=== PATIENT | male | born 1960 | race Caucasian/White ===

== ENCOUNTER → 2021-11-28 10:33 | Outpatient (BNVA) | payer OTHER, SELFPAY | PROVIDERS: PCP Nurse Practitioner Family; Visit Provider Nurse Practitioner Family | DX: E11.9 Type 2 diabetes mellitus without complications (principal) | CPT/HCPCS: 83036 ==

== ENCOUNTER 2023-05-29 14:46 | Emergency (ER) | payer OTHER, SELFPAY ==
[2023-05-29 15:23] VITALS: BP 143/61; PULSE 74; RESP 18; O2SAT 98
--- NOTE | 2023-05-29 15:38 | W.ED.WEAKNES ---
HPI - Weakness General: Chief complaint: Weakness Stated complaint: weakness Time Seen by Provider: 05/29/23 14:51 Source: patient Mode of arrival: EMS History of Present Illness: 62-year-old male presents to the emergency room complaining of chronic weakness lower extremity edema and dizziness. He was recently hospitalized twice in [place] for the same he states they did a monitor on him he had 60 seconds of some kind of issue but he cannot tell me exactly what was he thinks it was his heart had stopped he just found this out today he states. He seen his primary care doctor today they had referred him to get plain film x-rays of his right foot because of discomfort you have been having for some time while he was in route to get his x-rays he stopped tell where got very lightheaded and dizzy felt like he could not stand up and called the ambulance. No chest pain. Swelling in his legs is at baseline chronically has not prickly gotten worse recently. MD Complaint: generalized weakness Onset (ago): week(s) Duration: intermittent Location: generalized Severity: mild Relieving factors: none Exacerbating factors: none Associated symptoms: Denies chest pain, chills, confusion, melena, decreased appetite, diaphoresis, dysuria, easy bruising, fever(s), headache(s), myalgias, nausea, rash, short of breath, syncope, vomiting or other Review of Systems Const: Denies: fever(s), chills or diaphoresis Card: Denies: chest pain or syncope Resp: Denies: dyspnea GI: Denies: abdominal pain, nausea, vomiting or melena : Denies: dysuria, urinary frequency or urinary urgency Musc: Denies: neck pain or back pain Skin/Breast: Denies: rash Neuro: Denies: headache(s) or confusion Terrance/Lymph: Denies: easy bruising PFSH ED PFSH: Medical History Type 2 diabetes mellitus without complication Social History Smoking and tobacco/nicotine status: never used tobacco/nicotine Physical Exam Const: COMMON NORMALS: no acute distress GENERAL APPEARANCE: cooperative and comfortable ORIENTATION/CONSCIOUSNESS: Yes awake, Yes oriented to person, Yes oriented to place and Yes oriented to time HENMT: COMMON NORMALS: normocephalic, atraumatic and hearing grossly normal bilaterally HEAD & SCALP: normocephalic and atraumatic Resp: COMMON NORMALS: normal respiratory effort, No retractions, No use of accessory muscles and clear to auscultation bilaterally AUSCULTATION: clear to auscultation bilaterally Cardio: COMMON NORMALS: regular rate, regular rhythm and No murmurs present (Cardio) RATE: regular rate RHYTHM: regular rhythm GI: COMMON NORMALS: Soft to palpation and No hepatosplenomegaly present AUSCULTATION: Yes normoactive bowel sounds PALPATION: Yes Soft to palpation, No Tenderness to palpation present (GI), No Guarding due to palpation present (GI) and Yes No hepatosplenomegaly present Extremity: COMMON NORMALS: normal to inspection, capillary refill normal, no clubbing, cyanosis or edema, no calf tenderness and no pedal edema Neuro: SENSORIUM/ORIENTATION: Yes oriented to person, Yes oriented to place and Yes oriented to time Skin: COMMON NORMALS: no rashes or lesions noted GENERAL SKIN EXAM: no rashes or lesions noted Course Vital Signs: Vital signs: Vital Signs Pulse Rate 71 05/29/23 17:18 Respiratory Rate 18 05/29/23 17:18 Blood Pressure 120/64 05/29/23 17:18 Pulse Oximetry 97 05/29/23 17:18 Oxygen Delivery Me thod Room Air 05/29/23 17:18 MDM - Weakness Medical Decision Making Labs and imaging reviewed. No acute fractures in the foot. We tried to get copies of records to see what had been done in [place] or unable to get in because at the time of day. Patient mention they told him there was something on his monitoring he did not have any arrhythmias while he was here. We will discharge him home have him follow-up with his primary care doctor for results of the monitoring. Return if he has further problems. Medical Records I reviewed the patient's medical records. Lab Data I reviewed the patient's lab results. 05/29/23 15:36 05/29/23 15:36 Radiology Impressions Foot X-Ray 05/29/23 16:07 IMPRESSION: Nonacute findings. Chest X-Ray 05/29/23 16:08 IMPRESSION: No acute findings. Laboratory Results WBC 3.22 10^3/uL (3.29-11.43) L 05/29/23 15:36 RBC 4.15 10^6/uL (3.85-5.65) 05/29/23 15:36 Hgb 11.90 g/dL (11.27-16.99) 05/29/23 15:36 Hct 36.7 % (37-53) L 05/29/23 15:36 MCV 88.4 fl (82-101) 05/29/23 15:36 MCH 28.7 pg (27-33) 05/29/23 15:36 MCHC 32.4 g/dL (30-55) 05/29/23 15:36 RDW 14.5 % (12.1-15.1) 05/29/23 15:36 Plt Count 50 10^3/cmm (157-399) L 05/29/23 15:36 MPV 12.5 fL (7.4-10.4) H 05/29/23 15:36 Neut % (Auto) 69.9 % 05/29/23 15:36 Lymph % (Auto) 18.6 % 05/29/23 15:36 [place] % (Auto) 9.0 % 05/29/23 15:36 Eos % (Auto) 1.6 % 05/29/23 15:36 Baso % (Auto) 0.6 % 05/29/23 15:36 Neut # (Auto) 2.25 10^3/uL (1.8-7.7) 05/29/23 15:36 Lymph # (Auto) 0.6 10^3/uL (0.8-4.8) L 05/29/23 15:36 [place] # (Auto) 0.3 10^3/uL (0.2-0.9) 05/29/23 15:36 Eos # (Auto) 0.1 10^3/uL (0.0-0.8) 05/29/23 15:36 Baso # (Auto) 0.0 10^3/uL (0.0-0.1) 05/29/23 15:36 Nucleated RBC % (auto) 0 % 05/29/23 15:36 Nucleated RBCs # 0.0 /100WBC 05/29/23 15:36 Sodium 138 mmol/L (136-145) 05/29/23 15:36 Potassium 4.3 mmol/L (3.5-5.1) 05/29/23 15:36 Chloride 103 mmol/L (98-107) 05/29/23 15:36 Carbon Dioxide 23 mmol/L (22-29) 05/29/23 15:36 Anion Gap 16.3 (5-19) 05/29/23 15:36 BUN 18 mg/dL (8-23) 05/29/23 15:36 Creatinine 0.9 mg/dL (0.7-1.2) 05/29/23 15:36 GFR Calculation 85.0 mL/min (90-130) L 05/29/23 15:36 Glucose 262 mg/dL (65-115) H 05/29/23 15:36 Calculated Osmolality 297 mOsm/kg (285-295) H 05/29/23 15:36 Calcium 9.2 mg/dL (8.5-10.5) 05/29/23 15:36 Total Bilirubin 0.7 mg/dL (0.15-1.2) 05/29/23 15:36 AST 28 U/L (0-40) 05/29/23 15:36 ALT 27 U/L (0-41) 05/29/23 15:36 Alkaline Phosphatase 66 U/L (40-130) 05/29/23 15:36 Total Protein 6.6 g/dL (6.6-8.7) 05/29/23 15:36 Albumin 3.6 g/dL (3.5-5.2) 05/29/23 15:36 Globulin 3.0 g/dL (1.3-4.6) 05/29/23 15:36 Urine Color Yellow (Yellow) 05/29/23 17:28 Urine Appearance Clear (CLEAR) 05/29/23 17:28 Urine pH 5 (5-7) 05/29/23 17:28 Ur Specific [place] 1.020 (1.005-1.030) 05/29/23 17:28 Urine Protein Neg (Negative) 05/29/23 17:28 Urine Glucose (UA) 4+ (Normal) H 05/29/23 17:28 Urine Ketones Negative (Negative) 05/29/23 17:28 Urine Blood Neg (Negative) 05/29/23 17:28 Urine Nitrate Negative (Negative) 05/29/23 17:28 Urine Bilirubin Neg (Negative) 05/29/23 17:28 Urine Urobilinogen Norm mg/dL (Negative) 05/29/23 17:28 Ur Leukocyte Esterase Negative (Negative) 05/29/23 17:28 All radiology interpretation(s) finalized by discharge Discharge Plan Discharge Patient Disposition: Home Clinical Impression: Acute pain of left foot Condition: Stable Prescriptions: No Action (DME) Blood Glucose Test Strip See Rx Instructions .Route Qty: 50 2RF Rx Instructions: As directed potassium chloride 10 mEq tablet extended release 10 meq PO QAM furosemide 20 mg tablet 20 mg PO QAM glipizide 5 mg tablet 5 mg PO BID ropinirole 4 mg tablet 4 mg PO TID metformin 1,000 mg tablet 1,000 mg PO BID Discharge Orders: Discharge ED (Routine); Ordered 05/29/23 Ordered By: Trip Abrams Referrals: Dolores Fabian FNP [Primary Care Provider] - Discharge Diet: Usual diet Discharge Activity: Increase activity as tolerated Patient Instructions: Opioid Safety, Pain Management Activity Restrictions/Additional Instructions: Follow-up with your doctor regarding the testing previously done in [place]. No significant abnormalities or acute findings were noted today in the emergency room. Coding Level of Care Code ED [employer] Maintenance Manager for Maureen Epstein
[2023-05-29 15:50] LABS: Basophils % 0.6 %; Eosinophils # 0.1 10^3/uL (0.0-0.8); Eosinophils % 1.6 %; Hematocrit 36.7 % (37-53); Lymphocytes # 0.6 10^3/uL (0.8-4.8); Lymphocytes % 18.6 %; Mean Corpuscular HGB Conc 32.4 g/dL (30-55); Mean Corpuscular Hemoglobin 28.7 pg (27-33); Mean Corpuscular Volume 88.4 fl (82-101); Mean Platelet Volume 12.5 fL (7.4-10.4); Monocytes # 0.3 10^3/uL (0.2-0.9); Neutrophils # 2.25 10^3/uL (1.8-7.7); Neutrophils % 69.9 %; Nucleated Red Blood Cells % 0 %; Platelet Count 50 10^3/cmm (157-399); Red Blood Count 4.15 10^6/uL (3.85-5.65); Red Cell Distribution Width 14.5 % (12.1-15.1); White Blood Count 3.22 10^3/uL (3.29-11.43)
[2023-05-29 16:01] LABS: Alanine Aminotransferase 27 U/L (0-41); Albumin Level 3.6 g/dL (3.5-5.2); Alkaline Phosphatase 66 U/L (40-130); Anion Gap 16.3 (5-19); Aspartate Amino Transferase 28 U/L (0-40); Blood Urea Nitrogen 18 mg/dL (8-23); Calcium 9.2 mg/dL (8.5-10.5); Carbon Dioxide 23 mmol/L (22-29); Chloride 103 mmol/L (98-107); Glucose 262 mg/dL (65-115); Osmolality Calculated 297 mOsm/kg (285-295); Potassium 4.3 mmol/L (3.5-5.1); Sodium 138 mmol/L (136-145); Total Bilirubin 0.7 mg/dL (0.15-1.2); Total Protein 6.6 g/dL (6.6-8.7)
--- NOTE | 2023-05-29 16:07 | XRR_ITS ---
PROCEDURE INFORMATION: Exam: XR Left Foot Exam date and time: 05/29/2023 4:18 PM Age: 62 years old Clinical indication: Pain; Foot; Left; Additional info: Trauma TECHNIQUE: Imaging protocol: Radiologic exam of the left foot. Views: 3 or more views. COMPARISON: No relevant prior studies available. FINDINGS: Bones/joints: No fracture or other acute abnormality. No significant arthritic findings. There are calcaneal enthesophytes. Soft tissues: There is probable nondescript soft tissue swelling. XR/XR foot LT min 3V* [id number] IMPRESSION: Nonacute findings.
--- NOTE | 2023-05-29 16:08 | XRR_ITS ---
PROCEDURE INFORMATION: Exam: XR Chest Exam date and time: 05/29/2023 4:16 PM Age: 62 years old Clinical indication: Cough; Additional info: Dyspnea/cough TECHNIQUE: Imaging protocol: Radiologic exam of the chest. Views: 1 view. COMPARISON: No relevant prior studies available. FINDINGS: Lungs: Unremarkable. No consolidation. Pleural spaces: Unremarkable. No pleural effusion. No pneumothorax. Heart/Mediastinum: Unremarkable. No cardiomegaly. Bones/joints: Unremarkable. XR/XR chest 1V portable [id number] IMPRESSION: No acute findings.
--- NOTE | 2023-05-29 16:25 | ECG_ITS ---
[facility] Test Date: 2023-05-29 Pat Name: Iván Barreto Department: Room: Gender: Male Assorter Laundry: : 1960 Requested By: Trip Chou Order Number: [id number] Karen MD: Nidia Love M.D. Measurements Intervals [place] Rate: 71 P: 41 AK: 213 QRS: -40 QRSD: 82 T: 14 QT: 390 QTc: 426 Interpretive Statements SINUS RHYTHM WITH FIRST DEGREE AV BLOCK LEFT AXIS DEVIATION [QRS AXIS < -30] LOW QRS VOLTAGE IN PRECORDIAL LEADS [QRS DEFLECTION < 1.0 mV IN CHEST LEADS] ANTEROSEPTAL MYOCARDIAL INFARCTION , PROBABLY OLD [40+ ms Q WAVE IN V1-V4] No previous ECG available for comparison Electronically Signed On 05-29-2023 20:27:43 CDT by Nidia Love M.D. [email or web address]
[2023-05-29 17:18] VITALS: BP 120/64; BP 124/63; BP 138/69; BP 147/77; PULSE 69; PULSE 71; PULSE 76; PULSE 80; RESP 18; O2SAT 97
[2023-05-29] MEDS: FUROsemide 10 mg/mL SDV 10mL 60 MG IVP (17:25)
[2023-05-29 17:36] LABS: Add Urine Microscopic? NO; Charge for UA Resulting for Rev
[2023-05-29 17:44] LABS: Bilirubin Urine Neg (Negative); Blood Urine Neg (Negative); Glucose Urine UA 4+ (Normal); Ketones Urine Negative (Negative); Leukocyte Esterase Urine Negative (Negative); Nitrate Urine Negative (Negative); Protein Urine Neg (Negative); Urine Appearance Clear (CLEAR); Urine Color Yellow (Yellow); Urobilinogen Urine Norm (Negative); pH Urine 5 (5-7)
== END 2023-05-29 18:20 | disposition home or self-care (01) ==
PROVIDERS: Emergency Provider Family Medicine; PCP Nurse Practitioner Family
DX: M79.672 Pain in left foot (principal); Z79.84 Long term (current) use of oral hypoglycemic drugs; E11.9 Type 2 diabetes mellitus without complications
CPT/HCPCS: 36415; 71045; 73630; 80053; 81003; 85025; 93005; 96374; 99285; J1940

== ENCOUNTER → 2024-03-18 09:06 | Day surgery (SDC) | payer MEDICARE, MEDICAID, SELFPAY ==
--- OUTSIDE RECORDS SUMMARY | 2024-03-11 06:10 | XMS_ITS | Continuity of Care Document ---
Author Name Unknown Organization [facility] Address [address] [place] [address]- Encounter [employer] Number [id number] Date(s): 09/19/23 - 09/20/23 [facility] [address] [place] [address]- [phone] Encounter Diagnosis Other diseases of stomach and duodenum(Discharge Diagnosis) - 09/19/23 Pancytopenia(Discharge Diagnosis) - 09/19/23 Esophageal varices(Discharge Diagnosis) - 09/19/23 Portal hypertensive gastropathy(Discharge Diagnosis) - 09/19/23 Upper GI bleed(Discharge Diagnosis) - 09/19/23 Bilateral lower extremity edema(Discharge Diagnosis) - 09/19/23 NPH (normal pressure hydrocephalus)(Discharge Diagnosis) - 09/19/23 Parkinson disease(Discharge Diagnosis) - 09/19/23 Diabetes mellitus, type 2(Discharge Diagnosis) - 09/19/23 COPD mixed type(Discharge Diagnosis) - 09/19/23 Allergy to alpha-gal(Discharge Diagnosis) - 09/19/23 Esophageal varices(Discharge Diagnosis) - 09/19/23 Portal hypertensive gastropathy(Discharge Diagnosis) - 09/19/23 Discharge Disposition: .Discharge to Home (Routine) Attending Physician: Miguelito Álvarez MD Admitting Physician: Brain Malcolm MD Allergies, Adverse Reactions, Alerts Substance Reaction Severity Status Bee Sting Hives Severe Active Alpha-Gal hives Severe Active Assessment and Plan Extracted from: Title:Discharge Note Author:Miguelito Álvarez MD Date: Discharge 09/20/23 12:50:00 [employer], Home/Self Care Discharge Follow Up 09/20/23 12:50:00 [employer], Provider/Time: PCP in 5-7 days; f/u with GI as instructed. Discharge Diet 09/20/23 12:50:00 [employer], Discharge Diet: Regular Discharge Activity 09/20/23 12:50:00 [employer], As tolerated ? Extracted from: Title:Instructions to Patients Author:Destiney Simmons RN Date:09/20/23 [facility] Gastrointestinal Bleeding Gastrointestinal (GI) bleeding is bleeding anywhere along the digestive tract. The digestive tract carries food from your mouth until it leaves your body as waste, or poop. You may have blood in your poop or have black poop. If you vomit, there may be blood in it too. This condition can be mild, serious, or even life-threatening. If you have a lot of bleeding, you may need to stay in the hospital. What are the causes? This condition may be caused by: ? ? Irritation and swelling of the esophagus (esophagitis). The esophagus is part of the body that moves food from your mouth to your stomach. ? ? Swollen veins in the butt (hemorrhoids). ? ? Tears in the opening of the butt. These are often caused by passing hard poop. ? ? Pouches that form on the colon (diverticulosis). ? ? Irritation and swelling of pouches that have formed in your colon (diverticulitis). ? ? Growths (polyps) or cancer. ? ? Irritation of the stomach lining (gastritis). ? ? Sores (ulcers) in the stomach. What increases the risk? You are more likely to develop this condition if: ? ? You have a certain type of infection in your stomach called Helicobacter pylori infection. ? ? You take certain medicines. ? ? You smoke. ? ? You drink alcohol. What are the signs or symptoms? Common symptoms of this condition include: ? ? Vomiting material that has bright red blood in it. It may look like coffee grounds. ? ? Changes in your poop. The poop: ? ? May have red blood in it. ? ? May be black, look like tar, and smell stronger than normal. ? ? May be red. ? ? Pain or cramping in the belly (abdomen). How is this treated? Treatment for this condition depends on the cause of the bleeding. For example: ? ? Your doctor may treat the bleeding during diagnosis. Common ways of diagnosing this condition is endoscopy or colonoscopy. ? ? Medicines can be used to: ? ? Help control irritation, swelling, or infection. ? ? Reduce acid in your stomach. ? ? Certain problems can be treated with: ? ? Creams. ? ? Medicines that are put in the butt (suppositories). ? ? Warm baths. ? ? Surgery is sometimes needed. ? ? If you lose a lot of blood, you may need a blood transfusion. If there is a lot of bleeding, you will need to stay in the hospital. If bleeding is mild, you may be allowed to go home. Follow these instructions at home: ? ? Take siut-tel-pwancfy and prescription medicines only as told by your doctor. ? ? Eat foods that have a lot of fiber in them. These foods include beans, whole grains, and fresh fruits and vegetables. You can also try eating 1? 3 prunes each day. ? ? Drink enough fluid to keep your pee (urine) pale yellow. ? ? Keep all follow-up visits. Contact a doctor if: ? ? Your symptoms do not get better with treatment. Get help right away if: ? ? Your bleeding does not stop. ? ? You feel dizzy or you pass out (faint). ? ? You feel weak. ? ? You have very bad cramps in your back or belly. ? ? You pass large clumps of blood (clots) in your poop. ? ? Your symptoms are getting worse. ? ? You have chest pain or fast heartbeats. These symptoms may be an emergency. Get help right away. Call 911. ? ? Do not wait to see if the symptoms will go away. ? ? Do not drive yourself to the hospital. Summary ? ? Gastrointestinal (GI) bleeding is bleeding anywhere along the digestive tract. The digestive tract carries food from your mouth until it leaves your body as waste, or poop. ? ? This bleeding can be caused by many things. Treatment depends on the cause of the bleeding. ? ? Take medicines only as told by your doctor. ? ? Keep all follow-up visits. This information is not intended to replace advice given to you by your health care provider. Make sure you discuss any questions you have with your health care provider. Document Revised: 03/07/2022 Document Reviewed: 03/07/2022 [employer] Patient Education ?? 2021 [employer] Medication Leaflets: propranolol (pro PRAN oh lol) Hemangeol, Inderal LA, Inderal XL, InnoPran XL What is the most important information I should know about propranolol? Use only as directed. Tell your doctor if you use other medicines or have other medical conditions or allergies. What is propranolol? Propranolol is a beta-yocasta that is used to treat angina (chest pain), hypertension (high blood pressure), heart rhythm disorders, and other heart or circulatory conditions. It is also used to reduce the risk of after a heart attack. Propranolol is also used to treat tremors of certain causes, and to prevent migraine headaches. Hemangeol is used to treat a genetic condition called infantile hemangiomas in infants 5 weeks to 1 year old. Propranolol may also be used for purposes not listed in this medication guide. What should I discuss with my healthcare provider before taking propranolol? You should not use propranolol if you are allergic to it, or if you have: ? asthma; ? ? history of slow heart beats that have caused you to faint; ? ? severe heart failure (that required you to be in the hospital); or ? ? a serious heart condition such as 'sick sinus syndrome' or heart block (2nd or 3rd degree, unless you have a pacemaker). You should not use Hemangeol if you have pheochromocytoma (tumor of the adrenal gland). This medicine also should not be used in babies who weigh less than 4.4 pounds. Tell your doctor if you have ever had: ? slow heartbeats, congestive heart failure; ? ? bronchitis, emphysema, or other breathing disorders; ? ? diabetes (propranolol can make it harder for you to tell when you have low blood sugar); ? ? liver or kidney disease; ? ? a thyroid disorder; ? ? pheochromocytoma (tumor of the adrenal gland); ? ? problems with circulation (such as Raynaud's syndrome); or ? ? if you smoke. Tell your doctor if you are or . How should I take propranolol? Follow all directions on your prescription label and read all medication guides or instruction sheets. Your doctor may occasionally change your dose. Use the medicine exactly as directed. Adults may take propranolol with or without food, but take it the same way each time. Hemangeol must be given to an infant during or just after a feeding. Doses should be spaced at least 9 hours apart. Measure Hemangeol with the supplied measuring device (not a kitchen spoon). Do not shake. Hemangeol can cause low blood sugar (hypoglycemia), especially during times of stress, illness, infections, or skipped meals. Make sure your child eats regularly while taking this medicine. Call your doctor if a child taking Hemangeol is sick with vomiting, has missed a meal, or has signs of hypoglycemia such as severe weakness or seizure. Doses are based on weight in children. Your child's dose may change if the child gains or loses weight. Your heart function and blood pressure will need to be checked often. Tell your doctor if you have a planned surgery. Your condition may get worse if you stop using propranolol suddenly. Ask your doctor before stopping the medicine. This medicine can affect the results of certain medical tests. Tell any doctor who treats you that you are using propranolol. If you have high blood pressure, keep using this medicine even if you feel well. High blood pressure often has no symptoms. Store at room temperature away from moisture and heat. Do not freeze Hemangeol. Throw away any unused Hemangeol 2 months after you first opened the bottle. What happens if I miss a dose? Take the medicine as soon as you can, but skip the missed dose if it is almost time for your next dose. Do not take two doses at one time. What happens if I overdose? Seek emergency medical attention or call the Poison Help line at . Overdose symptoms may include feeling light-headed or restless, tremors, fast or slow heartbeats, and trouble breathing. What should I avoid while taking propranolol? Avoid drinking alcohol. It may increase your blood levels of propranolol. What are the possible side effects of propranolol? Get emergency medical help if you have signs of an allergic reaction (hives, difficult breathing, swelling in your face or throat) or a severe skin reaction (fever, sore throat, burning eyes, skin pain, red or purple skin rash with blistering and peeling). Call your doctor at once if you have: ? slow or uneven heartbeats; ? ? a light-headed feeling, like you might pass out; ? ? wheezing or trouble breathing; ? ? sudden weakness, vision problems, or loss of coordination (especially in a child with hemangioma that affects the face or head); ? ? cold feeling in your hands and feet; ? ? depression, confusion, hallucinations; ? ? heart problems--swelling, rapid weight gain, feeling short of breath; ? ? low blood sugar--headache, hunger, sweating, irritability, dizziness, fast heart rate, and feeling anxious or shaky; or ? ? low blood sugar in a baby--pale skin, blue or purple skin, sweating, fussiness, crying, not wanting to eat, feeling cold, drowsiness, weak or shallow breathing (breathing may stop for short periods), seizure (convulsions), or loss of consciousness. Common side effects may include: ? dizziness, tiredness; ? ? nausea, vomiting, diarrhea, constipation, stomach cramps; ? ? sleep problems (insomnia); or ? ? runny or stuffy nose, cough, sore throat, hoarse voice. This is not a complete list of side effects and others may occur. Call your doctor for medical advice about side effects. You may report side effects to FDA at 4-991-KTK-4687. What other drugs will affect propranolol? Sometimes it is not safe to use certain medicines at the same time. Some drugs can affect your blood levels of other drugs you use, which may increase side effects or make the medicines less effective. Tell your doctor about all your current medicines. Many drugs can affect propranolol, especially: ? cholestyramine or colestipol; ? ? warfarin (Coumadin, Jantoven); ? ? an antidepressant; ? ? heart or blood pressure medicine; ? ? medicine to treat an infection; ? ? medicine to treat a prostate disorder; ? ? steroid medicine; or ? ? NSAIDs (nonsteroidal anti-inflammatory drugs)--aspirin, ibuprofen (Advil, Motrin), naproxen (Aleve), celecoxib, diclofenac, indomethacin, meloxicam, and others. This list is not complete and many other drugs may affect propranolol. This includes prescription and irth-ziu-tbkmgrj medicines, vitamins, and herbal products. Not all possible drug interactions are listed here. Where can I get more information? Your pharmacist can provide more information about propranolol. Remember, keep this and all other medicines out of the reach of children, never share your medicines with others, and use this medication only for the indication prescribed. Every effort has been made to ensure that the information provided by [employer] is accurate, up-to-date, and complete, but no guarantee is made to that effect. Drug information contained herein may be time sensitive. [employer] information has been compiled for use by healthcare practitioners and consumers in the [place] and therefore [employer] does not warrant that uses outside of the [place] are appropriate, unless specifically indicated otherwise. [employer] drug information does not endorse drugs, diagnose patients or recommend therapy. [employer] drug information is an informational resource designed to assist licensed healthcare practitioners in caring for their patients and/or to serve consumers viewing this service as a supplement to, and not a substitute for, the expertise, skill, knowledge and judgment of healthcare practitioners. The absence of a warning for a given drug or drug combination in no way should be construed to indicate that the drug or drug combination is safe, effective or appropriate for any given patient. [employer] does not assume any responsibility for any aspect of healthcare administered with the aid of information [employer] provides. The information contained herein is not intended to cover all possible uses, directions, precautions, warnings, drug interactions, allergic reactions, or adverse effects. If you have questions about the drugs you are taking, check with your doctor, nurse or pharmacist. Copyright 3457-0120 [facility] [employer]. Version: 13.. Revision Date: 04/26/2021. pantoprazole (oral/injection) (fitzpatrick TOE pra zole) First-Pantoprazole, Protonix, Protonix IV What is the most important information I should know about pantoprazole? Pantoprazole can cause kidney problems or new or worsening symptoms of lupus. Tell your doctor if you have: pain in your side or lower back, painful urination, blood or pus in your urine, joint pain or a skin rash on your cheeks or arms that worsens in sunlight. This medicines can cause diarrhea. Tell your doctor if you have diarrhea that is watery or bloody. You may be more likely to have a broken bone while using pantoprazole. Talk with your doctor about ways to keep your bones healthy. What is pantoprazole? Pantoprazole is used to promote healing of erosive esophagitis (damage to your esophagus caused by stomach acid) in adults and children who are at least 5 years old. Pantoprazole is also used in adults to treat the symptoms of gastroesophageal reflux disease (GERD) and other conditions involving excessive stomach acid such as Ramón-Christensen syndrome. Pantoprazole may also be used for purposes not listed in this medication guide. What should I discuss with my healthcare provider before using pantoprazole? You should not use pantoprazole if you are allergic to it, or if you have: ? breathing problems; or ? ? you are allergic to any other stomach acid medicine such as lansoprazole, rabeprazole, esomeprazole, omeprazole, and others. Some drugs should not be used with pantoprazole. Your treatment plan may change if you also use any medication that contains rilpivirine. Tell your doctor if you have or have ever had: ? a zinc deficiency; ? ? an electrolyte imbalance (such as low blood levels of potassium, calcium or magnesium); ? ? lupus; or ? ? liver or kidney disease. You may be more likely to have a broken bone while using pantoprazole. Talk with your doctor about ways to keep your bones healthy. Pantoprazole may harm an unborn baby. Tell your doctor if you are or plan to become . Ask a doctor if it is safe to breastfeed while using this medicine. How should I use pantoprazole? Follow all directions on your prescription label and read all medication guides or instruction sheets. Never use pantoprazole in larger amounts, or for longer than prescribed. Do not change your dose or stop using this medication without your doctor's advice. Avoid medication errors by using exactly as directed on the label, or as prescribed by your doctor. Pantoprazole is taken by mouth or given as an infusion into a vein. Pantoprazole tablets are taken by mouth, with or without food. Pantoprazole oral granules should be taken 30 minutes before a meal. Swallow the tablet whole and do not crush, chew, or break it. Read and carefully follow instructions for mixing and taking the oral granules. The oral granules can also be given through a nasogastric tube. Ask your doctor or pharmacist if you do not understand these instructions. Shake the oral suspension (liquid). Measure a dose with the supplied measuring device (not a kitchen spoon). Use this medicine for the full prescribed length of time, even if your symptoms quickly improve. You may use antacids if needed while you are taking pantoprazole tablets. Call your doctor if your symptoms do not improve, or if they get worse after using the medicine for the number of days prescribed. You may need medical tests. This medicine can affect the results of certain medical tests. Tell any doctor or laboratory staff that you are using pantoprazole. This medicine can cause diarrhea. Tell your doctor if you have diarrhea that is watery or bloody. Store pantoprazole tablet and oral granules at room temperature away from moisture and heat. Store the oral suspension tightly closed in a refrigerator. Do not freeze and protect from light. Throw the medicine away after 30 days, even if there is still medicine left inside. What happens if I miss a dose? Use the medicine as soon as you can, but skip the missed dose if it is almost time for your next dose. Do not use two doses at one time. What happens if I overdose? Seek emergency medical attention or call the Poison Help line at . What should I avoid while using pantoprazole? Follow your doctor's instructions about any restrictions on food, beverages, or activity. Avoid getting pantoprazole oral suspension in your eyes. If contact does occur, rinse with water. What are the possible side effects of pantoprazole? Get emergency medical help if you have signs of an allergic reaction (hives, difficult breathing, swelling in your face or throat) or a severe skin reaction (fever, sore throat, burning eyes, skin pain, red or purple skin rash with blistering and peeling). Seek medical treatment if you have a serious drug reaction that can affect many parts of your body. Symptoms may include skin rash, fever, swollen glands, muscle aches, severe weakness, unusual bruising, or yellowing of your skin or eyes. Call your doctor at once if you have: ? severe stomach pain, diarrhea that is watery or bloody; ? ? nausea, vomiting, weight loss; ? ? sudden pain or trouble moving your hip, wrist, or back; ? ? pain, swelling, burning, or irritation around the IV needle; ? ? pain in your side or lower back, painful urination, blood or pus in your urine; ? ? signs of an electrolyte imbalance--increased thirst or urination, constipation, muscle weakness, leg cramps, numbness or tingling, feeling jittery, fluttering in your chest; ? ? new or worsening symptoms of lupus--joint pain, and a skin rash on your cheeks or arms that worsens in sunlight; or ? ? vitamin B12 deficiency--shortness of breath, feeling lightheaded, irregular heartbeats, muscle weakness, pale skin, tiredness, mood changes, numbness or tingling in your legs or arms. Long-term use of pantoprazole may increase your risk of serious side effects including stomach polyps. Talk with your doctor about these risks. Common side effects may include: ? headache, dizziness; ? ? stomach pain, gas, nausea, vomiting, diarrhea; ? ? joint pain; or ? ? fever, rash, or cold symptoms such as stuffy nose, sneezing, sore throat. This is not a complete list of side effects and others may occur. Call your doctor for medical advice about side effects. You may report side effects to FDA at 7-145-VFW-6231. What other drugs will affect pantoprazole? Tell your doctor about all your other medicines, especially: ? digoxin; ? ? methotrexate; or ? ? a diuretic or 'water pill'. This list is not complete. Other drugs may affect pantoprazole, including prescription and luro-qsq-yvskgyb medicines, vitamins, and herbal products. Not all possible drug interactions are listed here. Where can I get more information? Your doctor or pharmacist can provide more information about pantoprazole. Remember, keep this and all other medicines out of the reach of children, never share your medicines with others, and use this medication only for the indication prescribed. Every effort has been made to ensure that the information provided by [employer] is accurate, up-to-date, and complete, but no guarantee is made to that effect. Drug information contained herein may be time sensitive. [employer] information has been compiled for use by healthcare practitioners and consumers in the [place] and therefore [employer] does not warrant that uses outside of the [place] are appropriate, unless specifically indicated otherwise. [employer] drug information does not endorse drugs, diagnose patients or recommend therapy. [employer] drug information is an informational resource designed to assist licensed healthcare practitioners in caring for their patients and/or to serve consumers viewing this service as a supplement to, and not a substitute for, the expertise, skill, knowledge and judgment of healthcare practitioners. The absence of a warning for a given drug or drug combination in no way should be construed to indicate that the drug or drug combination is safe, effective or appropriate for any given patient. [employer] does not assume any responsibility for any aspect of healthcare administered with the aid of information [employer] provides. The information contained herein is not intended to cover all possible uses, directions, precautions, warnings, drug interactions, allergic reactions, or adverse effects. If you have questions about the drugs you are taking, check with your doctor, nurse or pharmacist. Copyright 2217-6164 [employer]. Version: 22.. Revision Date: 07/29/2023. spironolactone (spir ON oh LAK tone) Aldactone, CaroSpir What is the most important information I should know about spironolactone? You should not use spironolactone if you Ripley's disease, high levels of potassium in your blood, if you are unable to urinate, or if you are also taking eplerenone. What is spironolactone? Spironolactone is a potassium-sparing diuretic (water pill) that prevents your body from absorbing too much salt and keeps your potassium levels from getting too low. Spironolactone is used to treat heart failure, high blood pressure (hypertension), or hypokalemia (low potassium levels in the blood). Spironolactone also treats fluid retention (edema) in people with congestive heart failure, cirrhosis of the liver, or a kidney disorder called nephrotic syndrome. Spironolactone is also used to diagnose or treat a condition in which you have too much aldosterone in your body. Aldosterone is a hormone produced by your adrenal glands to help regulate the salt and water balance in your body. Spironolactone may also be used for purposes not listed in this medication guide. What should I discuss with my healthcare provider before taking spironolactone? You should not use spironolactone if you are allergic to it, or if you have: ? Ripley's disease (an adrenal gland disorder); ? ? high levels of potassium in your blood (hyperkalemia); ? ? if you are unable to urinate; or ? ? if you are also taking eplerenone. Tell your doctor if you have ever had: ? an electrolyte imbalance (such as low levels of calcium, magnesium, or sodium in your blood); ? ? kidney disease; ? ? liver disease; or ? ? heart disease. Tell your doctor if you are or plan to become . Having congestive heart failure, cirrhosis, or uncontrolled high blood pressure during may lead to medical problems in the mother or the baby. Your doctor should decide whether you take spironolactone if you are . It may not be safe to breastfeed while using this medicine. Ask your doctor about any risk. How should I take spironolactone? Follow all directions on your prescription label and read all medication guides or instruction sheets. Your doctor may occasionally change your dose. Use the medicine exactly as directed. Do not share this medicine with another person, even if they have the same symptoms you have. You may take spironolactone with or without food, but take it the same way each time. You will need frequent medical tests. This medicine can affect the results of certain medical tests. Tell any doctor who treats you that you are using spironolactone. If you need surgery, tell your surgeon you currently use this medicine. You may need to stop for a short time. If you are being treated for high blood pressure, keep using this medication even if you feel well. High blood pressure often has no symptoms. You may need to use blood pressure medication for the rest of your life. Store at room temperature away from heat, light, and moisture. What happens if I miss a dose? Take the medicine as soon as you can, but skip the missed dose if it is almost time for your next dose. Do not take two doses at one time. What happens if I overdose? Seek emergency medical attention or call the Poison Help line at . What should I avoid while taking spironolactone? Drinking alcohol can increase certain side effects. Do not use potassium supplements or salt substitutes, unless your doctor has told you to. Avoid a diet high in salt. Too much salt will cause your body to retain water and can make this medication less effective. Avoid driving or hazardous activity until you know how this medicine will affect you. Your reactions could be impaired. Avoid getting up too fast from a sitting or lying position, or you may feel dizzy. What are the possible side effects of spironolactone? Get emergency medical help if you have signs of an allergic reaction: hives; difficulty breathing; swelling of your face, lips, tongue, or throat. Call your doctor at once if you have: ? a light-headed feeling, like you might pass out; ? ? little or no urination; ? ? high potassium level--nausea, weakness, tingly feeling, chest pain, irregular heartbeats, loss of movement; o ? ? signs of other electrolyte imbalances--increased thirst or urination, confusion, vomiting, muscle pain, slurred speech, severe weakness, numbness, loss of coordination, feeling unsteady. Common side effects may include: ? breast swelling or tenderness. This is not a complete list of side effects and others may occur. Call your doctor for medical advice about side effects. You may report side effects to FDA at 4-643-NBS-4358. What other drugs will affect spironolactone? Using spironolactone with other drugs that make you dizzy can worsen this effect. Ask your doctor before using opioid medication, a sleeping pill, a muscle relaxer, or medicine for anxiety, depression, or seizures. Tell your doctor about all your other medicines, especially: ? colchicine; ? ? digoxin; ? ? lithium; ? ? loperamide; ? ? trimethoprim; ? ? heart or blood pressure medicine (especially another diuretic); ? ? medicine to prevent a blood clot; or ? ? NSAIDs (nonsteroidal anti-inflammatory drugs)--aspirin, ibuprofen (Advil, Motrin), naproxen (Aleve), celecoxib, diclofenac, indomethacin, meloxicam, and others. This list is not complete. Other drugs may affect spironolactone, including prescription and hytl-kvx-jdggwzm medicines, vitamins, and herbal products. Not all possible drug interactions are listed here. Where can I get more information? Your pharmacist can provide more information about spironolactone. Remember, keep this and all other medicines out of the reach of children, never share your medicines with others, and use this medication only for the indication prescribed. Every effort has been made to ensure that the information provided by [employer]. ('[employer]') is accurate, up-to-date, and complete, but no guarantee is made to that effect. Drug information contained herein may be time sensitive. [employer] information has been compiled for use by healthcare practitioners and consumers in the [place] and therefore [employer] does not warrant that uses outside of the [place] are appropriate, unless specifically indicated otherwise. [employer]s drug information does not endorse drugs, diagnose patients or recommend therapy. [employer] drug information is an informational resource designed to assist licensed healthcare practitioners in caring for their patients and/or to serve consumers viewing this service as a supplement to, and not a substitute for, the expertise, skill, knowledge and judgment of healthcare practitioners. The absence of a warning for a given drug or drug combination in no way should be construed to indicate that the drug or drug combination is safe, effective or appropriate for any given patient. [facility] does not assume any responsibility for any aspect of healthcare administered with the aid of information [facility] provides. The information contained herein is not intended to cover all possible uses, directions, precautions, warnings, drug interactions, allergic reactions, or adverse effects. If you have questions about the drugs you are taking, check with your doctor, nurse or pharmacist. Copyright 4703-6341 [facility] Version: .. Revision Date: 10/29/2019. Accessing??[employer]?Express??Patient??Portal Access medications, test results, radiology reports, and more through [employer] secure patient portal. Please be patient if waiting on lab results, as these can take several days to process. [place] online at??[email or web address]??Use your community medical record number (CMRN) located below to verify your identity on the Self-Enrollment form.We also offer the ability for you to securely connect other health management apps to your health record. See the [facility] Connection link on the website above for more details. Watch [employer] Patient Education Videos and Access Resources anytime online! Visit [email or web address]. Extracted from: Title:Instructions to Patients Author:Destiney Simmons RN Date:09/20/23 [employer]) Gastrointestinal Bleeding Gastrointestinal (GI) bleeding is bleeding anywhere along the digestive tract. The digestive tract carries food from your mouth until it leaves your body as waste, or poop. You may have blood in your poop or have black poop. If you vomit, there may be blood in it too. This condition can be mild, serious, or even life-threatening. If you have a lot of bleeding, you may need to stay in the hospital. What are the causes? This condition may be caused by: ? ? Irritation and swelling of the esophagus (esophagitis). The esophagus is part of the body that moves food from your mouth to your stomach. ? ? Swollen veins in the butt (hemorrhoids). ? ? Tears in the opening of the butt. These are often caused by passing hard poop. ? ? Pouches that form on the colon (diverticulosis). ? ? Irritation and swelling of pouches that have formed in your colon (diverticulitis). ? ? Growths (polyps) or cancer. ? ? Irritation of the stomach lining (gastritis). ? ? Sores (ulcers) in the stomach. What increases the risk? You are more likely to develop this condition if: ? ? You have a certain type of infection in your stomach called Helicobacter pylori infection. ? ? You take certain medicines. ? ? You smoke. ? ? You drink alcohol. What are the signs or symptoms? Common symptoms of this condition include: ? ? Vomiting material that has bright red blood in it. It may look like coffee grounds. ? ? Changes in your poop. The poop: ? ? May have red blood in it. ? ? May be black, look like tar, and smell stronger than normal. ? ? May be red. ? ? Pain or cramping in the belly (abdomen). How is this treated? Treatment for this condition depends on the cause of the bleeding. For example: ? ? Your doctor may treat the bleeding during diagnosis. Common ways of diagnosing this condition is endoscopy or colonoscopy. ? ? Medicines can be used to: ? ? Help control irritation, swelling, or infection. ? ? Reduce acid in your stomach. ? ? Certain problems can be treated with: ? ? Creams. ? ? Medicines that are put in the butt (suppositories). ? ? Warm baths. ? ? Surgery is sometimes needed. ? ? If you lose a lot of blood, you may need a blood transfusion. If there is a lot of bleeding, you will need to stay in the hospital. If bleeding is mild, you may be allowed to go home. Follow these instructions at home: ? ? Take ywkk-wbg-mmhiosh and prescription medicines only as told by your doctor. ? ? Eat foods that have a lot of fiber in them. These foods include beans, whole grains, and fresh fruits and vegetables. You can also try eating 1? 3 prunes each day. ? ? Drink enough fluid to keep your pee (urine) pale yellow. ? ? Keep all follow-up visits. Contact a doctor if: ? ? Your symptoms do not get better with treatment. Get help right away if: ? ? Your bleeding does not stop. ? ? You feel dizzy or you pass out (faint). ? ? You feel weak. ? ? You have very bad cramps in your back or belly. ? ? You pass large clumps of blood (clots) in your poop. ? ? Your symptoms are getting worse. ? ? You have chest pain or fast heartbeats. These symptoms may be an emergency. Get help right away. Call 911. ? ? Do not wait to see if the symptoms will go away. ? ? Do not drive yourself to the hospital. Summary ? ? Gastrointestinal (GI) bleeding is bleeding anywhere along the digestive tract. The digestive tract carries food from your mouth until it leaves your body as waste, or poop. ? ? This bleeding can be caused by many things. Treatment depends on the cause of the bleeding. ? ? Take medicines only as told by your doctor. ? ? Keep all follow-up visits. This information is not intended to replace advice given to you by your health care provider. Make sure you discuss any questions you have with your health care provider. Document Revised: 03/07/2022 Document Reviewed: 03/07/2022 [employer] Patient Education ?? 2021 [employer]. Medication Leaflets: propranolol (pro PRAN oh lol) Hemangeol, Inderal LA, Inderal XL, InnoPran XL What is the most important information I should know about propranolol? Use only as directed. Tell your doctor if you use other medicines or have other medical conditions or allergies. What is propranolol? Propranolol is a beta-yocasta that is used to treat angina (chest pain), hypertension (high blood pressure), heart rhythm disorders, and other heart or circulatory conditions. It is also used to reduce the risk of after a heart attack. Propranolol is also used to treat tremors of certain causes, and to prevent migraine headaches. Hemangeol is used to treat a genetic condition called infantile hemangiomas in infants 5 weeks to 1 year old. Propranolol may also be used for purposes not listed in this medication guide. What should I discuss with my healthcare provider before taking propranolol? You should not use propranolol if you are allergic to it, or if you have: ? asthma; ? ? history of slow heart beats that have caused you to faint; ? ? severe heart failure (that required you to be in the hospital); or ? ? a serious heart condition such as 'sick sinus syndrome' or heart block (2nd or 3rd degree, unless you have a pacemaker). You should not use Hemangeol if you have pheochromocytoma (tumor of the adrenal gland). This medicine also should not be used in babies who weigh less than 4.4 pounds. Tell your doctor if you have ever had: ? slow heartbeats, congestive heart failure; ? ? bronchitis, emphysema, or other breathing disorders; ? ? diabetes (propranolol can make it harder for you to tell when you have low blood sugar); ? ? liver or kidney disease; ? ? a thyroid disorder; ? ? pheochromocytoma (tumor of the adrenal gland); ? ? problems with circulation (such as Raynaud's syndrome); or ? ? if you smoke. Tell your doctor if you are or . How should I take propranolol? Follow all directions on your prescription label and read all medication guides or instruction sheets. Your doctor may occasionally change your dose. Use the medicine exactly as directed. Adults may take propranolol with or without food, but take it the same way each time. Hemangeol must be given to an infant during or just after a feeding. Doses should be spaced at least 9 hours apart. Measure Hemangeol with the supplied measuring device (not a kitchen spoon). Do not shake. Hemangeol can cause low blood sugar (hypoglycemia), especially during times of stress, illness, infections, or skipped meals. Make sure your child eats regularly while taking this medicine. Call your doctor if a child taking Hemangeol is sick with vomiting, has missed a meal, or has signs of hypoglycemia such as severe weakness or seizure. Doses are based on weight in children. Your child's dose may change if the child gains or loses weight. Your heart function and blood pressure will need to be checked often. Tell your doctor if you have a planned surgery. Your condition may get worse if you stop using propranolol suddenly. Ask your doctor before stopping the medicine. This medicine can affect the results of certain medical tests. Tell any doctor who treats you that you are using propranolol. If you have high blood pressure, keep using this medicine even if you feel well. High blood pressure often has no symptoms. Store at room temperature away from moisture and heat. Do not freeze Hemangeol. Throw away any unused Hemangeol 2 months after you first opened the bottle. What happens if I miss a dose? Take the medicine as soon as you can, but skip the missed dose if it is almost time for your next dose. Do not take two doses at one time. What happens if I overdose? Seek emergency medical attention or call the Poison Help line at . Overdose symptoms may include feeling light-headed or restless, tremors, fast or slow heartbeats, and trouble breathing. What should I avoid while taking propranolol? Avoid drinking alcohol. It may increase your blood levels of propranolol. What are the possible side effects of propranolol? Get emergency medical help if you have signs of an allergic reaction (hives, difficult breathing, swelling in your face or throat) or a severe skin reaction (fever, sore throat, burning eyes, skin pain, red or purple skin rash with blistering and peeling). Call your doctor at once if you have: ? slow or uneven heartbeats; ? ? a light-headed feeling, like you might pass out; ? ? wheezing or trouble breathing; ? ? sudden weakness, vision problems, or loss of coordination (especially in a child with hemangioma that affects the face or head); ? ? cold feeling in your hands and feet; ? ? depression, confusion, hallucinations; ? ? heart problems--swelling, rapid weight gain, feeling short of breath; ? ? low blood sugar--headache, hunger, sweating, irritability, dizziness, fast heart rate, and feeling anxious or shaky; or ? ? low blood sugar in a baby--pale skin, blue or purple skin, sweating, fussiness, crying, not wanting to eat, feeling cold, drowsiness, weak or shallow breathing (breathing may stop for short periods), seizure (convulsions), or loss of consciousness. Common side effects may include: ? dizziness, tiredness; ? ? nausea, vomiting, diarrhea, constipation, stomach cramps; ? ? sleep problems (insomnia); or ? ? runny or stuffy nose, cough, sore throat, hoarse voice. This is not a complete list of side effects and others may occur. Call your doctor for medical advice about side effects. You may report side effects to FDA at 4-637-QRL-1088. What other drugs will affect propranolol? Sometimes it is not safe to use certain medicines at the same time. Some drugs can affect your blood levels of other drugs you use, which may increase side effects or make the medicines less effective. Tell your doctor about all your current medicines. Many drugs can affect propranolol, especially: ? cholestyramine or colestipol; ? ? warfarin (Coumadin, Jantoven); ? ? an antidepressant; ? ? heart or blood pressure medicine; ? ? medicine to treat an infection; ? ? medicine to treat a prostate disorder; ? ? steroid medicine; or ? ? NSAIDs (nonsteroidal anti-inflammatory drugs)--aspirin, ibuprofen (Advil, Motrin), naproxen (Aleve), celecoxib, diclofenac, indomethacin, meloxicam, and others. This list is not complete and many other drugs may affect propranolol. This includes prescription and vvbn-rxw-heqoady medicines, vitamins, and herbal products. Not all possible drug interactions are listed here. Where can I get more information? Your pharmacist can provide more information about propranolol. Remember, keep this and all other medicines out of the reach of children, never share your medicines with others, and use this medication only for the indication prescribed. Every effort has been made to ensure that the information provided by [employer]. ('[employer]') is accurate, up-to-date, and complete, but no guarantee is made to that effect. Drug information contained herein may be time sensitive. [employer] information has been compiled for use by healthcare practitioners and consumers in the [place] and therefore [employer] does not warrant that uses outside of the [place] are appropriate, unless specifically indicated otherwise. [employer] drug information does not endorse drugs, diagnose patients or recommend therapy. [employer] drug information is an informational resource designed to assist licensed healthcare practitioners in caring for their patients and/or to serve consumers viewing this service as a supplement to, and not a substitute for, the expertise, skill, knowledge and judgment of healthcare practitioners. The absence of a warning for a given drug or drug combination in no way should be construed to indicate that the drug or drug combination is safe, effective or appropriate for any given patient. [employer] does not assume any responsibility for any aspect of healthcare administered with the aid of information [employer] provides. The information contained herein is not intended to cover all possible uses, directions, precautions, warnings, drug interactions, allergic reactions, or adverse effects. If you have questions about the drugs you are taking, check with your doctor, nurse or pharmacist. Copyright 2138-7878 [employer]. Version: 13.. Revision Date: 04/26/2021. pantoprazole (oral/injection) (fitzpatrick TOE pra zole) First-Pantoprazole, Protonix, Protonix IV What is the most important information I should know about pantoprazole? Pantoprazole can cause kidney problems or new or worsening symptoms of lupus. Tell your doctor if you have: pain in your side or lower back, painful urination, blood or pus in your urine, joint pain or a skin rash on your cheeks or arms that worsens in sunlight. This medicines can cause diarrhea. Tell your doctor if you have diarrhea that is watery or bloody. You may be more likely to have a broken bone while using pantoprazole. Talk with your doctor about ways to keep your bones healthy. What is pantoprazole? Pantoprazole is used to promote healing of erosive esophagitis (damage to your esophagus caused by stomach acid) in adults and children who are at least 5 years old. Pantoprazole is also used in adults to treat the symptoms of gastroesophageal reflux disease (GERD) and other conditions involving excessive stomach acid such as Ramón-Christensen syndrome. Pantoprazole may also be used for purposes not listed in this medication guide. What should I discuss with my healthcare provider before using pantoprazole? You should not use pantoprazole if you are allergic to it, or if you have: ? breathing problems; or ? ? you are allergic to any other stomach acid medicine such as lansoprazole, rabeprazole, esomeprazole, omeprazole, and others. Some drugs should not be used with pantoprazole. Your treatment plan may change if you also use any medication that contains rilpivirine. Tell your doctor if you have or have ever had: ? a zinc deficiency; ? ? an electrolyte imbalance (such as low blood levels of potassium, calcium or magnesium); ? ? lupus; or ? ? liver or kidney disease. You may be more likely to have a broken bone while using pantoprazole. Talk with your doctor about ways to keep your bones healthy. Pantoprazole may harm an unborn baby. Tell your doctor if you are or plan to become . Ask a doctor if it is safe to breastfeed while using this medicine. How should I use pantoprazole? Follow all directions on your prescription label and read all medication guides or instruction sheets. Never use pantoprazole in larger amounts, or for longer than prescribed. Do not change your dose or stop using this medication without your doctor's advice. Avoid medication errors by using exactly as directed on the label, or as prescribed by your doctor. Pantoprazole is taken by mouth or given as an infusion into a vein. Pantoprazole tablets are taken by mouth, with or without food. Pantoprazole oral granules should be taken 30 minutes before a meal. Swallow the tablet whole and do not crush, chew, or break it. Read and carefully follow instructions for mixing and taking the oral granules. The oral granules can also be given through a nasogastric tube. Ask your doctor or pharmacist if you do not understand these instructions. Shake the oral suspension (liquid). Measure a dose with the supplied measuring device (not a kitchen spoon). Use this medicine for the full prescribed length of time, even if your symptoms quickly improve. You may use antacids if needed while you are taking pantoprazole tablets. Call your doctor if your symptoms do not improve, or if they get worse after using the medicine for the number of days prescribed. You may need medical tests. This medicine can affect the results of certain medical tests. Tell any doctor or laboratory staff that you are using pantoprazole. This medicine can cause diarrhea. Tell your doctor if you have diarrhea that is watery or bloody. Store pantoprazole tablet and oral granules at room temperature away from moisture and heat. Store the oral suspension tightly closed in a refrigerator. Do not freeze and protect from light. Throw the medicine away after 30 days, even if there is still medicine left inside. What happens if I miss a dose? Use the medicine as soon as you can, but skip the missed dose if it is almost time for your next dose. Do not use two doses at one time. What happens if I overdose? Seek emergency medical attention or call the Poison Help line at . What should I avoid while using pantoprazole? Follow your doctor's instructions about any restrictions on food, beverages, or activity. Avoid getting pantoprazole oral suspension in your eyes. If contact does occur, rinse with water. What are the possible side effects of pantoprazole? Get emergency medical help if you have signs of an allergic reaction (hives, difficult breathing, swelling in your face or throat) or a severe skin reaction (fever, sore throat, burning eyes, skin pain, red or purple skin rash with blistering and peeling). Seek medical treatment if you have a serious drug reaction that can affect many parts of your body. Symptoms may include skin rash, fever, swollen glands, muscle aches, severe weakness, unusual bruising, or yellowing of your skin or eyes. Call your doctor at once if you have: ? severe stomach pain, diarrhea that is watery or bloody; ? ? nausea, vomiting, weight loss; ? ? sudden pain or trouble moving your hip, wrist, or back; ? ? pain, swelling, burning, or irritation around the IV needle; ? ? pain in your side or lower back, painful urination, blood or pus in your urine; ? ? signs of an electrolyte imbalance--increased thirst or urination, constipation, muscle weakness, leg cramps, numbness or tingling, feeling jittery, fluttering in your chest; ? ? new or worsening symptoms of lupus--joint pain, and a skin rash on your cheeks or arms that worsens in sunlight; or ? ? vitamin B12 deficiency--shortness of breath, feeling lightheaded, irregular heartbeats, muscle weakness, pale skin, tiredness, mood changes, numbness or tingling in your legs or arms. Long-term use of pantoprazole may increase your risk of serious side effects including stomach polyps. Talk with your doctor about these risks. Common side effects may include: ? headache, dizziness; ? ? stomach pain, gas, nausea, vomiting, diarrhea; ? ? joint pain; or ? ? fever, rash, or cold symptoms such as stuffy nose, sneezing, sore throat. This is not a complete list of side effects and others may occur. Call your doctor for medical advice about side effects. You may report side effects to FDA at 5-960-VUP-8941. What other drugs will affect pantoprazole? Tell your doctor about all your other medicines, especially: ? digoxin; ? ? methotrexate; or ? ? a diuretic or 'water pill'. This list is not complete. Other drugs may affect pantoprazole, including prescription and dhzp-gqt-[id number] medicines, vitamins, and herbal products. Not all possible drug interactions are listed here. Where can I get more information? Your doctor or pharmacist can provide more information about pantoprazole. Remember, keep this and all other medicines out of the reach of children, never share your medicines with others, and use this medication only for the indication prescribed. Every effort has been made to ensure that the information provided by [employer]. ('[employer]') is accurate, up-to-date, and complete, but no guarantee is made to that effect. Drug information contained herein may be time sensitive. [employer] information has been compiled for use by healthcare practitioners and consumers in the [place] and therefore [employer] does not warrant that uses outside of the [place] are appropriate, unless specifically indicated otherwise. [employer] drug information does not endorse drugs, diagnose patients or recommend therapy. [employer] drug information is an informational resource designed to assist licensed healthcare practitioners in caring for their patients and/or to serve consumers viewing this service as a supplement to, and not a substitute for, the expertise, skill, knowledge and judgment of healthcare practitioners. The absence of a warning for a given drug or drug combination in no way should be construed to indicate that the drug or drug combination is safe, effective or appropriate for any given patient. [employer] does not assume any responsibility for any aspect of healthcare administered with the aid of information [employer] provides. The information contained herein is not intended to cover all possible uses, directions, precautions, warnings, drug interactions, allergic reactions, or adverse effects. If you have questions about the drugs you are taking, check with your doctor, nurse or pharmacist. Copyright 4500-6180 [employer]. Version: 22.. Revision Date: 07/29/2023. spironolactone (spir ON oh LAK tone) Aldactone, CaroSpir What is the most important information I should know about spironolactone? You should not use spironolactone if you Ripley's disease, high levels of potassium in your blood, if you are unable to urinate, or if you are also taking eplerenone. What is spironolactone? Spironolactone is a potassium-sparing diuretic (water pill) that prevents your body from absorbing too much salt and keeps your potassium levels from getting too low. Spironolactone is used to treat heart failure, high blood pressure (hypertension), or hypokalemia (low potassium levels in the blood). Spironolactone also treats fluid retention (edema) in people with congestive heart failure, cirrhosis of the liver, or a kidney disorder called nephrotic syndrome. Spironolactone is also used to diagnose or treat a condition in which you have too much aldosterone in your body. Aldosterone is a hormone produced by your adrenal glands to help regulate the salt and water balance in your body. Spironolactone may also be used for purposes not listed in this medication guide. What should I discuss with my healthcare provider before taking spironolactone? You should not use spironolactone if you are allergic to it, or if you have: ? Ripley's disease (an adrenal gland disorder); ? ? high levels of potassium in your blood (hyperkalemia); ? ? if you are unable to urinate; or ? ? if you are also taking eplerenone. Tell your doctor if you have ever had: ? an electrolyte imbalance (such as low levels of calcium, magnesium, or sodium in your blood); ? ? kidney disease; ? ? liver disease; or ? ? heart disease. Tell your doctor if you are or plan to become . Having congestive heart failure, cirrhosis, or uncontrolled high blood pressure during may lead to medical problems in the mother or the baby. Your doctor should decide whether you take spironolactone if you are . It may not be safe to breastfeed while using this medicine. Ask your doctor about any risk. How should I take spironolactone? Follow all directions on your prescription label and read all medication guides or instruction sheets. Your doctor may occasionally change your dose. Use the medicine exactly as directed. Do not share this medicine with another person, even if they have the same symptoms you have. You may take spironolactone with or without food, but take it the same way each time. You will need frequent medical tests. This medicine can affect the results of certain medical tests. Tell any doctor who treats you that you are using spironolactone. If you need surgery, tell your surgeon you currently use this medicine. You may need to stop for a short time. If you are being treated for high blood pressure, keep using this medication even if you feel well. High blood pressure often has no symptoms. You may need to use blood pressure medication for the rest of your life. Store at room temperature away from heat, light, and moisture. What happens if I miss a dose? Take the medicine as soon as you can, but skip the missed dose if it is almost time for your next dose. Do not take two doses at one time. What happens if I overdose? Seek emergency medical attention or call the Poison Help line at . What should I avoid while taking spironolactone? Drinking alcohol can increase certain side effects. Do not use potassium supplements or salt substitutes, unless your doctor has told you to. Avoid a diet high in salt. Too much salt will cause your body to retain water and can make this medication less effective. Avoid driving or hazardous activity until you know how this medicine will affect you. Your reactions could be impaired. Avoid getting up too fast from a sitting or lying position, or you may feel dizzy. What are the possible side effects of spironolactone? Get emergency medical help if you have signs of an allergic reaction: hives; difficulty breathing; swelling of your face, lips, tongue, or throat. Call your doctor at once if you have: ? a light-headed feeling, like you might pass out; ? ? little or no urination; ? ? high potassium level--nausea, weakness, tingly feeling, chest pain, irregular heartbeats, loss of movement; o ? ? signs of other electrolyte imbalances--increased thirst or urination, confusion, vomiting, muscle pain, slurred speech, severe weakness, numbness, loss of coordination, feeling unsteady. Common side effects may include: ? breast swelling or tenderness. This is not a complete list of side effects and others may occur. Call your doctor for medical advice about side effects. You may report side effects to FDA at 9-060-WZK-0979. What other drugs will affect spironolactone? Using spironolactone with other drugs that make you dizzy can worsen this effect. Ask your doctor before using opioid medication, a sleeping pill, a muscle relaxer, or medicine for anxiety, depression, or seizures. Tell your doctor about all your other medicines, especially: ? colchicine; ? ? digoxin; ? ? lithium; ? ? loperamide; ? ? trimethoprim; ? ? heart or blood pressure medicine (especially another diuretic); ? ? medicine to prevent a blood clot; or ? ? NSAIDs (nonsteroidal anti-inflammatory drugs)--aspirin, ibuprofen (Advil, Motrin), naproxen (Aleve), celecoxib, diclofenac, indomethacin, meloxicam, and others. This list is not complete. Other drugs may affect spironolactone, including prescription and cxnp-syd-evozfdb medicines, vitamins, and herbal products. Not all possible drug interactions are listed here. Where can I get more information? Your pharmacist can provide more information about spironolactone. Remember, keep this and all other medicines out of the reach of children, never share your medicines with others, and use this medication only for the indication prescribed. Every effort has been made to ensure that the information provided by [employer]') is accurate, up-to-date, and complete, but no guarantee is made to that effect. Drug information contained herein may be time sensitive. [employer] information has been compiled for use by healthcare practitioners and consumers in the [place] and therefore [employer] does not warrant that uses outside of the [place] are appropriate, unless specifically indicated otherwise. [employer] drug information does not endorse drugs, diagnose patients or recommend therapy. [employer] drug information is an informational resource designed to assist licensed healthcare practitioners in caring for their patients and/or to serve consumers viewing this service as a supplement to, and not a substitute for, the expertise, skill, knowledge and judgment of healthcare practitioners. The absence of a warning for a given drug or drug combination in no way should be construed to indicate that the drug or drug combination is safe, effective or appropriate for any given patient. [employer] does not assume any responsibility for any aspect of healthcare administered with the aid of information [employer] provides. The information contained herein is not intended to cover all possible uses, directions, precautions, warnings, drug interactions, allergic reactions, or adverse effects. If you have questions about the drugs you are taking, check with your doctor, nurse or pharmacist. Copyright 6935-9359 [employer]. Version: 11.. Revision Date: 10/29/2019. Accessing??[employer])??Express??Patient??Portal Access medications, test results, radiology reports, and more through [employer] secure patient portal. Please be patient if waiting on lab results, as these can take several days to process. [place] online at??[email or web address]??Use your community medical record number (CMRN) located below to verify your identity on the Self-Enrollment form.We also offer the ability for you to securely connect other health management apps to your health record. See the [facility] Connection link on the website above for more details. Watch [employer] Patient Education Videos and Access Resources anytime online! Visit [email or web address]. Extracted from: Title:Progress SOAP Note Author:Mikal HERNANDEZ, Sara Hanks Date:09/20/23 1.??Upper GI bleed(Gastroint estinal hemorrhage, unspecified: K92.2) 2.??Esophageal varices(Esophageal varices without bleeding: I85.00) 3.??Portal hypertensive gastropathy(Portal hypertension: K76.6) 4.??Pancytopenia(Other pancytopenia: D61.818) 5.??Bilateral lower extremity edema(Localized edema: R60.0) 6.??Diabetes mellitus, type 2(Type 2 diabetes mellitus without complications: E11.9) 7.??Parkinson disease(Parkinson's disease without dyskinesia, without mention of fluctuations: G20.A1) 8.??NPH (normal pressure hydrocephalus)((Idiopathic) normal pressure hydrocephalus: G91.2) 9.??COPD mixed type(Chronic obstructive pulmonary disease, unspecified: J44.9) 10.??Allergy to alpha-gal(Allergy to other foods: Z91.018) Esophageal varices(Esophageal varices without bleeding: I85.00) Other diseases of stomach and duodenum(Other diseases of stomach and duodenum: K31.89) Portal hypertensive gastropathy(Portal hypertension: K76.6) Orders: Soft diet Impression ?? 62-year-old??male??with previous history??of bleeding esophageal??varices with banding??he presents??to the hospital??with anemia??and lower??GI bleed.?? On upper endoscopy found to have??multiple columns??of??grade 3 esophageal??varices that??were banded??a total of 6 bands??were deployed successfully.?? Otherwise portal hypertensive gastropathy??mucosal??changes were seen without any evidence??of gastric??varices.?? His etiology??of??liver disease/cirrhosis??is unknown.?? I suspect??there??is a large component??of nonalcoholic??fatty??liver disease??with a background ETOH use ?? Recommendations ?? 1. Follow??back up with GI??in clinic in??2-3 weeks' time??for monitoring??of cirrhosis and further management??of esophageal??varices 2. Start nadolol/propranolol??prophylaxis 3.??If diet as tolerated he can be discharged home today? Extracted from: Title:Progress SOAP Note Author:Preeti HERNANDEZ, Miguelito Wagner te:09/19/23 1.??Upper GI bleed(Gastroint estinal hemorrhage, unspecified: K92.2) 2.??Esophageal varices(Esophageal varices without bleeding: I85.00) 3.??Portal hypertensive gastropathy(Portal hypertension: K76.6) 4.??Pancytopenia(Other pancytopenia: D61.818) 5.??Bilateral lower extremity edema(Localized edema: R60.0) 6.??Diabetes mellitus, type 2(Type 2 diabetes mellitus without complications: E11.9) 7.??Parkinson disease(Parkinson's disease without dyskinesia, without mention of fluctuations: G20.A1) 8.??NPH (normal pressure hydrocephalus)((Idiopathic) normal pressure hydrocephalus: G91.2) 9.??COPD mixed type(Chronic obstructive pulmonary disease, unspecified: J44.9) 10.??Allergy to alpha-gal(Allergy to other foods: Z91.018) Esophageal varices(Esophageal varices without bleeding: I85.00) Other diseases of stomach and duodenum(Other diseases of stomach and duodenum: K31.89) Portal hypertensive gastropathy(Portal hypertension: K76.6) Orders: carbidopa-levodopa, 1 tab, TAB, Route: By mouth, TID, Start Date: 09/19/23 14:00:00 [employer], Duration: 90 Days, Stop date: 12/18/23 9:00:00 CDT, Routine, Disp Location: [facility] gabapentin, 100 mg = 1 cap, CAP, By mouth, TID, Start Date: 09/19/23 14:00:00 [employer], Duration: 90 Days, Stop date 12/18/23 9:00:00 CDT, Routine, Disp Location: [facility] - 1400, GEN DISP magnesium oxide, 200 mg = 0.5 tab, TAB, By mouth, BID, Start Date: 09/19/23 11:10:00 [employer]OR, Duration: 90 Days, Stop date 12/17/23 21:00:00 CDT, Routine, Disp Location: [facility] - 1400, GEN DISP ?? Plan: Reviewed??EGD procedure note. ?? Advancing to full liquid diet. ?? Continue octreotide drip??and IV ppi.?? Serial??hemoglobin and transfuse to keep??it above??7. ?? Reconciled home meds. ? Extracted from: Title:Inpatient Consult Note Author:Mikal HERNANDEZ, Am ir R Date:09/19/23 1.??Upper GI bleed(Gastroint estinal hemorrhage, unspecified: K92.2) 2.??Esophageal varices(Esophageal varices without bleeding: I85.00) 3.??Portal hypertensive gastropathy(Portal hypertension: K76.6) 4.??Pancytopenia(Other pancytopenia: D61.818) 5.??Bilateral lower extremity edema(Localized edema: R60.0) 6.??Diabetes mellitus, type 2(Type 2 diabetes mellitus without complications: E11.9) 7.??Parkinson disease(Parkinson's disease without dyskinesia, without mention of fluctuations: G20.A1) 8.??NPH (normal pressure hydrocephalus)((Idiopathic) normal pressure hydrocephalus: G91.2) 9.??COPD mixed type(Chronic obstructive pulmonary disease, unspecified: J44.9) 10.??Allergy to alpha-gal(Allergy to other foods: Z91.018) Other diseases of stomach and duodenum(Other diseases of stomach and duodenum: K31.89) Orders: octreotide 500 mcg [25 mcg/hr] + Dextrose 5% in Water 107 mL, Route: IV, Routine, Start Date: 09/19/23 9:02:00 [employer]PECTOR, 90 Days, Stop date 12/18/23 9:01:00 CDT, Rate= 5.45 ml/hr, hr, Total Vol ml = 108, Disp Location: [facility] IV, Populate Charting Weight From Order, GEN DISP, 2.17, m2 propranolol, 10 mg = 1 tab, TAB, By mouth, BID, Start Date: 09/19/23 9:03:00 [employer]OR, Duration: 90 Days, Stop date 12/17/23 21:00:00 CDT, Routine, Disp Location: [facility], GEN DISP sodium chloride flush, 5 mL, INJ, Route: IVP, Q10Min, PRN, See Comment Note, Start Date: 09/19/23 7:24:00 [employer]OR, Duration: 90 Days, Stop date: 12/18/23 8:23:00 CDT, Routine, Disp Location: [facility] - 1400, GEN DISP sodium chloride flush, 5 mL, INJ, Route: IVP, Q12H, Start Date: 09/19/23 9:00:00 [employer]PECTOR, Duration: 90 Days, Stop date: 12/17/23 21:00:00 CDT, Routine, Disp Location: [facility] - 1400, GEN DISP Consent, esophagogastroduogenoscopy Gastroscopy Initiate Plan, IV Device Maintenance Protocol Adult Initiate Plan, GI EGD (esophagogastroduogenoscopy) Inpatient Liquid Full Notify Provider, Notify physician if has been on Plavix, Effient or Pradaxa in past __???___ days Nursing Communication Order, Hold SQ heparin or Lovenox until after procedure. Nursing Communication Order, Please have patient remove all body piercings, jewelry and dentures and leave them in the room Nursing Communication Order, Schedule procedure with GI lab Nursing Communication Order, If on Coumadin (Warfarin) in last 5 days and has not had a PT done in the last 24 hours, obtain Protime. If of childbearing age and any possibility of , please obtain urine test. Nursing Communication Order, If has pacemaker, ensure that has had pacemaker check within last 6 weeks; if not, complete the [employer] management orders and device information sheet Nursing Communication Order, Check with primary physician about insulin or oral diabetes medications. Impression? This is a??62-year-old??male who presents??to an??outside??facility with??melena with the acute??GI??blood loss and anemia??with a prior history??of esophageal??varices requiring??banding several years ago.?? His past??medical history is positive for??type 2 diabetes, Parkinson's,??normal pressure hydrocephalus, COPD, pancytopenia as a result??of probable??cirrhosis.?? An upper endoscopy carried out??at the outside facility??revealed esophageal??varices??and therefore he was transferred here??for higher level??of care and further management??of his esophageal??varices ?? Plan ?? 1. Continue??with octreotide??drip 2. Proceed to upper endoscopy??with banding ?? Thank??you??for this consult??further recommendations??to follow upper endoscopy ? Extracted from: Title:Admission H&P Note Author:Zulma Teran Date:09/19/23 1.??Upper GI bleed(Gastroint estinal hemorrhage, unspecified: K92.2) 2.??Esophageal varices(Esophageal varices without bleeding: I85.00) 3.??Portal hypertensive gastropathy(Portal hypertension: K76.6) 4.??Pancytopenia(Other pancytopenia: D61.818) 5.??Bilateral lower extremity edema(Localized edema: R60.0) 6.??Diabetes mellitus, type 2(Type 2 diabetes mellitus without complications: E11.9) 7.??Parkinson disease(Parkinson's disease without dyskinesia, without mention of fluctuations: G20.A1) 8.??NPH (normal pressure hydrocephalus)((Idiopathic) normal pressure hydrocephalus: G91.2) 9.??COPD mixed type(Chronic obstructive pulmonary disease, unspecified: J44.9) 10.??Allergy to alpha-gal(Allergy to other foods: Z91.018) Other diseases of stomach and duodenum(Other diseases of stomach and duodenum: K31.89) ? PLAN: Mr Seymour has been transferred to??this facility??for further evaluation??and management??of??upper GI bleed with esophageal??varices??noted??on EGD??today at outside facility.?? Per??record view,??it seems??patient's admission hemoglobin??at??that facility??was somewhere??around??8.?? As of??this morning he was??up to 10.?? He has received??2 units??of packed red cells??facility best I??can tell.?? Platelets have been??ranging??in the 50-60 range.?? White blood cell count is??around??3.?? Repeat??CBC is pending stat.?? Will also obtain??CMP and PT INR. Transfuse??additionally to keep??hemoglobin above??7.0. GI is aware??of patient transfer??and??is to consult later this morning??for further recommendations regarding esophageal varices. Will continue??IV PPI b.i.d. for now. Patient was treated with??octreotide at outside facility.?? Bleeding is apparently??controlled with no active??bleeding??noted??on endoscopy.?? Will defer further??treatment for now. Portal??hypertensive??gastropathy is noted on EGD??report.?? Will start nadolol. He does have evidence??of bilateral??lower??extremity??edema and so will give spironolactone.?? Abdomen??exam is without significant??ascites.?? Patient denies increase??in abdominal??girth. Patient is unsure if??he has ever??had formal??diagnosis??of??liver disease.?? Based on??laboratory studies??and??endoscopic findings, suspect??he has underlying??liver cirrhosis.?? Will obtain??liver ultrasound.?? Cirrhosis panel will be ordered including hepatitis screening. CMP is pending to check??liver function studies and renal function studies as ??above. Patient denies current or??past??alcohol??abuse??or dependency. Once routine medications??are verified,??will continue??appropriate medications??for maintenance??of chronic??conditions including??Parkinson's??disease, diabetes and COPD.?? Will start glycemic management??protocol??with sliding??scale??insulin if needed. Will keep??patient NPO pending??GI??eval and??liver ultrasound. Patient may be??up as tolerated. SCDs for DVT??prophylaxis??given GI bleed and pancytopenia. Full code. ?? Patient was seen face to face, and examined in detail at the time of admission. ??The available labs, vitals, diagnostics, and documentation in the EHR ??were personally reviewed, Patient History & Physical reviewed and confirmed. ??Agree with documented and edited information. ??The plan of care was discussed with the patient. ? FRJ ? Diagnostic Tests Pending * CHELITA Screen 09/19/23 * Smooth Muscle Total Autoabs 09/19/23 * Mitochondrial Antibodies (M2), Serum 09/19/23 * [id number], Serum 09/19/23 * Ceruloplasmin, Serum 09/19/23 * Transferrin, Serum 09/19/23 * Alpha-Fetoprotein (AFP) Tumor Marker, Serum 09/19/23 Medications carbidopa-levodopa 25 mg-100 mg oral tablet 1 tab, By mouth, TID, # 90 tab, Refill(s) 0 Start Date: 09/19/23 Status: Ordered Farxiga 10 mg oral tablet 10 mg = 1 tab, By mouth, Daily, Refill(s) 0 Start Date: 09/19/23 Status: Ordered furosemide 20 mg oral tablet 20 mg = 1 tab, By mouth, Daily, Refill(s) 0 Start Date: 09/19/23 Status: Ordered gabapentin 100 mg oral capsule 100 mg = 1 cap, By mouth, TID, Refill(s) 0 Start Date: 09/19/23 Status: Ordered magnesium oxide 200 mg, By mouth, BID, Refill(s) 0 Start Date: 09/19/23 Status: Ordered metFORMIN 1000 mg oral tablet 1,000 mg = 1 tab, By mouth, BID, Refill(s) 0 Start Date: 09/19/23 Status: Ordered potassium chloride 10 mEq oral capsule, extended release 10 mEq = 1 cap, By mouth, Daily, Refill(s) 0 Start Date: 09/19/23 Status: Ordered propranolol 10 mg oral tablet 10 mg = 1 tab, By mouth, BID, # 60 tab, Refill(s) 0, Pharmacy: [facility] MERRY BaxterPDP_ID-[id number], TAB, 1 tab By mouth BID, 92.8, 09/20/23 4:56:00 [employer] INSPECTOR, kg, Weight (kg) (Clinical) Start Date: 09/20/23 Status: Ordered Protonix 40 mg oral delayed release tablet 40 mg = 1 tab, By mouth, Daily, # 30 tab, Refill(s) 0, Pharmacy: [facility] MERRY BaxterPDP_ID-[id number], 1 tab By mouth Daily, 92.8, 09/20/23 4:56:00 CASINO GAMING INSPECTOR, kg, Weight (kg) (Clinical) Start Date: 09/20/23 Status: Ordered spironolactone 25 mg oral tablet 25 mg = 1 tab, By mouth, Daily, # 30 tab, Refill(s) 0, Pharmacy: [facility] MERRY BaxterPDP_ID-[id number], TAB, 1 tab By mouth Daily, 92.8, 09/20/23 4:56:00 CASINO GAMING INSPECTOR, kg, Weight (kg) (Clinical) Start Date: 09/20/23 Status: Ordered Problem List Condition Confirmation Course Effective Dates Status Health St atus Informant Allergy to alpha-gal Confirmed Active Bilateral lower extremity edema Confirmed Active COPD mixed type Confirmed Active Esophageal varices Confirmed Active Ex-smoker Confirmed Active patient NPH (normal pressure hydrocephalus) Confirmed Active Pancytopenia Confirmed Active Parkinson disease Confirmed Active Portal hypertensive gastropathy Confirmed Active Diabetes mellitus, type 2 Confirmed Active Upper GI bleed Confirmed Active Procedures Procedure Date Related Diagnosis Body Site Status EGD BAND LIGATION ESOPHGEAL/ GASTRIC VARICES 09/19/23 Completed Gastroscopy - Endo 1 09/19/23 Comp leted 1auto-populated from documented surgical case Results Laboratory List Name Date Hemoglobin 09/20/23 CBC-d 09/20/23 CMP 09/20/23 Magnesium Serum (Mg Serum) 09/20/23 zCBC Automated Diff 09/20/23 Hemoglobin 09/19/23 Ferritin 09/19/23 Hepatitis A Total Ab, S 09/19/23 Hepatitis Bc Ab IgM (HBcore IgM) 09/19/23 Hepatitis Bs Antigen (HBsAg) 09/19/23 Hepatitis C Antibody (HCV Ab) 09/19/23 Iron and TIBC (Iron&TIBC) 09/19/23 CBC-d 09/19/23 CMP 09/19/23 Hgb A1C (Glyc Hgb) 09/19/23 PT/INR 09/19/23 PTT 09/19/23 zCBC Automated Diff 09/19/23 Most recent to oldest [Reference Range]: 1 2 3 Bedside Glucose 284 mg/dL 1 (09/20/23 12:13 PM) 213 mg/dL 2 (09/20/23 7:35 AM) 188 mg/dL 3 (09/19/23 12:17 PM) [address] Glucose 200 mg/dL *NA* (09/19/23 1:51 AM) Anion Gap [2-15 mEq/L] 5 mEq/L (09/20/23 12:16 AM) 6 mEq/L (09/19/23 1:51 AM) Hepatitis B Core IgM Ab [Nonreactive] Nonreactive (09/19/23 3:20 AM) Hepatitis A Total IgG/IgM Ab [Nonreactive] Reactive *ABN* (09/19/23 3:20 AM) Hepatitis B Surface Ag by EI A [Nonreactive] Nonreactive (09/19/23 3:20 AM) Hepatitis C Ab [Nonreactive] Nonreactive (09/19/23 3:20 AM) eGFR CKD-EPI [>=61 mL/min/1.73 m2] 109 mL/min/1.73 m2 (09/20/23 12:16 AM) 108 mL/min/1.73 m2 (09/19/23 1:51 AM) Glucose, Serum/Plasma [70-10 0 mg/dL] 243 mg/dL *HI* (09/20/23 12:16 AM) 272 mg/dL *HI* (09/19/23 1:51 AM) WBC [4.8-10.8 Thous/mm3] 3.2 Thous/mm3 *LOW* (09/20/23 12:16 AM) 2.8 Thous/mm3 *LOW* (09/19/23 1:51 AM) Hct [42.0-52.0 %] 32.2 % *LOW* (09/20/23 12:16 AM) 28.5 % *LOW* (09/19/23 1:51 AM) Hgb [14.0-18.0 g/dL] 9.7 g/dL *LOW* (09/20/23 8:57 AM) 10.0 g/dL *LOW* (09/20/23 12:16 AM) 10.2 g/dL *LOW* (09/19/23 6:33 PM) RBC [4.60-6.20 Million/mm3] 3.62 Million /mm3 *LOW* (09/20/23 12:16 AM) 3.31 Million/mm3 *LOW* (09/19/23 1:51 AM) MCV [80.0-100.0 fl] 89.0 fl (09/20/23 12:16 AM) 86.1 fl (09/19/23 1:51 AM) MCH [26.0-34.0 pg] 27.6 pg (09/20/23 12:16 AM) 27.8 pg (09/19/23 1:51 AM) MCHC [31.0-36.5 g/dL] 31.1 g/dL (09/20/23 12:16 AM) 32.3 g/dL (09/19/23 1:51 AM) RDW [10.4-14.4 %] 16.3 % *HI* (09/20/23 12:16 AM) 17.1 % *HI* (09/19/23 1:51 AM) Platelets [130-440 Thous/mm3] 46 Thous/m m3 *LOW* (09/20/23 12:16 AM) 54 Thous/mm3 *LOW* (09/19/23 1:51 AM) MPV [9.4-12.4 fl] 11.6 fl (09/20/23 12:16 AM) 12.9 fl *HI* (09/19/23 1:51 AM) AutoNeutrophil [43.0-78.0 %] 65.1 % (09/20/23 12:16 AM) 64.1 % (09/19/23 1:51 AM) AutoLymphs [20.0-40.0 %] 20.1 % (09/20/23 12:16 AM) 21.8 % (09/19/23 1:51 AM) AutoMono [2.0-10.0 %] 9.9 % (09/20/23 12:16 AM) 9.5 % (09/19/23 1:51 AM) AutoEo [0.0-7.0 %] 4.3 % (09/20/23 12:16 AM) 4.2 % (09/19/23 1:51 AM) Sodium [136-145 mEq/L] 137 mEq/L (09/20/23 12:16 AM) 137 mEq/L (09/19/23 1:51 AM) Potassium [3.5-5.1 mEq/L] 4.0 mEq/L (09/20/23:16 AM) 3.7 mEq/L (09/19/23 1:51 AM) Chloride [98-107 mEq/L] 108 mEq/L *HI* (09/20/23:16 AM) 106 mEq/L (09/19/23 1:51 AM) AbsNeut [2.0-8.0 Thous/mm3] 2.1 Thous/mm 3 (09/20/23 12:16 AM) 1.8 Thous/mm3 *LOW* (09/19/23 1:51 AM) CO2 [21-32 mEq/L] 24 mEq/L (09/20/23:16 AM) 25 mEq/L (09/19/23 1:51 AM) BUN [7-18 mg/dL] <5 mg/dL *LOW* (09/20/23 12:16 AM) 7 mg/dL (09/19/23 1:51 AM) Creatinine [0.73-1.18 mg/dL] 0.57 mg/dL *LOW* (09/20/23 12:16 AM) 0.59 mg/dL *LOW* (09/19/23 1:51 AM) AbsLymph [1.0-4.0 Thous/mm3] 0.6 Thous/m m3 *LOW* (09/20/23 12:16 AM) 0.6 Thous/mm3 *LOW* (09/19/23 1:51 AM) AbsMono [0.1-1.0 Thous/mm3] 0.3 Thous/mm 3 (09/20/23 12:16 AM) 0.3 Thous/mm3 (09/19/23 1:51 AM) Bilirubin, Total [0.2-1.0 mg/dL] 1.1 mg/dL *HI* (09/20/23 12:16 AM) 0.7 mg/dL (09/19/23 1:51 AM) AbsEo [0.0-0.5 Thous/mm3] 0.1 Thous/mm3 (09/20/23 12:16 AM) 0.1 Thous/mm3 (09/19/23 1:51 AM) AbsBaso [0.0-0.2 Thous/mm3] 0.0 Thous/mm 3 (09/20/23 12:16 AM) 0.0 Thous/mm3 (09/19/23 1:51 AM) AutoBaso [0.0-2.5 %] 0.3 % (09/20/23 12:16 AM) 0.0 % (09/19/23 1:51 AM) Calcium [8.3-10.6 mg/dL] 8.6 mg/dL (09/20/23 12:16 AM) 8.4 mg/dL (09/19/23 1:51 AM) Protein Total [6.4-8.5 g/dL] 6.1 g/dL *LOW* (09/20/23 12:16 AM) 5.8 g/dL *LOW* (09/19/23 1:51 AM) Albumin [3.4-5.0 g/dL] 2.6 g/dL *LOW* (09/20/23 12:16 AM) 2.5 g/dL *LOW* (09/19/23 1:51 AM) AST [15-37 U/L] 50 U/L *HI* (09/20/23 12:16 AM) 57 U/L *HI* (09/19/23 1:51 AM) Alk Phos [45-117 U/L] 76 U/L (09/20/23 12:16 AM) 75 U/L (09/19/23 1:51 AM) Magnesium [1.8-2.4 mg/dL] 1.7 mg/dL *LOW* (09/20/23 12:16 AM) PTT [22-33 sec] 25 sec (09/19/23 1:51 AM) ALT [10-49 U/L] 8 U/L *LOW* (09/20/23 12:16 AM) 11 U/L (09/19/23 1:51 AM) PT [9.0-13.5 sec] 11.9 sec (09/19/23 1:51 AM) Ferritin [26.0-388.0 ng/mL] 41.8 ng/mL (09/19/23 3:20 AM) HgbA1c [4.2-6.4 %] 8.6 % *HI* (09/19/23 1:51 AM) Iron, Serum [65-175 mcg/dL] 22 mcg/dL *LOW* (09/19/23 3:20 AM) TIBC [250-450 ug/dL] 286 ug/dL (09/19/23 3:20 AM) Percent Saturation Transferrin [20-55 %] 8 % *LOW* (09/19/23 3:20 AM) INR [0.80-1.30] 1.12 (09/19/23 1:51 AM) Imm. Grans % [0-5 %] <5 % (09/20/23 12:16 AM) <5 % (09/19/23 1:51 AM) Imm. Grans # [0.0-0.5 Thous/mm3] <0.5 Thous/mm3 (09/20/23 12:16 AM) <0.5 Thous/mm3 (09/19/23 1:51 AM) ANC-AbsNeutCount 2.1 Thous/mm3 *NA* (09/20/23 12:16 AM) 1.8 Thous/mm3 *NA* (09/19/23 1:51 AM) 1Result Comment: Notify RN/ Performed at:[facility], [address] [place] [address], [address] Reference Ranges: Age 0 - 24 hours: 45 - 115 mg/dL Age 24 hours - 30 days: 55 - 115 mg/dL Age > 30 days: 70 - 100 mg/dL Critical Results Requiring Immediate Notification: Age <72 Hours: <40 or >350 mg/dL Age >72 Hours: <50 or >400 mg/dL 2Result Comment: Notify RN/DR Performed at:[facility], [facility] [place], [address] Reference Ranges: Age 0 - 24 hours: 45 - 115 mg/dL Age 24 hours - 30 days: 55 - 115 mg/dL Age > 30 days: 70 - 100 mg/dL Critical Results Requiring Immediate Notification: Age <72 Hours: <40 or >350 mg/dL Age >72 Hours: <50 or >400 mg/dL 3Result Comment: Notify RN/DR Performed at:[facility], [address] [place], [address] Reference Ranges: Age 0 - 24 hours: 45 - 115 mg/dL Age 24 hours - 30 days: 55 - 115 mg/dL Age > 30 days: 70 - 100 mg/dL Critical Results Requiring Immediate Notification: Age <72 Hours: <40 or >350 mg/dL Age >72 Hours: <50 or >400 mg/dL Radiology Reports * Exam Date Time Procedure Performing Provider Status 09/19/23 8:10 AM US GB Bile Ducts Araseli Varghese (Verified) Notes: (US GB Bile Ducts) Reason For Exam: liver exam for cirrhosis; pancytopenia, UGIB with portal hypertension and esoph varicies REPORT US GB Bile Ducts Reading location: [facility]. US GB Bile Ducts History: liver exam for cirrhosis; pancytopenia, UGIB with portal hyperte. Diagnosis Codes: K31.89 Other diseases of stomach and duodenum K92.2 Gastrointestinal hemorrhage, unspecified Comparison: There are no prior exams available for comparison. Findings: The pancreas was not well visualized due to overlying bowel gas. Liver measures approximately 15 cm in cephalocaudal dimensions. Heterogeneous coarsened increased echotexture throughout the liver. No intrahepatic biliary dilatation. The margins of the liver are lobulated consistent with cirrhosis. There is perihepatic fluid. Visualized portions of the right kidney demonstrate no hydronephrosis. The gallbladder is mildly distended. No stones, sludge, or wall thickening. The common bile duct measures 6.1 millimeters. IMPRESSION: 1. Heterogeneous coarsened increased echotexture involving the liver parenchyma. Lobulated margins of the liver. Findings are consistent with cirrhosis. 2. Perihepatic ascites is identified. 3. No evidence of cholelithiasis or biliary dilatation. 4. Poor visualization of the pancreas due to overlying bowel gas. Electronically signed by: Dr Trish Erickson MD 09/19/2023 8:34 AM Trish Erickson MD Signed 09/19/23 08:34:28 (Electronic Signature) Title Closer CW Technologist MERISSA Vital Signs Most recent to oldest [Reference Range]: 1 2 3 Blood Pressure 116/67mmHg (09/20/23 11:15 AM) 143/79mmHg (09/20/23 7:36 AM) 112/66mmHg (09/20/23 3:09 AM) Height (inches) (Clinical) 70 in (09/20/23 2:00 PM) 70 in (09/20/23 2:00 AM) 70 in (09/19/23 2:00 PM) Weight (kg) (Clinical) 92.8 kg (09/20/23 1:00 AM) 93 kg (09/19/23 1:30 AM) 93 kg (09/19/23 1:00 AM) BMI (Clinical) 29.4 kg/m2 (09/19/23 1:30 AM) 29.4 kg/m2 (09/19/23 1:00 AM) Scale Type Bed (09/20/23 1:00 AM) Standing (09/19/23 1:00 AM) Social History Social History Type Response Smoking Status Former smoker; Smoke less tobacco use: Never; Has the patient smoked in the last 365 days, even once? No entered on: 09/19/23 Sex Male Hospital Discharge Instructions Patient Education 09/20/2023 13:23:33 Gastrointestinal Bleeding, Exum-lu-Sgss Gastrointestinal Bleeding Gastrointestinal (GI) bleeding is bleeding anywhere along the digestive tract. The digestive tract carries food from your mouth until it leaves your body as waste, or poop. You may have blood in yourpoop or have black poop. If you vomit, there may be blood in it too. This condition can be mild, serious, or even life-threatening. If you have a lot of bleeding, you may need to stay in the hospital. What are the causes? This condition may be caused by: ??? Irritation and swelling of the esophagus (esophagitis). The esophagus is part of the body that moves food from your mouth to your stomach. ??? Swollen veins in the butt (hemorrhoids). ??? Tears in the opening of the butt. These are often caused by passing hard poop. ??? Pouches that form on the colon (diverticulosis). ??? Irritation and swelling of pouches that have formed in your colon (diverticulitis). ??? Growths (polyps) or cancer. ??? Irritation of the stomach lining (gastritis). ??? Sores (ulcers) in the stomach. What increases the risk? You are more likely to develop this condition if: ??? You have a certain type of infection in your stomach called Helicobacter pylori infection. ??? You take certain medicines. ??? You smoke. ??? You drink alcohol. What are the signs or symptoms? Common symptoms of this condition include: ??? Vomiting material that has bright red blood in it. It may look like coffee grounds. ??? Changes in your poop. The poop: ??? May have red blood in it. ??? May be black, look like tar, and smell stronger than normal. ??? May be red. ??? Pain or cramping in the belly (abdomen). How is this treated? Treatment for this condition depends on the cause of the bleeding. For example: ??? Your doctor may treat the bleeding during diagnosis. Common ways of diagnosing this condition is endoscopy or colonoscopy. ??? Medicines can be used to: ??? Help control irritation, swelling, or infection. ??? Reduce acid in your stomach. ??? Certain problems can be treated with: ??? Creams. ??? Medicines that are put in the butt (suppositories). ??? Warm baths. ??? Surgery is sometimes needed. ??? If you lose a lot of blood, you may need a blood transfusion. If there is a lot of bleeding, you will need to stay in the hospital. If bleeding is mild, you may be allowed to go home. Follow these instructions at home: ??? Take rcez-quh-pkmwlav and prescription medicines only as told by your doctor. ??? Eat foods that have a lot of fiber in them. These foods include beans, whole grains, and fresh fruits and vegetables. You can also try eating 1???3 prunes each day. ??? Drink enough fluid to keep your pee (urine) pale yellow. ??? Keep all follow-up visits. Contact a doctor if: ??? Your symptoms do not get better with treatment. Get help right away if: ??? Your bleeding does not stop. ??? You feel dizzy or you pass out (faint). ??? You feel weak. ??? You have very bad cramps in your back or belly. ??? You pass large clumps of blood (clots) in your poop. ??? Your symptoms are getting worse. ??? You have chest pain or fast heartbeats. These symptoms may be an emergency. Get help right away. Call 911. ??? Do not wait to see if the symptoms will go away. ??? Do not drive yourself to the hospital. Summary ??? Gastrointestinal (GI) bleeding is bleeding anywhere along the digestive tract. The digestive tract carries food from your mouth until it leaves your body as waste, or poop. ??? This bleeding can be caused by many things. Treatment depends on the cause of the bleeding. ??? Take medicines only as told by your doctor. ??? Keep all follow-up visits. This information is not intended to replace advice given to you by your health care provider. Make sure you discuss any questions you have with your health care provider. Document Revised: 03/07/2022 Document Reviewed: 03/07/2022 [employer] Patient Education ?? 2021 [employer]. Follow Up Care 09/18/2023 18:35:36 With:Follow up - Primary Care Provider Address:Unknown When:5 to 7 days Comments:Follow up with PCP in 5-7 daysFollow up with GI as instructed Progress note * Mikal HERNANDEZ, Sara Hanks: PERFORM Event Display: Progress Notes Authored Date: [id number] Subjective Status post??upper endoscopy post endoscopy??day 1.?? Had some??expected retrosternal chest??discomfort??yesterday this morning feels overall better.?? No further evidence??of recurrent bleeding.?? Remains on octreotide??drip.?? Yesterday a total of??6 bands??were deployed??across??grade 3 esophageal varices.?? No active bleeding??was seen??at the??time of endoscopy.?? No evidence of any??gastric??varices were seen.?? 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 He does not give??any history??of heavy??EtOH use in the past.?? He has not??seen Gastroenterology? ?with several years now.?? His??last upper endoscopy with??EV banding was several years ago. Review of Systems As??per??HPI otherwise unremarkable?? Objective Vitals & Measurements ??Vital Signs (last 24 hrs)?Last Charted?Minimum?Maximum?Temp?97.7 (FEB 04 07:36)?97.5 (FEB 03 11:01)?98.2 (FEB 03 15:23)?Heart Rate?70 (FEB 04 08:12)?57 (FEB 03 23:07)?85 (FEB 03 20:06)?Resp Rate?18 (FEB 04 07:36)?14 (FEB 03 10:32)?18 (FEB 03 15:23)?SBP?143 (FEB 04 07:36)?112 (FEB 04 03:09)?148 (FEB 03 19:31)?DBP?79 (FEB 04 07:36)?61 (FEB 03 12:15)?83 (FEB 03 19:31)?SpO2?93 (FEB 04 07:36)?93 (FEB 04 03:09)?98 (FEB 03 19:31)?O2?Room a (FEB 04 08:13)?Room a (FEB 03 10:11)?Room a (FEB 03 10:11)?Weight?92.8 (SEP 20 01:00)?92.8 (SEP 20 01:00)?92.8 (SEP 20 01:00)?? Physical Exam Patient is alert oriented??x3 does not appear??to be in any acute??distress No retrosternal??chest discomfort??on palpation no chest wall??crepitus Abdomen??is nondistended soft nontender Assessment/Plan 1.??Upper GI bleed(Gastrointestinal hemorrhage, unspecified: K92.2) 2.??Esophageal varices(Esophageal varices without bleeding: I85.00) 3.??Portal hypertensive gastropathy(Portal hypertension: K76.6) 4.??Pancytopenia(Other pancytopenia: D61.818) 5.??Bilateral lower extremity edema(Localized edema: R60.0) 6.??Diabetes mellitus, type 2(Type 2 diabetes mellitus without complications: E11.9) 7.??Parkinson disease(Parkinson's disease without dyskinesia, without mention of fluctuations: G20.A1) 8.??NPH (normal pressure hydrocephalus)((Idiopathic) normal pressure hydrocephalus: G91.2) 9.??COPD mixed type(Chronic obstructive pulmonary disease, unspecified: J44.9) 10.??Allergy to alpha-gal(Allergy to other foods: Z91.018) Esophageal varices(Esophageal varices without bleeding: I85.00) Other diseases of stomach and duodenum(Other diseases of stomach and duodenum: K31.89) Portal hypertensive gastropathy(Portal hypertension: K76.6) Orders: Soft diet Impression ?? 62-year-old??male??with previous history??of bleeding esophageal??varices with banding??he presents??to the hospital??with anemia??and lower??GI bleed.?? On upper endoscopy found to have??multiple columns??of??grade 3 esophageal??varices that??were banded??a total of 6 bands??were deployed successfully.?? Otherwise portal hypertensive gastropathy??mucosal??changes were seen without any evidence??of gastric??varices.?? His etiology??of??liver disease/cirrhosis??is unknown.?? I suspect??there??jl large component??of nonalcoholic??fatty??liver disease??with a background ETOH use ?? Recommendations ?? 1. Follow??back up with GI??in clinic in??2-3 weeks' time??for monitoring??of cirrhosis and further management??of esophageal??varices 2. Start nadolol/propranolol??prophylaxis 3.??If diet as tolerated he can be discharged home today? Other Medications Medications (10) Active Scheduled: (9) aaMAR Note ??DC if...., UNSPECIFIED-See comments, Unscheduled carbidopa-levodopa IR *TCM* 25 mg-100 mg TAB ??1 tab, By mouth, TIDWM (three times a day with meals) gabapentin 100 mg CAP ??100 mg 1 cap, By mouth, TID insulin lispro (HumaLOG) 100 units/mL 3 mL PEN ??Medium dose scale, SUBQ, With Meals & Bedtime magnesium oxide 400 mg TAB ??200 mg 0.5 tab, By mouth, BID Pantoprazole Sod. 40mg Vial ??40 mg 1 vial, IVP, BID propranolol 10 mg IR TAB ??10 mg 1 tab, By mouth, BID sodium chloride 0.9% INJ SYR 5 mL ??5 mL, IVP, Q12H spironolactone *HAZ* 25 mg TAB ??25 mg 1 tab, By mouth, Daily Continuous: (1) octreotide 500 mcg/1 mL AMP 500 mcg [25 mcg/hr] + Dextrose 5% in water 100ml diluent 107 mL ??107 mL, IV, 5.4 ml/hr Lab Results Labs??(Last two charted values on this encounter) WBC 3.2 ??(SEP 20) 2.8 ??(SEP 19) Hgb 10.0 ??(SEP 20) 10.2 ??(SEP 19) Hct 32.2 ??(SEP 20) 28.5 ??(SEP 19) Platelets 46 ??(SEP 20) 54 ??(SEP 19) Na 137 ??(SEP 20) 137 ??(SEP 19) K 4.0 ??(SEP 20) 3.7 ??(SEP 19) Cl 108 ??(SEP 20) 106 ??(SEP 19) CO2 24 ??(SEP 20) 25 ??(SEP 19) BUN <5 ??(SEP 20) 7 ??(SEP 19) Cr 0.57 ??(SEP 20) 0.59 ??(SEP 19) ProteinT ?6.1 ??(SEP 20) ?5.8 ??(SEP 19) Albumin ?2.6 ??(SEP 20) ?2.5 ??(SEP 19) Bilirubin ,Total ?1.1 ??(SEP 20) ??0.7 ??(SEP 19) Alk Phos ?76 ??(SEP 20) ?75 ??(SEP 19) ALT ?8 ??(SEP 20) ?11 ??(SEP 19) AST ?50 ??(SEP 20) ?57 ??(SEP 19) Mag ?1.7 ??(SEP 20) ?? PT ?11.9 ??(SEP 19) ?? INR ?1.12 ??(SEP 19) ?? PTT 25 ??(SEP 19) ?? Bedside Glucose 213 ??(SEP 20) 188 ??(SEP 19) Glucose,Plasma 243 ??(SEP 20) 272 ??(SEP 19) Electronically signed by:Sara Ren MD 09/20/23 10:11 * Miguelito Álvarez MD: PERFORM, MODIFY Event Display: Progress Notes Authored Date: [id number] Subjective Patient underwent??EGD??and esophageal banding??this morning. Objective Vitals & Measurements ??Vital Signs (last 24 hrs)?Last Charted?Minimum?Maximum?Temp?97.5 (SEP 19 11:01)?97.5 (SEP 19 11:01)?98.2 (FEB 03 01:30)?Heart Rate?67 (FEB 03 11:01)?66 (FEB 03 09:58)?95 (FEB 03 03:50)?Resp Rate?14 (FEB 03 11:01)?12 (FEB 03 03:50)?18 (FEB 03 07:35)?SBP?134 (FEB 03 11:01)?107 (FEB 03 09:58)?170 (FEB 03 08:40)?DBP?78 (FEB 03 11:01)?56 (FEB 03 08:35)?81 (FEB 03 08:40)?SpO2?97 (FEB 03 11:01)?94 (FEB 03 08:35)?99 (FEB 03 08:25)?O2?Room a (FEB 03 11:01)?Room a (FEB 03 01:00)?Room a (FEB 03 01:00)?O2 Flow?2 (FEB 03 08:25)?2 (FEB 03 08:25)?2 (FEB 03 08:25)?Weight?93 (FEB 03 01:30)?93 (FEB 03 01:00)?93 (FEB 03 01:00)?? Physical Exam ?General: In NAD ?HEENT: NCAT, neck supple ?Lungs: Clear to auscultation bilaterally ?Cardiovascular: Regular rhythm and rate ?Abdomen: Soft, nontender, nondistended, audible bowel tone ?Genitourinary: No CVAT ?Extremities: No cyanosis or clubbing ?Integument: No petechiae or purpura?Neuro: No focal lateralizing neuro deficits ?Psych: Normal affect Assessment/Plan 1.??Upper GI bleed(Gastrointestinal hemorrhage, unspecified: K92.2) 2.??Esophageal varices(Esophageal varices without bleeding: I85.00) 3.??Portal hypertensive gastropathy(Portal hypertension: K76.6) 4.??Pancytopenia(Other pancytopenia: D61.818) 5.??Bilateral lower extremity edema(Localized edema: R60.0) 6.??Diabetes mellitus, type 2(Type 2 diabetes mellitus without complications: E11.9) 7.??Parkinson disease(Parkinson's disease without dyskinesia, without mention of fluctuations: G20.A1) 8.??NPH (normal pressure hydrocephalus)((Idiopathic) normal pressure hydrocephalus: G91.2) 9.??COPD mixed type(Chronic obstructive pulmonary disease, unspecified: J44.9) 10.??Allergy to alpha-gal(Allergy to other foods: Z91.018) Esophageal varices(Esophageal varices without bleeding: I85.00) Other diseases of stomach and duodenum(Other diseases of stomach and duodenum: K31.89) Portal hypertensive gastropathy(Portal hypertension: K76.6) Orders: carbidopa-levodopa, 1 tab, TAB, Route: By mouth, TID, Start Date: 09/19/23 14:00:00 [employer]INO GAMING INSPECTOR, Duration: 90 Days, Stop date: 12/18/23 9:00:00 CDT, Routine, Disp Location: [facility], [facility]P gabapentin, 100 mg = 1 cap, CAP, By mouth, TID, Start Date: 09/19/23 14:00:00 [employer] GAMING INSPECTOR, Duration: 90 Days, Stop date 12/18/23 9:00:00 CDT, Routine, Disp Location: [facility] - [facility], GEN DISP magnesium oxide, 200 mg = 0.5 tab, TAB, By mouth, BID, Start Date: 09/19/23 11:10:00 CASINO GAMING INSPECTOR, Duration:90 Days, Stop date 12/17/23 21:00:00 CDT, Routine, Disp Location: [place] [id number], GEN DISP ?? Plan: Reviewed??EGD procedure note. ?? Advancing to full liquid diet. ?? Continue octreotide drip??and IV ppi.?? Serial??hemoglobin and transfuse to keep??it above??7. ?? Reconciled home meds. Other Medications Medications (11) Active Scheduled: (10) aaMAR Note ??DC if...., UNSPECIFIED-See comments, Unscheduled carbidopa-levodopa IR *TCM* 25 mg-100 mg TAB ??1 tab, By mouth, TIDWM (three times a day with meals) gabapentin 100 mg CAP ??100 mg 1 cap, By mouth, TID insulin lispro (HumaLOG) 100 units/mL 3 mL PEN ??Medium dose scale, SUBQ, With Meals & Bedtime magnesium oxide 400 mg TAB ??200 mg 0.5 tab, By mouth, BID nadolol 40 mg TAB* ??40 mg 1 tab, By mouth, Daily Pantoprazole Sod. 40mg Vial ??40 mg 1 vial, IVP, BID propranolol 10 mg IR TAB ??10 mg 1 tab, By mouth, BID sodium chloride 0.9% INJ SYR 5 mL ??5 mL, IVP, Q12H spironolactone *HAZ* 25 mg TAB ??25 mg 1 tab, By mouth, Daily Continuous: (1) octreotide 500 mcg/1 mL AMP 500 mcg [25 mcg/hr] + Dextrose 5% in water 100ml diluent 107 mL ??107 mL, IV, 5.4 ml/hr Lab Results Labs??(Last two charted values on this encounter) WBC 2.8 ??(SEP 19) ?? Hgb 9.2 ??(SEP 19) ?? Hct 28.5 ??(SEP 19) ?? Platelets 54 ??(SEP 19) ?? Na 137 ??(SEP 19) ?? K 3.7 ??(SEP 19) ?? Cl 106 ??(SEP 19) ?? CO2 25 ??(SEP 19) ?? BUN 7 ??(SEP 19) ?? Cr 0.59 ??(SEP 19) ?? ProteinT ?5.8 ??(SEP 19) ?? Albumin ?2.5 ??(SEP 19) ?? Bilirubin ,Total ??0.7 ??(SEP 19) ?? Alk Phos ?75 ??(SEP 19) ?? ALT ?11 ??(SEP 19) ?? AST ?57 ??(SEP 19) ?? PT ?11.9 ??(SEP 19) ?? INR ?1.12 ??(SEP 19) ?? PTT 25 ??(SEP 19) ?? Bedside Glucose 237 ??(SEP 19) ?? Glucose,Plasma 272 ??(SEP 19) ?? Electronically signed by:Miguelito Álvarez MD 09/19/23 11:17 Electronically cosigned by: Miguelito Álvarez MD 09/19/23 11:18 Consult note * Sara Ren MD: PERFORM Event Display: Consultation Report Authored Date: [id number] Malcolm Reason for Consultation Esophageal??varices, portal??hypertension, cirrhosis, thrombocytopenia with coagulopathy? History of Present Illness This is a??wonderful 62-year-old??male??with??a prior??diagnosis??of portal??hypertension with??esophageal??varices status??post??banding several years??ago who presents to an outside??facility with a??melena??with increasing fatigue lethargy.?? Hemoglobin??dropped down??to 8.4 at outside facility.?? He had??a colonoscopy which was??positive??for??2 polyps that were successfully??removed 1 in thehepatic??flexure 1 in the transverse colon.?? Otherwise there was no evidence??of any??colitis??seen or any??mass lesions.?? The terminal ileum was also??intubated and the scope??was advanced??several??cm proximal into??the small bowel.?? An??upper endoscopy was also carried??out which revealed??with large??esophageal varices??that??were nonbleeding.?? Portal hypertensive gastropathy??mucosal changes??were seen??in the stomach without any oozing.?? Otherwise??examined portion of the??upper GI tract was unremarkable.?? Patient was then transferred??to our??facility??for further??management??of esophageal??varices.?? Patient denies any hematemesis.?? He was not aware??that??he carried a diagnosis??of cirrhosis even??though he has a history??of esophageal??varices requiring banding.?? His other past??medical history??is positive for??type 2 diabetes, ex-smoker,??normal pressure??hydrocephalus,??Parkinson's disease, pancytopenia as??a result??of probable cirrhosis, previous history of??upper GI bleed.?? Patient is currently not on any??blood thinners. Review of Systems As per??HPI otherwise unremarkable?? Physical Exam Vitals & Measurements T:??97.9?F?? TMIN:??97.9?F?? TMAX:??98.2?F?? HR:??86?? RR:??15?? BP:??170/81?? SpO2:??96%?? WT:??93??kg?? Patient is alert oriented??x3 does not appear to??to be any acute distress Abdomen??is nondistended??soft nontender Clear lungs??to auscultation??bilaterally Regular??rate rhythm heart sounds??1 and 2 Neurologically??nonfocal. Assessment/Plan 1.??Upper GI bleed(Gastrointestinal hemorrhage, unspecified: K92.2) 2.??Esophageal varices(Esophageal varices without bleeding: I85.00) 3.??Portal hypertensive gastropathy(Portal hypertension: K76.6) 4.??Pancytopenia(Other pancytopenia: D61.818) 5.??Bilateral lower extremity edema(Localized edema: R60.0) 6.??Diabetes mellitus, type 2(Type 2 diabetes mellitus without complications: E11.9) 7.??Parkinson disease(Parkinson's disease without dyskinesia, without mention of fluctuations: G20.A1) 8.??NPH (normal pressure hydrocephalus)((Idiopathic) normal pressure hydrocephalus: G91.2) 9.??COPD mixed type(Chronic obstructive pulmonary disease, unspecified: J44.9) 10.??Allergy to alpha-gal(Allergy to other foods: Z91.018) Other diseases of stomach and duodenum(Other diseases of stomach and duodenum: K31.89) Orders: octreotide 500 mcg [25 mcg/hr] + Dextrose 5% in Water 107 mL, Route: IV, Routine, Start Date: 09/19/23 9:02:00 [employer], 90 Days, Stop date 12/18/23 9:01:00 CDT, Rate= 5.45 ml/hr, hr, Total Vol ml = 108, Disp Location: [facility] IV, Populate Charting Weight From Order, DISP, 2.17, m2 propranolol, 10 mg = 1 tab, TAB, By mouth, BID, Start Date: 09/19/23 9:03:00 [employer], Duration: 90 Days, Stop date 12/17/23 21:00:00 CDT, Routine, Disp Location: [facility], GEN DISP sodium chloride flush, 5 mL, INJ, Route: IVP, Q10Min, PRN, See Comment Note, Start Date: 09/19/23 7:24:00 [employer], Duration: 90 Days, Stop date: 12/18/23 8:23:00 CDT, Routine, Disp Location: [facility] - 1400, GEN DISP sodium chloride flush, 5 mL, INJ, Route: IVP, Q12H, Start Date: 09/19/23 9:00:00 [employer], Duration: 90 Days, Stop date: 12/17/23 21:00:00 CDT, Routine, Disp Location: [facility] - 1400, GEN DISP Consent, esophagogastroduogenoscopy Gastroscopy Initiate Plan, IV Device Maintenance Protocol Adult Initiate Plan, GI EGD (esophagogastroduogenoscopy) Inpatient Liquid Full Notify Provider, Notify physician if has been on Plavix, Effient or Pradaxa in past __???___ days Nursing Communication Order, Hold SQ heparin or Lovenox until after procedure. Nursing Communication Order, Please have patient remove all body piercings, jewelry and dentures and leave them in the room Nursing Communication Order, Schedule procedure with GI lab Nursing Communication Order, If on Coumadin (Warfarin) in last 5 days and has not had a PT done in the last 24 hours, obtain Protime. If of childbearing age and any possibility of , please obtain urine test. Nursing Communication Order, If has pacemaker, ensure that has had pacemaker check within last 6 weeks; if not, complete the Pacemeker management orders and device information sheet Nursing Communication Order, Check with primary physician about insulin or oral diabetes medications. Impression? This is a??62-year-old??male who presents??to an??outside??facility with??melena with the acute??GI??blood loss and anemia??with a prior history??of esophageal??varices requiring??banding several years ago.?? His past??medical history is positive for??type 2 diabetes, Parkinson's,??normal pressure h ydrocephalus, COPD, pancytopenia as a result??of probable??cirrhosis.?? An upper endoscopy carried out??at the outside facility??revealed esophageal??varices??and therefore he was transferred here??for higher level??of care and further management??of his esophageal??varices ?? Plan ?? 1. Continue??with octreotide??drip 2. Proceed to upper endoscopy??with banding ?? Thank??you??for this consult??further recommendations??to follow upper endoscopy Problem List/Past Medical History Ongoing Allergy to alpha-gal Bilateral lower extremity edema COPD mixed type Diabetes mellitus, type 2 Esophageal varices Ex-smoker NPH (normal pressure hydrocephalus) Pancytopenia Parkinson disease Portal hypertensive gastropathy Upper GI bleed Historical No qualifying data Medications Medication List ? Active Medications ?Ordered ? aaMAR: DC if...., UNSPECIFIED-See comments, Unscheduled. ? acetaminophen: 650 mg, 2 tab, PO/per tube, Q6H, PRN: Temp, Mild Pain, ? Headache. ? Al hydroxide/Mg hydroxide/simethicone: 15 mL, By mouth, QID, PRN: ? Heartburn or Indigestion. ? benzocaine-menthol topical: 1 lozenge, By mouth, as needed, PRN: Sore ? Throat. ? bisacodyl: 10 mg, 1 supp, Rectally, Daily, PRN: Constipation. ? citric acid-potassium bicarbonate: 25 mEq, 1 tab, PO/per tube, as ? directed, PRN: See Comment Note. ? citric acid-potassium bicarbonate: 50 mEq, 2 tab, PO/per tube, as ? directed, PRN: See Comment Note. ? cloNIDine: 0.1 mg, 1 tab, By mouth, Q4H, PRN: See Comment Note. ? Dextrose 10% in Water: per scale or Glucommander, IVP, as directed, ? PRN: Hypoglycemia Severe. ? docusate: 100 mg, 1 cap, By mouth, BID, PRN: Constipation. ? emollients, topical: 1 application, Topical, as needed, PRN: Skin ? Protection. ? emollients, topical: 1 application, Topical, as needed, PRN: See ? Comment Note. ? glucagon: 1 mg, 1 mL, IM, as directed, PRN: Hypoglycemia Severe. ? glucose: 16 g, 4 tab, By mouth, as directed, PRN: See Comment Note. ? glucose: 15 g, 1 tube, By mouth, as directed, PRN: See Comment Note. ? hydrALAZINE: 25 mg, 1 tab, By mouth, Q8H, PRN: See Comment Note. ? hydroxypropyl methylcellulose ophthalmic: 1 Drops, Both Eyes, as ? needed, PRN: Dry Eyes. ? insulin lispro (Humalog): Medium dose scale, SUBQ, With Meals & ? Bedtime. ? Juice (orange/apple): 15 g, 118 mL, By mouth, as directed, PRN: See ? Comment Note. ? LORazepam: 2 mg, 1 mL, IVP, ONCE, PRN: Seizures. ? magnesium sulfate: 2 g, 50 mL, 25 ml/hr, IVPB, as needed, PRN: See ? Comment Note. ? magnesium sulfate: 4 g, 100 mL, 25 ml/hr, IVPB, as needed, PRN: ? Magnesium < 1.8. ? Melatonin: 3 mg, 1 tab, By mouth, at bedtime, PRN: Sleep. ? miconazole topical: 1 application, Topical, BID, PRN: Skin Protection. ? miconazole topical: 1 application, Topical, Q8H, PRN: Skin Protection. ? nadolol: 40 mg, 1 tab, By mouth, Daily. ? nitroglycerin: 0.4 mg, 1 tab, SL, Q5Min, PRN: Pain Chest. ? nystatin topical: 1 application, Topical, BID, PRN: Skin Protection. ? octreotide 500 mcg [25 mcg/hr] + Dextrose 5% in Water 107 mL: 5.45 ? ml/hr, IV, Stop: 12/18/23 9:01:00 CDT. ? ondansetron: 4 mg, 2 mL, IVP, Q8H, PRN: Nausea and Vomiting. ? oxyCODONE: 5 mg, 1 tab, By mouth, Q4H, PRN: Pain Moderate (4-6). ? pantoprazole: 40 mg, 1 vial, IVP, BID. ? polyethylene glycol 3350 (Miralax): 17 g, 1 pkt, By mouth, Daily, ? PRN: Constipation. ? propranolol: 10 mg, 1 tab, By mouth, BID. ? senna: 17.2 mg, 2 tab, By mouth, at bedtime, PRN: Constipation. ? sodium chloride: 1 spray, Both Nostrils, as needed, PRN: Dry ? Nose/Congestion. ? sodium chloride flush: 5 mL, IVP, Q12H. ? sodium chloride flush: 5 mL, IVP, Q10Min, PRN: See Comment Note. ? spironolactone: 25 mg, 1 tab, By mouth, Daily. ?Documented ? aspirin: 81 mg, 1 tab, By mouth, Daily, 30 tab, 0 Refill(s). ? carbidopa-levodopa: 1 tab, By mouth, TID, 90 tab, 0 Refill(s). ? cholecalciferol: 1,250 mcg, 1 cap, By mouth, QSun, 0 Refill(s). ? dapagliflozin: 10 mg, 1 tab, By mouth, Daily, 0 Refill(s). ? furosemide: 20 mg, 1 tab, By mouth, Daily, 0 Refill(s). ? gabapentin: 100 mg, 1 cap, By mouth, TID, 0 Refill(s). ? magnesium oxide: 200 mg, By mouth, BID, 0 Refill(s). ? metFORMIN: 1,000 mg, 1 tab, By mouth, BID, 0 Refill(s). ? potassium chloride: 10 mEq, 1 cap, By mouth, Daily, 0 Refill(s). ? Medications Inactivated in the Last 72 Hours ? cefTRIAXone: 1,000 mg, 214 ml/hr, IV, Daily. ? fentaNYL: 100 mcg, 2 mL, OMNI, STAT. ? midazolam: 10 mg, 10 mL, OMNI, STAT. ? octreotide 500 mcg [25 mcg/hr] + Dextrose 5% in Water 107 mL: 5.4 ? ml/hr, IV, Stop: 12/18/23 1:11:00 CDT. ? ondansetron: 4 mg, IV, Q6H, PRN: Nausea, 16 mL, 0 Refill(s). ? sodium chloride flush: 5 mL, IVP, Q12H. ? sodium chloride flush: 5 mL, IVP, Q10Min, PRN: See Comment Note. ? sodium chloride flush: 5 mL, IVP, Q12H. ? sodium chloride flush: 5 mL, IVP, Q10Min, PRN: See Comment Note. Allergies Alpha-Gal??(hives) Bee Sting??(Hives) Social History Social History Tobacco ??Smoking Status: Former smoker. ??Smokeless tobacco use: Never. Lab Results Labs??(Last two charted values on this encounter) WBC 2.8 ??(SEP 19) ?? Hgb 9.2 ??(SEP 19) ?? Hct 28.5 ??(SEP 19) ?? Platelets 54 ??(SEP 19) ?? Na 137 ??(SEP 19) ?? K 3.7 ??(SEP 19) ?? Cl 106 ??(SEP 19) ?? CO2 25 ??(SEP 19) ?? BUN 7 ??(SEP 19) ?? Cr 0.59 ??(SEP 19) ?? ProteinT ?5.8 ??(SEP 19) ?? Albumin ?2.5 ??(SEP 19) ?? Bilirubin ,Total ??0.7 ??(SEP 19) ?? Alk Phos ?75 ??(SEP 19) ?? ALT ?11 ??(SEP 19) ?? AST ?57 ??(SEP 19) ?? PT ?11.9 ??(SEP 19) ?? INR ?1.12 ??(SEP 19) ?? PTT 25 ??(SEP 19) ?? Bedside Glucose 237 ??(SEP 19) ?? Glucose,Plasma 272 ??(SEP 19) ?? Electronically signed by:Sara Ren MD 09/19/23 08:52 Surgical operation note * Sara Ren MD: PERFORM Event Display: Operative Report Authored Date: [id number] Preoperative Diagnosis This is a??62-year-old??male who comes??in with a history??of??esophageal??varices several years ago.?? However when asked about??his??diagnosis of cirrhosis patient reports??that??he has never been t old??of having??cirrhosis in the past.?? He??does have a longstanding history??of??type 2 diabetes raising the suspicion??of NAFLD??related cirrhosis.?He presented??to an??outside??facility with afew??days of melena??with increasing??tiredness??and lethargy but no hematemesis. ?? A colonoscopy??was carried??out which was positive??for 2 polyps??in the right??colon that were successfully??removed otherwise examination was unremarkable.?? On??upper endoscopy he was found to??have esophageal??varices otherwise examination was unremarkable.?? He was transferred to our facility??for further??management??of his??esophageal??varices.? Postoperative Diagnosis 1. Multiple columns??of??grade 3 esophageal??varices??spanning the distal 3rd??of the esophagus??with multiple red Chavo??signs. ?? No active bleeding??was seen??at the time of??upper endoscopy.?? A total??of 6 bands??were deployed.?? The varices??were found??to be friable??on suctioning.?? 2. Mild to moderate??portal??hypertensive??gastropathy??mucosal changes??seen in the proximal half??of the stomach 3. No evidence??of any gastric??varices 4. Normal examination of the duodenum? Operation EGD with the banding Surgeon(s) Dr Ruiz??Ahlucio Anesthesia Moderate??sedation,??4 mg??of Versed, fentanyl??100 mcg IV.?? Total??sedation??time was 10 minutes? Estimated Blood Loss None Urine Output None Findings The risks??benefits and alternatives explained??to the patient including??infection bleeding perforation complications??of anesthesia possible??surgery possible incompletion??of endoscopy.?? After inf ormed??consent??was obtained??from the patient the standard upper endoscope??was introduced??into??the mouth and advanced??down into??the esophagus??where large??grade 3 esophageal varices??were seenwith multiple red??Chavo signs with??multiple columns.?? No active??bleeding??was seen at the??time of??upper endoscopy.?? The varices??were spanning??the entire??1/3 of the distal??esophagus.?? Upperand middle esophagus??was otherwise??unremarkable.?? Examination of the stomach??revealed a [id number] portal hypertensive??gastropathy??mucosal??changes without any oozing. ?? This was most pronounced??in the proximal??body and fundus??of the stomach.?? No evidence??of any??gastric??varices??were seen on retroflexion.?? The rest??of the stomach including the distal??body??antrum and pylorus??was unremarkable.?? Examination of the 1st 2nd and 3rd portion??of the duodenal??was also??unremarkable.?? The scope??was then??withdrawn.?? The band??ligated??was attached to the tip??of the standard??upper endoscope and the scope??was then??reintroduced at a total of??6 bands??were successfully??deployed.?? On suctioning the varices were found to be slightly??friable.?? However hemostasis??was achieved at the end??of the??procedure.?? Patient tolerated??the procedure well.? Recommendation ?? 1. Full liquid diet??today advance to GI soft??diet??tomorrow if no further??bleeding 2. Start octreotide??drip for??the next??48 hours 3. Recommend propranolol/Inderal??on discharge 4. Follow-up??with the GI??in clinic for further??management??of cirrhosis??and band ablation ligation therapy. ? Electronically signed by:Sara Ren MD 09/19/23 08:46 History and physical note * Mike Velasco MD: MODIFY Val Teran: PERFORM Event Display: History and Physicals Authored Date: [id number] Chief Complaint GI BLEED, CIRRHOSIS Care Team Primary Care Physician??- Admitting Physician - Yun HERNANDEZ, Brain Attending Physician - Mike Velasco MD Arrival Date/Time??- 09/19/2023 00:46:00 History of Present Illness Mr. Seymour is a??62-year-old??gentleman with history of??alpha gal, COPD, diabetes,??Parkinson's,NPH,??bilateral lower extremity venous??stasis??who presented [facility] [place]a few days??prior after experiencing??presyncope while sitting??at a restaurant having lunch.?? The p atient recalls??having??associated diaphoresis.?? He admits??that in the few days leading??up to that event, he had had??multiple??dark,??black appearing hard stools.?He was brought??to the emergency??department there and found??to??have pancytopenia.?? He??was??admitted??for concern??for GI blee ding.?? He??was transfused packed red cells, given??IV fluids,??IV PPI and??ultimately underwent?endoscopic evaluation today.?? EGD showed??evidence of esophageal??varices??without evidence??of stricture.?? Stomach had evidence??of portal??hypertensive??gastropathy with??no peptic??ulceration, ma ss, polyp or other pathology.?? There??was no??blood??in the stomach or signs??of active??bleeding.?? Colonoscopy revealed??normal terminal??ileum.?? There??were 4 small??colon??polyps.?? No evidence??of colitis, diverticulosis, colon??mass or other pathology.?? Ultimately, the decision??was??made t o??transfer the patient to [facility]??for further??gastrointestinal??consultation and considerationof esophageal??varices banding. ?? The patient reports??that approximately 7 or??8 years ago when??living in [place], he did??havean??acute??episode??of??upper GI bleeding with??mike hematemesis.?? He reports??he??was hospitalized at??that time and had an??EGD then which??showed??1 bleeding esophageal??varices.?? He reports??this??lesion was banded.?? He denies ever??having repeat or??follow-up EGD??since that??time.?? He had??never??had colonoscopy until today.?? The patient says??that he does follow??with medical providers??routinely.?? He was told during??his??hospitalization at the outside??facility??that records??indicate he has??had chronic??pancytopenia, however the patient says that??he was unaware??of this.?? He recalls??that when??he??was hospitalized??in [place] with??upper GI bleeding??they had mentionedconcern for underlying??liver disease, but denies ever having significant??liver workup.?? He??doesnot believe??he has ever??had imaging of his??liver performed??or??other laboratory studies to??investigate??etiology??of??liver disease.?? The patient does admit to??some recreational drug??use??in the 1980s when he was younger.?? He denies ever??using??IV drugs.?? He does??admit to??sexual??promiscuity at that same??time frame.?? He has??never been tested??for hepatitis.?? The patient adamantlydenies alcoholism.?? He does??admit to family history??of??liver disease??and reports his??father?from??[place]??of liver disease including??GI bleeding. The patient denies any further??melena??since admission outside??bloody.?? Denies??hematochezia.?? Denies??nausea??vomiting, abdominal??pain.?? Has??no further??lightheadedness or??dizziness or presyncope.?? Denies chest??pain, shortness for breath.?? Does??have bilateral lower??extremity??edema??which he reports has been worsening over??the past??few??weeks.?? Denies??increase??in abdominal girth. Review of Systems General:??Denies fevers, chills, night sweats, unexplained weight loss HEENT: Denies sinus pressure or pain, nasal congestion, rhinorrhea, sore throat Respiratory: Denies cough, sputum production, wheezing, hemoptysis Cardiovascular: see above Gastrointestinal: see above Genitourinary: Denies dysuria, hematuria, urinary urgency, frequency Hematologic/lymphatics: Denies lymphadenopathy, easy bleeding or bruising Endocrine: Denies heat or cold intolerance, polydipsia, polyphagia Musculoskeletal: Denies joint pain, muscle pain, swelling, redness, bruising Neurologic: Denies headache, focal weakness, numbness, paresthesias, confusion Integumentary: Denies rashes, skin lesions, wounds Psychiatric: Denies anxiety, depression, insomnia Physical Exam Vitals & Measurements T:??98.2?F?? HR:??70?? RR:??17?? BP:??146/67?? SpO2:??97%?? WT:??93??kg?? Gen.:??Well-nourished, overall well-appearing white male whom appears younger than his stated age resting comfortably in his bed.?? He is awake, alert and pleasant and interactive.?? He is in no acute distress Eye: Conjunctiva pink, sclera white without icterus. HENT: Head normocephalic, atraumatic.?? Mucous membranes moist Neck:?? Supple, trachea midline.? No JVD Respiratory: Nonlabored respirations with symmetrical expansion.?? Lungs clear to auscultation throughout without wheezing, rales or rhonchi.?? Room air. Confirmed.?? frj Cardiovascular: Regular rate and rhythm without murmur, rub, click, or??gallop.?? Confirmed.?? frj Extremities:?? Distal extremities warm and apparently perfused.??Chronic stasis changes noted with??bronzing of the shins bilaterally.?3+ pitting edema of pretibial regions noted.?? Confirmed.?? frj Gastrointestinal: Abdomen soft, nondistended, and nontender.?? No significant ascites.?? Normoactive bowel sounds throughout.?? Musculoskeletal: Freely moves all 4 extremities.?? No obvious swelling or deformity. Neurologic:?? No appreciable acute focal deficits. Integumentary: Winder, warm, and dry.?? Psychiatric: Calm, cooperative.?? Appropriate mood and affect. Assessment/Plan 1.??Upper GI bleed(Gastrointestinal hemorrhage, unspecified: K92.2) 2.??Esophageal varices(Esophageal varices without bleeding: I85.00) 3.??Portal hypertensive gastropathy(Portal hypertension: K76.6) 4.??Pancytopenia(Other pancytopenia: D61.818) 5.??Bilateral lower extremity edema(Localized edema: R60.0) 6.??Diabetes mellitus, type 2(Type 2 diabetes mellitus without complications: E11.9) 7.??Parkinson disease(Parkinson's disease without dyskinesia, without mention of fluctuations: G20.A1) 8.??NPH (normal pressure hydrocephalus)((Idiopathic) normal pressure hydrocephalus: G91.2) 9.??COPD mixed type(Chronic obstructive pulmonary disease, unspecified: J44.9) 10.??Allergy to alpha-gal(Allergy to other foods: Z91.018) Other diseases of stomach and duodenum(Other diseases of stomach and duodenum: K31.89) ? PLAN: Mr Seymour has been transferred to??this facility??for further evaluation??and management??of??upper GI bleed with esophageal??varices??noted??on EGD??today at outside facility.?? Per??record view,??it seems??patient's admission hemoglobin??at??that facility??was somewhere??around??8.?? As of??this morning he was??up to 10.?? He has received??2 units??of packed red cells??facility best I??can tell.?? Platelets have been??ranging??in the 50-60 range.?? White blood cell count is??around??3.?? Repeat??CBC is pending stat.?? Will also obtain??CMP and PT INR. Transfuse??additionally to keep??hemoglobin above??7.0. GI is aware??of patient transfer??and??is to consult later this morning??for further recommendations regarding esophageal varices. Will continue??IV PPI b.i.d. for now. Patient was treated with??octreotide at outside facility.?? Bleeding is apparently??controlled withno active??bleeding??noted??on endoscopy.?? Will defer further??treatment for now. Portal??hypertensive??gastropathy is noted on EGD??report.?? Will start nadolol. He does have evidence??of bilateral??lower??extremity??edema and so will give spironolactone.?? Abdomen??exam is without significant??ascites.?? Patient denies increase??in abdominal??girth. Patient is unsure if??he has ever??had formal??diagnosis??of??liver disease.?? Based on??laboratorystudies??and??endoscopic findings, suspect??he has underlying??liver cirrhosis.?? Will obtain??liver ultrasound.?? Cirrhosis panel will be ordered including hepatitis screening. CMP is pending to check??liver function studies and renal function studies as ??above. Patient denies current or??past??alcohol??abuse??or dependency. Once routine medications??are verified,??will continue??appropriate medications??for maintenance??of chronic??conditions including??Parkinson's??disease, diabetes and COPD.?? Will start glycemic manag ement??protocol??with sliding??scale??insulin if needed. Will keep??patient NPO pending??GI??eval and??liver ultrasound. Patient may be??up as tolerated. SCDs for DVT??prophylaxis??given GI bleed and pancytopenia. Full code. ?? Patient was seen face to face, and examined in detail at the time of admission. ??The available labs, vitals, diagnostics, and documentation in the EHR ??were personally reviewed, Patient History & Physical reviewed and confirmed. ??Agree with documented and edited information. ??The plan ofcare was discussed with the patient. ? [facility] Problem List/Past Medical History Ongoing Allergy to alpha-gal Bilateral lower extremity edema COPD mixed type Diabetes mellitus, type 2 Esophageal varices Ex-smoker NPH (normal pressure hydrocephalus) Pancytopenia Parkinson disease Portal hypertensive gastropathy Upper GI bleed Historical No qualifying data Medications No qualifying data available Allergies Alpha-Gal??(hives) Bee Sting??(Hives) Social History Social History Tobacco ??Smoking Status: Former smoker. ??Smokeless tobacco use: Never. Lab Results No qualifying data available Diagnostic Results No clinical data available for specified time frame. Electronically signed by:Val Teran 09/19/23 01:56 Electronically cosigned by: Mike Velasco MD 09/19/23 02:15 Discharge summary * Miguelito Álvarez MD: PERFORM Event Display: Discharge Summary Authored Date: [id number] Discharge Information Admit date:09/19/2023 Discharge date:09/20/2023 Attending Physician:Miguelito Álvarez MD Consulting Physician:;Sara Ren MD Admitting Physician:Brain Malcolm MD Discharge Diagnosis Upper GI bleed Esophageal varices Portal hypertensive gastropathy Pancytopenia Bilateral lower extremity edema Diabetes mellitus, type 2 Parkinson disease NPH (normal pressure hydrocephalus) COPD mixed type Allergy to alpha-gal Esophageal varices Other diseases of stomach and duodenum Portal hypertensive gastropathy Procedures During Visit Procedures: 09-19-23 08:31??Gastroscopy - Endo?? Sara Ren MD Surgeon - Primary?? Admission History Mr. Seymour is a??62-year-old??gentleman with history of??alpha gal, COPD, diabetes,??Parkinson's,NPH,??bilateral lower extremity venous??stasis??who presented [place]a few days??prior after experiencing??presyncope while sitting??at a restaurant having lunch.?? The p atient recalls??having??associated diaphoresis.?? He admits??that in the few days leading??up to that event, he had had??multiple??dark,??black appearing hard stools.?He was brought??to the emergency??department there and found??to??have pancytopenia.?? He??was??admitted??for concern??for GI blee carmen.?? He??was transfused packed red cells, given??IV fluids,??IV PPI and??ultimately underwent?endoscopic evaluation today.?? EGD showed??evidence of esophageal??varices??without evidence??of stricture.?? Stomach had evidence??of portal??hypertensive??gastropathy with??no peptic??ulceration, ma ss, polyp or other pathology.?? There??was no??blood??in the stomach or signs??of active??bleeding.?? Colonoscopy revealed??normal terminal??ileum.?? There??were 4 small??colon??polyps.?? No evidence??of colitis, diverticulosis, colon??mass or other pathology.?? Ultimately, the decision??was??made t o??transfer the patient to [facility]??for further??gastrointestinal??consultation and considerationof esophageal??varices banding.?? The patient reports??that approximately 7 or??8 years ago when??[place] in [place], he did??have an??acute??episode??of??upper GI bleeding with??mike hematemesis.??He reports??he??was hospitalized at??that time and had an??EGD then which??showed??1 bleeding esophageal??varices.?? He reports??this??lesion was banded.?? He denies ever??having repeat or??follow-up EGD??since that??time.?? He had??never??had colonoscopy until today.?? The patient says??that he does follow??with medical providers??routinely.?? He was told during??his??hospitalization at the outside??facility??that records??indicate he has??had chronic??pancytopenia, however the patient says that??he was unaware??of this.?? He recalls??that when??he??was hospitalized??in [place] with??upper GI bleeding??they had mentioned concern for underlying??liver disease, but denies ever having significant??liver workup.?? He??does not believe??he has ever??had imaging of his??liver performed??or??ot her laboratory studies to??investigate??etiology??of??liver disease.?? The patient does admit to??some recreational drug??use??in the 1980s when he was younger.?? He denies ever??using??IV drugs.?? He does??admit to??sexual??promiscuity at that same??time frame.?? He has??never been tested??for hepatitis.?? The patient adamantly denies alcoholism.?? He does??admit to family history??of??liver disease??and reports his??father?from??[place]??of liver disease including??GI bleeding. The patient denies any further??melena??since admission outside??bloody.?? Denies??hematochezia.?? Denies??nausea??vomiting, abdominal??pain.?? Has??no further??lightheadedness or??dizziness or presyncope.?? Denies chest??pain, shortness for breath.?? Does??have bilateral lower??extremity??edema??which he reports has been worsening over??the past??few??weeks.?? Denies??increase??in abdominal girth. Hospital Course ?? Patient??was??admitted to medical allison??with??the following??initial??assessment and plan: 1.??Upper GI bleed(Gastrointestinal hemorrhage, unspecified: K92.2) 2.??Esophageal varices(Esophageal varices without bleeding: I85.00) 3.??Portal hypertensive gastropathy(Portal hypertension: K76.6) 4.??Pancytopenia(Other pancytopenia: D61.818) 7.??Parkinson disease(Parkinson's disease without dyskinesia, without mention of fluctuations: G20.A1) ?? Patient was??admitted to??medical allison.?? Hemoglobin stayed??above??9.2, not??requiring??blood transfusion.?? Patient was kept??NPO??until??evaluation??by GI. Underwent EGD,??showing multiple columns??of??grade 3 esophageal??varices??without active??bleeding.?? Total??of 6 bands??were deployed.?? Diet was gradually??advanced after the??procedure.?? On the day of??discharge,??patient??was able??to tolerate??soft??diet, without??significant??GI symptoms.??Hemoglobin??was??9.7??up from 9.2??at admission without??the need??for??blood transfusion.?? Was able to ambulate??and perform??ADLs??independently prior to discharge. Vitals & Measurements ??Vital Signs (last 24 hrs)?Last Charted?Minimum?Maximum?Temp?98 (SEP 20 11:15)?97.7 (SEP 20 07:36)?98.2 (SEP 19 19:31)?Heart Rate?64 (SEP 20 11:15)?57 (SEP 19 23:07)?85 (SEP 19 20:06)?Resp Rate?18 (SEP 20 11:15)?16 (SEP 19 19:31)?18 (SEP 20 07:36)?SBP?116 (SEP 20 11:15)?112 (SEP 20 03:09)?148 (SEP 19:31)?DBP?67 (SEP 20 11:15)?66 (SEP 20 03:09)?83 (SEP 19:31)?SpO2?93 (SEP 20 11:15)?93 (SEP 20 03:09)?98 (SEP 19:31)?O2?Room a (SEP 20:15)?Room a (SEP 19:05)?Room a (SEP 19:05)?Weight?92.8 (SEP 20 01:00)?92.8 (SEP 20:00)?92.8 (SEP 20 01:00)?? Physical Exam Improved overall Patient Discharge Condition Stable for??discharge??home?? Discharge Orders Discharge 09/20/23 12:50:00 [employer] GAMING INSPECTOR, Home/Self Care Discharge Follow Up 09/20/23 12:50:00 CASINO GAMING INSPECTOR, Provider/Time: PCP in 5-7 days; f/u with GI as instructed. Discharge Diet 09/20/23 12:50:00 CASINO GAMING INSPECTOR, Discharge Diet: Regular Discharge Activity 09/20/23 12:50:00 CASINO GAMING INSPECTOR, As tolerated Medications Home Medications (10) Active carbidopa-levodopa 25 mg-100 mg oral tablet??1 tab, By mouth, TID Farxiga 10 mg oral tablet??10 mg = 1 tab, By mouth, Daily furosemide 20 mg oral tablet??20 mg = 1 tab, By mouth, Daily gabapentin 100 mg oral capsule??100 mg = 1 cap, By mouth, TID magnesium oxide??200 mg, By mouth, BID metFORMIN 1000 mg oral tablet??1,000 mg = 1 tab, By mouth, BID potassium chloride 10 mEq oral capsule, extended release??10 mEq = 1 cap, By mouth, Daily propranolol 10 mg oral tablet??10 mg = 1 tab, By mouth, BID Protonix 40 mg oral delayed release tablet??40 mg = 1 tab, By mouth, Daily spironolactone 25 mg oral tablet??25 mg = 1 tab, By mouth, Daily Medication reconciliation completed on this patient today Pending Labs PENDING LABS A1A QN SE Blood, Routine, 09/19/23 2:02:00 CASINO GAMING INSPECTOR, GERARDO, 09/19/23 4:15:00 CASINO GAMING INSPECTOR, [id number], pp_rslts_call_set_order_encntr AFP Tumor Ser Blood, Routine, 09/19/23 2:02:00 CASINO GAMING INSPECTOR, GERARDO, 09/19/23 4:15:00 CASINO GAMING INSPECTOR, [id number], pp_rslts_call_set_order_encntr CHELITA Screen Blood, Routine, 09/19/23 2:02:00 CASINO GAMING INSPECTOR, GERARDO, 09/19/23 4:15:00 CASINO GAMING INSPECTOR, [id number], pp_rslts_call_set_order_encntr Ceruloplasmin Qst Blood, Routine, 09/19/23 2:02:00 CASINO GAMING INSPECTOR, GERARDO, 09/19/23 4:15:00 CASINO GAMING INSPECTOR, [id number], pp_rslts_call_set_order_encntr Hemoglobin Blood, STAT, 09/21/23 0:57:00 CASINO GAMING INSPECTOR, Stat, 09/21/23 0:57:00 CASINO GAMING INSPECTOR, [id number], pp_rslts_call_set_order_encntr Hemoglobin Blood, STAT, 09/20/23 16:57:00 CASINO GAMING INSPECTOR, Stat, 09/20/23 16:57:00 CASINO GAMING INSPECTOR, [id number], pp_rslts_call_set_order_encntr Hemoglobin Blood, STAT, 09/19/23 0:57:00 CASINO GAMING INSPECTOR, Stat, HeiF1Dq, 3, Days, 09/21/23 16:57:00 CASINO GAMING INSPECTOR, [id number], pp_rslts_call_set_order_encntr Mitochon Ab M2 Blood, Routine, 09/19/23 2:02:00 CASINO GAMING INSPECTOR, GERARDO, 09/19/23 4:15:00 CASINO GAMING INSPECTOR, [id number], pp_rslts_call_set_order_encntr SM Tot Ab w/rflx titier Blood, Routine, 09/19/23 2:02:00 CASINO GAMING INSPECTOR, GERARDO, 09/19/23 4:15:00 CASINO GAMING INSPECTOR, [id number], pp_rslts_call_set_order_encntr Transferrin Blood, Routine, 09/19/23 2:02:00 CASINO GAMING INSPECTOR, GERARDO, 09/19/23 4:15:00 CASINO GAMING INSPECTOR, [id number], pp_rslts_call_set_order_encntr Lab Results Labs??(Last two charted values on this encounter) WBC 3.2 ??(SEP 20) 2.8 ??(SEP 19) Hgb 9.7 ??(SEP 20) 10.0 ??(SEP 20) Hct 32.2 ??(SEP 20) 28.5 ??(SEP 19) Platelets 46 ??(SEP 20) 54 ??(SEP 19) Na 137 ??(SEP 20) 137 ??(SEP 19) K 4.0 ??(SEP 20) 3.7 ??(SEP 19) Cl 108 ??(SEP 20) 106 ??(SEP 19) CO2 24 ??(SEP 20) 25 ??(SEP 19) BUN <5 ??(SEP 20) 7 ??(SEP 19) Cr 0.57 ??(SEP 20) 0.59 ??(SEP 19) ProteinT ?6.1 ??(SEP 20) ?5.8 ??(SEP 19) Albumin ?2.6 ??(SEP 20) ?2.5 ??(SEP 19) Bilirubin ,Total ?1.1 ??(SEP 20) ??0.7 ??(SEP 19) Alk Phos ?76 ??(SEP 20) ?75 ??(SEP 19) ALT ?8 ??(SEP 20) ?11 ??(SEP 19) AST ?50 ??(SEP 20) ?57 ??(SEP 19) Mag ?1.7 ??(SEP 20) ?? PT ?11.9 ??(SEP 19) ?? INR ?1.12 ??(SEP 19) ?? PTT 25 ??(SEP 19) ?? Bedside Glucose 284 ??(SEP 20) 213 ??(SEP 20) Glucose,Plasma 243 ??(SEP 20) 272 ??(SEP 19) Diagnostic Results Radiology Results:?? US GB Bile Ducts - 09/19/23 08:34 ( Trish Erickson MD )?? IMPRESSION:1. ?? Heterogeneous coarsened increased echotexture involving the liver parenchyma. ??Lobulated margins of the liver. ??Findings are consistent with cirrhosis. 2. ?? Perihepatic ascites isidentified. 3. ?? No evidence of cholelithiasis or biliary dilatation. 4. ?? Poor visualization of the pancreas due to overlying bowel gas. Electronically signed by: Dr Trish Erickson MD ??48:34 AM Other No qualifying data available. Airway Management No Data Available Electronically signed by:Miguelito Álvarez MD 09/20/23 16:18 US Biliary ducts and Gallbladder * Trish Erickson MD: PERFORM, TRANSCRIBE, VERIFY, VERIFY Event Display: Report Authored Date: Note * Trish Erickson MD: PERFORM, TRANSCRIBE, VERIFY, VERIFY Event Display: Powerscribe Read Authored Date: Reading location: [facility], [facility]. US GB Bile Ducts History: liver exam for cirrhosis; pancytopenia, UGIB with portal hyperte. Diagnosis Codes: K31.89 Other diseases of stomach and duodenum K92.2 Gastrointestinal hemorrhage, unspecified Comparison: There are no prior exams available for comparison. Findings: The pancreas was not well visualized due to overlying bowel gas. Liver measures approximately 15 cm in cephalocaudal dimensions. Heterogeneous coarsened increased echotexture throughout the liver. No intrahepatic biliary dilatation. The margins of the liver are lobulated consistent with cirrhosis. There is perihepatic fluid. Visualized portions of the right kidney demonstrate no hydronephrosis. The gallbladder is mildly distended. No stones, sludge, or wall thickening. The common bile duct measures 6.1 millimeters. IMPRESSION: 1. Heterogeneous coarsened increased echotexture involving the liver parenchyma. Lobulated margins of the liver. Findings are consistent with cirrhosis. 2. Perihepatic ascites is identified. 3. No evidence of cholelithiasis or biliary dilatation. 4. Poor visualization of the pancreas due to overlying bowel gas. Electronically signed by: Dr Trish Erickson MD 09/19/2023 8:34 AM Trish Erickson MD Signed 09/19/23 08:34:28 (Electronic Signature) Title Closer CW Technologist [facility] * Lucas Chavez MD R: SIGN, VERIFY Event Display: EKG 12-Lead Authored Date: Patient Care team information Care Team Personnel Name: Gustavo Singh Position: Nurse (MAR) Member Role: Nurse Name: Destiney Simmons RN Position: Nurse (MAR) Member Role: Nurse Name: Brain Malcolm MD Position: Physician-Hospitalist Med Service: Hospitalist Member Role: Admitting Physician Address: Address: [facility] [place], [place] [id number] [place] [address] Name: Florian Roper RN Position: Nurse (MAR) Member Role: Nurse Name: Ester Malik Position: Nurse (MAR) Member Role: Nurse Name: Petros Mcdonald Position: Patient Development Spec (E) Member Role: Nurse Electrical Design Technician Name: Rosa Stone Position: Patient Development Spec (E) Member Role: Nurse Electrical Design Technician
--- OUTSIDE RECORDS SUMMARY | 2024-03-11 06:11 | XMS_ITS ---
Author Name Unknown Organization [facility] ALLERGIES AND ADVERSE REACTIONS No information ASSESSMENT No information CHIEF COMPLAINT No information Medications Date Medication Dosage Startdate Active Dispense Refills Ndccode Dr malone Pharmacyid Isprescription Srcstatus 2023 12:00 :00 AM vitamin d2 1,250 mcg (50,000 unit) capsule 4.63979 0 08/11/2023 12:00:00 AM 1 4.703170 98 [id number] [facility] 2023 12:00 :00 AM furosemide 40 mg tablet 60.0000 00 11/03/2023 12:00:00 AM 1 60.949119 98 [id number] [facility] 2023 12:00 :00 AM metformin 1,000 mg tablet 180.000 000 09/18/2023 12:00:00 AM 1 180.76130 0 0 [id number] [facility] 2023 12:00 :00 AM ropinirole 4 mg tablet 27.0000 00 01/22/2024 12:00:00 AM 1 27.726958 [id number] [facility] 2023 12:00 :00 AM propranolol 10 mg tablet 60.0000 00 09/20/2023 12:00:00 AM 1 60.104118 0 [id number] [facility] 2023 12:00 :00 AM famotidine 20 mg tablet 9.63937 0 01/22/2024 12:00:00 AM 1 9.735335 [id number] [facility] 2023 12:00 :00 AM glipizide 5 mg tablet 180.000 000 06/25/2023 12:00:00 AM 1 180.33633 0 0 [id number] 001 [id number] [facility] 2023 12:00 :00 AM nadolol 20 mg tablet 14.0000 00 11/26/2023 12:00:00 AM 1 14.120260 96 [id number] [facility] 2023 12:00 :00 AM humalog u-100 insulin 100 unit/ml subcutaneou s solution 10.10/15/2023 12:00:00 AM 1 10.500171 98 [id number] 001 [id number] [facility] 2023 12:00 :00 AM cephalexin 500 mg capsule 21.07/15/2023 12:00:00 AM 1 21.556357 0 [id number] [facility] 2023 12:00 :00 AM januvia 100 mg tablet 14.11/24/2023 12:00:00 AM 1 14.552642 96 [id number] [id number] [facility] 2023 12:00 :00 AM ropinirole 2 mg tablet 90.0000 00 02/23/2023 12:00:00 AM 1 90.728355 5 [id number] [facility] 2023 12:00 :00 AM farxiga 5 mg tablet 30.0000 00 10/04/2023 12:00:00 AM 1 30.348660 0 [id number] [facility] 2023 12:00 :00 AM pantoprazol e 40 mg tablet,sammie yed release 28.0000 00 10/21/2023 12:00:00 AM 1 28.991990 [id number] [id number] [facility] 2023 12:00 :00 AM sulfamethox azole 800 mg-trimetho prim 160 mg tablet 14.0000 00 03/16/2023 12:00:00 AM 1 14.599842 0 [id number] [facility] 2023 12:00 :00 AM hydroxyzine pamoate 25 mg capsule 90.0000 00 08/11/2023 12:00:00 AM 1 90.976607 98 [id number] [facility] 2023 12:00 :00 AM cholecalcif claribel (vitamin d3) 1,250 mcg (50,000 unit) capsule 12.0000 00 07/13/2023 12:00:00 AM 1 12.160170 3 [id number] 336 [id number] [facility] 871 [facility] 2023 12:00 :00 AM lactulose 10 gram/15 ml oral solution 946.000 000 01/22/2024 12:00:00 AM 1 946.72917 0 [id number] [facility] 2023 12:00 :00 AM tamsulosin 0.4 mg capsule 4.99206 0 01/22/2024 12:00:00 AM 1 4.165955 [id number] 601 [id number] [facility] 2023 12:00 :00 AM spironolact one 25 mg tablet 14.0000 00 11/24/2023 12:00:00 AM 1 14.737686 96 [id number] [facility] 2023 12:00 :00 AM insulin glargine-yf gn (u-100) 100 unit/ml (3 ml) subcutaneou s pen 3.66190 0 10/09/2023 12:00:00 AM 1 3.839626 99 [id number] [facility] 2023 12:00 :00 AM dapaglifloz in propanediol 5 mg tablet 14.0000 00 11/24/2023 12:00:00 AM 1 14.653439 96 [id number] [facility] 2023 12:00 :00 AM carbidopa 25 mg-levodopa 100 mg tablet 4.10958 0 01/22/2024 12:00:00 AM 1 4.963573 [id number] [facility] 2023 12:00 :00 AM xifaxan 550 mg tablet 60.0000 00 01/26/2024 12:00:00 AM 1 60.007976 [id number] [facility] 2023 12:00 :00 AM doxycycline hyclate 100 mg tablet 14.0000 00 07/15/2023 12:00:00 AM 1 14.842449 0 [id number] [facility] 2023 12:00 :00 AM spironolact one 50 mg tablet 4.19779 0 01/22/2024 12:00:00 AM 1 4.148817 [id number] [facility] 2023 12:00 :00 AM magnesium oxide 400 mg (241.3 mg magnesium) tablet 30.08/11/2023 12:00:00 AM 1 30.445919 98 [id number] [facility] 2023 12:00 :00 AM ropinirole 3 mg tablet 90.03/02/2023 12:00:00 AM 1 90.304280 2 [id number] [facility] 2023 12:00 :00 AM sucralfate 1 gram tablet 28. 00 10/21/2023 12:00:00 AM 1 28.544068 [id number] 001 [id number] [facility] 2023 12:00 :00 AM potassium chloride er 10 meq tablet,exte nded release 30.08/11/2023 12:00:00 AM 1 30.943503 98 [id number] [facility] 2023 12:00 :00 AM gabapentin 100 mg capsule 90.0000 00 09/25/2023 12:00:00 AM 1 90.780824 2 [id number] [facility] 2023 12:00 :00 AM furosemide 20 mg tablet 4.51303 0 01/22/2024 12:00:00 AM 1 4.871793 [id number] [facility] 2023 12:00 :00 AM gabapentin 250 mg/5 ml oral solution 90.10/20/2023 12:00:00 AM 1 90.591443 [id number] [facility] 2023 12:00 :00 AM baclofen 10 mg tablet 30.10/26/2023 12:00:00 AM 1 30.011359 [id number] [facility] 2023 12:00 :00 AM aspirin 81 mg tablet,sammie yed release 90. 00 07/13/2023 12:00:00 AM 1 90.120812 3 [id number] [facility]00 871 P ACTIVE OBJECTIVE DATA No information PHYSICAL EXAMINATION No information TREATMENT PLAN No information PROBLEMS No information RESULTS No information REVIEW OF SYSTEMS No information SUBJECTIVE DATA No information VITAL SIGNS No information
--- OUTSIDE RECORDS SUMMARY | 2024-03-11 06:11 | XMS_ITS | Continuity of Care Document ---
Author Name Unknown Organization [facility] Address [address] [place] [address]- Care Team Providers Care Director Of Business Applications Name Role Phone PCP, NONE Primary Care Physician Unavailab le Encounter [employer] Number [id number] Date(s): 09/27/23 - 10/09/23 [facility] [address] [place] [address] [phone] Encounter Diagnosis GI bleed(Discharge Diagnosis) - 09/27/23 Esophageal varices(Discharge Diagnosis) - 09/27/23 Personal history of colonic polyps(Discharge Diagnosis) - 09/27/23 Other diseases of stomach and duodenum(Discharge Diagnosis) - 09/27/23 Stress hyperglycemia(Discharge Diagnosis) - 09/28/23 Type 2 diabetes with complication(Discharge Diagnosis) - 09/28/23 Nausea & vomiting(Discharge Diagnosis) - 09/27/23 Parkinson disease(Discharge Diagnosis) - 09/27/23 NPH (normal pressure hydrocephalus)(Discharge Diagnosis) - 09/27/23 Hematemesis with nausea(Discharge Diagnosis) - 09/27/23 Ascites(Discharge Diagnosis) - 10/06/23 Peripheral edema(Discharge Diagnosis) - 10/06/23 Cirrhosis of liver(Discharge Diagnosis) - 10/06/23 ACP (advance care planning)(Discharge Diagnosis) - 10/08/23 Hepatic encephalopathy(Discharge Diagnosis) - 09/30/23 Esophageal varices with bleeding(Discharge Diagnosis) - 10/05/23 Pruritus of skin(Discharge Diagnosis) - 10/03/23 Portal hypertensive gastropathy(Discharge Diagnosis) - 09/27/23 Hypomagnesemia(Discharge Diagnosis) - 09/27/23 Pancytopenia(Discharge Diagnosis) - 09/27/23 History of colonoscopy with polypectomy(Discharge Diagnosis) - 09/27/23 Diabetes mellitus, type 2(Discharge Diagnosis) - 09/27/23 COPD mixed type(Discharge Diagnosis) - 09/27/23 Hyperkalemia(Discharge Diagnosis) - 09/27/23 Discharge Disposition: .Discharge to Home (Routine) Attending Physician: Maureen HERNANDEZ, Bre Isidro Admitting Physician: Deandra Zavala MD Allergies, Adverse Reactions, Alerts Substance Reaction Severity Status Bee Sting Hives Severe Active Alpha-Gal hives Severe Active Assessment and Plan Extracted from: Title:Discharge Note Author:Maureen HERNANDEZ, Bre Isidro Date:10/09/23 Discharge 10/04/23 8:14:00 BED BUG EXTERMINATOR, [facility] Facility ? Discharge Work/School/Daycare Restrictions 10/04/23 8:14:00 BED BUG EXTERMINATOR, Return to work in: No Restrictions ? Discharge Follow Up 10/04/23 8:14:00 BED BUG EXTERMINATOR, Provider/Time: PCP in week time following discharge ? Contact Physician After Discharge 10/04/23 8:14:00 BED BUG EXTERMINATOR, Contact Physician for: Being very tired or weak ? Discharge Diet 10/04/23 8:14:00 BED BUG EXTERMINATOR, Discharge Diet: Regular ? Discharge Activity 10/04/23 8:14:00 BED BUG EXTERMINATOR, As tolerated ? Facility Discharge Plan as needed, 10/04/23 8:14:00 BED BUG EXTERMINATOR ? Facility Discharge Occupational Therapy Eval and Treat 10/04/23 8:14:00 BED BUG EXTERMINATOR ? Facility Discharge Physical Therapy Eval and Treat 10/04/23 8:14:00 BED BUG EXTERMINATOR ? Facility Discharge Code Status 10/04/23 8:14:00 BED BUG EXTERMINATOR, DNR ? Endoscopy Tech 10/06/23 12:36:00 BED BUG EXTERMINATOR, SNF Evaluation, Physician Order ? Discharge 10/09/23 9:59:00 BED BUG EXTERMINATOR, [facility] Facility ? Discharge Work/School/Daycare Restrictions 10/09/23 9:59:00 BED BUG EXTERMINATOR, Return to work in: No Restrictions ? Discharge Lab/Diagnostic Tests 10/09/23 9:59:00 BED BUG EXTERMINATOR, CBC and CMP in 1 week ? Discharge Follow Up 10/09/23 9:59:00 BED BUG EXTERMINATOR, Provider/Time: 1. PCP Dr. Hunter in [place], [place] - see after discharge. While in facility see PCP for facility2. Establish with [facility] gastroenterology3. Needs follow up EGD in 3-4 weeks ? Contact Physician After Discharge 10/09/23 9:59:00 BED BUG EXTERMINATOR, Contact Physician for: Fever greater than 101 Being very tired or weak Increasing shortness of breath, worsening swelling, pain, confusionblack or red stools, black or red vomiting ? Discharge Diet 10/09/23 9:59:00 BED BUG EXTERMINATOR, Discharge Diet: Low Salt ? Discharge Activity 10/09/23 9:59:00 BED BUG EXTERMINATOR, As tolerated ? Facility Discharge Plan 4 weeks, Eval of SNF / Partial Improvement, 10/09/23 9:59:00 BED BUG EXTERMINATOR ? Facility Discharge Occupational Therapy Eval and Treat 10/09/23 9:59:00 BED BUG EXTERMINATOR ? Facility Discharge Physical Therapy Eval and Treat 10/09/23 9:59:00 BED BUG EXTERMINATOR ? Facility Discharge Code Status 10/09/23 9:59:00 BED BUG EXTERMINATOR, DNR ? Extracted from: Title:Progress SOAP Note Author:Danuta Reddy MD Date:10/08/23 1.??Hepatic encephalopathy(H epatic encephalopathy: K76.82) 4.??Hematemesis with nausea(Hematemesis: K92.0) 5.??Nausea & vomiting(Nausea with vomiting, unspecified: R11.2) 6.??Hyperkalemia(Hyperkalemia: E87.5) 7.??History of colonoscopy with polypectomy(Other specified postprocedural states: Z98.890) 8.??History of esophageal varices(Personal history of other diseases of the digestive system: Z87.19) 9.??COPD mixed type(Chronic obstructive pulmonary disease, unspecified: J44.9) 10.??Diabetes mellitus, type 2(Type 2 diabetes mellitus without complications: E11.9) 11.??NPH (normal pressure hydrocephalus)((Idiopathic) normal pressure hydrocephalus: G91.2) 12.??Parkinson disease(Parkinson's disease without dyskinesia, without mention of fluctuations: G20.A1) 13.??Pancytopenia(Other pancytopenia: D61.818) 14.??Portal hypertensive gastropathy(Portal hypertension: K76.6) 15.??Hypomagnesemia(Hypomagnesemia: E83.42) 16.??Pruritus of skin(Pruritus, unspecified: L29.9) ACP (advance care planning)(Other specified counseling: Z71.89) Ascites(Other ascites: R18.8) Cirrhosis of liver(Unspecified cirrhosis of liver: K74.60) Esophageal varices(Esophageal varices without bleeding: I85.00) Esophageal varices with bleeding(Esophageal varices with bleeding: I85.01) GI bleed(Gastrointestinal hemorrhage, unspecified: K92.2) Other diseases of stomach and duodenum(Other diseases of stomach and duodenum: K31.89) Peripheral edema(Edema, unspecified: R60.9) Personal history of colonic polyps(Personal history of colonic polyps: Z86.010) Stress hyperglycemia(Hyperglycemia, unspecified: R73.9) Type 2 diabetes with complication(Type 2 diabetes mellitus with unspecified complications: E11.8) ?? Plan: Acute GI bleed secondary to esophageal varices banding ulcers in mid to distal esophagus. patient also with portal gastropathy and small varices in distal esophagus - carafate 1 g qid - ppi 40 bid - completed octreotide x 72 hrs - continue nadolol 20 daily - bp is tolerating - d/w patient that he needs egd in 3-4 weeks. - need to establish with GI - he doesn't know etiology of cirrhosis - sent new cirrhosis work up on 10/05 - hepatitis panel negative, mitochondrial Ab negative, low ferritin. other labs pending. - has completed empiric rocephin - needs to avoid nsaids. - diet as tolerated (has h/o alpha gal but says that it comes/goes and he can eat some??mammalian products) ?? acute encephalopathy - resolved, continue with lactulose. -??LFTs improved ?? ascites, peripheral edema ? - lasix and spironolactone started on 10/06 - continue and monitor response. - repeat lab in AM ?? hepatitis A ruled out with negative IgM Ab. he is Hep A immune ?? parkinsons, nph - continue sinemet ?? debility - continue with PT, OT, anticipate d/c to facility once arrangements are made. He is agreeable. ? dm2 - insulin as ordered. appreciate endo assistance ?? vte proph: scd code: dnr ? SNF planned tomorrow ? Extracted from: Title:Progress SOAP Note Author:Danuta Reddy MD Date:10/07/23 1.??Hepatic encephalopathy(H epatic encephalopathy: K76.82) 4.??Hematemesis with nausea(Hematemesis: K92.0) 5.??Nausea & vomiting(Nausea with vomiting, unspecified: R11.2) 6.??Hyperkalemia(Hyperkalemia: E87.5) 7.??History of colonoscopy with polypectomy(Other specified postprocedural states: Z98.890) 8.??History of esophageal varices(Personal history of other diseases of the digestive system: Z87.19) 9.??COPD mixed type(Chronic obstructive pulmonary disease, unspecified: J44.9) 10.??Diabetes mellitus, type 2(Type 2 diabetes mellitus without complications: E11.9) 11.??NPH (normal pressure hydrocephalus)((Idiopathic) normal pressure hydrocephalus: G91.2) 12.??Parkinson disease(Parkinson's disease without dyskinesia, without mention of fluctuations: G20.A1) 13.??Pancytopenia(Other pancytopenia: D61.818) 14.??Portal hypertensive gastropathy(Portal hypertension: K76.6) 15.??Hypomagnesemia(Hypomagnesemia: E83.42) 16.??Pruritus of skin(Pruritus, unspecified: L29.9) Ascites(Other ascites: R18.8) Cirrhosis of liver(Unspecified cirrhosis of liver: K74.60) Esophageal varices(Esophageal varices without bleeding: I85.00) Esophageal varices with bleeding(Esophageal varices with bleeding: I85.01) GI bleed(Gastrointestinal hemorrhage, unspecified: K92.2) Other diseases of stomach and duodenum(Other diseases of stomach and duodenum: K31.89) Peripheral edema(Edema, unspecified: R60.9) Personal history of colonic polyps(Personal history of colonic polyps: Z86.010) Stress hyperglycemia(Hyperglycemia, unspecified: R73.9) Type 2 diabetes with complication(Type 2 diabetes mellitus with unspecified complications: E11.8) Orders: Advance Care Planning Consult CMP ?? Plan: Acute GI bleed secondary to esophageal varices banding ulcers in mid to distal esophagus. patient also with portal gastropathy and small varices in distal esophagus - carafate 1 g qid - ppi 40 bid - completed octreotide x 72 hrs - continue nadolol 20 daily - bp is tolerating - d/w patient that he needs egd in 3-4 weeks. - need to establish with GI - he doesn't know etiology of cirrhosis - sent new cirrhosis work up on 10/05 - hepatitis panel negative, mitochondrial Ab negative, low ferritin. other labs pending. - has completed empiric rocephin - needs to avoid nsaids. - diet as tolerated (has h/o alpha gal but says that it comes/goes and he can eat some??mammalian products) ?? acute encephalopathy - resolved, continue with lactulose. -??LFTs improved ?? ascites, peripheral edema ? - lasix and spironolactone started on 10/06 - continue and monitor response. ?? hepatitis A ruled out with negative IgM Ab. he is Hep A immune ?? parkinsons, nph - continue sinemet ?? debility - continue with PT, OT, anticipate d/c to facility once arrangements are made. He is agreeable. ? dm2 - insulin as ordered. appreciate endo assistance ?? vte proph: scd code: dnr ? [facility] continues to send referrals ? Extracted from: Title:Progress SOAP Note Author:Danuta Reddy MD Date:10/06/23 1.??Hepatic encephalopathy(H epatic encephalopathy: K76.82) 3.??Dark stools(Other fecal abnormalities: R19.5) 4.??Hematemesis with nausea(Hematemesis: K92.0) 5.??Nausea & vomiting(Nausea with vomiting, unspecified: R11.2) 6.??Hyperkalemia(Hyperkalemia: E87.5) 7.??History of colonoscopy with polypectomy(Other specified postprocedural states: Z98.890) 8.??History of esophageal varices(Personal history of other diseases of the digestive system: Z87.19) 9.??COPD mixed type(Chronic obstructive pulmonary disease, unspecified: J44.9) 10.??Diabetes mellitus, type 2(Type 2 diabetes mellitus without complications: E11.9) 11.??NPH (normal pressure hydrocephalus)((Idiopathic) normal pressure hydrocephalus: G91.2) 12.??Parkinson disease(Parkinson's disease without dyskinesia, without mention of fluctuations: G20.A1) 13.??Pancytopenia(Other pancytopenia: D61.818) 14.??Portal hypertensive gastropathy(Portal hypertension: K76.6) 15.??Hypomagnesemia(Hypomagnesemia: E83.42) 16.??Pruritus of skin(Pruritus, unspecified: L29.9) Esophageal varices(Esophageal varices without bleeding: I85.00) Esophageal varices with bleeding(Esophageal varices with bleeding: I85.01) GI bleed(Gastrointestinal hemorrhage, unspecified: K92.2) Other diseases of stomach and duodenum(Other diseases of stomach and duodenum: K31.89) Personal history of colonic polyps(Personal history of colonic polyps: Z86.010) Stress hyperglycemia(Hyperglycemia, unspecified: R73.9) Type 2 diabetes with complication(Type 2 diabetes mellitus with unspecified complications: E11.8) Orders: codeine-guaifenesin, 10 mL, LIQ, By mouth, Q4H, PRN, Cough, Start Date: 10/06/23 12:51:00 BED BUG EXTERMINATOR, Duration: 14 Days, Stop date: 10/20/23 12:50:00 BED BUG EXTERMINATOR, Routine, Disp Location: [facility], [facility] spironolactone, 25 mg = 1 tab, TAB, By mouth, Daily, Start Date: 10/06/23 14:00:00 BED BUG EXTERMINATOR, Duration: 90 Days, Stop date 01/04/24 8:59:00 CDT, Routine, Disp Location: [facility], [facility] DISP CMP LTC Facility Discharge CV-19 Screening Endoscopy Tech ? Plan: Acute GI bleed secondary to esophageal varices banding ulcers in mid to distal esophagus. patient also with portal gastropathy and small varices in distal esophagus - carafate 1 g qid - ppi 40 bid - has completed octreotide x 72 hrs - continue nadolol 20 daily - bp is tolerating - d/w patient that he needs egd in 3-4 weeks. he states he is unwilling ot come to hospital for this and I advised this be outpatient. - he is currently unestablished with GI. Discussed need to establish with GI and have close follow up with egd and further cirrhosis management - he doesn't know etiology of cirrhosis - sent new cirrhosis work up on 10/05 9pending) - has completed empiric rocephin - needs to avoid nsaids. - diet as tolerated (has h/o alpha gal but says that it comes/goes and he can eat some??mammalian products) ?? acute encephalopathy - resolved, continue with lactulose. - worsening LFTs improved ?? ascites, peripheral edema ? - will d/c the discharge orders as he appears volume overloaded and worsening ascites - will start lasix and spironolactone - check lab in AM ?? hepatitis A ruled out with negative IgM Ab. he is Hep A immune ?? parkinsons, nph - continue sinemet ?? debility - continue with PT, Ot, anticipate d/c to facility once arrangements are made. He is agreeable. ? dm2 - insulin as ordered. appreciate endo assistance ?? vte proph: scd code: dnr ? SNF eval, d/w social work today ? Extracted from: Title:Progress SOAP Note Author:Danuta Reddy MD Date:10/05/23 1.??Hepatic encephalopathy(H epatic encephalopathy: K76.82) 2.??Acute hepatitis A(Hepatitis A without hepatic coma: B15.9) 4.??Dark stools(Other fecal abnormalities: R19.5) 5.??Hematemesis with nausea(Hematemesis: K92.0) 6.??Nausea & vomiting(Nausea with vomiting, unspecified: R11.2) 7.??Hyperkalemia(Hyperkalemia: E87.5) 8.??History of colonoscopy with polypectomy(Other specified postprocedural states: Z98.890) 9.??History of esophageal varices(Personal history of other diseases of the digestive system: Z87.19) 10.??COPD mixed type(Chronic obstructive pulmonary disease, unspecified: J44.9) 11.??Diabetes mellitus, type 2(Type 2 diabetes mellitus without complications: E11.9) 12.??NPH (normal pressure hydrocephalus)((Idiopathic) normal pressure hydrocephalus: G91.2) 13.??Parkinson disease(Parkinson's disease without dyskinesia, without mention of fluctuations: G20.A1) 14.??Pancytopenia(Other pancytopenia: D61.818) 15.??Portal hypertensive gastropathy(Portal hypertension: K76.6) 16.??Hypomagnesemia(Hypomagnesemia: E83.42) 17.??Pruritus of skin(Pruritus, unspecified: L29.9) Esophageal varices(Esophageal varices without bleeding: I85.00) GI bleed(Gastrointestinal hemorrhage, unspecified: K92.2) Other diseases of stomach and duodenum(Other diseases of stomach and duodenum: K31.89) Personal history of colonic polyps(Personal history of colonic polyps: Z86.010) Stress hyperglycemia(Hyperglycemia, unspecified: R73.9) Type 2 diabetes with complication(Type 2 diabetes mellitus with unspecified complications: E11.8) Orders: [id number], Serum Alpha-Fetoprotein (AFP) Tumor Marker, Serum CHELITA Screen Ceruloplasmin, Serum Discharge Hepatitis A Ab IgM Hepatitis Bc Ab IgM Hepatitis Bs Antigen Iron and TIBC Mitochondrial Antibodies (M2), Serum Smooth Muscle Total Autoabs Transferrin, Serum ? Plan: Acute GI bleed secondary to eesophageal varices bvanding ulcers in mid to distal esophagus. patient also with portal gastropathy and small varices in distal esophagus - carafate 1 g qid - ppi 40 bid - has completed octreotide x 72 hrs - continue nadolol 20 daily - bp is tolerating - d/w patient that he needs egd in 3-4 weeks. he states he is unwilling ot come to hospital for this and I advised this be outpatient. - he is currently unestablished with GI. Discussed need to establish with GI and have close follow up with egd and further cirrhosis management - he doesn't know etiology of cirrhosis - will send new cirrhosis work up - has completed empiric rocephin - needs to avoid nsaids. - diet as tolerated (has h/o alpha gal but says that it comes/goes and he can eat some??mammalian products) ?? acute encephalopathy - resolved, continue with lactulose. - worsening LFTs improved ?? Question of acute Hep A. The positive test was IgG and IgM, will isolate IgM in test today. I d/w infection prevention. ?? parkinsons, nph - continue sinemet ?? debility - continue with PT, Ot, anticipate d/c to facility once arrangements are made. He is agreeable. ? dm2 - insulin as ordered. appreciate endo assistance ? vte proph: scd ? Extracted from: Title:Progress SOAP Note Author:Shiloh HERNANDEZ, A [facility] Date:10/04/23 1.??Hepatic encephalopathy(H epatic encephalopathy: K76.82) 2.??Acute hepatitis A(Hepatitis A without hepatic coma: B15.9) 4.??Dark stools(Other fecal abnormalities: R19.5) 5.??Hematemesis with nausea(Hematemesis: K92.0) 6.??Nausea & vomiting(Nausea with vomiting, unspecified: R11.2) 7.??Hyperkalemia(Hyperkalemia: E87.5) 8.??History of colonoscopy with polypectomy(Other specified postprocedural states: Z98.890) 9.??History of esophageal varices(Personal history of other diseases of the digestive system: Z87.19) 10.??COPD mixed type(Chronic obstructive pulmonary disease, unspecified: J44.9) 11.??Diabetes mellitus, type 2(Type 2 diabetes mellitus without complications: E11.9) 12.??NPH (normal pressure hydrocephalus)((Idiopathic) normal pressure hydrocephalus: G91.2) 13.??Parkinson disease(Parkinson's disease without dyskinesia, without mention of fluctuations: G20.A1) 14.??Pancytopenia(Other pancytopenia: D61.818) 15.??Portal hypertensive gastropathy(Portal hypertension: K76.6) 16.??Hypomagnesemia(Hypomagnesemia: E83.42) 17.??Pruritus of skin(Pruritus, unspecified: L29.9) Esophageal varices(Esophageal varices without bleeding: I85.00) GI bleed(Gastrointestinal hemorrhage, unspecified: K92.2) Other diseases of stomach and duodenum(Other diseases of stomach and duodenum: K31.89) Personal history of colonic polyps(Personal history of colonic polyps: Z86.010) Stress hyperglycemia(Hyperglycemia, unspecified: R73.9) Type 2 diabetes with complication(Type 2 diabetes mellitus with unspecified complications: E11.8) Orders: carbidopa-levodopa, 1 tab, By mouth, TIDWM (three times a day with meals), Refill(s) 0, TAB gabapentin, 100 mg = 2 mL, By mouth, TID, Refill(s) 0, LIQ lactulose, 10 g = 15 mL, PO/per tube, BID, Refill(s) 0, SYRUP nadolol, 20 mg = 0.5 tab, TAB, By mouth, Daily, Start Date: 10/04/23 9:00:00 BED BUG EXTERMINATOR, Duration: 90 Days, Stop date 01/01/24 9:00:00 CDT, Routine, Disp Location: [facility], [facility] nadolol, 20 mg = 0.5 tab, By mouth, Daily, Refill(s) 0, TAB pantoprazole, 40 mg = 1 tab, By mouth, BID, Refill(s) 0, TAB sucralfate, 1 g = 1 tab, By mouth, BIDAC (twice daily before meals), Refill(s) 0, TAB Bed/Mattress Request CBC-d CMP Contact Physician After Discharge Discharge Discharge Activity Discharge Diet Discharge Follow Up, PCP in week time following discharge Discharge Work/School/Daycare Restrictions Facility Discharge Code Status Facility Discharge Occupational Therapy Eval and Treat Facility Discharge Physical Therapy Eval and Treat Facility Discharge Plan Initiate Plan, Discharge Inpatient/OBS zCBC Automated Diff Hepatic encephalopathy grade III-resolved; GI bleeding-subsided; S/P EGD- Portal hypertensive gastropathy: BB added at low dose given soft BP. PO PPI. carafet. continue lactulose. started ceftriaxone to mitigate risk of SBP in context of GI bleed with chronic liver disease, aiming for 5 days total. Will monitor kidney function??and CBC, will transfuse PRBC as needed to maintain Hb<7.?? developed skin pruritus, likely 2/2 cholestatic disease, managed with second generation antihistamines. Staff discussed reconciling gabapentin, will avoid??it for now??given his severe encephalopathy and revisit down the course. ?? Red tag evaluation, can not distinguish free pretechnetate or GI bleeding, however recent EGD and uptrending Hb argues against the latter. GI indicated no need for another EGD discussed with Jan. ? Lab work reviewed, noted to have high alpha-fetoprotein, AST/ALT ratio and positive for hepatitis A IgM. Enteric isolation. Improving liver profile slowly. Calculated MELD Na score correlates with estimated 6% mortality risk within 90 days. symptomatic management. ?? GMS consulted for DM management. ?? Carbidopa-levodopa reconciled for Parkinson disease. ?? DNR. SCD for DVT PPx.?? Disposition: post acute rehab ? High complexity, multidisciplinary, with high risk of further M&M. Extracted from: Title:Progress SOAP Note Author:Shiloh HERNANDEZ, A [facility] Date:10/03/23 1.??Hepatic encephalopathy(H epatic encephalopathy: K76.82) 2.??Acute hepatitis A(Hepatitis A without hepatic coma: B15.9) 4.??Dark stools(Other fecal abnormalities: R19.5) 5.??Hematemesis with nausea(Hematemesis: K92.0) 6.??Nausea & vomiting(Nausea with vomiting, unspecified: R11.2) 7.??Hyperkalemia(Hyperkalemia: E87.5) 8.??History of colonoscopy with polypectomy(Other specified postprocedural states: Z98.890) 9.??History of esophageal varices(Personal history of other diseases of the digestive system: Z87.19) 10.??COPD mixed type(Chronic obstructive pulmonary disease, unspecified: J44.9) 11.??Diabetes mellitus, type 2(Type 2 diabetes mellitus without complications: E11.9) 12.??NPH (normal pressure hydrocephalus)((Idiopathic) normal pressure hydrocephalus: G91.2) 13.??Parkinson disease(Parkinson's disease without dyskinesia, without mention of fluctuations: G20.A1) 14.??Pancytopenia(Other pancytopenia: D61.818) 15.??Portal hypertensive gastropathy(Portal hypertension: K76.6) 16.??Hypomagnesemia(Hypomagnesemia: E83.42) 17.??Pruritus of skin(Pruritus, unspecified: L29.9) Esophageal varices(Esophageal varices without bleeding: I85.00) GI bleed(Gastrointestinal hemorrhage, unspecified: K92.2) Other diseases of stomach and duodenum(Other diseases of stomach and duodenum: K31.89) Personal history of colonic polyps(Personal history of colonic polyps: Z86.010) Stress hyperglycemia(Hyperglycemia, unspecified: R73.9) Type 2 diabetes with complication(Type 2 diabetes mellitus with unspecified complications: E11.8) Orders: pantoprazole, 40 mg = 1 tab, TAB, By mouth, BID, GI Bleed- Upper- Active or Presumed, Routine, Start Date: 10/03/23 14:32:00 BED BUG EXTERMINATOR, Duration: 90 Days, Stop date 12/31/23 21:00:00 CDT, Disp Location: [place] [id number], GEN DISP CBC-d CMP Occupational Therapy Evaluation and Treatment, evaluation and disposition planning. Physical Therapy Additional Treatment Physical Therapy Evaluation and Treatment, evaluation and disposition planning. Physical Therapy Evaluation and Treatment, to determine dc plans zCBC Automated Diff Hepatic encephalopathy grade III : GI bleeding-Active: IV fluid??resuscitation as needed. Discussed with GI,??, to discontinue Octreotide. switching to PO PPI. carafet. S/P EGD- Portal hypertensive gastropathy. continue lactulose. started ceftriaxone to mitigate risk of SBP in context of GI bleed with chronic liver disease, aiming for 5 days total. Will monitor kidney function??and CBC, will transfuse PRBC as needed to maintain Hb<7.?? developed skin pruritus, likely 2/2 cholestatic disease, managing with second generation antihistamines. Staff discussed reconciling gabapentin, will avoid that given his severe encephalopathy and revisit down the course. ?? Red tag evaluation, can not distinguish free pretechnetate or GI bleeding, however recent EGD and uptrending Hb argues against the latter. GI indicated no need for another EGD discussed with Jan. ? Lab work reviewed, noted to have high alpha-fetoprotein, AST/ALT ratio and positive for hepatitis A IgM. Enteric isolation. Improving liver profile slowly. Calculated MELD Na score correlates with estimated 6% mortality risk within 90 days. Will continue with supportive care with IV fluids, pain control as needed and encouragement of early oral intake as appropriate. ? GMS consulted for DM management. ?? Carbidopa-levodopa reconciled for Parkinson disease. ?? DNR. SCD for DVT PPx.? High complexity, multidisciplinary, with high risk of further M&M. Extracted from: Title:Progress SOAP Note Author:Shiloh HERNANDEZ, A hmed Date:10/02/23 1.??Hepatic encephalopathy(H epatic encephalopathy: K76.82) 2.??Acute hepatitis A(Hepatitis A without hepatic coma: B15.9) 4.??Dark stools(Other fecal abnormalities: R19.5) 5.??Hematemesis with nausea(Hematemesis: K92.0) 6.??Nausea & vomiting(Nausea with vomiting, unspecified: R11.2) 7.??Hyperkalemia(Hyperkalemia: E87.5) 8.??History of colonoscopy with polypectomy(Other specified postprocedural states: Z98.890) 9.??History of esophageal varices(Personal history of other diseases of the digestive system: Z87.19) 10.??COPD mixed type(Chronic obstructive pulmonary disease, unspecified: J44.9) 11.??Diabetes mellitus, type 2(Type 2 diabetes mellitus without complications: E11.9) 12.??NPH (normal pressure hydrocephalus)((Idiopathic) normal pressure hydrocephalus: G91.2) 13.??Parkinson disease(Parkinson's disease without dyskinesia, without mention of fluctuations: G20.A1) 14.??Pancytopenia(Other pancytopenia: D61.818) 15.??Portal hypertensive gastropathy(Portal hypertension: K76.6) 16.??Hypomagnesemia(Hypomagnesemia: E83.42) Esophageal varices(Esophageal varices without bleeding: I85.00) GI bleed(Gastrointestinal hemorrhage, unspecified: K92.2) Other diseases of stomach and duodenum(Other diseases of stomach and duodenum: K31.89) Personal history of colonic polyps(Personal history of colonic polyps: Z86.010) Stress hyperglycemia(Hyperglycemia, unspecified: R73.9) Type 2 diabetes with complication(Type 2 diabetes mellitus with unspecified complications: E11.8) Orders: CBC-d CBC-d CBC-d CMP CMP Transfer Bed Request zCBC Automated Diff Hepatic encephalopathy grade III : GI bleeding-Active: IV fluid??resuscitation as needed. ??octreotide and PPI per GI. carafet. S/P EGD- Portal hypertensive gastropathy. Started lactulose amid hepatic encephalopathy, if oral route is not feasible, then rectal administration. started ceftriaxone to mitigate risk of SBP in context of GI bleed with chronic liver disease, aiming for 5 days total. Will monitor kidney function??and CBC, will transfuse PRBC as needed to maintain Hb<7.?? keep him at stepdown. Red tag evaluation, can not distinguish free pretechnetate or GI bleeding, however recent EGD and uptrending Hb argues against the latter. Appreciate further GI input/follow up. De-escalate care to medical floor. ? Lab work reviewed, noted to have high alpha-fetoprotein, AST/ALT ratio and positive for hepatitis A IgM. Enteric isolation. Improving liver profile slowly. Calculated MELD Na score correlates with estimated 6% mortality risk within 90 days. Will continue with supportive care with IV fluids, pain control as needed and encouragement of early oral intake as appropriate. ? GMS consulted for DM management. ?? Carbidopa-levodopa reconciled for Parkinson disease. ?? DNR. SCD for DVT PPx.? Family: I tried to call next of Kin, patient's brother per chart but no # to reach. High complexity, multidisciplinary, with high risk of further M&M. ?? Extracted from: Title:Progress SOAP Note Author:Shiloh HERNANDEZ, A ed Date:10/01/23 1.??Hepatic encephalopathy(H epatic encephalopathy: K76.82) 2.??Acute hepatitis A(Hepatitis A without hepatic coma: B15.9) 4.??Dark stools(Other fecal abnormalities: R19.5) 5.??Hematemesis with nausea(Hematemesis: K92.0) 6.??Nausea & vomiting(Nausea with vomiting, unspecified: R11.2) 7.??Hyperkalemia(Hyperkalemia: E87.5) 8.??History of colonoscopy with polypectomy(Other specified postprocedural states: Z98.890) 9.??History of esophageal varices(Personal history of other diseases of the digestive system: Z87.19) 10.??COPD mixed type(Chronic obstructive pulmonary disease, unspecified: J44.9) 11.??Diabetes mellitus, type 2(Type 2 diabetes mellitus without complications: E11.9) 12.??NPH (normal pressure hydrocephalus)((Idiopathic) normal pressure hydrocephalus: G91.2) 13.??Parkinson disease(Parkinson's disease without dyskinesia, without mention of fluctuations: G20.A1) 14.??Pancytopenia(Other pancytopenia: D61.818) 15.??Portal hypertensive gastropathy(Portal hypertension: K76.6) 16.??Hypomagnesemia(Hypomagnesemia: E83.42) Esophageal varices(Esophageal varices without bleeding: I85.00) GI bleed(Gastrointestinal hemorrhage, unspecified: K92.2) Other diseases of stomach and duodenum(Other diseases of stomach and duodenum: K31.89) Personal history of colonic polyps(Personal history of colonic polyps: Z86.010) Stress hyperglycemia(Hyperglycemia, unspecified: R73.9) Type 2 diabetes with complication(Type 2 diabetes mellitus with unspecified complications: E11.8) Orders: CBC-d CBC-d CBC-d CMP CMP Magnesium Serum Transfer Bed Request zCBC Automated Diff Hepatic encephalopathy grade III : GI bleeding-Active: IV fluid??resuscitation as needed. ??octreotide and PPI per GI. carafet. S/P EGD- Portal hypertensive gastropathy. Started lactulose amid hepatic encephalopathy, if oral route is not feasible, then rectal administration. started ceftriaxone to mitigate risk of SBP in context of GI bleed with chronic liver disease, aimring for 5 days total. Will monitor kidney function??and CBC, will transfuse PRBC as needed to maintain Hb<7.?? keep him at stepdown. Red tag evaluation, as ongoing GI bleeding is likely precipitant of encephalopathy, still pending. ? Lab work reviewed, noted to have high alpha-fetoprotein, AST/ALT ratio and positive for hepatitis A IgM. Enteric isolation. Improving liver profile. Will continue with supportive care with IV fluids, pain control as needed and encouragement of early oral intake as appropriate. ? GMS consulted for DM management. ?? Carbidopa-levodopa reconciled for Parkinson disease. ?? DNR. SCD for DVT PPx.? Family: I tried to call next of Kin, patient's brother per chart but no # to reach. High complexity, multidisciplinary, with high risk of further M&M. ? Extracted from: Title:Critical Care Consult Note Author:Rita Blancas DO Date:09/30/23 1.??Hepatic encephalopathy(H epatic encephalopathy: K76.82) 2.??Acute hepatitis A(Hepatitis A without hepatic coma: B15.9) 4.??Dark stools(Other fecal abnormalities: R19.5) 5.??Hematemesis with nausea(Hematemesis: K92.0) 6.??Nausea & vomiting(Nausea with vomiting, unspecified: R11.2) 7.??Hyperkalemia(Hyperkalemia: E87.5) 8.??History of colonoscopy with polypectomy(Other specified postprocedural states: Z98.890) 9.??History of esophageal varices(Personal history of other diseases of the digestive system: Z87.19) 10.??COPD mixed type(Chronic obstructive pulmonary disease, unspecified: J44.9) 11.??Diabetes mellitus, type 2(Type 2 diabetes mellitus without complications: E11.9) 12.??NPH (normal pressure hydrocephalus)((Idiopathic) normal pressure hydrocephalus: G91.2) 13.??Parkinson disease(Parkinson's disease without dyskinesia, without mention of fluctuations: G20.A1) 14.??Pancytopenia(Other pancytopenia: D61.818) 15.??Portal hypertensive gastropathy(Portal hypertension: K76.6) 16.??Hypomagnesemia(Hypomagnesemia: E83.42) Esophageal varices(Esophageal varices without bleeding: I85.00) GI bleed(Gastrointestinal hemorrhage, unspecified: K92.2) Other diseases of stomach and duodenum(Other diseases of stomach and duodenum: K31.89) Personal history of colonic polyps(Personal history of colonic polyps: Z86.010) Stress hyperglycemia(Hyperglycemia, unspecified: R73.9) Type 2 diabetes with complication(Type 2 diabetes mellitus with unspecified complications: E11.8) Orders: CBC-d CCP Do Not Intubate zCBC Automated Diff ?? 1. Acute encephalopathy- improved, etiology unclear, ?hepatic encephalopathy vs acute liver failure vs alternative etiology 2. Acute Hepatitis A infection w/ worsening transaminitis 3. GI bleed likely 2/2 varices vs alternative etiology, has a h/o banding 09/19/23 4. h/o NPH 5. h/o Parkinson's disease 6. Portal hypertensive gastropathy 7. h/o colonic polyps 8 Type II DM ?? Plan: - Patient appears to have findings of hepatic encephalopathy with active GI Bleeding. He has a h/o variceal bleeding. c/w octreotide and protonix iv bid. - c/w lactulose and consider adding rifaximin. He is protecting his airway well at this time, and seems to be more awake, alert and appears to follow questions/commands. He is irritated however. - Supportive tx for hep A?? infection. Recommend maintenance ivf for adequate perfusion. Can consider NAC protocol given liver failure, but unsure if indicated in hep A infection. Defer to primary team. - Trend H&H closely. If further signs of active GI Bleed, may consider CTA to evaluate for IR guided embolization. fu GI recs. - c/w rocephin for ppx. - Monitor mental status closely. - Overall poor prognosis. ?? Rest of care per primary and GI team. ?? I had a goals of care conversation with patient. He had previously indicated on admission to admitting physician of being DNR/DNI. I first assessed patient's capacity and since patient appeared to have capacity to make medical decisions, we spoke about his overall prognosis and goals of care. Patient was reluctant to discuss too much, since he does not want to talk to anyone , but clearly indicated that he wants to be DNR/DNI. DEREK Melgar present at bedside. Discussed with pmd Dr. Matamoros as well. Appropriate code status changes made to chart. ?? At this time, patient is protecting his airway well. Per patient's wishes, we will make him DNI. Will recommend to continue supportive tx per primary team and GI. Critical care will sign off. Please call for any questions or concerns. ?? The patient has a high probability of sudden, clinically significant deterioration, which requires the highest level of physician preparedness to intervene urgently. I managed/supervised life or organ supporting interventions that required frequent physician assessment. I devoted my full attention in the ICU to the direct care of this patient for the time period indicated. Time I spent with the family or surrogate(s) is included only if the patient was incapable of providing the necessary information or participating in medical decision making. Time devoted to teaching and to any procedures I billed separately is not included. ??I spent the substantive/majority??amount??of time??caring for??this patient,??Minutes of critical care time spent by myself/ the physician??excluding any overlap: 45 minutes. ? Thank you for allowing me to participate in the care of this patient. Please feel free to contact me for any questions or concerns. ?? Sincerely, Rita Blancas, DO Pulmonary, Critical Care and Sleep Medicine ? Extracted from: Title:Critical Care Progress Note Author:Moy miller MD, [facility] Date:09/30/23 1.??Hepatic encephalopathy(H epatic encephalopathy: K76.82) 2.??Acute hepatitis A(Hepatitis A without hepatic coma: B15.9) 4.??Dark stools(Other fecal abnormalities: R19.5) 5.??Hematemesis with nausea(Hematemesis: K92.0) 6.??Nausea & vomiting(Nausea with vomiting, unspecified: R11.2) 7.??Hyperkalemia(Hyperkalemia: E87.5) 8.??History of colonoscopy with polypectomy(Other specified postprocedural states: Z98.890) 9.??History of esophageal varices(Personal history of other diseases of the digestive system: Z87.19) 10.??COPD mixed type(Chronic obstructive pulmonary disease, unspecified: J44.9) 11.??Diabetes mellitus, type 2(Type 2 diabetes mellitus without complications: E11.9) 12.??NPH (normal pressure hydrocephalus)((Idiopathic) normal pressure hydrocephalus: G91.2) 13.??Parkinson disease(Parkinson's disease without dyskinesia, without mention of fluctuations: G20.A1) 14.??Pancytopenia(Other pancytopenia: D61.818) 15.??Portal hypertensive gastropathy(Portal hypertension: K76.6) 16.??Hypomagnesemia(Hypomagnesemia: E83.42) Esophageal varices(Esophageal varices without bleeding: I85.00) GI bleed(Gastrointestinal hemorrhage, unspecified: K92.2) Other diseases of stomach and duodenum(Other diseases of stomach and duodenum: K31.89) Personal history of colonic polyps(Personal history of colonic polyps: Z86.010) Stress hyperglycemia(Hyperglycemia, unspecified: R73.9) Type 2 diabetes with complication(Type 2 diabetes mellitus with unspecified complications: E11.8) Orders: cefTRIAXone, 1,000 mg, INJ, IV, Daily, Start Date: 09/30/23 12:08:00 BED BUG EXTERMINATOR, Duration: 5 Days, Stop date 10/05/23 8:59:00 BED BUG EXTERMINATOR, Routine, Infuse over: 30 min, Disp Location: [address], GEN DISP lactulose, 10 g = 15 mL, DARVIN, Rectally, BID, Start Date: 09/30/23 12:38:00 BED BUG EXTERMINATOR, Duration: 90 Days, Stop date 12/29/23 8:59:00 CDT, Routine, Disp Location: [address], GEN DISP CBC-d CMP Magnesium Serum NM Gastrointestinal Bleed Acute Patient Cares (Critical Cares) Transfer Bed Request Transfer Bed Request Weight VS reviewed. ?? Hepatic encephalopathy grade III : GI bleeding-Active: IV fluid??resuscitation as needed. Continue??octreotide and PPI. carafet. S/P EGD- Portal hypertensive gastropathy. Started lactulose amid hepatic encephalopathy. started ceftriaxone to mitigate risk of SBP in context of GI bleed with chronic liver disease. Will monitor kidney function??and CBC, will transfuse PRBC as needed to maintain Hb<7.?? Transfer to high dependency unit. Discussed with Dr.Patel COSTA, no follow up needed as patient is DNR. Will keep him for close nurse monitoring. Red tag evaluation, as ongoing GI bleeding is likely precipitant of encephalopathy. ? Lab work reviewed, noted to have high alpha-fetoprotein, AST/ALT ratio and positive for hepatitis A IgM. Enteric isolation. Will continue with supportive care with IV fluids, pain control as needed and encouragement of early oral intake as appropriate. ? GMS consult for DM management. ?? Carbidopa-levodopa reconciled for Parkinson disease. ?? DNR. SCD for DVT PPx.? High complexity, multidisciplinary, with high risk of further M&M. ?? This is high complex case, with high probability of further morbidity and mortality.?? Plan has been discussed and reviewed entirely with RN, questions were answered.?? I personally managed,?? and coordinated plan of care, vital organ functions and their trajectory/trend.?? This encounter was dedicated for ICU level care??to the patient as the time below reflected, excluding time period engaging with family or surrogate/s which would be considered when the patient is incapable of providing history/progress, in which case the time spent counseling discussing with family, surrogate/s would be mentioned separately. ? Extracted from: Title:GI progress note Author:Tyler Montoya MD Date:09/29/23 1.??Acute hepatitis A(Hepati tis A without hepatic coma: B15.9) 3.??Dark stools(Other fecal abnormalities: R19.5) 4.??Hematemesis with nausea(Hematemesis: K92.0) 5.??Nausea & vomiting(Nausea with vomiting, unspecified: R11.2) 6.??Hyperkalemia(Hyperkalemia: E87.5) 7.??History of colonoscopy with polypectomy(Other specified postprocedural states: Z98.890) 8.??History of esophageal varices(Personal history of other diseases of the digestive system: Z87.19) 9.??COPD mixed type(Chronic obstructive pulmonary disease, unspecified: J44.9) 10.??Diabetes mellitus, type 2(Type 2 diabetes mellitus without complications: E11.9) 11.??NPH (normal pressure hydrocephalus)((Idiopathic) normal pressure hydrocephalus: G91.2) 12.??Parkinson disease(Parkinson's disease without dyskinesia, without mention of fluctuations: G20.A1) 13.??Pancytopenia(Other pancytopenia: D61.818) 14.??Portal hypertensive gastropathy(Portal hypertension: K76.6) 15.??Hypomagnesemia(Hypomagnesemia: E83.42) Esophageal varices(Esophageal varices without bleeding: I85.00) GI bleed(Gastrointestinal hemorrhage, unspecified: K92.2) Other diseases of stomach and duodenum(Other diseases of stomach and duodenum: K31.89) Personal history of colonic polyps(Personal history of colonic polyps: Z86.010) Stress hyperglycemia(Hyperglycemia, unspecified: R73.9) Type 2 diabetes with complication(Type 2 diabetes mellitus with unspecified complications: E11.8) 62-year-old male??with a medical history of??decompensated cirrhosis with??esophageal??varices??s/p recent??banding (09/19/2023)??who presented??to the ER??as a??transfer??from OSH for further evaluation??of hematemesis and melena??x1 day. He had an EGD done here (09/19) for evaluation of anemia which showed??large esophageal varices s/p placement of 6 bands.?He repeat EGD??09/28 showed several banding ulcers,??small varices without??bleeding, moderate to severe portal hypertensive gastropathy.? #??cirrhosis #??melena # encephalopathy? Recommendations: -continue to monitor hemoglobin, transfuse for goal greater than 7, avoid over transfusion in the setting of underlying portal hypertension -continue IV octreotide and IV pantoprazole 40 mg twice daily -IV Rocephin 1 g Q 24 hours for infectious prophylaxis -given ongoing??melena??with no active??bleeding??seen on EGD??yesterday, recommend??IR??consultation for further evaluation.?? May benefit??from tagged??RBC study or CT??angiography??to localize??bleeding??site.? -??monitor mental status??closely.?start p.o lactulose ? Extracted from: Title:Progress SOAP Note Author:Shiloh HERNANDEZ, A ed Date:09/29/23 1.??Acute hepatitis A(Hepati tis A without hepatic coma: B15.9) 3.??Dark stools(Other fecal abnormalities: R19.5) 4.??Hematemesis with nausea(Hematemesis: K92.0) 5.??Nausea & vomiting(Nausea with vomiting, unspecified: R11.2) 6.??Hyperkalemia(Hyperkalemia: E87.5) 7.??History of colonoscopy with polypectomy(Other specified postprocedural states: Z98.890) 8.??History of esophageal varices(Personal history of other diseases of the digestive system: Z87.19) 9.??COPD mixed type(Chronic obstructive pulmonary disease, unspecified: J44.9) 10.??Diabetes mellitus, type 2(Type 2 diabetes mellitus without complications: E11.9) 11.??NPH (normal pressure hydrocephalus)((Idiopathic) normal pressure hydrocephalus: G91.2) 12.??Parkinson disease(Parkinson's disease without dyskinesia, without mention of fluctuations: G20.A1) 13.??Pancytopenia(Other pancytopenia: D61.818) 14.??Portal hypertensive gastropathy(Portal hypertension: K76.6) 15.??Hypomagnesemia(Hypomagnesemia: E83.42) Esophageal varices(Esophageal varices without bleeding: I85.00) GI bleed(Gastrointestinal hemorrhage, unspecified: K92.2) Other diseases of stomach and duodenum(Other diseases of stomach and duodenum: K31.89) Personal history of colonic polyps(Personal history of colonic polyps: Z86.010) Stress hyperglycemia(Hyperglycemia, unspecified: R73.9) Type 2 diabetes with complication(Type 2 diabetes mellitus with unspecified complications: E11.8) Orders: CBC-d CBC-d CMP Vascular Access Assess and Treat zCBC Automated Diff GI bleeding-Active: IV fluid??resuscitation as needed. Continue??octreotide and PPI. carafet. Will monitor kidney function??and CBC, will transfuse PRBC as needed to maintain Hb<7.? Lab work reviewed, noted to have high alpha-fetoprotein, AST/ALT ratio and positive for hepatitis A IgM. Enteric isolation. Will continue with supportive care with IV fluids, pain control as needed and encouragement of early oral intake as appropriate. Will repeat Liver profile tomorrow. ?? GMS consult for DM management. ?? Carbidopa-levodopa reconciled for Parkinson disease. ?? DNR. SCD for DVT PPx.? High complexity, multidisciplinary, with high risk of further M&M. ? Extracted from: Title:Progress SOAP Note Author:Shiloh HERNANDEZ, A ed Date:09/28/23 1.??Acute hepatitis A(Hepati tis A without hepatic coma: B15.9) 3.??Dark stools(Other fecal abnormalities: R19.5) 4.??Hematemesis with nausea(Hematemesis: K92.0) 5.??Nausea & vomiting(Nausea with vomiting, unspecified: R11.2) 6.??Hyperkalemia(Hyperkalemia: E87.5) 7.??History of colonoscopy with polypectomy(Other specified postprocedural states: Z98.890) 8.??History of esophageal varices(Personal history of other diseases of the digestive system: Z87.19) 9.??COPD mixed type(Chronic obstructive pulmonary disease, unspecified: J44.9) 10.??Diabetes mellitus, type 2(Type 2 diabetes mellitus without complications: E11.9) 11.??NPH (normal pressure hydrocephalus)((Idiopathic) normal pressure hydrocephalus: G91.2) 12.??Parkinson disease(Parkinson's disease without dyskinesia, without mention of fluctuations: G20.A1) 13.??Pancytopenia(Other pancytopenia: D61.818) 14.??Portal hypertensive gastropathy(Portal hypertension: K76.6) 15.??Hypomagnesemia(Hypomagnesemia: E83.42) Esophageal varices(Esophageal varices without bleeding: I85.00) GI bleed(Gastrointestinal hemorrhage, unspecified: K92.2) Other diseases of stomach and duodenum(Other diseases of stomach and duodenum: K31.89) Personal history of colonic polyps(Personal history of colonic polyps: Z86.010) Stress hyperglycemia(Hyperglycemia, unspecified: R73.9) Orders: carbidopa-levodopa, 1 tab, TAB, Route: By mouth, TIDWM (three times a day with meals), Start Date: 09/28/23 14:00:00 BED BUG EXTERMINATOR, Duration: 90 Days, Stop date: 12/27/23 11:29:00 CDT, Routine, [facility] [employer] [facility] sucralfate, 1 g = 1 tab, TAB, By mouth, BID, Start Date: 09/28/23 21:00:00 BED BUG EXTERMINATOR, Routine, Disp Location: [facility] [employer] [facility] CBC-d CMP Crossmatch Endocrine / Diabetes / GMS Consult Initiate Plan, Blood Bank Orderables Magnesium Serum Nursing Communication Order, Order repeat Hgb to be done 2 hr post transfusion. Packed Red Cells. Vascular Access Assess and Treat GI bleeding: IV fluid??resuscitation as needed. Continue??octreotide and PPI. carafet added. EGD report reviewed. Will monitor kidney function??and CBC, will transfuse PRBC as needed to maintain Hb<7.?? Gastroenterology??service on consult, anticipated for EGD. ? Lab work reviewed, noted to have high alpha-fetoprotein, AST/ALT ratio and positive for hepatitis A IgM. Enteric isolation. Will continue with supportive care with IV fluids, pain control as needed and encouragement of early oral intake as appropriate. ?? GMS consult for DM management. ?? Carbidopa-levodopa reconciled for Parkinson disease. ?? DNR. SCD for DVT PPx.? High complexity, multidisciplinary, with high risk of further M&M. ?? Extracted from: Title:Inpatient Consult Note Author:Shahla Zavala Date:09/28/23 1.??Acute hepatitis A(Hepati tis A without hepatic coma: B15.9) 3.??Dark stools(Other fecal abnormalities: R19.5) 4.??Hematemesis with nausea(Hematemesis: K92.0) 5.??Nausea & vomiting(Nausea with vomiting, unspecified: R11.2) 6.??Hyperkalemia(Hyperkalemia: E87.5) 7.??History of colonoscopy with polypectomy(Other specified postprocedural states: Z98.890) 8.??History of esophageal varices(Personal history of other diseases of the digestive system: Z87.19) 9.??COPD mixed type(Chronic obstructive pulmonary disease, unspecified: J44.9) 10.??Diabetes mellitus, type 2(Type 2 diabetes mellitus without complications: E11.9) 11.??NPH (normal pressure hydrocephalus)((Idiopathic) normal pressure hydrocephalus: G91.2) 12.??Parkinson disease(Parkinson's disease without dyskinesia, without mention of fluctuations: G20.A1) 13.??Pancytopenia(Other pancytopenia: D61.818) 14.??Portal hypertensive gastropathy(Portal hypertension: K76.6) 15.??Hypomagnesemia(Hypomagnesemia: E83.42) Esophageal varices(Esophageal varices without bleeding: I85.00) GI bleed(Gastrointestinal hemorrhage, unspecified: K92.2) Other diseases of stomach and duodenum(Other diseases of stomach and duodenum: K31.89) Personal history of colonic polyps(Personal history of colonic polyps: Z86.010) Stress hyperglycemia(Hyperglycemia, unspecified: R73.9) HgbA1c:??8.6 %??High (09/19/23) Reviewed MAR and insulin administration Reviewed blood glucose ?? Reviewed chart, including??labs, MAR, progress notes,?? and telemetry. Increased to HDCS q4; if bg do not lower; pt will need?? IV insulin; Communicated with RN regarding GMS plan. ?? NPO Will continue to monitor blood sugar closely to allow further insulin adjustments as needed. Thank you for allowing [facility] to participate in patient's care. ? Orders: insulin lispro (Humalog), High dose scale, INJ, SUBQ, Q4H, Start Date: 09/28/23 12:00:00 BED BUG EXTERMINATOR, Duration: 90 Days, Stop date 12/27/23 8:00:00 CDT, Routine, Disp Location: [facility] DISP Extracted from: Title:Admission H&P Note Author:Deandra Zavala MD Date:09/27/23 2.??Dark stools(Other fecal abnormalities: R19.5) 3.??Hematemesis with nausea(Hematemesis: K92.0) 4.??Nausea & vomiting(Nausea with vomiting, unspecified: R11.2) 5.??Hyperkalemia(Hyperkalemia: E87.5) 6.??History of colonoscopy with polypectomy(Other specified postprocedural states: Z98.890) 7.??History of esophageal varices(Personal history of other diseases of the digestive system: Z87.19) 8.??COPD mixed type(Chronic obstructive pulmonary disease, unspecified: J44.9) 9.??Diabetes mellitus, type 2(Type 2 diabetes mellitus without complications: E11.9) 10.??NPH (normal pressure hydrocephalus)((Idiopathic) normal pressure hydrocephalus: G91.2) 11.??Parkinson disease(Parkinson's disease without dyskinesia, without mention of fluctuations: G20.A1) 12.??Pancytopenia(Other pancytopenia: D61.818) 13.??Portal hypertensive gastropathy(Portal hypertension: K76.6) 14.??Hypomagnesemia(Hypomagnesemia: E83.42) Esophageal varices(Esophageal varices without bleeding: I85.00) GI bleed(Gastrointestinal hemorrhage, unspecified: K92.2) Other diseases of stomach and duodenum(Other diseases of stomach and duodenum: K31.89) Personal history of colonic polyps(Personal history of colonic polyps: Z86.010) Orders: Admit CBC-d zCBC Automated Diff ?? ASSESSMENT AND PLAN NPO for??now Start IV pantoprazole 40 mg b.i.d, Octreotide ordered GI consulted, will follow recommendations, Dr Montoya to see Monitor??H&H q.8 Type and crossmatch, transfuse??as??necessary, goal??is to keep??hemoglobin above??7 Pt is s/p transfusion of 1 unit of PRBC from [facility]. Monitor H/H here SCD for DVT prophylaxis P.r.n. oxygen as needed Hold potassium tablets likely contributing to hyperkalemia Patient on Lasix, spironolactone for now Ensure adequate glycemic control Likely resume patient's home dose carbidopa levodopa and propranolol Vitals stable Urgent home medications reviewed and continued as appropriate. Full reconciliation once verified by nursing. ? Code status : DNR/DNI DVT prophylaxis : SCDsdue to GI bleed Discharge planning: pending hospital course Discussed with patient, RN ? Extracted from: Title:Emergency Medicine Author:Marc Chappell DO Date:09/27/23 Impression and Plan Diagnosis History of esophageal varices (EBJ23-CY Z87.19) Hematemesis with nausea (ZTM27-TW K92.0) Dark stools (FYD76-LO R19.5) GI bleed (HKJ03-XS K92.2) Esophageal varices (TKO97-AT I85.00) Calls-Consults - GI, will consult. Plan Condition: Stable. Disposition: Deandra Zavala MD. Diagnostic Tests Pending * CHELITA Screen 10/05/23 * Smooth Muscle Total Autoabs 10/05/23 * Guzvl-3-Luxxgljljvw, Serum 10/05/23 * Ceruloplasmin, Serum 10/05/23 * Transferrin, Serum 10/05/23 * Alpha-Fetoprotein (AFP) Tumor Marker, Serum 10/05/23 Medications Carafate 1 g oral tablet 1 g = 1 tab, By mouth, BIDAC (twice daily before meals), Refill(s) 0, TAB Start Date: 10/04/23 Status: Ordered carbidopa-levodopa 25 mg-100 mg oral tablet 1 tab, By mouth, TIDWM (three times a day with meals), Refill(s) 0, TAB Start Date: 10/04/23 Status: Ordered Farxiga 5 mg oral tablet 5 mg = 1 tab, By mouth, Daily, Take one tablet with or without food, # 30 tab, Refill(s) 0, Pharmacy: [facility], CAPDP_ID-[id number], 1 tab By mouth Daily,Instr:Take one tabletwith or without food, 91.3, 10/04/23 3:45:00 BED BUG EXTERMINATOR, k... Start Date: 10/04/23 Status: Ordered gabapentin 250 mg/5 mL oral solution 100 mg = 2 mL, By mouth, TID, Refill(s) 0, LIQ Start Date: 10/04/23 Status: Ordered insulin lispro (Humalog) Medium dose scale, SUBQ, ACHS (before meals and at bedtime), Medium Dose Correction Scale - Blood glucose level of: 150 - 199 give 2 unit; 200 - 249 give 4 units; 250 - 299 give 6 units; 300 - 349 give 8 units; 350 - 399 give 10 units; 400mg/... Start Date: 10/04/23 Status: Ordered Januvia 100 mg oral tablet 100 mg = 1 tab, By mouth, Daily Start Date: 09/29/23 Status: Ordered lactulose 10 g = 15 mL, PO/per tube, BID, Refill(s) 0, SYRUP Start Date: 10/04/23 Status: Ordered LanTUS 100 units/mL subcutaneous solution 25 Units, SubQ, at bedtime, Inject 25 units SUBQ at bedtime daily. Can hold if blood glucose less than 110 mg/dL, Refill(s) 0, Diabetes, DARVIN Start Date: 10/04/23 Status: Ordered Lasix 40 mg oral tablet 40 mg = 1 tab, By mouth, Daily, # 30 tab, Refill(s) 0, Pharmacy: [facility], MERRYPDP_[id number], 1 tab By mouth Daily, 97.4, 10/09/23 3:44:00 BED BUG EXTERMINATOR, kg, Weight (kg) (Clinical) Start Date: 10/09/23 Status: Ordered nadolol 40 mg oral tablet 20 mg = 0.5 tab, By mouth, Daily, Refill(s) 0, TAB Start Date: 10/04/23 Status: Ordered pantoprazole 40 mg oral delayed release tablet 40 mg = 1 tab, By mouth, BID, Refill(s) 0, TAB Start Date: 10/04/23 Status: Ordered spironolactone 25 mg oral tablet 25 mg = 1 tab, By mouth, Daily, # 30 tab, Refill(s) 0, Pharmacy: [facility], [id number], TAB, 1 tab By mouth Daily, 97.4, 10/09/23 3:44:00 BED BUG EXTERMINATOR, kg, Weight (kg) (Clinical) Start Date: 10/09/23 Status: Ordered Problem List Condition Confirmation Course [...] Procedure Date Related Diagnosis Body Site Status ESOPHAGOGASTRODUODENOSCOPY T RANSORAL DIAGNOSTIC 09/28/23 Completed Gastroscopy - Endo with Anesthesia 1 09/28/23 Completed Gastroscopy - Endo 2 09/19/23 Comp leted 1auto-populated from documented surgical case 2auto-populated from documented surgical case Results Laboratory List Name Date CMP 10/09/23 CMP 10/07/23 CBC-d 10/05/23 CMP 10/05/23 Hepatitis A Ab IgM (HAV IgM) 10/05/23 Hepatitis Bc Ab IgM (HBcore IgM) 10/05/23 Hepatitis Bs Antigen (HBsAg) 10/05/23 Iron and TIBC (Iron&TIBC) 10/05/23 Mitochondrial Antibodies (M2), Serum (Mi tochon Ab M2) 10/05/23 zCBC Automated Diff 10/05/23 CBC-d 10/04/23 zCBC Automated Diff 10/04/23 CBC-d 10/03/23 zCBC Automated Diff 10/03/23 Magnesium Serum (Mg Serum) 10/01/23 CCP 09/30/23 CBC-d 09/30/23 Magnesium Serum (Mg Serum) 09/29/23 Lipase 09/27/23 PT/INR 09/27/23 TSABS auto 09/27/23 TSType 09/27/23 Urinalysis w/ microscopy (UA w/ micro) Most recent to oldest [Reference Range]: 1 2 3 Type and RH Interp A Positive *Unknown* (09/27/23 5:35 PM) Bedside Glucose 156 mg/dL 1 (10/09/23 8:23 AM) 104 mg/dL 2 (10/08/23 9:26 PM) 97 mg/dL 3 (10/08/23 9:05 PM) Antibody Screen Interp a Negative (09/27/23 5:35 PM) Anion Gap [2-15 mEq/L] 4 mEq/L (10/09/23 3:38 AM) 5 mEq/L (10/07/23 10:35 AM) 5 mEq/L (10/05/23 5:45 PM) RTE Casts None Seen (09/27/23 5:06 PM) RTEs None Seen (09/27/23 5:06 PM) Hepatitis A IgM Ab [Nonreactive] Nonreactive (10/05/23 5:45 PM) Hepatitis B Core IgM Ab [Nonreactive] Nonreactive (10/05/23 5:45 PM) Hepatitis B Surface Ag by EI A [Nonreactive] Nonreactive (10/05/23 5:45 PM) eGFR CKD-EPI [>=61 mL/min/1.73 m2] 102 mL/min/1.73 m2 (10/09/23 3:38 AM) 104 mL/min/1.73 m2 (10/07/23 10:35 AM) 102 mL/min/1.73 m2 (10/05/23 5:45 PM) BBID # [id number] (09/29/23 12:57 PM) [id number] (09/29/23 3:16 AM) [id number] (09/28/23 4:04 PM) NRBC# 0 Thous/mm3 *NA* (09/30/23 2:06 AM) NRBC% 0 % *NA* (09/30/23 2:06 AM) Mitochondria M2 Ab (IgG) [<=20.0] <=20.0 4 *NA* (10/05/23 5:45 PM) Glucose, Serum/Plasma [70-10 0 mg/dL] 128 mg/dL *HI* (10/09/23 3:38 AM) 272 mg/dL *HI* (10/07/23 10:35 AM) 137 mg/dL *HI* (10/05/23 5:45 PM) WBC [4.8-10.8 Thous/mm3] 7.0 Thous/mm3 (10/05/23 5:45 PM) 6.4 Thous/mm3 (10/04/23 12:03 PM) 9.0 Thous/mm3 (10/03/23 6:40 AM) Hct [42.0-52.0 %] 28.1 % *LOW* (10/05/23 5:45 PM) 25.1 % *LOW* (10/04/23 12:03 PM) 25.7 % *LOW* (10/03/23 6:40 AM) Hgb [14.0-18.0 g/dL] 8.9 g/dL *LOW* (10/05/23 5:45 PM) 7.8 g/dL *LOW* (10/04/23 12:03 PM) 8.2 g/dL *LOW* (10/03/23 6:40 AM) RBC [4.60-6.20 Million/mm3] 3.25 Million /mm3 *LOW* (10/05/23 5:45 PM) 2.81 Million/mm3 *LOW* (10/04/23 12:03 PM) 2.94 Million/mm3 *LOW* (10/03/23 6:40 AM) MCV [80.0-100.0 fl] 86.5 fl (10/05/23 5:45 PM) 89.3 fl (10/04/23 12:03 PM) 87.4 fl (10/03/23 6:40 AM) MCH [26.0-34.0 pg] 27.4 pg (10/05/23 5:45 PM) 27.8 pg (10/04/23 12:03 PM) 27.9 pg (10/03/23 6:40 AM) MCHC [31.0-36.5 g/dL] 31.7 g/dL (10/05/23 5:45 PM) 31.1 g/dL (10/04/23 12:03 PM) 31.9 g/dL (10/03/23 6:40 AM) RDW [10.4-14.4 %] 16.0 % *HI* (10/05/23 5:45 PM) 16.2 % *HI* (10/04/23 12:03 PM) 16.3 % *HI* (10/03/23 6:40 AM) Platelets [130-440 Thous/mm3] 133 Thous/ mm3 (10/05/23 5:45 PM) 108 Thous/mm3 *LOW* (10/04/23 12:03 PM) 118 Thous/mm3 *LOW* (10/03/23 6:40 AM) MPV [9.4-12.4 fl] 11.7 fl (10/05/23 5:45 PM) 11.5 fl (10/04/23 12:03 PM) 11.5 fl (10/03/23 6:40 AM) AutoNeutrophil [43.0-78.0 %] 71.3 % (10/05/23 5:45 PM) 72.8 % (10/04/23 12:03 PM) 69.3 % (10/03/23 6:40 AM) AutoLymphs [20.0-40.0 %] 12.9 % *LOW* (10/05/23 5:45 PM) 11.7 % *LOW* (10/04/23 12:03 PM) 15.2 % *LOW* (10/03/23 6:40 AM) AutoMono [2.0-10.0 %] 9.4 % (10/05/23 5:45 PM) 11.1 % *HI* (10/04/23 12:03 PM) 12.2 % *HI* (10/03/23 6:40 AM) AutoEo [0.0-7.0 %] 5.1 % (10/05/23 5:45 PM) 3.4 % (10/04/23 12:03 PM) 2.6 % (10/03/23 6:40 AM) Sodium [136-145 mEq/L] 136 mEq/L (10/09/23 3:38 AM) 135 mEq/L *LOW* (10/07/23 10:35 AM) 134 mEq/L *LOW* (10/05/23 5:45 PM) Potassium [3.5-5.1 mEq/L] 4.2 mEq/L (10/09/23 3:38 AM) 4.1 mEq/L (10/07/23 10:35 AM) 3.8 mEq/L (10/05/23 5:45 PM) Chloride [98-107 mEq/L] 107 mEq/L (10/09/23 3:38 AM) 105 mEq/L (10/07/23 10:35 AM) 105 mEq/L (10/05/23 5:45 PM) AbsNeut [2.0-8.0 Thous/mm3] 5.0 Thous/mm 3 (10/05/23 5:45 PM) 4.7 Thous/mm3 (10/04/23 12:03 PM) 6.2 Thous/mm3 (10/03/23 6:40 AM) CO2 [20-31 mEq/L] 25 mEq/L (10/09/23 3:38 AM) CO2 [21-32 mEq/L] 25 mEq/L (10/07/23 10:35 AM) 24 mEq/L (10/05/23 5:45 PM) BUN [7-18 mg/dL] 12 mg/dL (10/09/23 3:38 AM) 13 mg/dL (10/07/23 10:35 AM) 11 mg/dL (10/05/23 5:45 PM) Creatinine [0.73-1.18 mg/dL] 0.71 mg/dL *LOW* (10/09/23 3:38 AM) 0.67 mg/dL *LOW* (10/07/23 10:35 AM) 0.73 mg/dL (10/05/23 5:45 PM) AbsLymph [1.0-4.0 Thous/mm3] 0.9 Thous/m m3 *LOW* (10/05/23 5:45 PM) 0.8 Thous/mm3 *LOW* (10/04/23 12:03 PM) 1.4 Thous/mm3 (10/03/23 6:40 AM) AbsMono [0.1-1.0 Thous/mm3] 0.7 Thous/mm 3 (10/05/23 5:45 PM) 0.7 Thous/mm3 (10/04/23 12:03 PM) 1.1 Thous/mm3 *HI* (10/03/23 6:40 AM) Bilirubin, Total [0.2-1.0 mg/dL] 2.0 mg/dL *HI* (10/09/23 3:38 AM) 2.7 mg/dL *HI* (10/07/23 10:35 AM) 3.6 mg/dL *HI* (10/05/23 5:45 PM) AbsEo [0.0-0.5 Thous/mm3] 0.4 Thous/mm3 (10/05/23 5:45 PM) 0.2 Thous/mm3 (10/04/23 12:03 PM) 0.2 Thous/mm3 (10/03/23 6:40 AM) AbsBaso [0.0-0.2 Thous/mm3] 0.0 Thous/mm 3 (10/05/23 5:45 PM) 0.0 Thous/mm3 (10/04/23 12:03 PM) 0.0 Thous/mm3 (10/03/23 6:40 AM) AutoBaso [0.0-2.5 %] 0.3 % (10/05/23 5:45 PM) 0.2 % (10/04/23 12:03 PM) 0.1 % (10/03/23 6:40 AM) Calcium [8.3-10.6 mg/dL] 8.0 mg/dL *LOW* (10/09/23 3:38 AM) 8.1 mg/dL *LOW* (10/07/23 10:35 AM) 8.1 mg/dL *LOW* (10/05/23 5:45 PM) Protein Total [6.4-8.5 g/dL] 5.4 g/dL *LOW* (10/09/23 3:38 AM) 5.9 g/dL *LOW* (10/07/23 10:35 AM) 6.3 g/dL *LOW* (10/05/23 5:45 PM) Albumin [3.4-5.0 g/dL] 1.7 g/dL *LOW* (10/09/23 3:38 AM) 1.9 g/dL *LOW* (10/07/23 10:35 AM) 2.1 g/dL *LOW* (10/05/23 5:45 PM) AST [15-37 U/L] 45 U/L *HI* (10/09/23 3:38 AM) 53 U/L *HI* (10/07/23 10:35 AM) 79 U/L *HI* (10/05/23 5:45 PM) Alk Phos [45-117 U/L] 139 U/L *HI* (10/09/23 3:38 AM) 160 U/L *HI* (10/07/23 10:35 AM) 161 U/L *HI* (10/05/23 5:45 PM) Phosphorus [2.4-5.1 mg/dL] 2.9 mg/dL (09/30/23 2:26 PM) Magnesium [1.8-2.4 mg/dL] 2.4 mg/dL (10/01/23 4:54 AM) 2.5 mg/dL *HI* (09/30/23 2:26 PM) 1.9 mg/dL (09/29/23 12:28 AM) ALT [10-49 U/L] 166 U/L *HI* (10/09/23 3:38 AM) 121 U/L *HI* (10/07/23 10:35 AM) 173 U/L *HI* (10/05/23 5:45 PM) PT [9.0-13.5 sec] 13.2 sec (09/27/23 5:35 PM) Appearance [Clear] Clear (09/27/23 5:06 PM) Color [Yellow] Yellow *NA* (09/27/23 5:06 PM) Sp. [place] [1.001-1.035] 1.034 (09/27/23 5:06 PM) Ketones [Negative] 1+ *ABN* (09/27/23 5:06 PM) Glucose [Negative] 3+ *ABN* (09/27/23 5:06 PM) Protein [Negative] Negative (09/27/23 5:06 PM) Blood [Negative] Negative (09/27/23 5:06 PM) Nitrites UA [Negative] Negative (09/27/23 5:06 PM) Iron, Serum [65-175 mcg/dL] 27 mcg/dL *LOW* (10/05/23 5:45 PM) TIBC [250-450 ug/dL] 240 ug/dL *LOW* (10/05/23 5:45 PM) Percent Saturation Transferrin [20-55 %] 11 % *LOW* (10/05/23 5:45 PM) Lipase, Serum/Plasma [12-53 U/L] 26 U/L (09/27/23 5:35 PM) Bilirubin UA [Negative] Negative (09/27/23 5:06 PM) Urobilinogen [1.0 mg/dL] 0.2 mg/dL (09/27/23 5:06 PM) Leuko Esterase UA [Negative] Negative (09/27/23 5:06 PM) INR [0.80-1.30] 1.25 (09/27/23 5:35 PM) pH UA [5.0-9.0] 5.0 (09/27/23 5:06 PM) RBC [0-2/hpf] 0-2/hpf (09/27/23 5:06 PM) WBC [0-5/hpf] 6-10/hpf *ABN* (09/27/23 5:06 PM) Hyaline Casts [0-2/lpf] 0-2/lpf (09/27/23 5:06 PM) Bacteria [None Seen] None Seen (09/27/23 5:06 PM) Epithelium [None Seen] None Seen (09/27/23 5:06 PM) Volume 3 mL *NA* (09/27/23 5:06 PM) Imm. Grans % [0-5 %] <5 % (10/05/23 5:45 PM) <5 % (10/04/23 12:03 PM) <5 % (10/03/23 6:40 AM) Imm. Grans # [0.0-0.5 Thous/mm3] <0.5 Thous/mm3 (10/05/23 5:45 PM) <0.5 Thous/mm3 (10/04/23 12:03 PM) <0.5 Thous/mm3 (10/03/23 6:40 AM) ANC-AbsNeutCount 5.0 Thous/mm3 *NA* (10/05/23 5:45 PM) 4.7 Thous/mm3 *NA* (10/04/23 12:03 PM) 6.2 Thous/mm3 *NA* (10/03/23 6:40 AM) 1Result Comment: Notify RN/ Performed at:[facility], [employer] [facility], [place], [address] Reference Ranges: Age 0 - 24 hours: 45 - 115 mg/dL Age 24 hours - 30 days: 55 - 115 mg/dL Age > 30 days: 70 - 100 mg/dL Critical Results Requiring Immediate Notification: Age <72 Hours: <40 or >350 mg/dL Age >72 Hours: <50 or >400 mg/dL 2Result Comment: Performed at:[address], [address] Reference Ranges: Age 0 - 24 hours: 45 - 115 mg/dL Age 24 hours - 30 days: 55 - 115 mg/dL Age > 30 days: 70 - 100 mg/dL Critical Results Requiring Immediate Notification: Age <72 Hours: <40 or >350 mg/dL Age >72 Hours: <50 or >400 mg/dL 3Result Comment: Notify RN/DR Performed at:[address], [address] Reference Ranges: Age 0 - 24 hours: 45 - 115 mg/dL Age 24 hours - 30 days: 55 - 115 mg/dL Age > 30 days: 70 - 100 mg/dL Critical Results Requiring Immediate Notification: Age <72 Hours: <40 or >350 mg/dL Age >72 Hours: <50 or >400 mg/dL 4Result Comment: Reference Range: Negative: <=20.0 U Equivocal: 20.1 - 24.9 U Positive: >=25.0 U Lab test performed by: [facility]: [id number] [facility] [address] [id number] Oz Ward M.D., Ph.D.,Director of Laboratories Radiology Reports * Exam Date Time Procedure Performing Provider Status 10/01/23 12:35 PM NM Gastrointestinal Bleed Acute Shiloh HERNANDEZ, Mikal VASQUEZ; Auth (Verified) Notes: (NM Gastrointestinal Bleed Acute) Reason For Exam: GI bleeding REPORT Robert HERNANDEZ, Compa Camacho Signed 10/01/23 12:46:47 (Electronic Signature) Technologist CW NM Gastrointestinal Bleed Acute PROCEDURE INFORMATION: Exam: NM Acute GI Blood Loss Imaging Exam date and time: 09/30/2023 3:25 PM Age: 62 years old Clinical indication: Hepatitis a without hepatic coma; Other pancytopenia; Type 2 diabetes mellitus with unspecified complications; Type 2 diabetes mellitus without complications; Hypomagnesemia; Hyperkalemia; (idiopathic) normal pressure hydrocephalus; Esophageal varices without bleeding; Chronic obstructive pulmonary disease, unspecified; Other diseases of stomach and duodenum; Portal hypertension; Hematemesis; Gastrointestinal hemorrhage, unspecified; Nausea with vomiting, unspecified; Other fecal abnormalities; Hyperglycemia, unspecified; Parkinson's disease without dyskinesia, without mention of fluctuations; Personal history of colonic polyps; Personal history of other diseases of the digestive system; Other specified postprocedural states; Hepatic encephalopathy; Additional info: Gi bleeding TECHNIQUE: Imaging protocol: Acute gastrointestinal (GI) blood loss imaging with radiolabeled red blood cells (RBCs). Views: Anterior planar abdomen and pelvis. Radiopharmaceutical: 21.6 mCi Tc-99m Labeled RBC, IV. Time of imaging post radiopharmaceutical administration: 60 minutes COMPARISON: No relevant prior studies available. FINDINGS: Bowel: Uptake within the stomach may represent free pertechnetate or acute gastrointestinal hemorrhage No additional foci of abnormal increased activity in the abdomen or pelvis. IMPRESSION: Uptake within the stomach may represent free pertechnetate or acute gastrointestinal hemorrhage otherwise no evidence of acute GI bleeding at this time. Electronically signed by: Compa Jones MD, [facility], 10/01/2023 12:46 Robert HERNANDEZ, Compa Camacho Signed 10/01/23 12:46:47 (Electronic Signature) Technologist CW Vital Signs Most recent to oldest [Reference Range]: 1 2 3 Blood Pressure 121/71mmHg (10/09/23 7:32 AM) 108/63mmHg (10/09/23 3:44 AM) 102/62mmHg (10/08/23 11:42 PM) Height (inches) (Clinical) 70 in (10/09/23 2:00 AM) 70 in (10/08/23 2:00 PM) 70 in (10/08/23 5:00 AM) Weight (kg) (Clinical) 97.4 kg (10/09/23 3:44 AM) 103.5 kg (10/08/23 5:00 AM) 98.7 kg (10/07/23 5:00 AM) BMI (Clinical) 32.7 kg/m2 (10/08/23 5:00 AM) 31.2 kg/m2 (10/07/23 5:00 AM) 31.2 kg/m2 (10/06/23 5:00 AM) Scale Type Bed (2/17/24 5:00 AM) Bed (10/01/23 4:00 AM) Bed (09/29/23 5:03 AM) Social History Social History Type Response Smoking Status Former smoker; Smoke less tobacco use: Never; Has the patient smoked in the last 365 days, even once? No entered on: 09/19/23 Sex Male Hospital Discharge Instructions Patient Education 10/09/2023 11:09:54 Gastrointestinal Bleeding Gastrointestinal Bleeding Gastrointestinal (GI) bleeding is bleeding somewhere along the digestive tract, between the mouth and the anus. The digestive tract includes the mouth, esophagus, stomach, small intestine, large intestine, and anus. The large intestine is often called the colon. GI bleeding can be caused by various problems. The severity of these problems can be mild, serious,or life-threatening. If you have GI bleeding, you may find blood in your stools (feces), you may have black stools, or you may vomit blood. You may need to stay in the hospital if there is a lot of bleeding. What are the causes? This condition may be caused by: ??? Inflammation, irritation, or swelling of the esophagus (esophagitis). The esophagus is part of the body that moves food from your mouth to your stomach. ??? Swollen veins in the rectum (hemorrhoids). ??? Tears in the anus (anal fissures). The tears are often caused by passing hard stool. ??? Pouches that form on the colon and may bleed (diverticulosis). ??? Inflammation in areas with diverticulosis. This is called diverticulitis.This can cause pain, fever, and bloody stools. ??? Growths (polyps) or cancer. Colon cancer often starts out as precancerous polyps. ??? Gastritis and ulcers. These may cause bleeding in the upper GI tract, near the stomach. What increases the risk? You are more likely to develop this condition if: ??? You have an infection in your stomach from a type of bacteria called Helicobacter pylori. ??? You take certain medicines, such as: ??? NSAIDs. ??? Aspirin. ??? Selective serotonin reuptake inhibitors (SSRIs). ??? Steroids. ??? Antiplatelet or anticoagulant medicines. ??? You smoke. ??? You drink alcohol. What are the signs or symptoms? Common symptoms of this condition include: ??? Bright red blood in your vomit, or vomit that looks like coffee grounds. ??? Bloody, black, or tarry stools. ??? Bleeding from the lower GI tract will usually cause red or maroon blood in the stools. ??? Bleeding from the upper GI tract may cause black, tarry stools that are often stronger smellingthan usual. ??? In certain cases, if the bleeding is fast enough, the stools may be red. ??? Pain or cramping in the abdomen. How is this diagnosed? This condition may be diagnosed based on: ??? Your medical history and a physical exam. ??? Various tests, such as: ??? Blood tests. ??? Stool tests. ??? X-rays and other imaging tests. ??? Esophagogastroduodenoscopy (EGD). In this test, a flexible, lighted tube is used to look at your esophagus, stomach, and small intestine. ??? Colonoscopy. In this test, a flexible, lighted tube is used to look at your colon. How is this treated? Treatment for this condition depends on the cause of the bleeding. For example: ??? For bleeding from the esophagus, stomach, small intestine, or colon, the health care provider may do a procedure to stop bleeding during your EGD or colonoscopy. ??? Inflammation or infection of the colon can be treated with medicines. ??? Certain rectal problems can be treated with creams, suppositories, or warm baths. ??? Medicines may be given to reduce acid in your stomach. ??? Surgery is sometimes done. ??? Blood transfusions are sometimes needed if a lot of blood has been lost. If there is a lot of bleeding, you will need to stay in the hospital for observation. If bleeding is mild, you may be allowed to go home. Follow these instructions at home: ??? Take javl-ris-fjkiiaj and prescription medicines only as told by your health care provider. ??? Eat foods that are high in fiber, such as beans, whole grains, and fresh fruits and vegetables.This will help to keep your stools soft. Eating 1???3 prunes each day works well for many people. ??? Drink enough fluid to keep your urine pale yellow. ??? Keep all follow-up visits. This is important. Contact a health care provider if: ??? Your symptoms do not improve with treatment. Get help right away if: ??? Your bleeding does not stop. ??? You feel light-headed or you faint. ??? You feel weak. ??? You have severe cramps in your back or abdomen. ??? You pass large blood clots in your stool. ??? Your symptoms are getting worse. ??? You have chest pain or fast heartbeats. These symptoms may be an emergency. Get help right away. Call 911. ??? Do not wait to see if the symptoms will go away. ??? Do not drive yourself to the hospital. Summary ??? Gastrointestinal (GI) bleeding is bleeding somewhere along the digestive tract, between the mouth and anus. GI bleeding can be caused by various problems. ??? Treatment for this condition depends on the cause of the bleeding. ??? Take lfxd-ira-syabbuu and prescription medicines only as told by your health care provider. ??? Get help right away if your bleeding increases, your symptoms are getting worse, or you have new symptoms. ??? Keep all follow-up visits. This is important. This information is not intended to replace advice given to you by your health care provider. Make sure you discuss any questions you have with your health care provider. Document Revised: 03/07/2022 Document Reviewed: 03/07/2022 [employer] Patient Education ?? 2021 [employer]. Follow Up Care 09/27/2023 17:03:48 With:[facility] Address: [address] [place] [address]- [facility] (1) When: Unknown Comments:Fax discharge paperwork to [phone]. Endocrinology Consult note * Shahla Wing S: PERFORM, MODIFY Event Display: Endocrinology Consultation Authored Date: Physician Requesting Consult Shiloh HERNANDEZ, Mikal VASQUEZ Reason for Consultation hyperglycemia Chief Complaint Esophageal varicies banded x 2 weeks ago. 2 hours ago dark diarrhea and now vomiting black and blood. Hemoglobin 7.3. giving 1 u PRBC, 50 mcg Fent. 80 Protonix. Approx. 2L bloody emesis. coming from [facility] History of Present Illness Seeing patient regarding Type 2 diabetes with stress induced hyperglycemia Pt was a poor historian; pt drowsy from his procedure. Will discuss his Endocrine history tomorrow. HgbA1c:??8.6 %??High (09/19/23) Home Regimen: Metformin 1000mg BID and Farxiga daily ( not verified) Hospital Regimen: MDCS Nutrition: NPO Reviewed MAR, insulin administration and blood glucose levels;??Communicated with RN and pt regarding GMS plan. ?? Review of Systems Unable to obtain information from patient due to current medical condition Labs - Diabetes - S Bedside Glucose: 294 mg/dL (09/28/23 12:51:09) Bedside Glucose: 290 mg/dL (09/28/23 11:12:50) Bedside Glucose: 288 mg/dL (09/28/23 07:07:14) Bedside Glucose: 300 mg/dL (09/28/23 06:11:39) Bedside Glucose: 314 mg/dL (09/28/23 05:18:51) Bedside Glucose: 327 mg/dL (09/28/23 04:08:57) Bedside Glucose: 344 mg/dL (09/28/23 03:05:53) Bedside Glucose: 346 mg/dL (09/28/23 02:01:03) Bedside Glucose: 384 mg/dL (09/28/23 01:38:10) Bedside Glucose: 248 mg/dL (09/27/23 22:59:24) Bedside Glucose: 238 mg/dL (09/27/23 17:40:36) Physical Exam Vitals & Measurements T:??98.2?F?? TMIN:??97.6?F?? TMAX:??99.8?F?? HR:??83?? RR:??13?? BP:??116/56?? SpO2:??100%?? WT:??80.1??kg?? EXAM: ??Vital signs reviewed; BP, P, R, T unremarkable. GENERAL: ??Patient in no apparent distress, resting comfortably HEENT: ??No rhinorrhea. ??Eye movements conjugate. ??Facial expressions symmetric. RESP: ??Unlabored. ??No audible wheezing. CARD: Telemetry noted: Heart Rate 84, normal sinus rhythm ABD: Soft, non-tender NEURO:?drowsy, SKIN:??pale, warm, dry PSYCH:??unable to access Assessment/Plan 1.??Acute hepatitis A(Hepatitis A without hepatic coma: B15.9) 3.??Dark stools(Other fecal abnormalities: R19.5) 4.??Hematemesis with nausea(Hematemesis: K92.0) 5.??Nausea & vomiting(Nausea with vomiting, unspecified: R11.2) 6.??Hyperkalemia(Hyperkalemia: E87.5) 7.??History of colonoscopy with polypectomy(Other specified postprocedural states: Z98.890) 8.??History of esophageal varices(Personal history of other diseases of the digestive system: Z87.19) 9.??COPD mixed type(Chronic obstructive pulmonary disease, unspecified: J44.9) 10.??Diabetes mellitus, type 2(Type 2 diabetes mellitus without complications: E11.9) 11.??NPH (normal pressure hydrocephalus)((Idiopathic) normal pressure hydrocephalus: G91.2) 12.??Parkinson disease(Parkinson's disease without dyskinesia, without mention of fluctuations: G20.A1) 13.??Pancytopenia(Other pancytopenia: D61.818) 14.??Portal hypertensive gastropathy(Portal hypertension: K76.6) 15.??Hypomagnesemia(Hypomagnesemia: E83.42) Esophageal varices(Esophageal varices without bleeding: I85.00) GI bleed(Gastrointestinal hemorrhage, unspecified: K92.2) Other diseases of stomach and duodenum(Other diseases of stomach and duodenum: K31.89) Personal history of colonic polyps(Personal history of colonic polyps: Z86.010) Stress hyperglycemia(Hyperglycemia, unspecified: R73.9) HgbA1c:??8.6 %??High (09/19/23) Reviewed MAR and insulin administration Reviewed blood glucose Reviewed chart, including??labs, MAR, progress notes,?? and telemetry. Increased to HDCS q4; if bg do not lower; pt will need?? IV insulin; Communicated with RN regardingGMS plan. ?? NPO Will continue to monitor blood sugar closely to allow further insulin adjustments as needed. Thank you for allowing GMS to participate in patient's care. Orders: insulin lispro (Humalog), High dose scale, INJ, SUBQ, Q4H, Start Date: 09/28/23 12:00:00 BED BUG EXTERMINATOR, Duration: 90 Days, Stop date 12/27/23 8:00:00 CDT, Routine, Disp Location: [facility] Problem List/Past Medical History Ongoing Allergy to alpha-gal Bilateral lower extremity edema COPD mixed type Diabetes mellitus, type 2 Esophageal varices Ex-smoker NPH (normal pressure hydrocephalus) Pancytopenia Parkinson disease Portal hypertensive gastropathy Upper GI bleed Historical No qualifying data Procedure/Surgical History ???Gastroscopy - Endo with Anesthesia (09/28/2023)???Gastroscopy - Endo (09/19/2023) Medications Medication List ? Active Medications ?Ordered ? aaMAR: DC if...., UNSPECIFIED-See comments, Unscheduled. ? aaMAR: [facility] to review for potassium supplements, UNSPECIFIED-See ? comments, Unscheduled. ? acetaminophen: 650 mg, 2 tab, PO/per tube, Q6H, PRN: Temp, Mild Pain, ? Headache. ? benzocaine-menthol topical: 1 lozenge, By mouth, as needed, PRN: Sore ? Throat. ? carbidopa-levodopa: 1 tab, By mouth, TIDWM (three times a day with ? meals). ? Dextrose 10% in Water: per scale or Glucommander, IVP, as directed, ? PRN: Hypoglycemia Severe. ? docusate: 100 mg, 1 cap, By mouth, BID, PRN: Constipation. ? gabapentin: 100 mg, 2 mL, By mouth, TID. ? glucagon: 1 mg, 1 mL, IM, as directed, PRN: Hypoglycemia Severe. ? glucose: 16 g, 4 tab, By mouth, as directed, PRN: See Comment Note. ? glucose: 15 g, 1 tube, By mouth, as directed, PRN: See Comment Note. ? insulin lispro (Humalog): High dose scale, SUBQ, Q4H. ? Juice (orange/apple): 15 g, 118 mL, By mouth, as directed, PRN: See ? Comment Note. ? magnesium sulfate: 2 g, 50 mL, 25 ml/hr, IVPB, as needed, PRN: See ? Comment Note. ? magnesium sulfate: 4 g, 100 mL, 25 ml/hr, IVPB, as needed, PRN: ? Magnesium < 1.8. ? Melatonin: 3 mg, 1 tab, By mouth, at bedtime, PRN: Sleep. ? miconazole topical: 1 application, Topical, Q8H, PRN: Skin Protection. ? octreotide 500 mcg [25 mcg/hr] + Dextrose 5% in Water 107 mL: 5.4 ? ml/hr, IV, Stop: 12/26/23 22:51:00 CDT. ? ondansetron: 4 mg, 2 mL, IVP, Q8H, PRN: Nausea and Vomiting. ? pantoprazole: 40 mg, 1 vial, IVP, BID. ? sodium chloride: 1 spray, Both Nostrils, as needed, PRN: Dry ? Nose/Congestion. ? Sodium Chloride 0.9% intravenous solution 1,000 mL: 50 ml/hr, IV, ? Stop: 12/26/23 22:51:00 CDT. ? sodium chloride flush: 5 mL, IVP, Q12H. ? sodium chloride flush: 5 mL, IVP, Q10Min, PRN: See Comment Note. ?Prescribed ? pantoprazole: 40 mg, 1 tab, By mouth, Daily, 30 tab, 0 Refill(s). ? propranolol: 10 mg, 1 tab, By mouth, BID, 60 tab, 0 Refill(s). ? spironolactone: 25 mg, 1 tab, By mouth, Daily, 30 tab, 0 Refill(s). ?Documented ? carbidopa-levodopa: 1 tab, By mouth, TID, 90 tab, 0 Refill(s). ? dapagliflozin: 10 mg, 1 [...] Inactivated in the Last 72 Hours ? albuterol: 2.5 mg, 3 mL, Inhalation, ONCE, PRN: Wheezing. ? albuterol: 20 mg, 4 mL, NEB, ONCE. ? calcium gluconate: 1,000 mg, 50 mL, 200 ml/hr, IVPB, ONCE. ? cefTRIAXone: 2,000 mg, 214 ml/hr, IVPB, ONCE. ? cefTRIAXone: 2,000 mg, OMNI, STAT. ? citric acid-potassium bicarbonate: 25 mEq, 1 tab, PO/per tube, as ? directed, PRN: See Comment Note. ? citric acid-potassium bicarbonate: 50 mEq, 2 tab, PO/per tube, as ? directed, PRN: See Comment Note. ? Dextrose 10% in Water: 500 mL, BG less than 120 mg/dL WITHOUT history ? of diabetes, IV, ONCE. ? Dextrose 10% in Water: per scale or Glucommander, IVP, as directed, ? PRN: Hypoglycemia Severe. ? diphenhydrAMINE: 6.25 mg, 0.13 mL, IVP, as needed, PRN: See Comment ? Note. ? fentaNYL: 50 mcg, 1 mL, IVP, Q3Min, PRN: See Comment Note. ? glucagon: 1 mg, 1 mL, IM, as directed, PRN: Hypoglycemia Severe. ? glucose: 16 g, 4 tab, 4 tab, By mouth, as directed, PRN: See Comment ? Note. ? glucose: 15 g, 1 tube, By mouth, as directed, PRN: See Comment Note. ? glycopyrrolate: 0.2 mg, 1 mL, IVP, as needed, PRN: See Comment Note. ? HYDROmorphone: 0.25 mg, 0.25 mL, IVP, as needed, PRN: See Comment ? Note. ? insulin lispro (Humalog): Low dose scale, SUBQ, Q4H. ? insulin lispro (Humalog): Low dose scale, SUBQ, With Meals & Bedtime. ? insulin lispro (Humalog): 2-8 units, SUBQ, as directed, PRN: See ? Comment Note. ? insulin regular: 5 Units, 0.05 mL, 300 ml/hr, IV, ONCE. ? Juice (orange/apple): 15 g, 118 mL, By mouth, as directed, PRN: See ? Comment Note. ? octreotide 500 mcg + Dextrose 5% in Water 107 mL: titrate, IV, Stop: ? 12/26/23 17:14:00 CDT. ? ondansetron: 4 mg, 1 tab, By mouth, ONCE, PRN: Nausea. ? pantoprazole 80 mg + Sodium Chloride 0.9% intravenous solution 107 ? mL: 10.7 ml/hr, IV, Stop: 09/30/23 17:16:00 BED BUG EXTERMINATOR. ? propofol: 200 mg, OMNI, STAT. ? Sodium Chloride 0.9% intravenous solution: 107 mL, OMNI, STAT. ? Sodium Chloride 0.9% intravenous solution 1,000 mL: 75 ml/hr, IV, ? Stop: 12/27/23 13:03:00 CDT. ? sodium chloride flush: 5 mL, IVP, Q12H. ? sodium chloride flush: 5 mL, IVP, Q10Min, PRN: See Comment Note. Allergies Alpha-Gal??(hives) Bee Sting??(Hives) Social History Social History Alcohol ??Past;??Comment(s):??States stopped 25 years ago Substance Abuse ??Past, Type: Marijuana. Tobacco ??Smoking Status: Former smoker. ??Smokeless tobacco use: Never. Lab Results Labs??(Last two charted values on this encounter) WBC 6.4 ??(SEP 28) 6.6 ??(SEP 27) Hgb 6.8 ??(SEP 28) 7.5 ??(SEP 27) Hct 21.9 ??(B ) 24.6 ??(SEP 27) Platelets 54 ??(SEP 28) 53 ??(SEP 27) Na 137 ??(SEP 28) 138 ??(SEP 27) K 4.3 ??(SEP 28) 5.8 ??(SEP 27) Cl 106 ??(B ) 106 ??(SEP 27) CO2 21 ??(B ) 22 ??(SEP 27) BUN 26 ??(B ) 27 ??(B ) Cr 0.77 ??(B ) 0.70 ??(B ) ProteinT ?5.5 ??(B ) ?6.3 ??(SEP 27) Albumin ?2.4 ??(SEP 28) ?2.8 ??(SEP 27) Bilirubin ,Total ?1.1 ??(SEP 28) ?1.5 ??(SEP 27) Alk Phos ?74 ??(SEP 28) ?66 ??(SEP 27) ALT ?450 ??(SEP 28) ?167 ??(SEP 27) AST ?569 ??(SEP 28) ?214 ??(SEP 27) Mag ?1.7 ??(SEP 28) ?1.9 ??(SEP 27) Lipase 26 ??(SEP 27) ?? PT ?13.2 ??(SEP 27) ?? INR ?1.25 ??(SEP 27) ?? Bedside Glucose 294 ??(SEP 28) 290 ??(SEP 28) Glucose,Plasma 366 ??(SEP 28) 280 ??(SEP 27) Electronically signed by:Shahla Wing 09/28/23 20:53 Gastroenterology Consult note * Sarath Montoya MD: PERFORM Event Display: Gastroenterology Consultation Authored Date: Physician Requesting Consult Dr. Mikal Matamoros Reason for Consultation Hematemesis, melena Chief Complaint Esophageal varicies banded x 2 weeks ago. 2 hours ago dark diarrhea and now vomiting black and blood. Hemoglobin 7.3. giving 1 u PRBC, 50 mcg Fent. 80 Protonix. Approx. 2L bloody emesis. coming from [facility] 15 History of Present Illness 62-year-old male??with a medical history of??decompensated cirrhosis with??esophageal??varices??s/precent??banding (09/19/2023)??who presented??to the ER??as a??transfer??from OSH for further evaluation??of hematemesis and melena??x1 day. He had an EGD done here 9 days ago for evaluation of anemiawhich showed a large esophageal varices s/p placement of 6 bands.?? EGD also showed??[id number]-[id number]-[id number]??portal??hypertensive gastropathy.?He was discharged home in stable condition a few days afterwards with hemoglobin at 10.?? Yesterday, he developed few episodes of hematemesis and 1 episode of melena for which he presented to OSH.?? At OSH hemoglobin was 7.3, was given 1 unit PRBC and transferred here for further management.? Patient denies further??episodes of??hematemesis??or??melena. ??He denies any other complaints.?? He denies alcohol or tobacco??use.?? He also denies??anticoagulation or NSAID use.?He is currently hemodynamically stable? Review of Systems All systems reviewed and negative except as above in the HPI. Physical Exam Vitals & Measurements T:??98.2?F?? TMIN:??97.6?F?? TMAX:??99.8?F?? HR:??83?? RR:??13?? BP:??116/56?? SpO2:??100%?? WT:??80.1??kg?? General:?? Alert, no acute distress Eyes:?? EOMI, conjunctiva pallor HENMT:?? Normocephalic, atraumatic, no oral lesions evident Cardiovascular:?? Regular rate and rhythm, no edema noted Respiratory:?? Non-labored, no wheezing, on room air Abdomen:?? Soft, non-tender, non-distended, normal bowel sounds Neurologic:?? Alert, oriented, moves extremities, normal speech Psychiatric:?? Cooperative, normal affect Assessment/Plan 1.??Acute hepatitis A(Hepatitis A without hepatic coma: B15.9) 3.??Dark stools(Other fecal abnormalities: R19.5) 4.??Hematemesis with nausea(Hematemesis: K92.0) 5.??Nausea & vomiting(Nausea with vomiting, unspecified: R11.2) 6.??Hyperkalemia(Hyperkalemia: E87.5) 7.??History of colonoscopy with polypectomy(Other specified postprocedural states: Z98.890) 8.??History of esophageal varices(Personal history of other diseases of the digestive system: Z87.19) 9.??COPD mixed type(Chronic obstructive pulmonary disease, unspecified: J44.9) 10.??Diabetes mellitus, type 2(Type 2 diabetes mellitus without complications: E11.9) 11.??NPH (normal pressure hydrocephalus)((Idiopathic) normal pressure hydrocephalus: G91.2) 12.??Parkinson disease(Parkinson's disease without dyskinesia, without mention of fluctuations: G20.A1) 13.??Pancytopenia(Other pancytopenia: D61.818) 14.??Portal hypertensive gastropathy(Portal hypertension: K76.6) 15.??Hypomagnesemia(Hypomagnesemia: E83.42) Esophageal varices(Esophageal varices without bleeding: I85.00) GI bleed(Gastrointestinal hemorrhage, unspecified: K92.2) Other diseases of stomach and duodenum(Other diseases of stomach and duodenum: K31.89) Personal history of colonic polyps(Personal history of colonic polyps: Z86.010) Orders: Gastroscopy - Endo with Anesthesia ? Recommendations: -continue to monitor??hemoglobin, transfuse??for goal??greater than 7, avoid??over??transfusion in the setting of underlying??portal hypertension -continue??IV octreotide??and??IV pantoprazole??40 mg twice daily -IV Rocephin??1 g Q??24 hours for infectious prophylaxis?? -keep NPO??for EGD evaluation??with anesthesia today?? -remainder of care per??primary team Problem List/Past Medical History Ongoing Allergy to alpha-gal Bilateral lower extremity edema COPD mixed type Diabetes mellitus, type 2 Esophageal varices Ex-smoker NPH (normal pressure hydrocephalus) Pancytopenia Parkinson disease Portal hypertensive gastropathy Upper GI bleed Historical No qualifying data Procedure/Surgical History ???Gastroscopy - Endo with Anesthesia (09/28/2023)???Gastroscopy - Endo (09/19/2023) Medications Medication List ? Active Medications ?Ordered ? aaMAR: DC if...., UNSPECIFIED-See comments, Unscheduled. ? aaMAR: [facility] to review for potassium supplements, UNSPECIFIED-See ? comments, Unscheduled. ? acetaminophen: 650 mg, 2 tab, PO/per tube, Q6H, PRN: Temp, Mild Pain, ? Headache. ? albuterol: 2.5 mg, 3 mL, Inhalation, ONCE, PRN: Wheezing. ? benzocaine-menthol topical: 1 lozenge, By mouth, as needed, PRN: Sore ? Throat. ? carbidopa-levodopa: 1 tab, By mouth, TIDWM (three times a day with ? meals). ? Dextrose 10% in Water: per scale or Glucommander, IVP, as directed, ? PRN: Hypoglycemia Severe. ? Dextrose 10% in Water: per scale or Glucommander, IVP, as directed, ? PRN: Hypoglycemia Severe. ? diphenhydrAMINE: 6.25 mg, 0.13 mL, IVP, as needed, PRN: See Comment ? Note. ? docusate: 100 mg, 1 cap, By mouth, BID, PRN: Constipation. ? fentaNYL: 50 mcg, 1 mL, IVP, Q3Min, PRN: See Comment Note. ? gabapentin: 100 mg, 2 mL, By mouth, TID. ? glucagon: 1 mg, 1 mL, IM, as directed, PRN: Hypoglycemia Severe. ? glucagon: 1 mg, 1 mL, IM, as directed, PRN: Hypoglycemia Severe. ? glucose: 16 g, 4 tab, By mouth, as directed, PRN: See Comment Note. ? glucose: 15 g, 1 tube, By mouth, as directed, PRN: See Comment Note. ? glucose: 16 g, 4 tab, 4 tab, By mouth, as directed, PRN: See Comment ? Note. ? glucose: 15 g, 1 tube, By mouth, as directed, PRN: See Comment Note. ? glycopyrrolate: 0.2 mg, 1 mL, IVP, as needed, PRN: See Comment Note. ? HYDROmorphone: 0.25 mg, 0.25 mL, IVP, as needed, PRN: See Comment ? Note. ? insulin lispro (Humalog): 2-8 units, SUBQ, as directed, PRN: See ? Comment Note. ? insulin lispro (Humalog): High dose scale, SUBQ, Q4H. ? Juice (orange/apple): 15 g, 118 mL, By mouth, as directed, PRN: See ? Comment Note. ? Juice (orange/apple): 15 g, 118 mL, By mouth, as directed, PRN: See ? Comment Note. ? magnesium sulfate: 2 g, 50 mL, 25 ml/hr, IVPB, as needed, PRN: See ? Comment Note. ? magnesium sulfate: 4 g, 100 mL, 25 ml/hr, IVPB, as needed, PRN: ? Magnesium < 1.8. ? Melatonin: 3 mg, 1 tab, By mouth, at bedtime, PRN: Sleep. ? miconazole topical: 1 application, Topical, Q8H, PRN: Skin Protection. ? octreotide 500 mcg [25 mcg/hr] + Dextrose 5% in Water 107 mL: 5.4 ? ml/hr, IV, Stop: 12/26/23 22:51:00 CDT. ? ondansetron: 4 mg, 2 mL, IVP, Q8H, PRN: Nausea and Vomiting. ? ondansetron: 4 mg, 1 tab, By mouth, ONCE, PRN: Nausea. ? pantoprazole: 40 mg, 1 vial, IVP, BID. ? sodium chloride: 1 spray, Both Nostrils, as needed, PRN: Dry ? Nose/Congestion. ? Sodium Chloride 0.9% intravenous solution 1,000 mL: 50 ml/hr, IV, ? Stop: 12/26/23 22:51:00 CDT. ? Sodium Chloride 0.9% intravenous solution 1,000 mL: 75 ml/hr, IV, ? Stop: 12/27/23 13:03:00 CDT. ? sodium chloride flush: 5 mL, IVP, Q12H. ? sodium chloride flush: 5 mL, IVP, Q10Min, PRN: See Comment Note. ?Prescribed ? pantoprazole: 40 mg, 1 tab, By mouth, Daily, 30 tab, 0 Refill(s). ? propranolol: 10 mg, 1 tab, By mouth, BID, 60 tab, 0 Refill(s). ? spironolactone: 25 mg, 1 tab, By mouth, Daily, 30 tab, 0 Refill(s). ?Documented ? carbidopa-levodopa: 1 tab, By mouth, TID, 90 tab, 0 Refill(s). ? dapagliflozin: 10 mg, 1 [...] Inactivated in the Last 72 Hours ? albuterol: 20 mg, 4 mL, NEB, ONCE. ? calcium gluconate: 1,000 mg, 50 mL, 200 ml/hr, IVPB, ONCE. ? cefTRIAXone: 2,000 mg, 214 ml/hr, IVPB, ONCE. ? cefTRIAXone: 2,000 mg, OMNI, STAT. ? citric acid-potassium bicarbonate: 25 mEq, 1 tab, PO/per tube, as ? directed, PRN: See Comment Note. ? citric acid-potassium bicarbonate: 50 mEq, 2 tab, PO/per tube, as ? directed, PRN: See Comment Note. ? Dextrose 10% in Water: 500 mL, BG less than 120 mg/dL WITHOUT history ? of diabetes, IV, ONCE. ? insulin lispro (Humalog): Low dose scale, SUBQ, Q4H. ? insulin lispro (Humalog): Low dose scale, SUBQ, With Meals & Bedtime. ? insulin regular: 5 Units, 0.05 mL, 300 ml/hr, IV, ONCE. ? octreotide 500 mcg + Dextrose 5% in Water 107 mL: titrate, IV, Stop: ? 12/26/23 17:14:00 CDT. ? pantoprazole 80 mg + Sodium Chloride 0.9% intravenous solution 107 ? mL: 10.7 ml/hr, IV, Stop: 09/30/23 17:16:00 BED BUG EXTERMINATOR. ? propofol: 200 mg, OMNI, STAT. ? Sodium Chloride 0.9% intravenous solution: 107 mL, OMNI, STAT. ? sodium chloride flush: 5 mL, IVP, Q12H. ? sodium chloride flush: 5 mL, IVP, Q10Min, PRN: See Comment Note. Allergies Alpha-Gal??(hives) Bee Sting??(Hives) Social History Social History Alcohol ??Past;??Comment(s):??States stopped 25 years ago Substance Abuse ??Past, Type: Marijuana. Tobacco ??Smoking Status: Former smoker. ??Smokeless tobacco use: Never. Lab Results Labs??(Last two charted values on this encounter) WBC 6.4 ??(SEP 28) 6.6 ??(SEP 27) Hgb 6.8 ??(SEP 28) 7.5 ??(SEP 27) Hct 21.9 ??(SEP 28) 24.6 ??(SEP 27) Platelets 54 ??(SEP 28) 53 ??(SEP 27) Na 137 ??(SEP 28) 138 ??(SEP 27) K 4.3 ??(SEP 28) 5.8 ??(SEP 27) Cl 106 ??(SEP 28) 106 ??(SEP 27) CO2 21 ??(SEP 28) 22 ??(SEP 27) BUN 26 ??(B ) 27 ??(SEP 27) Cr 0.77 ??(SEP 28) 0.70 ??(SEP 27) ProteinT ?5.5 ??(SEP 28) ?6.3 ??(SEP 27) Albumin ?2.4 ??(SEP 28) ?2.8 ??(SEP 27) Bilirubin ,Total ?1.1 ??(SEP 28) ?1.5 ??(SEP 27) Alk Phos ?74 ??(SEP 28) ?66 ??(SEP 27) ALT ?450 ??(SEP 28) ?167 ??(SEP 27) AST ?569 ??(SEP 28) ?214 ??(SEP 27) Mag ?1.7 ??(SEP 28) ?1.9 ??(SEP 27) Lipase 26 ??(SEP 27) ?? PT ?13.2 ??(SEP 27) ?? INR ?1.25 ??(SEP 27) ?? Bedside Glucose 294 ??(SEP 28) 290 ??(SEP 28) Glucose,Plasma 366 ??(SEP 28) 280 ??(SEP 27) Electronically signed by:Sarath Montoya MD 09/28/23 13:58 Progress note * Maureen HERNANDEZ, Bre Isidro: PERFORM Event Display: Progress Notes Authored Date: [id number] Hospital Course 62 y/o male with cirrhosis with esophageal varices s/p banding on 09/19/23, portal htn with portal hypertensive gastropathy, DM2,??COPD,??Parkinson's, and NPH. He also has alpha gal allergy. He was admitted on 09/27/23 with hematemesis. He required repeated PRBC transfusions during this admission. GI consulted. EGD on 09/28 showed several banding ulcers in mid to distal esophagus, small varices in distal esophagus not amenable to banding, moderate to severe portal hypertensive gastropathy. Recommended pantoprazole 40 bid, carafate 1 g qid, oral iron daily,??octreotide IV x??total 72 hrs followed by nadolol 20 daily.?? Should have EGD in 3-4 weeks for??varices surveillance. No NSAIDS. Diet as tolerated. He was given empiric rocephin which was completed before discharge. ?? He had rapid response on 09/30 for altered mental status and critical care consulted. He was noted to have worsening LFTs, thought possibly hepatitis A but this was ruled out when the hepatitis A IgM was negative. ?? He improved and stabilized. PT recommending post acute placement. ?? PCP Dr. Hunter in [place], [place] ?? recommended he establish with GI Subjective feeling tired, taking a nap during my visit he is eager to go to facility, social media developer tells me after his visit that he has a facility arranged for tomorrow. feels that breathing, abdominal distention are better Objective Vitals & Measurements ??Vital Signs (last 24 hrs)?Last Charted?Minimum?Maximum?Temp?97.4 (OCT 08:12)?97.4 (OCT 08:12)?98.4 (OCT 07:)?Heart Rate?61 (OCT 08 15:12)?61 (OCT 08 15:12)?76 (OCT 07:29)?Resp Rate?18 (OCT 08 15:12)?16 (OCT 07:27)?18 (OCT 07:29)?SBP?118 (OCT 08 15:12)?110 (OCT 08 11:13)?138 (OCT 07 23:27)?DBP?70 (OCT 08 15:12)?65 (OCT 08 11:13)?75 (OCT 07:27)?SpO2?94 (OCT 08 15:12)?94 (OCT 08 15:12)?97 (OCT 08 11:13)?O2?Room a (OCT 08 15:12)?Room a (OCT 07:29)?Room a (OCT 07:)?Weight?103.5 (OCT 08 05:00)?103.5 (OCT 08 05:00)?103.5 (OCT 08 05:00)?? Physical Exam General: In no acute distress. Alert & oriented HEENT:? sclera icteric, moist oral mucosa Cardiovascular: Regular rate and rhythm without murmur. +2 edema - softer. Respiratory: Lungs diminished but clear. Respirations non-labored. and on room air Abdomen: Soft, nontender,??a little less distended today, ??normal bowel sounds. Skin: Warm and dry with no rash or lesion noted. + jaundiced (mild) Musculoskeletal:?? No joint abnormalities or effusions appreciated. Neurologic: Alert, oriented. No focal deficits Psychiatric: Cooperative, appropriate mood and affect. Assessment/Plan 1.??Hepatic encephalopathy(Hepatic encephalopathy: K76.82) 4.??Hematemesis with nausea(Hematemesis: K92.0) 5.??Nausea & vomiting(Nausea with vomiting, unspecified: R11.2) 6.??Hyperkalemia(Hyperkalemia: E87.5) 7.??History of colonoscopy with polypectomy(Other specified postprocedural states: Z98.890) 8.??History of esophageal varices(Personal history of other diseases of the digestive system: Z87.19) 9.??COPD mixed type(Chronic obstructive pulmonary disease, unspecified: J44.9) 10.??Diabetes mellitus, type 2(Type 2 diabetes mellitus without complications: E11.9) 11.??NPH (normal pressure hydrocephalus)((Idiopathic) normal pressure hydrocephalus: G91.2) 12.??Parkinson disease(Parkinson's disease without dyskinesia, without mention of fluctuations: G20.A1) 13.??Pancytopenia(Other pancytopenia: D61.818) 14.??Portal hypertensive gastropathy(Portal hypertension: K76.6) 15.??Hypomagnesemia(Hypomagnesemia: E83.42) 16.??Pruritus of skin(Pruritus, unspecified: L29.9) ACP (advance care planning)(Other specified counseling: Z71.89) Ascites(Other ascites: R18.8) Cirrhosis of liver(Unspecified cirrhosis of liver: K74.60) Esophageal varices(Esophageal varices without bleeding: I85.00) Esophageal varices with bleeding(Esophageal varices with bleeding: I85.01) GI bleed(Gastrointestinal hemorrhage, unspecified: K92.2) Other diseases of stomach and duodenum(Other diseases of stomach and duodenum: K31.89) Peripheral edema(Edema, unspecified: R60.9) Personal history of colonic polyps(Personal history of colonic polyps: Z86.010) Stress hyperglycemia(Hyperglycemia, unspecified: R73.9) Type 2 diabetes with complication(Type 2 diabetes mellitus with unspecified complications: E11.8) ?? Plan: Acute GI bleed secondary to esophageal varices banding ulcers in mid to distal esophagus. patient also with portal gastropathy and small varices in distal esophagus - carafate 1 g qid - ppi 40 bid - completed octreotide x 72 hrs - continue nadolol 20 daily - bp is tolerating - d/w patient that he needs egd in 3-4 weeks. - need to establish with GI - he doesn't know etiology of cirrhosis - sent new cirrhosis work up on 10/05 - hepatitis panel negative, mitochondrial Ab negative, low ferritin. other labs pending. - has completed empiric rocephin - needs to avoid nsaids. - diet as tolerated (has h/o alpha gal but says that it comes/goes and he can eat some??mammalian products) ?? acute encephalopathy - resolved, continue with lactulose. -??LFTs improved ?? ascites, peripheral edema - lasix and spironolactone started on 10/06 - continue and monitor response. - repeat lab in AM ?? hepatitis A ruled out with negative IgM Ab. he is Hep A immune ?? parkinsons, nph - continue sinemet ?? debility - continue with PT, OT, anticipate d/c to facility once arrangements are made. He is agreeable. ? dm2 - insulin as ordered. appreciate endo assistance ?? vte proph: scd code: dnr ?? SNF planned tomorrow Other Medications Medications (14) Active Scheduled: (14) aaMAR Note ??DC if...., UNSPECIFIED-See comments, Unscheduled aaMAR Note ??RPh to review for potassium supplements, UNSPECIFIED-See comments, Unscheduled carbidopa-levodopa IR *TCM* 25 mg-100 mg TAB ??1 tab, By mouth, TIDWM (three times a day with meals) empagliflozin 10 mg TAB ??10 mg 1 tab, By mouth, Daily insulin GLARgine (LanTUS) 100 units/mL 3 mL PEN ??28 Units 0.28 mL, SubQ, at bedtime insulin lispro (HumaLOG) 100 units/mL 3 mL PEN ??, SUBQ, with meals insulin lispro (HumaLOG) 100 units/mL 3 mL PEN ??Medium dose scale, SUBQ, ACHS (before meals and atbedtime) lactulose 20 g/30 mL soln UD CUP ??10 g 15 mL, PO/per tube, BID linagliptin 5 mg TAB ??5 mg 1 tab, By mouth, Daily nadolol 40 mg TAB* ??20 mg 0.5 tab, By mouth, Daily pantoprazole 40 mg TAB ??40 mg 1 tab, By mouth, BID sodium chloride 0.9% INJ SYR 5 mL ??5 mL, IVP, Q12H spironolactone *HAZ* 25 mg TAB ??25 mg 1 tab, By mouth, Daily Sucralfate 1g Tab ??1 g 1 tab, By mouth, BIDAC (twice daily before meals) Continuous: (0) Lab Results Labs??(Last two charted values on this encounter) WBC 7.0 ??(B ) 6.4 ??(B ) Hgb 8.9 ??(B ) 7.8 ??(B ) Hct 28.1 ??(B ) 25.1 ??(B ) Platelets 133 ??(B ) 108 ??(B ) Na 135 ??(B ) 134 ??(B ) K 4.1 ??(B ) 3.8 ??(B ) Cl 105 ??(B ) 105 ??(B ) CO2 25 ??(B ) 24 ??(B ) BUN 13 ??(B ) 11 ??(OCT 05) Cr 0.67 ??(OCT 07) 0.73 ??(OCT 05) Phos ?2.9 ??(SEP 30) ?? ProteinT ?5.9 ??(OCT 07) ?6.3 ??(OCT 05) Albumin ?1.9 ??(OCT 07) ?2.1 ??(OCT 05) Bilirubin ,Total ?2.7 ??(OCT 07) ?3.6 ??(OCT 05) Alk Phos ?160 ??(OCT 07) ?161 ??(OCT 05) ALT ?121 ??(OCT 07) ?173 ??(OCT 05) AST ?53 ??(OCT 07) ?79 ??(OCT 05) Mag ?2.4 ??(B ) ?2.5 ??(SEP 30) Lipase 26 ??(SEP 27) ?? PT ?13.2 ??(SEP 27) ?? INR ?1.25 ??(SEP 27) ?? Bedside Glucose 176 ??(OCT 08) 200 ??(OCT 08) Glucose,Plasma 272 ??(OCT 07) 137 ??(OCT 05) Electronically signed by:Maureen HERNANDEZ, Bre Isidro 10/08/23 18:08 * Maureen HERNANDEZ, Bre Isidro: PERFORM Event Display: Progress Notes Authored Date: [id number] Hospital Course 62 y/o male with cirrhosis with esophageal varices s/p banding on 09/19/23, portal htn with portal hypertensive gastropathy, DM2,??COPD,??Parkinson's, and NPH. He also has alpha gal allergy. He was admitted on 09/27/23 with hematemesis. He required repeated PRBC transfusions during this admission. GI consulted. EGD on 09/28 showed several banding ulcers in mid to distal esophagus, small varices in distal esophagus not amenable to banding, moderate to severe portal hypertensive gastropathy. Recommended pantoprazole 40 bid, carafate 1 g qid, oral iron daily,??octreotide IV x??total 72 hrs followed by nadolol 20 daily.?? Should have EGD in 3-4 weeks for??varices surveillance. No NSAIDS. Diet as tolerated. He was given empiric rocephin which was completed before discharge. ?? He had rapid response on 09/30 for altered mental status and critical care consulted. He was noted to have worsening LFTs, thought possibly hepatitis A but this was ruled out when the hepatitis A IgM was negative. ?? He improved and stabilized. PT recommending post acute placement. ?? PCP Dr. Hunter in [place], [place] ?? recommended he establish with GI Subjective feeling better wishes he could d/c soon he is still edematous and still c/o abdominal bloating Objective Vitals & Measurements ??Vital Signs (last 24 hrs)?Last Charted?Minimum?Maximum?Temp?97.9 (OCT 07 16:06)?97.9 (OCT 07:06)?98.4 (OCT 06:)?Heart Rate?72 (OCT 07 16:06)?69 (OCT 06:25)?80 (OCT 07 04:03)?Resp Rate?18 (OCT 07 16:06)?16 (OCT 06 19:25)?18 (OCT 07 11:34)?SBP?108 (OCT 07 16:06)?108 (OCT 07 16:06)?146 (OCT 07 11:34)?DBP?66 (OCT 07 16:06)?62 (OCT 07 07:38)?71 (OCT 07 04:03)?SpO2?96 (OCT 07 16:06)?95 (OCT 07 07:38)?98 (OCT 07 11:34)?O2?Room a (OCT 07 16:06)?Room a (OCT 06 19:20)?Room a (OCT 06:20)?Weight?98.7 (OCT 07 05:00)?98.7 (OCT 07 05:00)?98.7 (OCT 07 05:00)?? Physical Exam General: In no acute distress. Alert & oriented HEENT:? sclera icteric, moist oral mucosa Cardiovascular: Regular rate and rhythm without murmur. +2 edema. Respiratory: Lungs diminished but clear. Respirations non-labored. and on room air Abdomen: Soft, nontender,??+ distended, ??normal bowel sounds. Skin: Warm and dry with no rash or lesion noted. + jaundiced (mild) Musculoskeletal:?? No joint abnormalities or effusions appreciated. Neurologic: Alert, oriented. No focal deficits Psychiatric: Cooperative, appropriate mood and affect. Assessment/Plan 1.??Hepatic encephalopathy(Hepatic encephalopathy: K76.82) 4.??Hematemesis with nausea(Hematemesis: K92.0) 5.??Nausea & vomiting(Nausea with vomiting, unspecified: R11.2) 6.??Hyperkalemia(Hyperkalemia: E87.5) 7.??History of colonoscopy with polypectomy(Other specified postprocedural states: Z98.890) 8.??History of esophageal varices(Personal history of other diseases of the digestive system: Z87.19) 9.??COPD mixed type(Chronic obstructive pulmonary disease, unspecified: J44.9) 10.??Diabetes mellitus, type 2(Type 2 diabetes mellitus without complications: E11.9) 11.??NPH (normal pressure hydrocephalus)((Idiopathic) normal pressure hydrocephalus: G91.2) 12.??Parkinson disease(Parkinson's disease without dyskinesia, without mention of fluctuations: G20.A1) 13.??Pancytopenia(Other pancytopenia: D61.818) 14.??Portal hypertensive gastropathy(Portal hypertension: K76.6) 15.??Hypomagnesemia(Hypomagnesemia: E83.42) 16.??Pruritus of skin(Pruritus, unspecified: L29.9) Ascites(Other ascites: R18.8) Cirrhosis of liver(Unspecified cirrhosis of liver: K74.60) Esophageal varices(Esophageal varices without bleeding: I85.00) Esophageal varices with bleeding(Esophageal varices with bleeding: I85.01) GI bleed(Gastrointestinal hemorrhage, unspecified: K92.2) Other diseases of stomach and duodenum(Other diseases of stomach and duodenum: K31.89) Peripheral edema(Edema, unspecified: R60.9) Personal history of colonic polyps(Personal history of colonic polyps: Z86.010) Stress hyperglycemia(Hyperglycemia, unspecified: R73.9) Type 2 diabetes with complication(Type 2 diabetes mellitus with unspecified complications: E11.8) Orders: Advance Care Planning Consult CMP ?? Plan: Acute GI bleed secondary to esophageal varices banding ulcers in mid to distal esophagus. patient also with portal gastropathy and small varices in distal esophagus - carafate 1 g qid - ppi 40 bid - completed octreotide x 72 hrs - continue nadolol 20 daily - bp is tolerating - d/w patient that he needs egd in 3-4 weeks. - need to establish with GI - he doesn't know etiology of cirrhosis - sent new cirrhosis work up on 10/05 - hepatitis panel negative, mitochondrial Ab negative, low ferritin. other labs pending. - has completed empiric rocephin - needs to avoid nsaids. - diet as tolerated (has h/o alpha gal but says that it comes/goes and he can eat some??mammalian products) ?? acute encephalopathy - resolved, continue with lactulose. -??LFTs improved ?? ascites, peripheral edema - lasix and spironolactone started on 10/06 - continue and monitor response. ?? hepatitis A ruled out with negative IgM Ab. he is Hep A immune ?? parkinsons, nph - continue sinemet ?? debility - continue with PT, OT, anticipate d/c to facility once arrangements are made. He is agreeable. ? dm2 - insulin as ordered. appreciate endo assistance ?? vte proph: scd code: dnr ?? SNF eval, SW continues to send referrals Other Medications Medications (13) Active Scheduled: (13) aaMAR Note ??DC if...., UNSPECIFIED-See comments, Unscheduled aaMAR Note ??RPh to review for potassium supplements, UNSPECIFIED-See comments, Unscheduled carbidopa-levodopa IR *TCM* 25 mg-100 mg TAB ??1 tab, By mouth, TIDWM (three times a day with meals) insulin GLARgine (LanTUS) 100 units/mL 3 mL PEN ??25 Units 0.25 mL, SubQ, at bedtime insulin lispro (HumaLOG) 100 units/mL 3 mL PEN ??, SUBQ, with meals insulin lispro (HumaLOG) 100 units/mL 3 mL PEN ??Medium dose scale, SUBQ, ACHS (before meals and atbedtime) lactulose 20 g/30 mL soln UD CUP ??10 g 15 mL, PO/per tube, BID linagliptin 5 mg TAB ??5 mg 1 tab, By mouth, Daily nadolol 40 mg TAB* ??20 mg 0.5 tab, By mouth, Daily pantoprazole 40 mg TAB ??40 mg 1 tab, By mouth, BID sodium chloride 0.9% INJ SYR 5 mL ??5 mL, IVP, Q12H spironolactone *HAZ* 25 mg TAB ??25 mg 1 tab, By mouth, Daily Sucralfate 1g Tab ??1 g 1 tab, By mouth, BIDAC (twice daily before meals) Continuous: (0) Lab Results Labs??(Last two charted values on this encounter) WBC 7.0 ??(OCT 05) 6.4 ??(OCT 04) Hgb 8.9 ??(OCT 05) 7.8 ??(B ) Hct 28.1 ??(OCT 05) 25.1 ??(B ) Platelets 133 ??(OCT 05) 108 ??(B ) Na 135 ??(OCT 07) 134 ??(OCT 05) K 4.1 ??(OCT 07) 3.8 ??(OCT 05) Cl 105 ??(OCT 07) 105 ??(OCT 05) CO2 25 ??(OCT 07) 24 ??(OCT 05) BUN 13 ??(OCT 07) 11 ??(OCT 05) Cr 0.67 ??(OCT 07) 0.73 ??(OCT 05) Phos ?2.9 ??(SEP 30) ?? ProteinT ?5.9 ??(OCT 07) ?6.3 ??(OCT 05) Albumin ?1.9 ??(OCT 07) ?2.1 ??(OCT 05) Bilirubin ,Total ?2.7 ??(OCT 07) ?3.6 ??(OCT 05) Alk Phos ?160 ??(OCT 07) ?161 ??(OCT 05) ALT ?121 ??(OCT 07) ?173 ??(OCT 05) AST ?53 ??(OCT 07) ?79 ??(OCT 05) Mag ?2.4 ??(OCT 01) ?2.5 ??(SEP 30) Lipase 26 ??(SEP 27) ?? PT ?13.2 ??(SEP 27) ?? INR ?1.25 ??(SEP 27) ?? Bedside Glucose 261 ??(OCT 07) 217 ??(OCT 07) Glucose,Plasma 272 ??(OCT 07) 137 ??(OCT 05) Electronically signed by:Maureen HERNANDEZ, Bre Isidro 10/07/23 17:32 * Maureen HERNANDEZ, Bre Isidro: PERFORM Event Display: Progress Notes Authored Date: Hospital Course 62 y/o male with cirrhosis with esophageal varices s/p banding on 09/19/23, portal htn with portal hypertensive gastropathy, DM2,??COPD,??Parkinson's, and NPH. He also has alpha gal allergy. He was admitted on 09/27/23 with hematemesis. He required repeated PRBC transfusions during this admission. GI consulted. EGD on 09/28 showed several banding ulcers in mid to distal esophagus, small varices in distal esophagus not amenable to banding, moderate to severe portal hypertensive gastropathy. Recommended pantoprazole 40 bid, carafate 1 g qid, oral iron daily,??octreotide IV x??total 72 hrs followed by nadolol 20 daily.?? Should have EGD in 3-4 weeks for??varices surveillance. No NSAIDS. Diet as tolerated. He was given empiric rocephin which was completed before discharge. ?? He had rapid response on 09/30 for altered mental status and critical care consulted. He was noted to have worsening LFTs, thought possibly hepatitis A but this was ruled out when the hepatitis A IgM was negative. ?? He improved and stabilized. PT recommending post acute placement. ?? PCP Dr. Hunter in [place], [place] ?? recommended he establish with GI Subjective complains of coughing has increased abdominal distention and bloating says he finally got some sleep today 3 BMs yesterday reports he is urinating frequently Review of Systems general: no fever cv: no chest pain resp: mild shortness of breath and cough gi: no n/v. denies abdominal pain. reports loose stools. is on lactulose. + abdominal distention Objective Vitals & Measurements ??Vital Signs (last 24 hrs)?Last Charted?Minimum?Maximum?Temp?97.9 (OCT 06 17:00)?97.9 (OCT 06 17:00)?98.7 (OCT 06 07:25)?Heart Rate?78 (OCT 06 17:00)?66 (B 19:35)?79 (B 07:25)?Resp Rate?16 (B 17:00)?14 (B 07:25)?18 (B 19:35)?SBP?127 (B 17:00)?120 (B 19:35)?135 (B 07:25)?DBP?75 (B 17:00)?65 (B 11:36)?75 (B 17:00)?SpO2?97 (B 17:00)?94 (B 07:25)?97 (B 19:35)?O2?Room a (B 17:00)?Room a (B 19:35)?Room a (B :35)?Weight?99.0 (B 05:00)?99.0 (B 05:00)?99.0 (B 05:00)?? Physical Exam General: In no acute distress. Alert & oriented HEENT:?? Normocephalic atraumatic, PERRLA, EOMI, sclera icteric, moist oral mucosa Neck: supple, no JVD Cardiovascular: Regular rate and rhythm without murmur. +2 edema. Respiratory: Lungs diminished but clear. Respirations non-labored. and on room air Abdomen: Soft, nontender,??+ distended, ??normal bowel sounds. Skin: Warm and dry with no rash or lesion noted. + jaundiced (mild) Musculoskeletal:?? No joint abnormalities or effusions appreciated. Neurologic: Alert, oriented. No focal deficits Psychiatric: Cooperative, appropriate mood and affect. ?? Assessment/Plan 1.??Hepatic encephalopathy(Hepatic encephalopathy: K76.82) 3.??Dark stools(Other fecal abnormalities: R19.5) 4.??Hematemesis with nausea(Hematemesis: K92.0) 5.??Nausea & vomiting(Nausea with vomiting, unspecified: R11.2) 6.??Hyperkalemia(Hyperkalemia: E87.5) 7.??History of colonoscopy with polypectomy(Other specified postprocedural states: Z98.890) 8.??History of esophageal varices(Personal history of other diseases of the digestive system: Z87.19) 9.??COPD mixed type(Chronic obstructive pulmonary disease, unspecified: J44.9) 10.??Diabetes mellitus, type 2(Type 2 diabetes mellitus without complications: E11.9) 11.??NPH (normal pressure hydrocephalus)((Idiopathic) normal pressure hydrocephalus: G91.2) 12.??Parkinson disease(Parkinson's disease without dyskinesia, without mention of fluctuations: G20.A1) 13.??Pancytopenia(Other pancytopenia: D61.818) 14.??Portal hypertensive gastropathy(Portal hypertension: K76.6) 15.??Hypomagnesemia(Hypomagnesemia: E83.42) 16.??Pruritus of skin(Pruritus, unspecified: L29.9) Esophageal varices(Esophageal varices without bleeding: I85.00) Esophageal varices with bleeding(Esophageal varices with bleeding: I85.01) GI bleed(Gastrointestinal hemorrhage, unspecified: K92.2) Other diseases of stomach and duodenum(Other diseases of stomach and duodenum: K31.89) Personal history of colonic polyps(Personal history of colonic polyps: Z86.010) Stress hyperglycemia(Hyperglycemia, unspecified: R73.9) Type 2 diabetes with complication(Type 2 diabetes mellitus with unspecified complications: E11.8) Orders: codeine-guaifenesin, 10 mL, LIQ, By mouth, Q4H, PRN, Cough, Start Date: 10/06/23 12:51:00 BED BUG EXTERMINATOR, Duration: 14 Days, Stop date: 10/20/23 12:50:00 BED BUG EXTERMINATOR, Routine, Disp Location: [facility], GEN DISP spironolactone, 25 mg = 1 tab, TAB, By mouth, Daily, Start Date: 10/06/23 14:00:00 BED BUG EXTERMINATOR, Duration: 90 Days, Stop date 01/04/24 8:59:00 CDT, Routine, Disp Location: [facility], GEN DISP CMP LTC Facility Discharge CV-19 Screening Endoscopy Tech ? Plan: Acute GI bleed secondary to esophageal varices banding ulcers in mid to distal esophagus. patient also with portal gastropathy and small varices in distal esophagus - carafate 1 g qid - ppi 40 bid - has completed octreotide x 72 hrs - continue nadolol 20 daily - bp is tolerating - d/w patient that he needs egd in 3-4 weeks. he states he is unwilling ot come to hospital for this and I advised this be outpatient. - he is currently unestablished with GI. Discussed need to establish with GI and have close follow up with egd and further cirrhosis management - he doesn't know etiology of cirrhosis - sent new cirrhosis work up on 10/05 9) - has completed empiric rocephin - needs to avoid nsaids. - diet as tolerated (has h/o alpha gal but says that it comes/goes and he can eat some??mammalian products) ?? acute encephalopathy - resolved, continue with lactulose. - worsening LFTs improved ?? ascites, peripheral edema - will d/c the discharge orders as he appears volume overloaded and worsening ascites - will start lasix and spironolactone - check lab in AM ?? hepatitis A ruled out with negative IgM Ab. he is Hep A immune ?? parkinsons, nph - continue sinemet ?? debility - continue with PT, Ot, anticipate d/c to facility once arrangements are made. He is agreeable. ? dm2 - insulin as ordered. appreciate endo assistance ?? vte proph: scd code: dnr ?? SNF eval, d/w social work today Other Medications Medications (12) Active Scheduled: (12) aaMAR Note ??DC if...., UNSPECIFIED-See comments, Unscheduled aaMAR Note ??RPh to review for potassium supplements, UNSPECIFIED-See comments, Unscheduled carbidopa-levodopa IR *TCM* 25 mg-100 mg TAB ??1 tab, By mouth, TIDWM (three times a day with meals) insulin GLARgine (LanTUS) 100 units/mL 3 mL PEN ??22 Units 0.22 mL, SubQ, at bedtime insulin lispro (HumaLOG) 100 units/mL 3 mL PEN ??1 unit per 12 gram carb consumed, SUBQ, with meals insulin lispro (HumaLOG) 100 units/mL 3 mL PEN ??Medium dose scale, SUBQ, ACHS (before meals and atbedtime) lactulose 20 g/30 mL soln UD CUP ??10 g 15 mL, PO/per tube, BID nadolol 40 mg TAB* ??20 mg 0.5 tab, By mouth, Daily pantoprazole 40 mg TAB ??40 mg 1 tab, By mouth, BID sodium chloride 0.9% INJ SYR 5 mL ??5 mL, IVP, Q12H spironolactone *HAZ* 25 mg TAB ??25 mg 1 tab, By mouth, Daily Sucralfate 1g Tab ??1 g 1 tab, By mouth, BIDAC (twice daily before meals) Continuous: (0) Lab Results Labs??(Last two charted values on this encounter) WBC 7.0 ??(OCT 05) 6.4 ??(OCT 04) Hgb 8.9 ??(OCT 05) 7.8 ??(OCT 04) Hct 28.1 ??(OCT 05) 25.1 ??(OCT 04) Platelets 133 ??(OCT 05) 108 ??(OCT 04) Na 134 ??(OCT 05) 134 ??(OCT 04) K 3.8 ??(OCT 05) 4.2 ??(OCT 04) Cl 105 ??(OCT 05) 108 ??(OCT 04) CO2 24 ??(OCT 05) 23 ??(OCT 04) BUN 11 ??(OCT 05) 12 ??(OCT 04) Cr 0.73 ??(OCT 05) 0.70 ??(OCT 04) Phos ?2.9 ??(SEP 30) ?? ProteinT ?6.3 ??(OCT 05) ?5.6 ??(OCT 04) Albumin ?2.1 ??(OCT 05) ?2.0 ??(OCT 04) Bilirubin ,Total ?3.6 ??(OCT 05) ?3.5 ??(OCT 04) Alk Phos ?161 ??(OCT 05) ?129 ??(OCT 04) ALT ?173 ??(OCT 05) ?92 ??(OCT 04) AST ?79 ??(OCT 05) ?98 ??(OCT 04) Mag ?2.4 ??(OCT 01) ?2.5 ??(SEP 30) Lipase 26 ??(SEP 27) ?? PT ?13.2 ??(SEP 27) ?? INR ?1.25 ??(SEP 27) ?? Bedside Glucose 200 ??(OCT 06) 227 ??(OCT 06) Glucose,Plasma 137 ??(OCT 05) 169 ??(OCT 04) Electronically signed by:Bre Reddy MD 10/06/23 18:08 Consult note * Rita Blancas DO: PERFORM Event Display: Consultation Report Authored Date: [id number] Matamoros Reason for Consultation Assess for intubation, hepatic encephalopathy Chief Complaint Esophageal varicies banded x 2 weeks ago. 2 hours ago dark diarrhea and now vomiting black and blood. Hemoglobin 7.3. giving 1 u PRBC, 50 mcg Fent. 80 Protonix. Approx. 2L bloody emesis. coming from [facility]. [facility] 15 History of Present Illness This is a??62-year-old male??with a past medical history??does, portal hypertension, esophageal varices status??ending done??09/19/2023, COPD, diabetes,??Parkinson's, NPH,??bilateral lower extremity venous??stasis?who was??admitted on 09/27/2023 for??GI bleed??and hematemesis.?? Patient has a his tory of??liver cirrhosis, unclear of etiology. ?? Code [employer] was called earlier??today??when patient became??encephalopathic??and was transferred??to the neuro trauma ICU.?? His mental status??does seem??to??have improved since,??and he has no longer obtunded.?? He is protecting his airway, moving extremities.?? However,??he is reluctant to talk andstates??that??he does not??want to speak with anyone.?We are unable to obtain??adequate review??of systems??as a result. ?? Review??of the labs suggest that patient??has worsening??transaminitis??over the past few??days.?? He was also??transfused??3 units of PRBC??yesterday.?? He was found??to be positive for??hepatitis??a IgM and placed??on enteric isolation.?? He is also receiving??IV fluids supportively. Review of Systems Limited review??of systems??obtained??since??patient is reluctant??to talk??to us at this time. Physical Exam Vitals & Measurements T:??98.3?F?? TMIN:??97.5?F?? TMAX:??99.6?F?? HR:??73?? RR:??14?? BP:??126/59?? SpO2:??100%?? General: Awake, alert and oriented x 3. Appears to comprehend commands but agitated and unwilling to speak.??No acute distress HEENT: Extraocular movements intact, Mucus membranes moist CV: Regular rate and rhythm, no murmurs. Physiologic first and second heart sounds. No JVD. Normal peripheral pulses. No clubbing or cyanosis. No edema. Resp: Fair air entry bilaterally. No wheezes, rales or rhonchi ABD: Normoactive bowel sounds. No tenderness to palpation. MSKTL: Normal range of motion of neck, back and extremities. Normal muscle strength and tone. Normal gait NEURO:??Difficult to communicate with.??Agitated affect. No focal neurologic deficits appreciated.?? Assessment/Plan 1.??Hepatic encephalopathy(Hepatic encephalopathy: K76.82) 2.??Acute hepatitis A(Hepatitis A without hepatic coma: B15.9) 4.??Dark stools(Other fecal abnormalities: R19.5) 5.??Hematemesis with nausea(Hematemesis: K92.0) 6.??Nausea & vomiting(Nausea with vomiting, unspecified: R11.2) 7.??Hyperkalemia(Hyperkalemia: E87.5) 8.??History of colonoscopy with polypectomy(Other specified postprocedural states: Z98.890) 9.??History of esophageal varices(Personal history of other diseases of the digestive system: Z87.19) 10.??COPD mixed type(Chronic obstructive pulmonary disease, unspecified: J44.9) 11.??Diabetes mellitus, type 2(Type 2 diabetes mellitus without complications: E11.9) 12.??NPH (normal pressure hydrocephalus)((Idiopathic) normal pressure hydrocephalus: G91.2) 13.??Parkinson disease(Parkinson's disease without dyskinesia, without mention of fluctuations: G20.A1) 14.??Pancytopenia(Other pancytopenia: D61.818) 15.??Portal hypertensive gastropathy(Portal hypertension: K76.6) 16.??Hypomagnesemia(Hypomagnesemia: E83.42) Esophageal varices(Esophageal varices without bleeding: I85.00) GI bleed(Gastrointestinal hemorrhage, unspecified: K92.2) Other diseases of stomach and duodenum(Other diseases of stomach and duodenum: K31.89) Personal history of colonic polyps(Personal history of colonic polyps: Z86.010) Stress hyperglycemia(Hyperglycemia, unspecified: R73.9) Type 2 diabetes with complication(Type 2 diabetes mellitus with unspecified complications: E11.8) Orders: CBC-d CCP Do Not Intubate zCBC Automated Diff ?? 1. Acute encephalopathy- improved, etiology unclear, ?hepatic encephalopathy vs acute liver failurevs alternative etiology 2. Acute Hepatitis A infection w/ worsening transaminitis 3. GI bleed likely 2/2 varices vs alternative etiology, has a h/o banding 09/19/23 4. h/o NPH 5. h/o Parkinson's disease 6. Portal hypertensive gastropathy 7. h/o colonic polyps 8 Type II DM ?? Plan: - Patient appears to have findings of hepatic encephalopathy with active GI Bleeding. He has a h/o variceal bleeding. c/w octreotide and protonix iv bid. - c/w lactulose and consider adding rifaximin. He is protecting his airway well at this time, and seems to be more awake, alert and appears to follow questions/commands. He is irritated however. - Supportive tx for hep A?? infection. Recommend maintenance ivf for adequate perfusion. Can consider NAC protocol given liver failure, but unsure if indicated in hep A infection. Defer to primary team. - Trend H&H closely. If further signs of active GI Bleed, may consider CTA to evaluate for IR guided embolization. fu GI recs. - c/w rocephin for ppx. - Monitor mental status closely. - Overall poor prognosis. ?? Rest of care per primary and GI team. ?? I had a goals of care conversation with patient. He had previously indicated on admission to admitting physician of being DNR/DNI. I first assessed patient's capacity and since patient appeared to have capacity to make medical decisions, we spoke about his overall prognosis and goals of care. Patient was reluctant to discuss too much, since he does not want to talk to anyone , but clearly indicated that he wants to be DNR/DNI. DEREK Melgar present at bedside. Discussed with pmd Dr. Matamoros as well. Appropriate code status changes made to chart. ?? At this time, patient is protecting his airway well. Per patient's wishes, we will make him DNI. Will recommend to continue supportive tx per primary team and GI. Critical care will sign off. Please call for any questions or concerns. ?? The patient has a high probability of sudden, clinically significant deterioration, which requires the highest level of physician preparedness to intervene urgently. I managed/supervised life or organ supporting interventions that required frequent physician assessment. I devoted my full attention in the ICU to the direct care of this patient for the time period indicated. Time I spent with the family or surrogate(s) is included only if the patient was incapable of providing the necessary information or participating in medical decision making. Time devoted to teaching and to any procedures Ibilled separately is not included. ??I spent the substantive/majority??amount??of time??caring for??this patient,??Minutes of critical care time spent by myself/ the physician??excluding any overlap:45 minutes. ?? Thank you for allowing me to participate in the care of this patient. Please feel free to contact me for any questions or concerns. ?? Sincerely, Rita Blancas, DO Pulmonary, Critical Care and Sleep Medicine Problem List/Past Medical History Ongoing Allergy to alpha-gal Bilateral lower extremity edema COPD mixed type Diabetes mellitus, type 2 Esophageal varices Ex-smoker NPH (normal pressure hydrocephalus) Pancytopenia Parkinson disease Portal hypertensive gastropathy Upper GI bleed Historical No qualifying data Procedure/Surgical History ???Gastroscopy - Endo with Anesthesia (09/28/2023)???Gastroscopy - Endo (09/19/2023) Medications Medication List ? Active Medications ?Ordered ? aaMAR: DC if...., UNSPECIFIED-See comments, Unscheduled. ? aaMAR: [facility] to review for potassium supplements, UNSPECIFIED-See ? comments, Unscheduled. ? benzocaine-menthol topical: 1 lozenge, By mouth, as needed, PRN: Sore ? Throat. ? carbidopa-levodopa: 1 tab, By mouth, TIDWM (three times a day with ? meals). ? cefTRIAXone: 1,000 mg, 214 ml/hr, IV, Daily. ? Dextrose 10% in Water: per scale or Glucommander, IVP, as directed, ? PRN: Hypoglycemia Severe. ? docusate: 100 mg, 1 cap, By mouth, BID, PRN: Constipation. ? glucose: 16 g, 4 tab, By mouth, as directed, PRN: See Comment Note. ? insulin lispro (Humalog): Medium dose scale, SUBQ, 5XD. ? insulin lispro (Humalog): 1 unit per 20 gram carb consumed, SUBQ, ? with meals. ? Juice (orange/apple): 15 g, 118 mL, By mouth, as directed, PRN: See ? Comment Note. ? lactulose: 10 g, 15 mL, Rectally, BID. ? magnesium sulfate: 2 g, 50 mL, 25 ml/hr, IVPB, as needed, PRN: See ? Comment Note. ? magnesium sulfate: 4 g, 100 mL, 25 ml/hr, IVPB, as needed, PRN: ? Magnesium < 1.8. ? Melatonin: 3 mg, 1 tab, By mouth, at bedtime, PRN: Sleep. ? miconazole topical: 1 application, Topical, Q8H, PRN: Skin Protection. ? octreotide 500 mcg [25 mcg/hr] + Dextrose 5% in Water 107 mL: 5.4 ? ml/hr, IV, Stop: 12/26/23 22:51:00 CDT. ? ondansetron: 4 mg, 2 mL, IVP, Q8H, PRN: Nausea and Vomiting. ? pantoprazole: 40 mg, 1 vial, IVP, BID. ? sodium chloride: 1 spray, Both Nostrils, as needed, PRN: Dry ? Nose/Congestion. ? Sodium Chloride 0.9% intravenous solution 1,000 mL: 50 ml/hr, IV, ? Stop: 12/26/23 22:51:00 CDT. ? sodium chloride flush: 5 mL, IVP, Q12H. ? sodium chloride flush: 5 mL, IVP, Q10Min, PRN: See Comment Note. ? sucralfate: 1 g, 1 tab, By mouth, BIDAC (twice daily before meals). ?Prescribed ? pantoprazole: 40 mg, 1 tab, By mouth, Daily, 30 tab, 0 Refill(s). ? propranolol: 10 mg, 1 tab, By mouth, BID, 60 tab, 0 Refill(s). ? spironolactone: 25 mg, 1 tab, By mouth, Daily, 30 tab, 0 Refill(s). ?Documented ? carbidopa-levodopa: 0.5 tab, By mouth, TID, 0 Refill(s). ? dapagliflozin: 10 mg, 1 tab, By mouth, Daily, 0 Refill(s). ? furosemide: 20 mg, 1 tab, By mouth, Daily, 0 Refill(s). ? gabapentin: 100 mg, 1 cap, By mouth, TID, 0 Refill(s). ? magnesium oxide: 400 mg, 1 tab, By mouth, Daily. ? metFORMIN: 1,000 mg, 1 tab, By mouth, BID, 0 Refill(s). ? potassium chloride: 10 mEq, 1 cap, By mouth, Daily, 0 Refill(s). ? SITagliptin: 100 mg, 1 tab, By mouth, Daily. ?Suspended ? gabapentin: 100 mg, 2 mL, By mouth, TID. ? Medications Inactivated in the Last 72 Hours ? acetaminophen: 650 mg, 2 tab, PO/per tube, Q6H, PRN: Temp, Mild Pain, ? Headache. ? albuterol: 2.5 mg, 3 mL, Inhalation, ONCE, PRN: Wheezing. ? albuterol: 20 mg, 4 mL, NEB, ONCE. ? calcium gluconate: 1,000 mg, 50 mL, 200 ml/hr, IVPB, ONCE. ? cefTRIAXone: 1,000 mg, OMNI, STAT. ? cefTRIAXone: 2,000 mg, 214 ml/hr, IVPB, ONCE. ? cefTRIAXone: 2,000 mg, OMNI, STAT. ? citric acid-potassium bicarbonate: 25 mEq, 1 tab, PO/per tube, as ? directed, PRN: See Comment Note. ? citric acid-potassium bicarbonate: 50 mEq, 2 tab, PO/per tube, as ? directed, PRN: See Comment Note. ? Dextrose 10% in Water: per scale or Glucommander, IVP, as directed, ? PRN: Hypoglycemia Severe. ? Dextrose 10% in Water: 500 mL, BG less than 120 mg/dL WITHOUT history ? of diabetes, IV, ONCE. ? Dextrose 10% in Water: per scale or Glucommander, IVP, as directed, ? PRN: Hypoglycemia Severe. ? Dextrose 10% in Water: per insulin infusion program, IV, as directed, ? PRN: Hypoglycemia Severe. ? diphenhydrAMINE: 6.25 mg, 0.13 mL, IVP, as needed, PRN: See Comment ? Note. ? diphenhydrAMINE: 25 mg, 0.5 mL, IVP, ONCE. ? fentaNYL: 50 mcg, 1 mL, IVP, Q3Min, PRN: See Comment Note. ? glucagon: 1 mg, 1 mL, IM, as directed, PRN: Hypoglycemia Severe. ? glucagon: 1 mg, 1 mL, IM, as directed, PRN: Hypoglycemia Severe. ? glucagon: 1 mg, 1 mL, IM, as directed, PRN: Hypoglycemia Severe. ? glucose: 16 g, 4 tab, By mouth, as directed, PRN: See Comment Note. ? glucose: 15 g, 1 tube, By mouth, as directed, PRN: See Comment Note. ? glucose: 16 g, 4 tab, 4 tab, By mouth, as directed, PRN: See Comment ? Note. ? glucose: 15 g, 1 tube, By mouth, as directed, PRN: See Comment Note. ? glucose: 15 g, 1 tube, By mouth, as directed, PRN: See Comment Note. ? glycopyrrolate: 0.2 mg, 1 mL, IVP, as needed, PRN: See Comment Note. ? HYDROmorphone: 0.25 mg, 0.25 mL, IVP, as needed, PRN: See Comment ? Note. ? insulin lispro (Humalog): Low dose scale, SUBQ, Q4H. ? insulin lispro (Humalog): Low dose scale, SUBQ, With Meals & Bedtime. ? insulin lispro (Humalog): High dose scale, SUBQ, Q4H. ? insulin lispro (Humalog): 2-8 units, SUBQ, as directed, PRN: See ? Comment Note. ? insulin lispro (Humalog): 10 Units, 0.1 mL, SUBQ, ONCE. ? insulin regular: 100 Units, OMNI, STAT. ? insulin regular: 5 Units, 0.05 mL, 300 ml/hr, IV, ONCE. ? insulin regular: 100 Units, OMNI, STAT. ? insulin regular 100 Units + Premix Diluent 100 mL: per insulin ? infusion program, IV, Stop: 12/27/23 15:23:00 CDT. ? Juice (orange/apple): 15 g, 118 mL, By mouth, as directed, PRN: See ? Comment Note. ? Juice (orange/apple): 15 g, 118 mL, By mouth, as directed, PRN: See ? Comment Note. ? magnesium oxide: 200 mg, By mouth, BID, 0 Refill(s). ? octreotide 500 mcg + Dextrose 5% in Water 107 mL: titrate, IV, Stop: ? 12/26/23 17:14:00 CDT. ? ondansetron: 4 mg, 1 tab, By mouth, ONCE, PRN: Nausea. ? pantoprazole 80 mg + Sodium Chloride 0.9% intravenous solution 107 ? mL: 10.7 ml/hr, IV, Stop: 09/30/23 17:16:00 BED BUG EXTERMINATOR. ? propofol: 200 mg, OMNI, STAT. ? Sodium Chloride 0.9% intravenous solution: 107 mL, OMNI, STAT. ? Sodium Chloride 0.9% intravenous solution: 107 mL, OMNI, STAT. ? Sodium Chloride 0.9% intravenous solution 1,000 mL: 75 ml/hr, IV, ? Stop: 12/27/23 13:03:00 CDT. ? Sodium Chloride 0.9% intravenous solution 500 mL: 10 ml/hr, IV, Stop: ? 12/27/23 14:38:00 CDT. ? sodium chloride flush: 5 mL, IVP, Q12H. ? sodium chloride flush: 5 mL, IVP, Q10Min, PRN: See Comment Note. Allergies Alpha-Gal??(hives) Bee Sting??(Hives) Social History Social History Alcohol ??Past;??Comment(s):??States stopped 25 years ago Substance Abuse ??Past, Type: Marijuana. Tobacco ??Smoking Status: Former smoker. ??Smokeless tobacco use: Never. Lab Results Labs??(Last two charted values on this encounter) WBC 10.4 ??(SEP 30) 12.9 ??(SEP 30) Hgb 7.7 ??(SEP 30) 7.7 ??(SEP 30) Hct 23.7 ??(SEP 30) 23.5 ??(SEP 30) Platelets 77 ??(SEP 30) 93 ??(SEP 30) Na 134 ??(SEP 30) 137 ??(SEP 29) K 4.6 ??(SEP 30) 4.4 ??(SEP 29) Cl 105 ??(SEP 30) 110 ??(SEP 29) CO2 25 ??(SEP 30) 21 ??(SEP 29) BUN 43 ??(SEP 30) 22 ??(SEP 29) Cr 1.06 ??(SEP 30) 1.00 ??(SEP 29) ProteinT ?5.1 ??(SEP 30) ?4.4 ??(SEP 29) Albumin ?2.2 ??(SEP 30) ?1.9 ??(SEP 29) Bilirubin ,Total ?2.2 ??(SEP 30) ?1.6 ??(SEP 29) Alk Phos ?120 ??(SEP 30) ?75 ??(SEP 29) ALT ?738 ??(SEP 30) ?549 ??(SEP 29) AST ?1463 ??(SEP 30) ?502 ??(SEP 29) Mag ?1.9 ??(SEP 29) ?1.7 ??(SEP 28) Lipase 26 ??(SEP 27) ?? PT ?13.2 ??(SEP 27) ?? INR ?1.25 ??(SEP 27) ?? Bedside Glucose 150 ??(SEP 30) 138 ??(SEP 30) Glucose,Plasma 115 ??(SEP 30) 210 ??(SEP 29) Electronically signed by:Riat Blancas DO 09/30/23 15:49 Surgical operation note * Sarath Montoya MD: PERFORM, SIGN, VERIFY Event Display: Operative Report Authored Date: [id number] Patient: MAGGIE SEYMOUR Age: 62 years Sex: Male : 1960 Associated Diagnoses: None Author: Sarath Montoya MD Images Procedure images: Image 2 Image 3 Image 4 Image 5 Image 6 Image 7 Image 8 Image 9 Image 10 Image 11 Image 12 Image 13 . Date:??09/28/2023 Procedure Performed:?? EGD Referring Provider:??Dr. Mikal Matamoros Indication:?? Hematemesis, melena, cirrhosis Medications Used:?? MAC, please see anesthesia record Estimated Blood Loss:??<5mL Procedure Technique: Informed consent was obtained from the patient after explaining the procedure and procedural risks (perforation, bleeding, infection, missed pathology, medication adverse effects, etc.).?? A focused physical exam was performed.?? Any procedure-related questions were answered prior to starting.?? A time-out safety verification was performed.?? The patient was connected to appropriate monitoring devices and placed in the appropriate position for the procedure.?? Supplemental oxygen was providedvia nasal cannula and IV sedation medications were administered via an??indwelling IV catheter.?? After adequate sedation was achieved, the patient was intubated and the scope was advanced under direct visualization to the second portion of the duodenum.?? The scope was subsequently withdrawn slowly while carefully examining the color, texture, anatomy and integrity of the mucosa on the way out.?? The oropharynx was not well visualized and any concerns for oropharyngeal pathology should be evaluated by the appropriate specialists.?? The procedure was well tolerated by the patient.?? Specific findings are listed below. Findings: -normal appearing proximal esophageal mucosa -several banding ulcers seen in mid to distal esophagus; 30 cm from incisors to GEJ at 38 cm -small varices seen in distal esophagus, collapsed with insufflation, non amenable to banding -diffuse gastric body erythema with mosaic appearing mucosa consistent with moderate to severe portal hypertensive gastropathy -normal appearing duodenal bulb, D1/D2 -no old blood or active bleeding seen Endoscopic diagnosis: -banding ulcers -small esophageal varices -moderate to severe portal hypertensive gastropathy Recommendations: -p.o. pantoprazole 40 mg b.i.d. -p.o. Carafate 1 g q.i.d. -p.o. iron supplementation 324 mg once daily -continue IV octreotide infusion for another 24-48 hours -following completion of octreotide infusion, may consider low-dose beta-yocasta therapy with propranolol 10 mg t.i.d.or nadolol 20 mg daily if BP stable and no other contraindications. -avoid NSAIDs (ibuprofen, naproxen, Aleve, Motrin, Advil, etc.) -repeat EGD in 3-4 weeks as outpatient for variceal surveillance -okay to resume diet as tolerated -no driving/operating heavy machinery for 24 hours -return to hospital floor for ongoing medical care Electronically signed by:Sarath Montoya MD 09/28/23 14:14 History and physical note * Deandra Zavala MD: PERFORM Event Display: History and Physicals Authored Date: [id number] Chief Complaint Esophageal varicies banded x 2 weeks ago. 2 hours ago dark diarrhea and now vomiting black and blood. Hemoglobin 7.3. giving 1 u PRBC, 50 mcg Fent. 80 Protonix. Approx. 2L bloody emesis. coming from [facility]. [facility] 15 Care Team Primary Care Physician??- PCP, NONE Attending Physician - Ta GASPAR, Marc Camacho Consulting Physician - Sarath Montoya MD Arrival Date/Time??- 09/27/2023 17:02:00 History of Present Illness Patient coming??in with??GI??bleed?? Patient with a history of cirrhosis, portal hypertension, esophageal??varices status post??banding??which??was done??earlier on??this month??on the 19 of September discharged ?? Patient with??prior or??colonoscopy which showed??2 polyps??status post polypectomy??in the hepatic??flexure and transverse??colon? Post??discharge??patient noted dark stools Was seen at an??outside??facility where it??was noted his??hemoglobin was around??7.3, baseline of??around 10 at discharge??during previous admission He??was transfuse 1 unit??of packed??red??blood cells and transferred??to [place]for further??management?? Patient started??on pantoprazole as well as??octreotide, gastroenterology consulted, Dr. Montoya to see ?? CBC reviewed here with hemoglobin of 8.1 Also has hyperkalemia of 5.8 Abnormal LFTs likely from chronic liver disease Hypomagnesemia of 1.9 UA without signs of infection ?? Pt noted hematemesis as well as nausea . Denied abd pain, lightheadedness, headache Physical Exam Vitals & Measurements HR:??94?? RR:??15?? BP:??119/56?? SpO2:??97%?? WT:??88.1??kg?? General: Alert and oriented x 3 Eye: Normal conjunctiva Neck: Supple Respiratory: Lungs are clear to auscultation Cardiovascular:?+S1/S2, rrr, no pedal edema Gastrointestinal:?Soft,??NT/ND, BS+ Musculoskeletal: No swelling Neurologic: Alert, Oriented, no focal deficits Psychiatric: Cooperative Assessment/Plan 2.??Dark stools(Other fecal abnormalities: R19.5) 3.??Hematemesis with nausea(Hematemesis: K92.0) 4.??Nausea & vomiting(Nausea with vomiting, unspecified: R11.2) 5.??Hyperkalemia(Hyperkalemia: E87.5) 6.??History of colonoscopy with polypectomy(Other specified postprocedural states: Z98.890) 7.??History of esophageal varices(Personal history of other diseases of the digestive system: Z87.19) 8.??COPD mixed type(Chronic obstructive pulmonary disease, unspecified: J44.9) 9.??Diabetes mellitus, type 2(Type 2 diabetes mellitus without complications: E11.9) 10.??NPH (normal pressure hydrocephalus)((Idiopathic) normal pressure hydrocephalus: G91.2) 11.??Parkinson disease(Parkinson's disease without dyskinesia, without mention of fluctuations: G20.A1) 12.??Pancytopenia(Other pancytopenia: D61.818) 13.??Portal hypertensive gastropathy(Portal hypertension: K76.6) 14.??Hypomagnesemia(Hypomagnesemia: E83.42) Esophageal varices(Esophageal varices without bleeding: I85.00) GI bleed(Gastrointestinal hemorrhage, unspecified: K92.2) Other diseases of stomach and duodenum(Other diseases of stomach and duodenum: K31.89) Personal history of colonic polyps(Personal history of colonic polyps: Z86.010) Orders: Admit CBC-d zCBC Automated Diff ?? ASSESSMENT AND PLAN NPO for??now Start IV pantoprazole 40 mg b.i.d, Octreotide ordered GI consulted, will follow recommendations, Dr Montoya to see Monitor??H&H q.8 Type and crossmatch, transfuse??as??necessary, goal??is to keep??hemoglobin above??7 Pt is s/p transfusion of 1 unit of PRBC from [facility]. Monitor H/H here SCD for DVT prophylaxis P.r.n. oxygen as needed Hold potassium tablets likely contributing to hyperkalemia Patient on Lasix, spironolactone for now Ensure adequate glycemic control Likely resume patient's home dose carbidopa levodopa and propranolol Vitals stable Urgent home medications reviewed and continued as appropriate. Full reconciliation once verified bynursing. ? Code status : DNR/DNI DVT prophylaxis : SCDsdue to GI bleed Discharge planning: pending hospital course Discussed with patient, RN ?? Problem List/Past Medical History Ongoing Allergy to alpha-gal Bilateral lower extremity edema COPD mixed type Diabetes mellitus, type 2 Esophageal varices Ex-smoker NPH (normal pressure hydrocephalus) Pancytopenia Parkinson disease Portal hypertensive gastropathy Upper GI bleed Historical No qualifying data Procedure/Surgical History ???Gastroscopy - Endo (09/19/2023) Medications Home Medications (10) Active carbidopa-levodopa 25 [...] mg = 1 tab, By mouth, Daily Allergies Alpha-Gal??(hives) Bee Sting??(Hives) Social History Social History Alcohol ??Denies Substance Abuse ??Past, Type: Marijuana. Tobacco ??Smoking Status: Former smoker. ??Smokeless tobacco use: Never. Lab Results Labs??(Last two charted values on this encounter) WBC 7.8 ??(SEP 27) ?? Hgb 8.1 ??(SEP 27) ?? Hct 26.7 ??(SEP 27) ?? Platelets 72 ??(SEP 27) ?? Na 138 ??(SEP 27) ?? K 5.8 ??(SEP 27) ?? Cl 106 ??(SEP 27) ?? CO2 22 ??(SEP 27) ?? BUN 27 ??(SEP 27) ?? Cr 0.70 ??(SEP 27) ?? ProteinT ?6.3 ??(SEP 27) ?? Albumin ?2.8 ??(SEP 27) ?? Bilirubin ,Total ?1.5 ??(SEP 27) ?? Alk Phos ?66 ??(SEP 27) ?? ALT ?167 ??(SEP 27) ?? AST ?214 ??(SEP 27) ?? Mag ?1.9 ??(SEP 27) ?? Lipase 26 ??(SEP 27) ?? PT ?13.2 ??(SEP 27) ?? INR ?1.25 ??(SEP 27) ?? Bedside Glucose 238 ??(SEP 27) ?? Glucose,Plasma 280 ??(SEP 27) ?? Diagnostic Results No clinical data available for specified time frame. Electronically signed by:Deandra Zavala MD 09/27/23 19:17 Discharge summary * Bre Reddy MD: PERFORM Event Display: Discharge Summary Authored Date: [id number] Discharge Information Admit date:09/27/2023 Discharge date:10/09/2023 Primary Care Physician:PCP, NONE Attending Physician:Bre Reddy MD Consulting Physician:;Sarath Montoya MD Admitting Physician:Deandra Zavala MD Discharge Diagnosis Hepatic encephalopathy Hematemesis with nausea Nausea & vomiting Hyperkalemia History of colonoscopy with polypectomy COPD mixed type Diabetes mellitus, type 2 NPH (normal pressure hydrocephalus) Parkinson disease Pancytopenia Portal hypertensive gastropathy Hypomagnesemia Pruritus of skin Peripheral edema Esophageal varices with bleeding Esophageal varices GI bleed Stress hyperglycemia Ascites Other diseases of stomach and duodenum ACP (advance care planning) Personal history of colonic polyps Type 2 diabetes with complication Cirrhosis of liver Procedures During Visit Procedures: 09-28-23 12:34??Gastroscopy - Endo with Anesthesia?? Sarath Montoya MD Surgeon - Primary?? Hospital Course 62 y/o male with cirrhosis with esophageal varices s/p banding on 09/19/23, portal htn with portal hypertensive gastropathy, DM2,??COPD,??Parkinson's, and NPH. He also has alpha gal allergy. He was admitted on 09/27/23 with hematemesis. He required repeated PRBC transfusions during this admission. GI consulted. EGD on 09/28 showed several banding ulcers in mid to distal esophagus, small varices in distal esophagus not amenable to banding, moderate to severe portal hypertensive gastropathy. Recommended pantoprazole 40 bid, carafate 1 g qid, oral iron daily,??octreotide IV x??total 72 hrs followed by nadolol 20 daily.?? Should have EGD in 3-4 weeks for??varices surveillance. No NSAIDS. Diet as tolerated. He was given empiric rocephin which was completed before discharge. He was started on lasixand spironolactone for volume management in context of cirrhosis. he had new cirrhosis labs orderedand are pending at discharge. He will need to establish with GI and follow up for repeat EGD in 3-4weeks. Discussed this with patient at discharge. ?? He had rapid response on 09/30 for altered mental status and critical care consulted. He was noted to have worsening LFTs, thought possibly hepatitis A but this was ruled out when the hepatitis A IgM was negative. Mentation improved with lactulose and time. Neurology assisted with his medication given history of Parkinsons and NPH. He was continued on usual neuro medications. ?? He improved and stabilized. PT recommending post acute placement. He discharged to SNF ?? PCP Dr. Hunter in [place], [place] Vitals & Measurements ??Vital Signs (last 24 hrs)?Last Charted?Minimum?Maximum?Temp?98.4 (OCT 09:32)?97.4 (OCT 08 19:17)?98.4 (OCT 09:32)?Heart Rate?72 (OCT 09 07:38)?67 (OCT 08 23:42)?81 (FEB 23 07:32)?Resp Rate?17 (B 07:32)?16 (B 19:17)?17 (B 03:44)?SBP?121 (B 07:32)?102 (B 23:42)?121 (B 19:17)?DBP?71 (B 07:32)?62 (B 23:42)?71 (B 19:17)?SpO2?96 (OCT 09:32)?95 (B 23:42)?96 (B 19:17)?O2?Room a (B 07:35)?Room a (B 19:10)?Room a (B 19:10)?Weight?97.4 (OCT 09 03:44)?97.4 (OCT 09 03:44)?97.4 (OCT 09 03:44)?? Physical Exam General: In no acute distress. Alert & oriented HEENT:? moist oral mucosa, normal conjunctiva. Cardiovascular: Regular rate and rhythm without murmur. +2 edema Respiratory: Lungs diminished but clear. Respirations non-labored. and on room air Abdomen: Soft, nontender,??no significant distention,??normal bowel sounds. Skin: Warm and dry with no rash or lesion noted. + jaundiced (mild) Musculoskeletal:?? No joint abnormalities or effusions appreciated. Neurologic: Alert, oriented. No focal deficits Psychiatric: Cooperative, appropriate mood and affect. Subspecialty Recommendations ??No Data Available Patient Discharge Condition improved and stable Discharge Orders Discharge 10/04/23 8:14:00 BED BUG EXTERMINATOR, [facility] Facility ? Discharge Work/School/Daycare Restrictions 10/04/23 8:14:00 BED BUG EXTERMINATOR, Return to work in: No Restrictions ? Discharge Follow Up 10/04/23 8:14:00 BED BUG EXTERMINATOR, Provider/Time: PCP in week time following discharge ? Contact Physician After Discharge 10/04/23 8:14:00 BED BUG EXTERMINATOR, Contact Physician for: Being very tired or weak ? Discharge Diet 10/04/23 8:14:00 BED BUG EXTERMINATOR, Discharge Diet: Regular ? Discharge Activity 10/04/23 8:14:00 BED BUG EXTERMINATOR, As tolerated ? Facility Discharge Plan as needed, 10/04/23 8:14:00 BED BUG EXTERMINATOR ? Facility Discharge Occupational Therapy Eval and Treat 10/04/23 8:14:00 BED BUG EXTERMINATOR ? Facility Discharge Physical Therapy Eval and Treat 10/04/23 8:14:00 BED BUG EXTERMINATOR ? Facility Discharge Code Status 10/04/23 8:14:00 BED BUG EXTERMINATOR, DNR ? Endoscopy Tech 10/06/23 12:36:00 BED BUG EXTERMINATOR, SNF Evaluation, Physician Order ? Discharge 10/09/23 9:59:00 BED BUG EXTERMINATOR, [facility] Facility ? Discharge Work/School/Daycare Restrictions 10/09/23 9:59:00 BED BUG EXTERMINATOR, Return to work in: No Restrictions ? Discharge Lab/Diagnostic Tests 10/09/23 9:59:00 BED BUG EXTERMINATOR, CBC and CMP in 1 week ? Discharge Follow Up 10/09/23 9:59:00 BED BUG EXTERMINATOR, Provider/Time: 1. PCP Dr. Hunter in [place], [place] - see after discharge. While in facility see PCP for facility2. Establish with [facility] gastroenterology3. Needs follow up EGD in 3-4 weeks ? Contact Physician After Discharge 10/09/23 9:59:00 BED BUG EXTERMINATOR, Contact Physician for: Fever greater than 101 Being very tired or weak Increasing shortness of breath, worsening swelling, pain, confusionblack or red stools, black or red vomiting ? Discharge Diet 10/09/23 9:59:00 BED BUG EXTERMINATOR, Discharge Diet: Low Salt ? Discharge Activity 10/09/23 9:59:00 BED BUG EXTERMINATOR, As tolerated ? Facility Discharge Plan 4 weeks, Eval of SNF / Partial Improvement, 10/09/23 9:59:00 BED BUG EXTERMINATOR ? Facility Discharge Occupational Therapy Eval and Treat 10/09/23 9:59:00 BED BUG EXTERMINATOR ? Facility Discharge Physical Therapy Eval and Treat 10/09/23 9:59:00 BED BUG EXTERMINATOR ? Facility Discharge Code Status 10/09/23 9:59:00 BED BUG EXTERMINATOR, DNR ? Medications Home Medications (12) Active Carafate 1 g oral tablet??1 g = 1 tab, By mouth, BIDAC (twice daily before meals) carbidopa-levodopa 25 mg-100 mg oral tablet??1 tab, By mouth, TIDWM (three times a day with meals) Farxiga 5 mg oral tablet??5 mg = 1 tab, By mouth, Daily gabapentin 250 mg/5 mL oral solution??100 mg = 2 mL, By mouth, TID insulin lispro (Humalog)??Medium dose scale, SUBQ, ACHS (before meals and at bedtime) Januvia 100 mg oral tablet??100 mg = 1 tab, By mouth, Daily lactulose??10 g = 15 mL, PO/per tube, BID LanTUS 100 units/mL subcutaneous solution??25 Units, SubQ, at bedtime Lasix 40 mg oral tablet??40 mg = 1 tab, By mouth, Daily nadolol 40 mg oral tablet??20 mg = 0.5 tab, By mouth, Daily pantoprazole 40 mg oral delayed release tablet??40 mg = 1 tab, By mouth, BID spironolactone 25 mg oral tablet??25 mg = 1 tab, By mouth, Daily Medication reconciliation completed on this patient today Pending Labs PENDING LABS A1A QN SE Blood, Routine, 10/05/23 13:37:00 BED BUG EXTERMINATOR, Routine, 10/05/23 14:15:00 BED BUG EXTERMINATOR, [id number], pp_rslts_call_set_order_encntr AFP Tumor Ser Blood, Routine, 10/05/23 13:37:00 BED BUG EXTERMINATOR, Routine, 10/05/23 14:15:00 BED BUG EXTERMINATOR, [id number], pp_rslts_call_set_order_encntr CHELITA Screen Blood, Routine, 10/05/23 13:37:00 BED BUG EXTERMINATOR, Routine, 10/05/23 14:15:00 BED BUG EXTERMINATOR, [id number], pp_rslts_call_set_order_encntr Ceruloplasmin Qst Blood, Routine, 10/05/23 13:37:00 BED BUG EXTERMINATOR, Routine, 10/05/23 14:15:00 BED BUG EXTERMINATOR, [id number], pp_rslts_call_set_order_encntr SM Tot Ab w/rflx titier Blood, Routine, 10/05/23 13:37:00 BED BUG EXTERMINATOR, Routine, 10/05/23 14:15:00 BED BUG EXTERMINATOR, [id number], pp_rslts_call_set_order_encntr Transferrin Blood, Routine, 10/05/23 13:37:00 BED BUG EXTERMINATOR, Routine, 10/05/23 14:15:00 BED BUG EXTERMINATOR, [id number], pp_rslts_call_set_order_encntr Lab Results Labs??(Last two charted values on this encounter) WBC 7.0 ??(OCT 05) 6.4 ??(OCT 04) Hgb 8.9 ??(OCT 05) 7.8 ??(OCT 04) Hct 28.1 ??(OCT 05) 25.1 ??(OCT 04) Platelets 133 ??(OCT 05) 108 ??(OCT 04) Na 136 ??(OCT 09) 135 ??(OCT 07) K 4.2 ??(OCT 09) 4.1 ??(OCT 07) Cl 107 ??(OCT 09) 105 ??(OCT 07) CO2 25 ??(OCT 09) 25 ??(OCT 07) BUN 12 ??(OCT 09) 13 ??(OCT 07) Cr 0.71 ??(OCT 09) 0.67 ??(OCT 07) Phos ?2.9 ??(SEP 30) ?? ProteinT ?5.4 ??(OCT 09) ?5.9 ??(OCT 07) Albumin ?1.7 ??(OCT 09) ?1.9 ??(OCT 07) Bilirubin ,Total ?2.0 ??(OCT 09) ?2.7 ??(OCT 07) Alk Phos ?139 ??(OCT 09) ?160 ??(OCT 07) ALT ?166 ??(OCT 09) ?121 ??(OCT 07) AST ?45 ??(OCT 09) ?53 ??(OCT 07) Mag ?2.4 ??(OCT 01) ?2.5 ??(SEP 30) Lipase 26 ??(SEP 27) ?? PT ?13.2 ??(SEP 27) ?? INR ?1.25 ??(SEP 27) ?? Bedside Glucose 156 ??(OCT 09) 104 ??(OCT 08) Glucose,Plasma 128 ??(OCT 09) 272 ??(OCT 07) Diagnostic Results Radiology Results:?? NM Gastrointestinal Bleed Acute - 09/30/23 15:25 ( Compa Jones MD )?? IMPRESSION: Uptake within the stomach may represent free pertechnetate or acute gastrointestinal hemorrhage otherwise no evidence of acute GI bleeding at this time. ??Electronically signed by: Compa Jones MD, ??[facility], 10/01/2023 12:46 Other No qualifying data available. Airway Management No Data Available Electronically signed by:Bre Reddy MD 10/09/23 18:36 NM Gastrointestinal tract Views for gastrointestinal bleeding * Compa Jones MD: PERFORM, VERIFY, VERIFY Event Display: Report Authored Date: Compa Jones MD Signed 10/01/23 12:46:47 (Electronic Signature) Technologist CW Note * Compa Jones MD: PERFORM, VERIFY, VERIFY Event Display: Powerscribe Read Authored Date: PROCEDURE INFORMATION: Exam: NM Acute GI Blood Loss Imaging Exam date and time: 09/30/2023 3:25 PM Age: 62 years old Clinical indication: Hepatitis a without hepatic coma; Other pancytopenia; Type 2 diabetes mellitus with unspecified complications; Type 2 diabetes mellitus without complications; Hypomagnesemia; Hyperkalemia; (idiopathic) normal pressure hydrocephalus; Esophageal varices without bleeding; Chronic obstructive pulmonary disease, unspecified; Other diseases of stomach and duodenum; Portal hypertension; Hematemesis; Gastrointestinal hemorrhage, unspecified; Nausea with vomiting, unspecified; Other fecal abnormalities; Hyperglycemia, unspecified; Parkinson's disease without dyskinesia, without mention of fluctuations; Personal history of colonic polyps; Personal history of other diseases of the digestive system; Other specified postprocedural states; Hepatic encephalopathy; Additional info: Gi bleeding TECHNIQUE: Imaging protocol: Acute gastrointestinal (GI) blood loss imaging with radiolabeled red blood cells (RBCs). Views: Anterior planar abdomen and pelvis. Radiopharmaceutical: 21.6 mCi Tc-99m Labeled RBC, IV. Time of imaging post radiopharmaceutical administration: 60 minutes COMPARISON: No relevant prior studies available. FINDINGS: Bowel: Uptake within the stomach may represent free pertechnetate or acute gastrointestinal hemorrhage No additional foci of abnormal increased activity in the abdomen or pelvis. IMPRESSION: Uptake within the stomach may represent free pertechnetate or acute gastrointestinal hemorrhage otherwise no evidence of acute GI bleeding at this time. Electronically signed by: Compa Jones MD, [facility], 10/01/2023 12:46 Robert HERNANDEZ, Compa Camacho Signed 10/01/23 12:46:47 (Electronic Signature) Technologist [facility] Cardiology * Migue Li MD: SIGN, VERIFY Event Display: EKG 12-Lead Authored Date: [id number] * Migue Li MD: SIGN, VERIFY Event Display: EKG 12-Lead Authored Date: [id number] Patient Care team information Care Team Personnel Name: Kristian Zee Position: Inpatient-Midlevel Member Role: Nurse Practitioner Address: Address: [facility] Name: Zachary Vanegas Position: Inpatient-Midlevel Member Role: Nurse Practitioner Address: Address: [address] Name: Tiffanie Zepeda Position: Inpatient-Midlevel Member Role: Nurse Practitioner Address: Address: [address] Name: PCP, NONE Position: 2 Restricted Providers Member Role: Primary Care Physician Name: Maureen HERNANDEZ, Bre Isidro Position: Physician-Hospitalist Med Service: Hospitalist Member Role: Ordering Physician Address: Address: [facility] Care Team Related Persons Name: JANEL SEYMOUR
--- OUTSIDE RECORDS SUMMARY | 2024-03-11 06:11 | XMS_ITS | Continuity of Care Document ---
Author Name Unknown Organization [facility] Address [address] [place] [address]- Care Team Providers Care Special Ed Assistant Name Role Phone PCP, NONE Primary Care Physician Unavailab le Encounter [employer] Number [id number] Date(s): 10/28/23 - 11/06/23 [facility] [address] [place] [address]- [phone] Encounter Diagnosis Type 2 diabetes with complication(Discharge Diagnosis) - 10/29/23 Other specified health status(Discharge Diagnosis) - 11/02/23 GI bleed(Discharge Diagnosis) - 10/29/23 ABLA (acute blood loss anemia)(Discharge Diagnosis) - 11/05/23 Cirrhosis(Discharge Diagnosis) - 10/29/23 Thrombocytopenia(Discharge Diagnosis) - 10/29/23 Portal hypertensive gastropathy(Discharge Diagnosis) - 10/29/23 COPD mixed type(Discharge Diagnosis) - 10/29/23 Hypokalemia(Discharge Diagnosis) - 10/29/23 Abdominal ascites(Discharge Diagnosis) - 10/29/23 Diabetes mellitus, type 2(Discharge Diagnosis) - 10/29/23 Parkinson disease(Discharge Diagnosis) - 10/29/23 Anemia(Discharge Diagnosis) - 10/29/23 Esophageal varices(Discharge Diagnosis) - 10/29/23 Discharge Disposition: .Discharge to Home (Routine) Attending Physician: Keyona Doshi MD Admitting Physician: Antwan Farris DO Allergies, Adverse Reactions, Alerts Substance Reaction Severity Status Bee Sting Hives Severe Active Assessment and Plan Extracted from: Title:Discharge Note Author:Madelyn Feliciano Date:11/06/23 [employer] 10/29/23 2:59:12 CDT Order Comment: Ordered by Discern Expert ?? Discharge 10/30/23 7:42:00 CDT, Home/Self Care ? Discharge Work/School/Daycare Restrictions 10/30/23 7:42:00 CDT, Return to work in: No Restrictions ? Discharge Follow Up 10/30/23 7:42:00 CDT, Provider/Time: PCP in one week ? Discharge Diet 10/30/23 7:42:00 CDT, Discharge Diet: Regular ? Discharge Activity 10/30/23 7:42:00 CDT, As tolerated ? Discharge 10/30/23 9:28:00 CDT, [facility] Facility ? Discharge Work/School/Daycare Restrictions 10/30/23 9:28:00 CDT, Return to work in: No Restrictions ? Discharge Follow Up 10/30/23 9:28:00 CDT, Provider/Time: PCP in one week ? Discharge Diet 10/30/23 9:28:00 CDT, Discharge Diet: Regular ? Discharge Activity 10/30/23 9:28:00 CDT, As tolerated ? Facility Discharge Plan 4 weeks, 10/30/23 9:28:00 CDT ? Facility Discharge Occupational Therapy Eval and Treat 10/30/23 9:28:00 CDT ? Facility Discharge Physical Therapy Eval and Treat 10/30/23 9:28:00 CDT ? Facility Discharge Code Status 10/30/23 9:28:00 CDT, Full Code ?? ATTENDING NOTE The patient? s history, exam findings, diagnostics, and above discharge??summary??was reviewed in detail with?? Mykelnn??Yessica??PA. I??have seen and examined this patient??independently of above. ??I agree with documented discharge instructions, medications and follow up plan. ??My personal exam reveals findings consistent with those documented. All diagnostic studies were reviewed and discussed. I confirm discharge ??diagnosis as documented by the Physician Lead Pl Sql Developer. The discharge care plan articulated was made after review of all data??consistent with our discussion of the patient? s care.?Patient seen and examined today, he is doing well has no complaints.?? No abdominal pain, nausea vomiting.?? No melena or bloody stools.?? Patient is medically stable for discharge to the facility.?? H&H has been stable with no evidence of overt GI bleed.?? Agree with discharge summary as above.?? Discharge time more than 30 minutes. ?? Keyona Doshi MD ? Extracted from: Title:Instructions to Patients Author:Eboni George Date:11/06/23 [facility] to Facility Discharge Information NGACO Status:??Non NGACO Patient Palliative Care Consult:??No Palliative Care Consult Flu Result: Flu Result:??No Flu Detected History of Culture Positive for CRE:No CRE Positive Lab Result: CRE Positive Lab Result:??No CRE on Problem List 1.? Advanced Directive: No 2.? Allergies: ??Bee Sting Last Charted Vital Signs Temperature 98.2 DegF Temperature Route Oral Pulse Rate 62 bpm Respiratory Rate 16 br/min SBP/DBP Cuff 95 mmHg/57 mmHg MAP 70 mmHg Pulse Oximetry 96 % Oxygen Delivery Room air Oxygen Liter Flow 2 L/min Refer to additional chart documents for details. 3.? Bowel Movement: 4.? Isolation: 5.? Medical Equipment During Hospital Stay: 6.? Urinary Catheter Type: Size: a.?Date/Time: ? By: b.? Urinary Catheter Activity: c.? Urinary Catheter Indication: 7.? Peripheral IV Site: RT, Upper, Arm a.? Date/Time: 10/29/2023 17:00:00 By: Sergio Powers RN? Peripheral IV Activity: Assessment 8.? Central Line Type: a.? Date/Time: c.? Central Line Site: d.? Central Line Activity: 8.? Invasive Line Type: a.? Date/Time: c.? Invasive Line Site: d.? Invasive Line Activity: 9.? Additional Notes: Immunizations No??Immunizations??Recorded Case Management Contact Info: [facility] [phone] [facility] [phone] [facility] [phone] [facility] [phone] [facility] [phone] [facility] [phone] Discharging Nurse: Discharge Date: Receiving Facility(SGF) : Receiving Facility(OTH) : Phone # for Questions: Report called to: Diagnosis: Diagnoses This Visit ?Other??ascites??(R18.8) ?Acute??posthemorrhagic??anemia??(D62) ?Anemia,??unspecified??(D64.9) ?Unspecified??cirrhosis??of??liver??(K74.60) ?Chronic??obstructive??pulmonary??disease,??unspecified??(J44.9) ?Type??2??diabetes??mellitus??without??complications??(E11.9) ?Localized??edema??(R60.0) ?Esophageal??varices??without??bleeding??(I85.00) ?Gastrointestinal??hemorrhage,??unspecified??(K92.2) ?Hypokalemia??(E87.6) ?Other??reduced??mobility??(Z74.09) ?Other??specified??health??status??(Z78.9) ?Parkinson's??disease??without??dyskinesia,??without??mention??of??fluctu ations??(G20.A1) ?Portal??hypertension??(K76.6) ?Thrombocytopenia,??unspecified??(D69.6) ?Type??2??diabetes??mellitus??with??unspecified??complications??(E11.8) Problems: Follow up: With: Address: When: [facility] [address] [facility] [address] Business (1) Comments: Please fax discharge orders to [phone]. Medications: Discharge Reconciliation Status:Complete Medicine on Hold Reason why medicine is on hold None Home Medications Date/Time Next Dose Due Notes to Patient dapagliflozin (Farxiga 5 mg oral tablet)1 tab, By mouth, Daily, Instructions: Take one tablet with or without food, Refills: 0, Dispense: 30 tab spironolactone (spironolactone 25 mg oral tablet)1 tab, By mouth, Daily, Refills: 0, Dispense: 30 tab furosemide (Lasix 40 mg oral tablet)1 tab, By mouth, Daily, Refills: 0, Dispense: 30 tab SITagliptin (Januvia 100 mg oral tablet) 1 tab, By mouth, Daily carbidopa-levodopa (carbidopa-levodopa 25 mg-100 mg oral tablet) 1 tab, By mouth, three times daily with meals, Refills: 0 gabapentin (gabapentin 250 mg/5 mL oral solution) 2 mL, By mouth, three times a day, Refills: 0 pantoprazole (pantoprazole 40 mg oral delayed release tablet) 1 tab, By mouth, twice daily, Refills: 0 lactulose (lactulose) 20 g, By mouth, twice daily, Refills: 0 nadolol (nadolol 40 mg oral tablet) 0.5 tab, By mouth, Daily, Refills: 0 insulin glargine (LanTUS 100 units/mL subcutaneous solution) 25 Units, Subcutaneous, at bedtime Inject 25 units SUBQ at bedtime daily. Can hold if blood glucose less than 110 mg/dL, Reason For Medication:Diabetes, Refills: 0 insulin lispro (Humalog) (insulin lispro (Humalog)) Medium dose scale, Subcutaneous, before meals (1HR) and at bedtime Medium Dose Correction Scale - Blood glucose level of: 150 - 199 give 2 unit; 200 - 249 give 4 units; 250 - 299 give 6 units; 300 - 349 give 8 units; 350 - 399 give 10 units; 400mg/dL or higher GIVE 12 units recheck in two hours, if bg remain..., Refills: 0 SITagliptin (Januvia 100 mg oral tablet) 100 mg, By mouth, Daily, Refills: 0 baclofen (baclofen 10 mg oral tablet) 1 tab, By mouth, three times a day, As Needed, Muscle Spasms, Refills: 0 magnesium hydroxide (Milk of Magnesia 8% oral suspension) 30 mL, By mouth, Daily, As Needed, as needed for constipation, Refills: 0 Al hydroxide/Mg hydroxide/simethicone (Mylanta) 30 mL, By mouth, after meals and at bedtime, As Needed, as needed for indigestion, Refills: 0 nystatin topical (nystatin topical 100,000 units/g powder) 1 application, Topical, four times a day, Refills: 0 bisacodyl (Dulcolax Laxative 5 mg oral tablet) 4 tab, By mouth, Daily, As Needed, Constipation, Refills: 0 bisacodyl (Dulcolax Laxative 10 mg rectal suppository) 1 supp, Rectally, Daily, As Needed, for constipation, Refills: 0 acetaminophen (Tylenol) 650 mg, By mouth, every 4 hours, As Needed, Pain Mild (1-3) or Temp (2nd Line), Refills: 0 Specific Discharge Instructions: Diet:??Regular Activity Instructions/Limitations:??As tolerated No Work/School/Daycare for:??No Restrictions Discharge Plan:?Estimated Length of Stay:??4 weeks Facility Discharge Occupational Therapy Eval and Treat Facility Discharge Physical Therapy Eval and Treat Facility Discharge Code Status Discharge Code Status:??Full Code Initiated and Electronically signed by ?Blake Fry MD?10/30/2023 09:29 Extracted from: Title:Progress SOAP Note Author:Mathieu Feliciano Date:11/05/23 1.??ABLA (acute blood loss a nemia)(Acute posthemorrhagic anemia: D62) 2.??GI bleed(Gastrointestinal hemorrhage, unspecified: K92.2) 3.??Anemia(Anemia, unspecified: D64.9) 4.??Esophageal varices(Esophageal varices without bleeding: I85.00) 5.??Portal hypertensive gastropathy(Portal hypertension: K76.6) 6.??Abdominal ascites(Other ascites: R18.8) 7.??Hypokalemia(Hypokalemia: E87.6) 8.??Thrombocytopenia(Thrombocytopenia, unspecified: D69.6) 9.??Diabetes mellitus, type 2(Type 2 diabetes mellitus without complications: E11.9) 10.??COPD mixed type(Chronic obstructive pulmonary disease, unspecified: J44.9) 11.??Parkinson disease(Parkinson's disease without dyskinesia, without mention of fluctuations: G20.A1) 12.??Cirrhosis(Unspecified cirrhosis of liver: K74.60) Other specified health status(Other specified health status: Z78.9) Type 2 diabetes with complication(Type 2 diabetes mellitus with unspecified complications: E11.8) Plan of care - CXR??Stable. No hypoxia. Continue mucinex, tessalon perles. - Hgb stable - ? EGD on 10/28 revealed 1 residual??grade 2??varix??with a red??Chavo sign that was endoscopically??treated??with the 1 band placement. - Recommend continue nadolol 20 mg daily and no repeat surveillance endoscopy. - PPI BID. - Continue diet as tolerated. - S/p paracentesis on 10/28. - Continue spironolactone, Lasix. - Glycemic management- home Lantus dose with MDSSI, empagliflozin, linagliptin. - Continue carbidopa-levodopa. ?SW following for discharge to facility. Awaiting insurance auth. ?? VTE proph: SCDs Full code ?? Plan of care in collaboration with Dr. Doshi. ?? ATTENDING NOTE The patient? s history, exam findings, diagnostics, and a summary??was reviewed in detail with?? Madelyn??Yessica BEARD. I??have seen and examined this patient??independently of above. ??I agree with HPI as documented. My personal exam reveals findings consistent with those documented. All diagnostic studies were reviewed and discussed. I confirm diagnosis as documented by the Physician Lead Pl Sql Developer. The care plan articulated was made after review of all data and??consistent with our discussion of the patient? s care ?? Keyona Doshi MD ? Extracted from: Title:Progress SOAP Note Author:Mathieu Feliciano lnn Date:11/04/23 1.??GI bleed(Gastrointestina l hemorrhage, unspecified: K92.2) 2.??Anemia(Anemia, unspecified: D64.9) 3.??Esophageal varices(Esophageal varices without bleeding: I85.00) 4.??Portal hypertensive gastropathy(Portal hypertension: K76.6) 5.??Abdominal ascites(Other ascites: R18.8) 6.??Hypokalemia(Hypokalemia: E87.6) 7.??Thrombocytopenia(Thrombocytopenia, unspecified: D69.6) 8.??Diabetes mellitus, type 2(Type 2 diabetes mellitus without complications: E11.9) 9.??COPD mixed type(Chronic obstructive pulmonary disease, unspecified: J44.9) 10.??Parkinson disease(Parkinson's disease without dyskinesia, without mention of fluctuations: G20.A1) 11.??Cirrhosis(Unspecified cirrhosis of liver: K74.60) Other specified health status(Other specified health status: Z78.9) Type 2 diabetes with complication(Type 2 diabetes mellitus with unspecified complications: E11.8) Orders: BMP H&H Plan of care - CXR??Stable. No hypoxia. Continue mucinex, tessalon perles. - Hgb stable - ? EGD on 10/28 revealed 1 residual??grade 2??varix??with a red??Chavo sign that was endoscopically??treated??with the 1 band placement. - Recommend continue nadolol 20 mg daily and no repeat surveillance endoscopy. - PPI BID. - Continue diet as tolerated. - S/p paracentesis on 10/28. - Continue spironolactone, Lasix. - Glycemic management- home Lantus dose with MDSSI, empagliflozin, linagliptin. - Continue carbidopa-levodopa. ? - SW following for return to facility. Awaiting insurance auth. ?? VTE proph: SCDs Full code ?? Plan of care in collaboration with Dr. Doshi. ? ATTENDING NOTE The patient? s history, exam findings, diagnostics, and a summary??was reviewed in detail with?? Madelyn??Yessica BEARD. I??have seen and examined this patient??independently of above. ??I agree with HPI as documented. My personal exam reveals findings consistent with those documented. All diagnostic studies were reviewed and discussed. I confirm diagnosis as documented by the Physician Lead Pl Sql Developer. The care plan articulated was made after review of all data and??consistent with our discussion of the patient? s care ?? Keyona Doshi MD ? Extracted from: Title:Progress SOAP Note Author:Mathieu Feliciano Date:11/03/23 1.??GI bleed(Gastrointestina l hemorrhage, unspecified: K92.2) 2.??Anemia(Anemia, unspecified: D64.9) 3.??Esophageal varices(Esophageal varices without bleeding: I85.00) 4.??Portal hypertensive gastropathy(Portal hypertension: K76.6) 5.??Abdominal ascites(Other ascites: R18.8) 6.??Hypokalemia(Hypokalemia: E87.6) 7.??Thrombocytopenia(Thrombocytopenia, unspecified: D69.6) 8.??Diabetes mellitus, type 2(Type 2 diabetes mellitus without complications: E11.9) 9.??COPD mixed type(Chronic obstructive pulmonary disease, unspecified: J44.9) 10.??Parkinson disease(Parkinson's disease without dyskinesia, without mention of fluctuations: G20.A1) 11.??Cirrhosis(Unspecified cirrhosis of liver: K74.60) Other specified health status(Other specified health status: Z78.9) Type 2 diabetes with complication(Type 2 diabetes mellitus with unspecified complications: E11.8) Orders: benzonatate, 200 mg = 2 cap, CAP, By mouth, TID, PRN, Cough, Start Date: 11/03/23 11:44:00 CDT, Duration: 90 Days, Stop date 02/01/24 11:43:00 CDT, Routine, Disp Location: [address] DISP guaiFENesin, 600 mg = 1 tab, SR TAB, By mouth, BID, Start Date: 11/03/23 12:08:00 CDT, Duration: 90 Days, Stop date 02/01/24 8:59:00 CDT, Routine, Disp Location: [address], [facility] BMP H&H XR Chest PA Lateral Left Routine Plan of care - CXR??ordered, reviewed. Stable. No hypoxia. - Continue mucinex, tessalon perles. - Hgb stable yesterday. Will recheck in AM. - ? EGD on 10/28 revealed 1 residual??grade 2??varix??with a red??Chavo sign that was endoscopically??treated??with the 1 band placement. - Recommend continue nadolol 20 mg daily and no repeat surveillance endoscopy. - PPI BID. - Continue diet as tolerated. - S/p paracentesis on 10/28. - Continue spironolactone, Lasix. - Glycemic management- home Lantus dose with MDSSI, empagliflozin, linagliptin. - Continue carbidopa-levodopa. ? - SW following for return to facility. ?? VTE proph: SCDs Full code ?? Plan of care in collaboration with Dr. Doshi. ? ATTENDING NOTE The patient? s history, exam findings, diagnostics, and a summary??was reviewed in detail with?? Madelyn??Yessica BEARD. I??have seen and examined this patient??independently of above. ??I agree with HPI as documented. My personal exam reveals findings consistent with those documented. All diagnostic studies were reviewed and discussed. I confirm diagnosis as documented by the Physician Lead Pl Sql Developer. The care plan articulated was made after review of all data and??consistent with our discussion of the patient? s care ?? Keyona Doshi MD ? Extracted from: Title:Instructions to Patients Author:Jeanmarie hernandez RN, Katherine Date:11/03/23 [facility] Esophageal Varices Esophageal varices are enlarged veins in the part of the body that moves food from the mouth to the stomach (esophagus). They develop when extra blood is forced to flow through these veins because the blood's normal flow is blocked. Without treatment, esophageal varices eventually break and bleed (hemorrhage), which can be life-threatening. What are the causes? This condition may be caused by: ? ? Scarring of the liver due to alcoholism. This is the most common cause. ? ? Long-term liver disease. ? ? Severe heart failure. ? ? A blood clot in a vein that supplies the liver. ? ? A disease that causes inflammation in the organs and other body areas. What are the signs or symptoms? Esophageal varices usually do not cause symptoms unless they start to bleed. Symptoms of bleeding esophageal varices include: ? ? Vomiting material that is bright red or that is black and looks like coffee grounds. ? ? Coughing up blood. ? ? Stools (feces) that look black and tarry. ? ? Dizziness or light-headedness. ? ? Low blood pressure. ? ? Loss of consciousness. How is this diagnosed? This condition is diagnosed with a procedure called endoscopy. During endoscopy, your health care provider uses a flexible tube with a small camera on the end of it (endoscope) to look down your throat and examine your esophagus. You may also have other tests, including: ? ? Imaging tests, such as a CT scan or ultrasound. ? ? Blood tests. How is this treated? This condition may be treated with: ? ? Medicines. Medicines are usually used to treat varices that are not bleeding. ? ? Procedures. Procedures are done to treat varices that are bleeding. They stop bleeding, or reduce pressure and the risk of bleeding. Procedures include: ? ? Placing an elastic band around the varices to keep them from bleeding. ? ? Replacing blood that you have lost due to bleeding. This may include getting a transfusion of blood or parts of blood, such as platelets or clotting factors. ? ? You may be given antibiotic medicine to help prevent infection. ? ? Getting an injection into the varices that causes it to shrink and close (sclerotherapy). You may also be given medicines that tighten blood vessels or change blood flow. ? ? Placing a balloon in the esophagus and inflating it. The balloon applies pressure to the bleeding veins to help stop the bleeding. ? ? Placing a small tube within the veins in the liver. This decreases blood flow and pressure in the esophageal varices. If other treatments do not work, you may need a liver transplant. Follow these instructions at home: Medicines ? ? Take vgfl-[id number] and prescription medicines only as told by your health care provider. ? ? If you were prescribed an antibiotic medicine, take it as told by your health care provider. Do not stop taking the antibiotic even if you start to feel better. ? ? Do not take any NSAIDs (such as aspirin or ibuprofen) before first getting approval from your health care provider. General instructions ? ? Do not drink alcohol. ? ? Return to your normal activities as told by your health care provider. Ask your health care provider what activities are safe for you. ? ? Avoid vigorous physical activity. Ask your health care provider what exercises are safe for you. ? ? Keep all follow-up visits. Contact a health care provider if: ? ? You have pain in the abdomen. ? ? You are unable to eat or drink. Get help right away if: ? ? You vomit blood or have blood in your stool. ? ? You have stools that look black or tarry. ? ? You have chest pain. ? ? You feel dizzy or have low blood pressure. ? ? You lose consciousness. These symptoms may represent a serious problem that is an emergency. Do not wait to see if the symptoms will go away. Get medical help right away. Call your local emergency services (911 in the [place] Do not drive yourself to the hospital. Summary ? ? Esophageal varices are enlarged veins in the esophagus, the part of your body that moves food from your mouth to your stomach. ? ? Without treatment, esophageal varices eventually break and bleed, which can be life-threatening. ? ? Esophageal varices usually do not cause symptoms unless they start to bleed. ? ? Keep all follow-up visits. This is important. This information is not intended to replace advice given to you by your health care provider. Make sure you discuss any questions you have with your health care provider. Document Revised: 11/20/2020 Document Reviewed: 11/20/2020 [employer] Patient Education ?? 2021 [employer] Gastrointestinal Bleeding Gastrointestinal (GI) bleeding is bleeding somewhere along the digestive tract, between the mouth and the anus. The digestive tract includes the mouth, esophagus, stomach, small intestine, large intestine, and anus. The large intestine is often called the colon. GI bleeding can be caused by various problems. The severity of these problems can be mild, serious, or life-threatening. If you have GI bleeding, you may find blood in your stools (feces), you may have black stools, or you may vomit blood. You may need to stay in the hospital if there is a lot of bleeding. What are the causes? This condition may be caused by: ? ? Inflammation, irritation, or swelling of the esophagus (esophagitis). The esophagus is part of the body that moves food from your mouth to your stomach. ? ? Swollen veins in the rectum (hemorrhoids). ? ? Tears in the anus (anal fissures). The tears are often caused by passing hard stool. ? ? Pouches that form on the colon and may bleed (diverticulosis). ? ? Inflammation in areas with diverticulosis. This is called diverticulitis.This can cause pain, fever, and bloody stools. ? ? Growths (polyps) or cancer. Colon cancer often starts out as precancerous polyps. ? ? Gastritis and ulcers. These may cause bleeding in the upper GI tract, near the stomach. What increases the risk? You are more likely to develop this condition if: ? ? You have an infection in your stomach from a type of bacteria called Helicobacter pylori. ? ? You take certain medicines, such as: ? ? NSAIDs. ? ? Aspirin. ? ? Selective serotonin reuptake inhibitors (SSRIs). ? ? Steroids. ? ? Antiplatelet or anticoagulant medicines. ? ? You smoke. ? ? You drink alcohol. What are the signs or symptoms? Common symptoms of this condition include: ? ? Bright red blood in your vomit, or vomit that looks like coffee grounds. ? ? Bloody, black, or tarry stools. ? ? Bleeding from the lower GI tract will usually cause red or maroon blood in the stools. ? ? Bleeding from the upper GI tract may cause black, tarry stools that are often stronger smelling than usual. ? ? In certain cases, if the bleeding is fast enough, the stools may be red. ? ? Pain or cramping in the abdomen. How is this diagnosed? This condition may be diagnosed based on: ? ? Your medical history and a physical exam. ? ? Various tests, such as: ? ? Blood tests. ? ? Stool tests. ? ? X-rays and other imaging tests. ? ? Esophagogastroduodenoscopy (EGD). In this test, a flexible, lighted tube is used to look at your esophagus, stomach, and small intestine. ? ? Colonoscopy. In this test, a flexible, lighted tube is used to look at your colon. How is this treated? Treatment for this condition depends on the cause of the bleeding. For example: ? ? For bleeding from the esophagus, stomach, small intestine, or colon, the health care provider may do a procedure to stop bleeding during your EGD or colonoscopy. ? ? Inflammation or infection of the colon can be treated with medicines. ? ? Certain rectal problems can be treated with creams, suppositories, or warm baths. ? ? Medicines may be given to reduce acid in your stomach. ? ? Surgery is sometimes done. ? ? Blood transfusions are sometimes needed if a lot of blood has been lost. If there is a lot of bleeding, you will need to stay in the hospital for observation. If bleeding is mild, you may be allowed to go home. Follow these instructions at home: ? ? Take dfdv-lmu-wfisjdp and prescription medicines only as told by your health care provider. ? ? Eat foods that are high in fiber, such as beans, whole grains, and fresh fruits and vegetables. This will help to keep your stools soft. Eating 1? 3 prunes each day works well for many people. ? ? Drink enough fluid to keep your urine pale yellow. ? ? Keep all follow-up visits. This is important. Contact a health care provider if: ? ? Your symptoms do not improve with treatment. Get help right away if: ? ? Your bleeding does not stop. ? ? You feel light-headed or you faint. ? ? You feel weak. ? ? You have severe cramps in your back or abdomen. ? ? You pass large blood clots in your stool. ? ? Your symptoms are getting worse. ? ? You have chest pain or fast heartbeats. These symptoms may be an emergency. Get help right away. Call 911. ? ? Do not wait to see if the symptoms will go away. ? ? Do not drive yourself to the hospital. Summary ? ? Gastrointestinal (GI) bleeding is bleeding somewhere along the digestive tract, between the mouth and anus. GI bleeding can be caused by various problems. ? ? Treatment for this condition depends on the cause of the bleeding. ? ? Take qask-flg-exklici and prescription medicines only as told by your health care provider. ? ? Get help right away if your bleeding increases, your symptoms are getting worse, or you have new symptoms. ? ? Keep all follow-up visits. This is important. This information is not intended to replace advice given to you by your health care provider. Make sure you discuss any questions you have with your health care provider. Document Revised: 03/07/2022 Document Reviewed: 03/07/2022 mLED Patient Education ?? 2021 Infer. Medication Leaflets: Accessing??[employer]??Express??Patient??Portal Access medications, test results, radiology reports, and more through [employer] secure patient portal. Please be patient if waiting on lab results, as these can take several days to process. [place] online at??[email or web address]??Use your [facility] medical record number (CMRN) located below to verify your identity on the Self-Enrollment form.We also offer the ability for you to securely connect other health management apps to your health record. See the Health Alex Connection link on the website above for more details. Watch [employer] Patient Education Videos and Access Resources anytime online! Visit [email or web address]. Extracted from: Title:Instructions to Patients Author:Katherine Murry am, RN Date:11/03/23 [employer] Medication Leaflets: Accessing??[employer]??Express??Patient??Portal Access medications, test results, radiology reports, and more through [employer] secure patient portal. Please be patient if waiting on lab results, as these can take several days to process. [place] online at??[email or web address].??Use your community medical record number (CMRN) located below to verify your identity on the Self-Enrollment form.We also offer the ability for you to securely connect other health management apps to your health record. See the Health Alex Connection link on the website above for more details. Watch [employer] Patient Education Videos and Access Resources anytime online! Visit [email or web address] Extracted from: Title:Progress SOAP Note Author:Keyona Doshi MD Date:11/02/23 1.??GI bleed(Gastrointestina l hemorrhage, unspecified: K92.2) 2.??Anemia(Anemia, unspecified: D64.9) 3.??Esophageal varices(Esophageal varices without bleeding: I85.00) 4.??Portal hypertensive gastropathy(Portal hypertension: K76.6) 5.??Abdominal ascites(Other ascites: R18.8) 6.??Hypokalemia(Hypokalemia: E87.6) 7.??Thrombocytopenia(Thrombocytopenia, unspecified: D69.6) 8.??Diabetes mellitus, type 2(Type 2 diabetes mellitus without complications: E11.9) 9.??COPD mixed type(Chronic obstructive pulmonary disease, unspecified: J44.9) 10.??Parkinson disease(Parkinson's disease without dyskinesia, without mention of fluctuations: G20.A1) 11.??Cirrhosis(Unspecified cirrhosis of liver: K74.60) Other specified health status(Other specified health status: Z78.9) Type 2 diabetes with complication(Type 2 diabetes mellitus with unspecified complications: E11.8) ?? Plan Status post EGD on 10/28?? scarring in the distal esophagus from previous esophageal banding Grade 2 varix red whale sign with placement of 1 band H&H stable, no indication for PRBC transfusion. Continue oral Nadolol 20 mg daily. Status post ultrasound-guided paracentesis on 10/28 with removal of 4.6 L of fluid Ascitic fluid cultures 10/28 no growth to date. Continue PT and OT evaluation. Discussed nephrology social worker, medically stable for discharge to SNF Replace Mag per protocol ? Extracted from: Title:Instructions to Patients Author:Jeanmarie hernandez RN, Katherine Date:11/02/23 [facility] to Facility Discharge Information NGACO Status:??Non NGACO Patient Palliative Care Consult:??No Palliative Care Consult Flu Result: Flu Result:??No Flu Detected History of Culture Positive for CRE:No CRE Positive Lab Result: CRE Positive Lab Result:??No CRE on Problem List 1.? Advanced Directive: No 2.? Allergies: ??Bee Sting Last Charted Vital Signs Temperature 98.1 DegF Temperature Route Oral Pulse Rate 61 bpm Respiratory Rate 17 br/min SBP/DBP Cuff 104 mmHg/61 mmHg MAP 75 mmHg Pulse Oximetry 94 % Oxygen Delivery Room air Oxygen Liter Flow 2 L/min Refer to additional chart documents for details. 3.? Bowel Movement: 4.? Isolation: 5.? Medical Equipment During Hospital Stay: 6.? Urinary Catheter Type: Size: a.?Date/Time: ? By: b.? Urinary Catheter Activity: c.? Urinary Catheter Indication: 7.? Peripheral IV Site: RT, Upper, Arm a.? Date/Time: 10/29/2023 17:00:00 By: Sergio Powers RN? Peripheral IV Activity: Assessment 8.? Central Line Type: a.? Date/Time: c.? Central Line Site: d.? Central Line Activity: 8.? Invasive Line Type: a.? Date/Time: c.? Invasive Line Site: d.? Invasive Line Activity: 9.? Additional Notes: Immunizations No??Immunizations??Recorded Case Management Contact Info: [facility] [phone] [facility] [phone] [facility] [phone] [facility] [phone] [facility] [phone] [facility] [phone] Discharging Nurse: Discharge Date: Receiving Facility(SGF) : Receiving Facility(OTH) : Phone # for Questions: Report called to: Diagnosis: Diagnoses This Visit ?Other??ascites??(R18.8) ?Anemia,??unspecified??(D64.9) ?Unspecified??cirrhosis??of??liver??(K74.60) ?Chronic??obstructive??pulmonary??disease,??unspecified??(J44.9) ?Type??2??diabetes??mellitus??without??complications??(E11.9) ?Localized??edema??(R60.0) ?Esophageal??varices??without??bleeding??(I85.00) ?Gastrointestinal??hemorrhage,??unspecified??(K92.2) ?Hypokalemia??(E87.6) ?Other??reduced??mobility??(Z74.09) ?Other??specified??health??status??(Z78.9) ?Parkinson's??disease??without??dyskinesia,??without??mention??of??fluctu ations??(G20.A1) ?Portal??hypertension??(K76.6) ?Thrombocytopenia,??unspecified??(D69.6) ?Type??2??diabetes??mellitus??with??unspecified??complications??(E11.8) Problems: Follow up: Medications: Discharge Reconciliation Status:Complete Medicine on Hold Reason why medicine is on hold None Home Medications Date/Time Next Dose Due Notes to Patient dapagliflozin (Farxiga 5 mg oral tablet)1 tab, By mouth, Daily, Instructions: Take one tablet with or without food, Refills: 0, Dispense: 30 tab spironolactone (spironolactone 25 mg oral tablet)1 tab, By mouth, Daily, Refills: 0, Dispense: 30 tab furosemide (Lasix 40 mg oral tablet)1 tab, By mouth, Daily, Refills: 0, Dispense: 30 tab SITagliptin (Januvia 100 mg oral tablet) 1 tab, By mouth, Daily carbidopa-levodopa (carbidopa-levodopa 25 mg-100 mg oral tablet) 1 tab, By mouth, three times daily with meals, Refills: 0 gabapentin (gabapentin 250 mg/5 mL oral solution) 2 mL, By mouth, three times a day, Refills: 0 pantoprazole (pantoprazole 40 mg oral delayed release tablet) 1 tab, By mouth, twice daily, Refills: 0 lactulose (lactulose) 20 g, By mouth, twice daily, Refills: 0 nadolol (nadolol 40 mg oral tablet) 0.5 tab, By mouth, Daily, Refills: 0 insulin glargine (LanTUS 100 units/mL subcutaneous solution) 25 Units, Subcutaneous, at bedtime Inject 25 units SUBQ at bedtime daily. Can hold if blood glucose less than 110 mg/dL, Reason For Medication:Diabetes, Refills: 0 insulin lispro (Humalog) (insulin lispro (Humalog)) Medium dose scale, Subcutaneous, before meals (1HR) and at bedtime Medium Dose Correction Scale - Blood glucose level of: 150 - 199 give 2 unit; 200 - 249 give 4 units; 250 - 299 give 6 units; 300 - 349 give 8 units; 350 - 399 give 10 units; 400mg/dL or higher GIVE 12 units recheck in two hours, if bg remain..., Refills: 0 SITagliptin (Januvia 100 mg oral tablet) 100 mg, By mouth, Daily, Refills: 0 baclofen (baclofen 10 mg oral tablet) 1 tab, By mouth, three times a day, As Needed, Muscle Spasms, Refills: 0 magnesium hydroxide (Milk of Magnesia 8% oral suspension) 30 mL, By mouth, Daily, As Needed, as needed for constipation, Refills: 0 Al hydroxide/Mg hydroxide/simethicone (Mylanta) 30 mL, By mouth, after meals and at bedtime, As Needed, as needed for indigestion, Refills: 0 nystatin topical (nystatin topical 100,000 units/g powder) 1 application, Topical, four times a day, Refills: 0 bisacodyl (Dulcolax Laxative 5 mg oral tablet) 4 tab, By mouth, Daily, As Needed, Constipation, Refills: 0 bisacodyl (Dulcolax Laxative 10 mg rectal suppository) 1 supp, Rectally, Daily, As Needed, for constipation, Refills: 0 acetaminophen (Tylenol) 650 mg, By mouth, every 4 hours, As Needed, Pain Mild (1-3) or Temp (2nd Line), Refills: 0 Specific Discharge Instructions: Diet:??Regular Activity Instructions/Limitations:??As tolerated No Work/School/Daycare for:??No Restrictions Discharge Plan:?Estimated Length of Stay:??4 weeks Facility Discharge Occupational Therapy Eval and Treat Facility Discharge Physical Therapy Eval and Treat Facility Discharge Code Status Discharge Code Status:??Full Code Initiated and Electronically signed by ?Lisandra HERNANDEZ, Blake?10/30/2023 09:29 Extracted from: Title:Instructions to Patients Author:Katherine Murry am, RN Date:11/02/23 [employer] Medication Leaflets: Accessing??[employer]??Express??Patient??Portal Access medications, test results, radiology reports, and more through [employer] secure patient portal. Please be patient if waiting on lab results, as these can take several days to process. [place] online at??[email or web address].??Use your community medical record number (CMRN) located below to verify your identity on the Self-Enrollment form.We also offer the ability for you to securely connect other health management apps to your health record. See the Health Alex Connection link on the website above for more details. Watch [employer] Patient Education Videos and Access Resources anytime online! Visit [email or web address]. Extracted from: Title:Instructions to Patients Author:Jeanmarie hernandez RN, Katherine Date:11/02/23 [employer] Medication Leaflets: Accessing??[facility]??Express??Patient??Portal Access medications, test results, radiology reports, and more through [employer] secure patient portal. Please be patient if waiting on lab results, as these can take several days to process. [place] online at??[email or web address].??Use your community medical record number (CMRN) located below to verify your identity on the Self-Enrollment form.We also offer the ability for you to securely connect other health management apps to your health record. See the Health Alex Connection link on the website above for more details. Watch [employer] Patient Education Videos and Access Resources anytime online! Visit [email or web address]. Extracted from: Title:Progress SOAP Note Author:Lisandra HERNANDEZ, Vinay ijit Date:11/01/23 1.??GI bleed(Gastrointestina l hemorrhage, unspecified: K92.2) 2.??Anemia(Anemia, unspecified: D64.9) 3.??Esophageal varices(Esophageal varices without bleeding: I85.00) 4.??Portal hypertensive gastropathy(Portal hypertension: K76.6) 5.??Abdominal ascites(Other ascites: R18.8) 6.??Hypokalemia(Hypokalemia: E87.6) 7.??Thrombocytopenia(Thrombocytopenia, unspecified: D69.6) 8.??Diabetes mellitus, type 2(Type 2 diabetes mellitus without complications: E11.9) 9.??COPD mixed type(Chronic obstructive pulmonary disease, unspecified: J44.9) 10.??Parkinson disease(Parkinson's disease without dyskinesia, without mention of fluctuations: G20.A1) 11.??Cirrhosis(Unspecified cirrhosis of liver: K74.60) Type 2 diabetes with complication(Type 2 diabetes mellitus with unspecified complications: E11.8) Orders: CBC-d Extracted from: Title:Progress SOAP Note Author:Lisandra HERNANDEZ, Vinay ijit Date:10/31/23 1.??GI bleed(Gastrointestina l hemorrhage, unspecified: K92.2) 2.??Anemia(Anemia, unspecified: D64.9) 3.??Esophageal varices(Esophageal varices without bleeding: I85.00) 4.??Portal hypertensive gastropathy(Portal hypertension: K76.6) 5.??Abdominal ascites(Other ascites: R18.8) 6.??Hypokalemia(Hypokalemia: E87.6) 7.??Thrombocytopenia(Thrombocytopenia, unspecified: D69.6) 8.??Diabetes mellitus, type 2(Type 2 diabetes mellitus without complications: E11.9) 9.??COPD mixed type(Chronic obstructive pulmonary disease, unspecified: J44.9) 10.??Parkinson disease(Parkinson's disease without dyskinesia, without mention of fluctuations: G20.A1) 11.??Cirrhosis(Unspecified cirrhosis of liver: K74.60) Type 2 diabetes with complication(Type 2 diabetes mellitus with unspecified complications: E11.8) Orders: pantoprazole, 40 mg = 1 tab, TAB, By mouth, BID, GI Bleed- Upper- Active or Presumed, Routine, Start Date: 10/31/23 11:00:00 CDT, Duration: 90 Days, Stop date 01/29/24 8:59:00 CDT, Disp Location: [address], [facility] DISP Extracted from: Title:Discharge Note Author:Blake Fry MD Date:10/30/23 [employer] 10/29/23 2:59:12 CDT Order Comment: Ordered by Discern Expert ?? Discharge 10/30/23 7:42:00 CDT, Home/Self Care ? Discharge Work/School/Daycare Restrictions 10/30/23 7:42:00 CDT, Return to work in: No Restrictions ? Discharge Follow Up 10/30/23 7:42:00 CDT, Provider/Time: PCP in one week ? Discharge Diet 10/30/23 7:42:00 CDT, Discharge Diet: Regular ? Discharge Activity 10/30/23 7:42:00 CDT, As tolerated ? Discharge 10/30/23 9:28:00 CDT, [facility] Facility ? Discharge Work/School/Daycare Restrictions 10/30/23 9:28:00 CDT, Return to work in: No Restrictions ? Discharge Follow Up 10/30/23 9:28:00 CDT, Provider/Time: PCP in one week ? Discharge Diet 10/30/23 9:28:00 CDT, Discharge Diet: Regular ? Discharge Activity 10/30/23 9:28:00 CDT, As tolerated ? Facility Discharge Plan 4 weeks, 10/30/23 9:28:00 CDT ? Facility Discharge Occupational Therapy Eval and Treat 10/30/23 9:28:00 CDT ? Facility Discharge Physical Therapy Eval and Treat 10/30/23 9:28:00 CDT ? Facility Discharge Code Status 10/30/23 9:28:00 CDT, Full Code ? Extracted from: Title:Discharge Note Author:Blake Fry MD Date:10/30/23 [employer] 10/29/23 2:59:12 CDT Order Comment: Ordered by Discern Expert ?? Discharge 10/30/23 7:42:00 CDT, Home/Self Care ? Discharge Work/School/Daycare Restrictions 10/30/23 7:42:00 CDT, Return to work in: No Restrictions ? Discharge Follow Up 10/30/23 7:42:00 CDT, Provider/Time: PCP in one week ? Discharge Diet 10/30/23 7:42:00 CDT, Discharge Diet: Regular ? Discharge Activity 10/30/23 7:42:00 CDT, As tolerated ? Discharge 10/30/23 9:28:00 CDT, [facility]sp Facility ? Discharge Work/School/Daycare Restrictions 10/30/23 9:28:00 CDT, Return to work in: No Restrictions ? Discharge Follow Up 10/30/23 9:28:00 CDT, Provider/Time: PCP in one week ? Discharge Diet 10/30/23 9:28:00 CDT, Discharge Diet: Regular ? Discharge Activity 10/30/23 9:28:00 CDT, As tolerated ? Facility Discharge Plan 4 weeks, 10/30/23 9:28:00 CDT ? Facility Discharge Occupational Therapy Eval and Treat 10/30/23 9:28:00 CDT ? Facility Discharge Physical Therapy Eval and Treat 10/30/23 9:28:00 CDT ? Facility Discharge Code Status 10/30/23 9:28:00 CDT, Full Code ? Extracted from: Title:Progress SOAP Note Author:Vinay Fry MD ijit Date:10/29/23 1.??GI bleed(Gastrointestina l hemorrhage, unspecified: K92.2) 2.??Anemia(Anemia, unspecified: D64.9) 3.??Esophageal varices(Esophageal varices without bleeding: I85.00) 4.??Portal hypertensive gastropathy(Portal hypertension: K76.6) 5.??Abdominal ascites(Other ascites: R18.8) 6.??Hypokalemia(Hypokalemia: E87.6) 7.??Thrombocytopenia(Thrombocytopenia, unspecified: D69.6) 8.??Diabetes mellitus, type 2(Type 2 diabetes mellitus without complications: E11.9) 9.??COPD mixed type(Chronic obstructive pulmonary disease, unspecified: J44.9) 10.??Parkinson disease(Parkinson's disease without dyskinesia, without mention of fluctuations: G20.A1) 11.??Cirrhosis(Unspecified cirrhosis of liver: K74.60) Type 2 diabetes with complication(Type 2 diabetes mellitus with unspecified complications: E11.8) Orders: octreotide 500 mcg [25 mcg/hr] + Dextrose 5% in Water 107 mL, Route: IV, Routine, Start Date: 10/29/23 7:42:00 CDT, 90 Days, Stop date 01/27/24 7:41:00 CDT, Rate= 5.4 ml/hr, hr, Total Vol ml = 108, Disp Location: [facility] IV, Populate Charting Weight From Order, GEN DISP, 2.22, m2 Extracted from: Title:Admission H&P Note Author:Antwan Farris DO te:10/29/23 1.??GI bleed(Gastrointestina l hemorrhage, unspecified: K92.2) 2.??Anemia(Anemia, unspecified: D64.9) 3.??Esophageal varices(Esophageal varices without bleeding: I85.00) 4.??Portal hypertensive gastropathy(Portal hypertension: K76.6) 5.??Abdominal ascites(Other ascites: R18.8) 6.??Hypokalemia(Hypokalemia: E87.6) 7.??Thrombocytopenia(Thrombocytopenia, unspecified: D69.6) 8.??Diabetes mellitus, type 2(Type 2 diabetes mellitus without complications: E11.9) 9.??COPD mixed type(Chronic obstructive pulmonary disease, unspecified: J44.9) 10.??Parkinson disease(Parkinson's disease without dyskinesia, without mention of fluctuations: G20.A1) 11.??Cirrhosis(Unspecified cirrhosis of liver: K74.60) ?? PLAN: ? He will be admitted to the hospital for care and further treatment.?? Based upon his history and my exam, he will need greater than 2 midnights of care.?? I am concerned that he has an active GI bleed.?? His history of esophageal varices, portal hypertension and his lower HgB adds credibility to this concern.?? I will order serial Hgb and also start a Protonix drip.?? In addition, I will consult Dr. Ren (GI) and make the patient NPO.?? I think that he will need an EGD to evaluate for a GI bleed that could be the root cause of his worsening anemia.?? I also will order a paracentesis.?? I think that he does not have SBP but has worsening ascites due to his cirrhosis.?? I will ask for records from [facility].?? He apparently refused a paracentesis there.?? However, when I spoke with him at time of admission, he was in favor of this intervention here.?? I will order serial HgB and he may need a transfusion if his HgB drops to 7 or less.?? I also will replace his potassium with IV fluids and repeat labs in the AM.?? His home meds will be reconciled once they are ready for review.?? Plan for discharge is likely to SNF pending his status.?? Patient and staff understand plan. ?? I spent 75 min on his case (discussion w/ ER doctor, chart review, my exam, medical decision making and documentation). ?? UPDATE ([id number]):?? On-call ALEX had already ordered a unit of PRBCs.?? I reconciled his home meds.?? I will resume the diuretics for his ascites and stop the IV fluids.?? I also will order lymphedema eval and tx for his legs. ? Extracted from: Title:Shortness of breath Author:Skyler Wong MD Date:10/28/23 Impression and Plan Diagnosis Abdominal ascites (NXV02-VO R18.8) Anemia (KQN22-GE D64.9) Esophageal varices (HZL00-VI I85.00) Portal hypertension (EIV46-YW K76.6) Plan Condition: Stable. Disposition: Admit to Inpatient Unit, [place] [facility] GASPAR, Orders: ED Provider Orders ST ED Provider orders Orders(Completed): IV Insertion 10/28/23 20:47 CMP 10/28/23 20:47 Lipase 10/28/23 20:47 XR Chest PA Lateral Left Routine 10/28/23 20:48 CBC-d 10/28/23 20:47 PT/INR 10/28/23 20:47 zCBC Automated Diff 10/28/23 21:34 NT-proBNP 10/28/23 22:42 Gene Xpert Coronavirus/Flu/RSV PCR 10/28/23 22:43 Ammonia 10/28/23 23:00 CT Abd Pelvis w Contrast Routine 10/28/23 23:00 ED Physician Request 10/29/23 00:44 iopamidol 10/29/23 00:29 Orders(Ordered): Urinalysis w/ microscopy TSType TSABS auto . Counseled: Patient, Regarding diagnosis, Regarding diagnostic results, Regarding treatment plan, Patient indicated understanding of instructions. Future Appointments Appointment Date:11/09/2023 03:00:00 PM Scheduled Provider: Location:[facility] Appointment Type:Endoscopy Appointment Date:01/12/2024 03:00:00 PM Scheduled Provider:Jarod Marin MD Location:-[facility] Appointment Type:New Patient Medications baclofen 10 mg oral tablet 10 mg = 1 tab, By mouth, TID, PRN Muscle Spasms, # 90 tab, Refill(s) 0 Start Date: 10/29/23 Status: Ordered carbidopa-levodopa 25 mg-100 mg oral tablet 1 tab, By mouth, TIDWM (three times a day with meals), Refill(s) 0, TAB Start Date: 10/04/23 Status: Ordered Dulcolax Laxative 10 mg rectal suppository 10 mg = 1 supp, Rectally, Daily, PRN for constipation, # 10 supp, Refill(s) 0 Start Date: 10/29/23 Status: Ordered Dulcolax Laxative 5 mg oral tablet 20 mg = 4 tab, By mouth, Daily, PRN Constipation, Refill(s) 0 Start Date: 10/29/23 Status: Ordered Farxiga 5 mg oral tablet 5 mg = 1 tab, By mouth, Daily, Take one tablet with or without food, # 30 tab, Refill(s) 0, Pharmacy: [facility], MERRYPDP_[id number], 1 tab By mouth Daily,Instr:Take one tabletwith or without food, 91.3, 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 Start Date: 10/04/23 Status: Ordered gabapentin [...] mouth, Daily Start Date: 09/29/23 Status: Ordered Januvia 100 mg oral tablet 100 mg, By mouth, Daily, # 30 tab, Refill(s) 0 Start Date: 10/29/23 Status: Ordered lactulose 20 g, By mouth, BID, Refill(s) 0, SYRUP Start Date: 10/04/23 Status: Ordered LanTUS 100 units/mL subcutaneous solution 25 Units, SubQ, at bedtime, Inject 25 units SUBQ at bedtime daily. 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, kg, Weight (kg) (Clinical) Start Date: 10/09/23 Status: Ordered Milk of Magnesia 8% oral suspension 2.4 g = 30 mL, By mouth, Daily, PRN as needed for constipation, Refill(s) 0 Start Date: 10/29/23 Status: Ordered Mylanta 30 mL, By mouth, PCHS (after meals and at bedtime), as needed for indigestion, Refill(s) 0 Start Date: 10/29/23 Status: Ordered nadolol 40 mg oral tablet 20 mg = 0.5 tab, By mouth, Daily, Refill(s) 0, TAB Start Date: 10/04/23 Status: Ordered nystatin topical 100,000 units/g powder 1 application, Topical, QID, Refill(s) 0 Start Date: 10/29/23 Status: Ordered pantoprazole 40 mg oral delayed release tablet 40 mg = 1 tab, By mouth, BID, Refill(s) 0, TAB Start Date: 10/04/23 Status: Ordered spironolactone 25 mg oral tablet 25 mg = 1 tab, By mouth, Daily, # 30 tab, Refill(s) 0, Pharmacy: [facility], NCPDP_ID-[id number], TAB, 1 tab By mouth Daily, 97.4, 10/09/23 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, kg, Weight (kg) (Clinical) Start Date: 10/09/23 Status: Ordered Tylenol 650 mg, By mouth, Q4H, PRN Pain Mild (1-3) or Temp (2nd Line), Refill(s) 0 Start Date: 10/29/23 Status: Ordered Problem List Condition Confirmation Course Effective Dates Status H ealth Status Informant Allergy to alpha-gal Confirmed Active Bilateral lower extremity edema Confirmed Active COPD mixed type Confirmed Active Cirrhosis Confirmed Active Esophageal varices Confirmed Active Ex-smoker Confirmed Active patient GI bleed Confirmed Active Hypokalemia Confirmed Active NPH (normal pressure hydrocephalus) Confirmed Active Pancytopenia Confirmed Active Parkinson disease Confirmed Active Portal hypertensive gastropathy Confirmed Active Thrombocytopenia Confirmed Active Diabetes mellitus, type 2 Confirmed Active Upper GI bleed Confirmed Active Procedures Procedure Date Related Diagnosis Body Site Status Gastroscopy - Endo 1 10/29/23 Comp leted Gastroscopy - Endo with Anesthesia 2 09/28/23 Completed Gastroscopy - Endo 3 09/19/23 Comp leted 1auto-populated from documented surgical case 2auto-populated from documented surgical case 3auto-populated from documented surgical case Results Laboratory List Name Date BMP 11/04/23 H&H 11/04/23 Magnesium Serum (Mg Serum) 11/03/23 CBC-d 11/02/23 zCBC Automated Diff 11/02/23 CBC-d 10/30/23 zCBC Automated Diff 10/30/23 BMP 10/30/23 Magnesium Serum (Mg Serum) 10/30/23 Potassium Serum 10/29/23 Albumin Body Fluid (Albumin BF) 10/29/23 Cell Abdominal Fluid Count (Cell AbdFld Count) 10/29/23 Protein Body Fluid (Protein BF) 10/29/23 TSABS auto 10/29/23 TSType 10/29/23 Urinalysis w/ microscopy (UA w/ micro) Ammonia 10/28/23 Gene Xpert Coronavirus/Flu/RSV PCR (Gene X 4-plex PCR) 10/28/23 NT-proBNP 10/28/23 CBC-d 10/28/23 CMP 10/28/23 Lipase 10/28/23 PT/INR 10/28/23 zCBC Automated Diff 10/28/23 Most recent to oldest [Reference Range]: 1 2 3 Mesothelial Cells 1 % *NA* (10/29/23 12:25 PM) Type and RH Interp A Positive *Unknown* (10/29/23 1:51 AM) Bedside Glucose 211 mg/dL 1 (11/06/23 12:07 PM) 87 mg/dL 2 (11/06/23 7:24 AM) 204 mg/dL 3 (11/05/23 9:22 PM) Abd Fluid Eos 0 % *NA* (10/29/23 12:25 PM) Antibody Screen Interp a Negative (10/29/23 1:51 AM) Body Fluid Type Abdominal Fluid (10/29/23 12:25 PM) Segs Abs Abd Fluid 10 *NA* (10/29/23 12:25 PM) Lymphs Abs Abd Fluid 41 *NA* (10/29/23 12:25 PM) MonoMacro Abs Abd Fluid 50 *NA* (10/29/23 12:25 PM) Eos Abs Abd Fluid 0 *NA* (10/29/23 12:25 PM) COVID-19 Simpson PCR [Negative] Negative (10/28/23 11:20 PM) Anion Gap [2-15 mEq/L] 3 mEq/L (11/04/23 8:10 AM) 2 mEq/L (10/30/23 2:49 AM) 5 mEq/L (10/28/23 9:34 PM) RTE Casts None Seen (10/29/23 1:51 AM) RTEs None Seen (10/29/23 1:51 AM) Abd Fluid TNC: [0-0 /mm3] 102 /mm3 *HI* (10/29/23 12:25 PM) Abd Fluid RBC: [0-0 /mm3] <2000 /mm3 *HI* (10/29/23 12:25 PM) eGFR CKD-EPI [>=61 mL/min/1.73 m2] 99 mL/min/1.73 m2 (11/04/23 8:10 AM) 99 mL/min/1.73 m2 (10/30/23 2:49 AM) 91 mL/min/1.73 m2 (10/28/23 9:34 PM) BBID # [id number] (10/29/23 5:35 AM) BNP [<=99 pg/mL] 66 pg/mL (10/28/23 10:46 PM) Flu A (PCR) [NEGATIVE] NEGATIVE *NA* (10/28/23 11:20 PM) Flu B (PCR) [NEGATIVE] NEGATIVE *NA* (10/28/23 11:20 PM) Glucose, Serum/Plasma [70-10 0 mg/dL] 176 mg/dL *HI* (11/04/23 8:10 AM) 178 mg/dL *HI* (10/30/23 2:49 AM) 213 mg/dL *HI* (10/28/23 9:34 PM) WBC [4.8-10.8 Thous/mm3] 5.0 Thous/mm3 (11/02/23 8:13 AM) 2.9 Thous/mm3 *LOW* (10/30/23 4:10 AM) 5.0 Thous/mm3 (10/28/23 9:34 PM) Hct [42.0-52.0 %] 29.5 % *LOW* (11/04/23 8:10 AM) 27.7 % *LOW* (11/02/23 8:13 AM) 27.6 % *LOW* (10/30/23 4:10 AM) Hgb [14.0-18.0 g/dL] 9.0 g/dL *LOW* (11/04/23 8:10 AM) 8.3 g/dL *LOW* (11/02/23 8:13 AM) 8.2 g/dL *LOW* (10/30/23 4:10 AM) RBC [4.60-6.20 Million/mm3] 3.46 Million /mm3 *LOW* (11/02/23 8:13 AM) 3.33 Million/mm3 *LOW* (10/30/23 4:10 AM) 3.16 Million/mm3 *LOW* (10/28/23 9:34 PM) MCV [80.0-100.0 fl] 80.1 fl (11/02/23 8:13 AM) 82.9 fl (10/30/23 4:10 AM) 80.7 fl (10/28/23 9:34 PM) MCH [26.0-34.0 pg] 24.0 pg *LOW* (11/02/23 8:13 AM) 24.6 pg *LOW* (10/30/23 4:10 AM) 23.4 pg *LOW* (10/28/23 9:34 PM) MCHC [31.0-36.5 g/dL] 30.0 g/dL *LOW* (11/02/23 8:13 AM) 29.7 g/dL *LOW* (10/30/23 4:10 AM) 29.0 g/dL *LOW* (10/28/23 9:34 PM) RDW [10.4-14.4 %] 16.7 % *HI* (11/02/23 8:13 AM) 16.6 % *HI* (10/30/23 4:10 AM) 16.8 % *HI* (10/28/23 9:34 PM) Platelets [130-440 Thous/mm3] 82 Thous/m m3 *LOW* (11/02/23 8:13 AM) 75 Thous/mm3 *LOW* (10/30/23 4:10 AM) 107 Thous/mm3 *LOW* (10/28/23 9:34 PM) MPV [9.4-12.4 fl] ---- fl *NA* (11/02/23 8:13 AM) ---- fl *NA* (10/30/23 4:10 AM) ---- fl *NA* (10/28/23 9:34 PM) AutoNeutrophil [43.0-78.0 %] 66.5 % (11/02/23 8:13 AM) 54.9 % (10/30/23 4:10 AM) 67.9 % (10/28/23 9:34 PM) AutoLymphs [20.0-40.0 %] 17.2 % *LOW* (11/02/23 8:13 AM) 26.8 % (10/30/23 4:10 AM) 17.6 % *LOW* (10/28/23 9:34 PM) AutoMono [2.0-10.0 %] 12.1 % *HI* (11/02/23 8:13 AM) 13.2 % *HI* (10/30/23 4:10 AM) 10.9 % *HI* (10/28/23 9:34 PM) Ammonia [0-33 umol/L] 25 umol/L (10/28/23 11:20 PM) AutoEo [0.0-7.0 %] 3.6 % (11/02/23 8:13 AM) 3.8 % (10/30/23 4:10 AM) 2.8 % (10/28/23 9:34 PM) Sodium [136-145 mEq/L] 136 mEq/L (11/04/23 8:10 AM) 135 mEq/L *LOW* (10/30/23 2:49 AM) 139 mEq/L (10/28/23 9:34 PM) Potassium [3.5-5.1 mEq/L] 4.2 mEq/L (11/04/23 8:10 AM) 3.8 mEq/L (10/30/23 2:49 AM) 4.1 mEq/L (10/29/23 9:11 PM) Chloride [98-107 mEq/L] 106 mEq/L (11/04/23 8:10 AM) 105 mEq/L (10/30/23 2:49 AM) 105 mEq/L (10/28/23 9:34 PM) AbsNeut [2.0-8.0 Thous/mm3] 3.3 Thous/mm 3 (11/02/23 8:13 AM) 1.6 Thous/mm3 *LOW* (10/30/23 4:10 AM) 3.4 Thous/mm3 (10/28/23 9:34 PM) CO2 [20-31 mEq/L] 27 mEq/L (11/04/23 8:10 AM) 28 mEq/L (10/30/23 2:49 AM) 29 mEq/L (10/28/23 9:34 PM) BUN [7-18 mg/dL] 12 mg/dL (11/04/23 8:10 AM) 14 mg/dL (10/30/23 2:49 AM) 12 mg/dL (10/28/23 9:34 PM) Creatinine [0.73-1.18 mg/dL] 0.77 mg/dL (11/04/23 8:10 AM) 0.79 mg/dL (10/30/23 2:49 AM) 0.93 mg/dL (10/28/23 9:34 PM) AbsLymph [1.0-4.0 Thous/mm3] 0.8 Thous/m m3 *LOW* (11/02/23 8:13 AM) 0.8 Thous/mm3 *LOW* (10/30/23 4:10 AM) 0.9 Thous/mm3 *LOW* (10/28/23 9:34 PM) AbsMono [0.1-1.0 Thous/mm3] 0.6 Thous/mm 3 (11/02/23 8:13 AM) 0.4 Thous/mm3 (10/30/23 4:10 AM) 0.6 Thous/mm3 (10/28/23 9:34 PM) Bilirubin, Total [0.2-1.0 mg/dL] 1.1 mg/dL *HI* (10/28/23 9:34 PM) AbsEo [0.0-0.5 Thous/mm3] 0.2 Thous/mm3 (11/02/23 8:13 AM) 0.1 Thous/mm3 (10/30/23 4:10 AM) 0.1 Thous/mm3 (10/28/23 9:34 PM) AbsBaso [0.0-0.2 Thous/mm3] 0.0 Thous/mm 3 (11/02/23 8:13 AM) 0.0 Thous/mm3 (10/30/23 4:10 AM) 0.0 Thous/mm3 (10/28/23 9:34 PM) AutoBaso [0.0-2.5 %] 0.2 % (11/02/23 8:13 AM) 1.0 % (10/30/23 4:10 AM) 0.6 % (10/28/23 9:34 PM) Calcium [8.3-10.6 mg/dL] 8.0 mg/dL *LOW* (11/04/23 8:10 AM) 7.7 mg/dL *LOW* (10/30/23 2:49 AM) 8.2 mg/dL *LOW* (10/28/23 9:34 PM) Protein Total [6.4-8.5 g/dL] 6.8 g/dL (10/28/23 9:34 PM) Albumin [3.4-5.0 g/dL] 2.1 g/dL *LOW* (10/28/23 9:34 PM) AST [15-37 U/L] 24 U/L (10/28/23 9:34 PM) Alk Phos [45-117 U/L] 78 U/L (10/28/23 9:34 PM) Magnesium [1.8-2.4 mg/dL] 1.8 mg/dL (11/03/23 6:03 AM) 1.7 mg/dL *LOW* (10/30/23 2:49 AM) ALT [10-49 U/L] <7 U/L *LOW* (10/28/23 9:34 PM) PT [9.0-13.5 sec] 13.4 sec (10/28/23 9:34 PM) Appearance [Clear] Clear (10/29/23 1:51 AM) Color [Yellow] Yellow *NA* (10/29/23 1:51 AM) Sp. [place] [1.001-1.035] 1.040 *HI* (10/29/23 1:51 AM) Ketones [Negative] Trace *ABN* (10/29/23 1:51 AM) Glucose [Negative] 3+ *ABN* (10/29/23 1:51 AM) Protein [Negative] Negative (10/29/23 1:51 AM) Blood [Negative] Negative (10/29/23 1:51 AM) Nitrites UA [Negative] Negative (10/29/23 1:51 AM) Lipase, Serum/Plasma [12-53 U/L] 26 U/L (10/28/23 9:34 PM) Bilirubin UA [Negative] Negative (10/29/23 1:51 AM) Urobilinogen [1.0 mg/dL] 1.0 mg/dL (10/29/23 1:51 AM) Leuko Esterase UA [Negative] Negative (10/29/23 1:51 AM) INR [0.80-1.30] 1.27 (10/28/23 9:34 PM) pH UA [5.0-9.0] 5.5 (10/29/23 1:51 AM) RBC [0-2/hpf] 0-2/hpf (10/29/23 1:51 AM) WBC [0-5/hpf] 11-20/hpf *ABN* (10/29/23 1:51 AM) Hyaline Casts [0-2/lpf] 0-2/lpf (10/29/23 1:51 AM) Bacteria [None Seen] None Seen (10/29/23 1:51 AM) Protein Body Fluid <2.0 g/dL *NA* (10/29/23 12:25 PM) Epithelium [None Seen] None Seen (10/29/23 1:51 AM) Albumin Body Fluid <1.0 g/dL *NA* (10/29/23 12:25 PM) Abd Fluid Segs 10 % *NA* (10/29/23 12:25 PM) Abd Fluid Lymphs 40 % *NA* (10/29/23 12:25 PM) Abd Fluid Hudson/Macro 49 % *NA* (10/29/23 12:25 PM) Volume 3 mL *NA* (10/29/23 1:51 AM) RSV by PCR [NEGATIVE] NEGATIVE *NA* (10/28/23 11:20 PM) Imm. Grans % [0-5 %] <5 % (11/02/23 8:13 AM) <5 % (10/28/23 9:34 PM) Imm. Grans # [0.0-0.5 Thous/mm3] <0.5 Thous/mm3 (11/02/23 8:13 AM) <0.5 Thous/mm3 (10/28/23 9:34 PM) ANC-AbsNeutCount 3.3 Thous/mm3 *NA* (11/02/23 8:13 AM) 1.6 Thous/mm3 *NA* (10/30/23 4:10 AM) 3.4 Thous/mm3 *NA* (10/28/23 9:34 PM) 1Result Comment: Notify RN/ Performed at:[address], [id number] Reference Ranges: Age 0 - 24 hours: 45 - 115 mg/dL Age 24 hours - 30 days: 55 - 115 mg/dL Age > 30 days: 70 - 100 mg/dL Critical Results Requiring Immediate Notification: Age <72 Hours: <40 or >350 mg/dL Age >72 Hours: <50 or >400 mg/dL 2Result Comment: Notify RN/ Performed at:[address], [address] Reference Ranges: Age 0 - 24 hours: 45 - 115 mg/dL Age 24 hours - 30 days: 55 - 115 mg/dL Age > 30 days: 70 - 100 mg/dL Critical Results Requiring Immediate Notification: Age <72 Hours: <40 or >350 mg/dL Age >72 Hours: <50 or >400 mg/dL 3Result Comment: Notify RN/ Performed at:[address], [address] Reference Ranges: Age 0 - 24 hours: 45 - 115 mg/dL Age 24 hours - 30 days: 55 - 115 mg/dL Age > 30 days: 70 - 100 mg/dL Critical Results Requiring Immediate Notification: Age <72 Hours: <40 or >350 mg/dL Age >72 Hours: <50 or >400 mg/dL Orders for Microbiology Reports Name Date Body Fluid Culture (C Body Fluids) Microbiology Reports TEST:Body Fluid Culture STATUS:Auth (Verified) BODY SITE: SOURCE:Paracentesis Fluid COLLECTED DATE/TIME:10/29/23 12:25 PM FINAL REPORT No Growth STAIN REPORT Scant amount white blood cells No bacteria seen Radiology Reports * Exam Date Time Procedure Performing Provider Status 11/03/23 12:14 PM XR Chest PA Lateral Left Routine Yessica Madelyn BEARD; Auth (Verified) Notes: (XR Chest PA Lateral Left Routine) Reason For Exam: Cough and SOB REPORT XR Chest PA Lateral Left Routine PROCEDURE INFORMATION: Exam: XR Chest Exam date and time: 11/03/2023 11:28 AM Age: 63 years old Clinical indication: Anemia, unspecified; Thrombocytopenia, unspecified; Type 2 diabetes mellitus with unspecified complications; Type 2 diabetes mellitus without complications; Hypokalemia; Esophageal varices without bleeding; Chronic obstructive pulmonary disease, unspecified; Unspecified cirrhosis of liver; Portal hypertension; Gastrointestinal hemorrhage, unspecified; Other ascites; Localized edema; Parkinson's disease without dyskinesia, without mention of fluctuations; Other reduced mobility; Other specified health status; Additional info: Cough and SOB TECHNIQUE: Imaging protocol: Radiologic exam of the chest. Views: 2 views. COMPARISON: CR XR Chest PA Lateral Left Routine 10/28/2023 8:48 PM FINDINGS: Lungs: Lung aeration has slightly improved. Perihilar reticular opacities persist in the left lung. Bibasilar curvilinear atelectasis. Pleural spaces: No pleural effusion. No pneumothorax. Heart/Mediastinum: No abnormalities. No cardiomegaly. No pulmonary vascular congestion. Bones/joints: No fractures or bone lesions. IMPRESSION: 1. Persistent left perihilar reticular opacities may represent resolving pneumonia or possibly pulmonary edema. 2. Lung aeration has improved. 3. Bibasilar atelectasis. Electronically signed by: Rodrigo Blackburn MD, [facility], 11/03/2023 12:35 Rodrigo Blackburn MD Signed 11/03/23 12:35:46 (Electronic Signature) Technologist VEL TORRES * Exam Date Time Procedure Performing Provider Status 10/29/23 1:30 PM US Paracentesis Diagnostic Zaheer France; Auth (Verified) Notes: (US Paracentesis Diagnostic) Reason For Exam: ascites US Paracentesis Diagnostic READING LOCATION: [place] [address]. PROCEDURE: ULTRASOUND-GUIDED PARACENTESIS INDICATIONS: Ascites, abdominal distention. Diagnosis Codes: E11.8 Type 2 diabetes mellitus with unspecified complications R60.0 Localized edema K92.2 Gastrointestinal hemorrhage, unspecified D64.9 Anemia, unspecified I85.00 Esophageal varices without bleeding TECHNIQUE AND FINDINGS: Informed consent was obtained. Initial scans were done identifying an appropriate site for puncture on the skin. Ultrasound imaging demonstrated ascites. The skin was preparedand draped and local anesthesia given. Using the guidance of ultrasound, a catheter was advanced into the peritoneal fluid and about 4600 cc of fluid obtained . No immediate postprocedural complications. IMPRESSION: Successful ultrasound-guided paracentesis as described. Electronically signed by: Carmen Massey 10/29/2023 5:48 PM Radiologist Carmen Massey MD Signed 10/29/23 17:48:06 (Electronic Signature) [employer] AD Technologist AP REPORT * Exam Date Time Procedure Performing Provider Status 10/29/23 12:[address] Abd Pelvis w Contrast Oz Wong MD; Auth (Verified) Notes: (CT Abd Pelvis w Contrast) Reason For Exam: abd distention REPORT CT Abd Pelvis w Contrast PROCEDURE INFORMATION: Exam: CT Abdomen And Pelvis With Contrast Exam date and time: 10/29/2023 12:10 AM Age: 63 years old Clinical indication: Abd distention TECHNIQUE: Imaging protocol: Computed tomography of the abdomen and pelvis with contrast. Radiation optimization: All CT scans at this facility use at least one of these dose optimization techniques: automated exposure control; mA and/or kV adjustment per patient size (includes targeted exams where dose is matched to clinical indication); or iterative reconstruction. COMPARISON: NM Gastrointestinal Bleed Acute 09/30/2023 3:25 PM FINDINGS: Lungs: Mild areas of mid to lower lung atelectasis or scarring. Pleural spaces: Minute right pleural effusion. Mediastinal space: Lower esophageal wall thickening. Diaphragm: Very small hiatal hernia. Liver: Very severe cirrhosis. Liver is very heterogenous. It contains multiple internal non masslike hypodense areas. Gallbladder and bile ducts: Few tiny gallstones versus gallbladder sludge possible. Pancreas: Unremarkable with no suspicious mass. No ductal dilation. Spleen: The spleen is mildly enlarged. Adrenal glands: Normal. No mass. Kidneys and ureters: Few tiny right renal cysts. No enhancing renal mass or hydronephrosis. Stomach and bowel: The colon is rather fecal filled. Appendix: No evidence of appendicitis. Intraperitoneal space: Diffuse mesenteric edema. Moderate ascites. Vasculature: Multiple abdominal varices are present. Likely periesophageal varices as well. Lymph nodes: Mild likely reactive retroperitoneal lymphadenopathy. Urinary bladder: Unremarkable as visualized. Contains excreted IV contrast. Reproductive: Unremarkable as visualized. Bones/joints: Old bilateral L5 pars defects with minimal listhesis. [id number] spine DJD. Soft tissues: Moderate anasarca. IMPRESSION: 1. Profound liver disease with cirrhosis. Multiple internal areas of hepatic heterogeneity and hypodensity may be due to perfusion artifacts, cirrhotic or regenerative nodules, hemangiomas, or other mass lesions. These will need follow-up. 2. Diffuse advanced 3rd spacing of fluid with minute right pleural effusion, moderate ascites, etc. Extensive variceal formation. This patient is at increased risk for a variceal bleed. 3. The colon is rather fecal filled. No small bowel obstruction, abscess or free air. Concern for esophagitis. 4. Other chronic findings above. COMMENTS: Consistent with the [employer]'s Incidental Findings Committee white paper (J Am Kam Radiol 2018): Any incidental renal lesion less than 1 cm or classified as too small to characterize, or any incidental cystic renal lesion characterized as simple-appearing, is likely benign. No follow-up imaging is recommended for these lesions per consensus recommendations based on imaging criteria. Electronically signed by: Prudencio Ortiz MD, [facility], 10/29/2023 0:43 Prudencio Ortiz MD Signed 10/29/23 00:43:12 (Electronic Signature) Technologist VW * Exam Date Time Procedure Performing Provider Status 10/28/23 9:34 PM XR Chest PA Lateral Left Routine Melba Nelson; Juan Alberto (Verified) Notes: (XR Chest PA Lateral Left Routine) Reason For Exam: Cough XR Chest PA Lateral Left Routine PROCEDURE INFORMATION: Exam: XR Chest Exam date and time: 10/28/2023 8:48 PM Age: 63 years old Clinical indication: Cough TECHNIQUE: Imaging protocol: Radiologic exam of the chest. Views: 2 views. COMPARISON: NM Gastrointestinal Bleed Acute 09/30/2023 3:25 PM FINDINGS: Lungs: Lung volumes are low. Hazy bibasilar opacities. Pleural spaces: No pneumothorax. Heart/Mediastinum: The heart is large. Advanced diffuse vascular calcification noted. Bones/joints: Unremarkable. IMPRESSION: 1. Large heart with hazy areas of bibasilar atelectasis, edema or scarring. Low lung volumes. 2. Recommend 1 or 2 day follow-up repeat exam with better inspiration. Electronically signed by: Prudencio Ortiz MD, [facility], 10/28/2023 22:15 Prudencio Ortiz MD Signed 10/28/23 22:15:48 (Electronic Signature) Technologist CC REPORT Vital Signs Most recent to oldest [Reference Range]: 1 2 3 Blood Pressure 95/57mmHg (11/06/23 11:11 AM) 101/56mmHg (11/06/23 7:23 AM) 113/68mmHg (11/06/23 3:49 AM) Height (inches) (Clinical) 70 in (11/06/23 2:00 AM) 70 in (11/05/23 2:00 PM) 70 in (11/05/23 2:00 AM) Weight (kg) (Clinical) 85.2 kg (11/06/23 3:49 AM) 85.9 kg (11/05/23 3:14 AM) 84.5 kg (11/04/23 4:37 AM) BMI (Clinical) 30.7 kg/m2 (10/29/23 2:45 AM) 32.2 kg/m2 (10/28/23 8:41 PM) Scale Type Bed (11/06/23 3:49 AM) Bed (11/05/23 3:14 AM) Bed (11/04/23 4:37 AM) Social History Social History Type Response Smoking Status Former smoker; Smoke less tobacco use: Never; Has the patient smoked in the last 365 days, even once? No entered on: 09/19/23 Sex Male Hospital Discharge Instructions Patient Education 11/06/2023 13:01:03 Hypokalemia Hypokalemia Hypokalemia means that the amount of potassium in the blood is lower than normal. Potassium is a chemical (electrolyte) that helps regulate the amount of fluid in the body. It also stimulates muscle tightening (contraction) and helps nerves work properly. Normally, most of the body's potassium is inside cells, and only a very small amount is in the blood. Because the amount in the blood is so small, minor changes to potassium levels in the blood can be life-threatening. What are the causes? This condition may be caused by: ??? Antibiotic medicine. ??? Diarrhea or vomiting. Taking too much of a medicine that helps you have a bowel movement (laxative) can cause diarrhea and lead to hypokalemia. ??? Chronic kidney disease (CKD). ??? Medicines that help the body get rid of excess fluid (diuretics). ??? Eating disorders, such as bulimia. ??? Low magnesium levels in the body. ??? Sweating a lot. What are the signs or symptoms? Symptoms of this condition include: ??? Weakness. ??? Constipation. ??? Fatigue. ??? Muscle cramps. ??? Mental confusion. ??? Skipped heartbeats or irregular heartbeat (palpitations). ??? Tingling or numbness. How is this diagnosed? This condition is diagnosed with a blood test. How is this treated? This condition may be treated by: ??? Taking potassium supplements by mouth. ??? Adjusting the medicines that you take. ??? Eating more foods that contain a lot of potassium. If your potassium level is very low, you may need to get potassium through an IV and be monitored in the hospital. Follow these instructions at home: ??? Take [id number] and prescription medicines only as told by your health care provider. This includes vitamins and supplements. ??? Eat a healthy diet. A healthy diet includes fresh fruits and vegetables, whole grains, healthy fats, and lean proteins. ??? If instructed, eat more foods that contain a lot of potassium. This includes: ??? Nuts, such as peanuts and pistachios. ??? Seeds, such as sunflower seeds and pumpkin seeds. ??? Peas, lentils, and davis beans. ??? Whole grain and bran cereals and breads. ??? Fresh fruits and vegetables, such as apricots, avocado, bananas, cantaloupe, kiwi, oranges, tomatoes, asparagus, and potatoes. ??? [place] juice. ??? Tomato juice. ??? Red meats. ??? Yogurt. ??? Keep all follow-up visits as told by your health care provider. This is important. Contact a health care provider if you: ??? Have weakness that gets worse. ??? Feel your heart pounding or racing. ??? Vomit. ??? Have diarrhea. ??? Have diabetes (diabetes mellitus) and you have trouble keeping your blood sugar (glucose) in your target range. Get help right away if you: ??? Have chest pain. ??? Have shortness of breath. ??? Have vomiting or diarrhea that lasts for more than 2 days. ??? Faint. Summary ??? Hypokalemia means that the amount of potassium in the blood is lower than normal. ??? This condition is diagnosed with a blood test. ??? Hypokalemia may be treated by taking potassium supplements, adjusting the medicines that you take, or eating more foods that are high in potassium. ??? If your potassium level is very low, you may need to get potassium through an IV and be monitored in the hospital. This information is not intended to replace advice given to you by your health care provider. Make sure you discuss any questions you have with your health care provider. Document Revised: 03/15/2019 Document Reviewed: 03/16/2019 mLED Patient Education ?? 2021 Infer. 11/03/2023 11:02:17 Esophageal Varices Esophageal Varices Esophageal varices are enlarged veins in the part of the body that moves food from the mouth to thestomach (esophagus). They develop when extra blood is forced to flow through these veins because the blood's normal flow is blocked. Without treatment, esophageal varices eventually break and bleed (hemorrhage), which can be life-threatening. What are the causes? This condition may be caused by: ??? Scarring of the liver due to alcoholism. This is the most common cause. ??? Long-term liver disease. ??? Severe heart failure. ??? A blood clot in a vein that supplies the liver. ??? A disease that causes inflammation in the organs and other body areas. What are the signs or symptoms? Esophageal varices usually do not cause symptoms unless they start to bleed. Symptoms of bleeding esophageal varices include: ??? Vomiting material that is bright red or that is black and looks like coffee grounds. ??? Coughing up blood. ??? Stools (feces) that look black and tarry. ??? Dizziness or light-headedness. ??? Low blood pressure. ??? Loss of consciousness. How is this diagnosed? This condition is diagnosed with a procedure called endoscopy. During endoscopy, your health care provider uses a flexible tube with a small camera on the end of it (endoscope) to look down your throat and examine your esophagus. You may also have other tests, including: ??? Imaging tests, such as a CT scan or ultrasound. ??? Blood tests. How is this treated? This condition may be treated with: ??? Medicines. Medicines are usually used to treat varices that are not bleeding. ??? Procedures. Procedures are done to treat varices that are bleeding. They stop bleeding, or reduce pressure and the risk of bleeding. Procedures include: ??? Placing an elastic band around the varices to keep them from bleeding. ??? Replacing blood that you have lost due to bleeding. This may include getting a transfusion of blood or parts of blood, such as platelets or clotting factors. ??? You may be given antibiotic medicine to help prevent infection. ??? Getting an injection into the varices that causes it to shrink and close (sclerotherapy). You may also be given medicines that tighten blood vessels or change blood flow. ??? Placing a balloon in the esophagus and inflating it. The balloon applies pressure to the bleeding veins to help stop the bleeding. ??? Placing a small tube within the veins in the liver. This decreases blood flow and pressure in the esophageal varices. If other treatments do not work, you may need a liver transplant. Follow these instructions at home: Medicines ??? Take [id number] and prescription medicines only as told by your health care provider. ??? If you were prescribed an antibiotic medicine, take it as told by your health care provider. Donot stop taking the antibiotic even if you start to feel better. ??? Do not take any NSAIDs (such as aspirin or ibuprofen) before first getting approval from your health care provider. General instructions ??? Do not drink alcohol. ??? Return to your normal activities as told by your health care provider. Ask your health care provider what activities are safe for you. ??? Avoid vigorous physical activity. Ask your health care provider what exercises are safe for you. ??? Keep all follow-up visits. Contact a health care provider if: ??? You have pain in the abdomen. ??? You are unable to eat or drink. Get help right away if: ??? You vomit blood or have blood in your stool. ??? You have stools that look black or tarry. ??? You have chest pain. ??? You feel dizzy or have low blood pressure. ??? You lose consciousness. These symptoms may represent a serious problem that is an emergency. Do not wait to see if the symptoms will go away. Get medical help right away. Call your local emergency services (911 in the [place] Do not drive yourself to the hospital. Summary ??? Esophageal varices are enlarged veins in the esophagus, the part of your body that moves food from your mouth to your stomach. ??? Without treatment, esophageal varices eventually break and bleed, which can be life-threatening. ??? Esophageal varices usually do not cause symptoms unless they start to bleed. ??? Keep all follow-up visits. This is important. This information is not intended to replace advice given to you by your health care provider. Make sure you discuss any questions you have with your health care provider. Document Revised: 11/20/2020 Document Reviewed: 11/20/2020 [employer] Patient Education ?? 2021 Infer. 11/03/2023 11:02:17 Gastrointestinal Bleeding Gastrointestinal Bleeding Gastrointestinal (GI) bleeding [...] Follow these instructions at home: ??? Take [id number] and prescription medicines only as told by [...] the cause of the bleeding. ??? Take [id number] and prescription medicines only as told by [...] provider. Document Revised: 03/07/2022 Document Reviewed: 03/07/2022 [employer] Patient Education ?? 2021 [employer] Follow Up Care 10/28/2023 20:21:13 With:[facility] Address: [address] [facility] [address]- Business (1) When: Unknown Comments:Please fax discharge orders to [phone]. Progress note * Keyona Doshi MD: MODIFY Keyona Doshi MD: MODIFY Event Display: Progress Notes Authored Date: [id number] Hospital Course 63 y/o male with history of DMII, COPD, Parkinson disease, portal hypertension with esophageal varices. Multiple recent hospitalizations. Admitted to [facility] in??September for GI bleed. At that time, he had banding of esophageal varices by Dr. Montoya on 09/28/23 who recommended a repeat EGD in 3-4 weeks.? He was discharged to facility. He was subsequently hospitalized at [facility] for pneumonia and ascites.?He was sent to the ER from [facility].?? In the ER, he was found to have ascites and also a low Hgb of 7.4.?GI consulted.??Repeat EGD on 10/28 revealed 1 residual??grade 2??varix??with a red??Chavo sign that was endoscopically??treated??with the 1 band placement. Re commend continue nadolol 20 mg daily and no repeat surveillance endoscopy. Hgb has remained stable.s/p paracentesis on 10/28 with removal of??4.6L. Awaiting facility transfer. ?? Subjective Resting comfortably in bed. Denies chest pain, shortness of breath. Objective Vitals & Measurements ??Vital Signs (last 24 hrs)?Last Charted?Minimum?Maximum?Temp?98.1 (NOV 04 11:48)?98.1 (NOV 04 07:53)?98.8 (NOV 04 00:25)?Heart Rate?58 (NOV 04 11:48)?56 (NOV 04 07:53)?61 (NOV 04 03:14)?Resp Rate?15 (NOV 04 11:48)?15 (NOV 04 07:53)?17 (NOV 03 19:45)?SBP?102 (NOV 04 11:48)?93 (NOV 04 00:25)?108 (NOV 04 07:53)?DBP?61 (NOV 04 11:48)?54 (NOV 04 00:25)?65 (NOV 03 19:45)?SpO2?95 (NOV 04 11:48)?93 (NOV 04 07:53)?97 (NOV 03 19:45)?O2?Room a (NOV 04 11:48)?Room a (NOV 03 14:54)?Room a (NOV 03 14:54)?Weight?85.9 (NOV 04 03:14)?85.9 (NOV 04 03:14)?85.9 (NOV 04 03:14)?? Physical Exam General: Alert and oriented, No acute distress. Eye: Extraocular movements are intact, Normal conjunctiva HENT: Normocephalic, Normal hearing, Oral mucosa is moist Neck: Supple, Non-tender Respiratory: Lungs are clear to auscultation, Respirations are non-labored, Breath sounds are equal Cardiovascular: Normal rate, Regular rhythm, Good pulses equal in all extremities, Normal peripheral perfusion, No edema. Gastrointestinal: Soft, Non-tender, Non-distended, Normal bowel sounds Musculoskeletal: No swelling, No deformity Integumentary: Warm, Dry, [place], Intact, No pallor, No rash. Neurologic: Alert, Oriented, Normal sensory, Normal motor function, No focal deficits Psychiatric: Cooperative, Appropriate mood & affect Assessment/Plan 1.??ABLA (acute blood loss anemia)(Acute posthemorrhagic anemia: D62) 2.??GI bleed(Gastrointestinal hemorrhage, unspecified: K92.2) 3.??Anemia(Anemia, unspecified: D64.9) 4.??Esophageal varices(Esophageal varices without bleeding: I85.00) 5.??Portal hypertensive gastropathy(Portal hypertension: K76.6) 6.??Abdominal ascites(Other ascites: R18.8) 7.??Hypokalemia(Hypokalemia: E87.6) 8.??Thrombocytopenia(Thrombocytopenia, unspecified: D69.6) 9.??Diabetes mellitus, type 2(Type 2 diabetes mellitus without complications: E11.9) 10.??COPD mixed type(Chronic obstructive pulmonary disease, unspecified: J44.9) 11.??Parkinson disease(Parkinson's disease without dyskinesia, without mention of fluctuations: G20.A1) 12.??Cirrhosis(Unspecified cirrhosis of liver: K74.60) Other specified health status(Other specified health status: Z78.9) Type 2 diabetes with complication(Type 2 diabetes mellitus with unspecified complications: E11.8) Plan of care - CXR??Stable. No hypoxia. Continue mucinex, tessalon perles. - Hgb stable - EGD on 10/28 revealed 1 residual??grade 2??varix??with a red??Chavo sign that was endoscopically??treated??with the 1 band placement. - Recommend continue nadolol 20 mg daily and no repeat surveillance endoscopy. - PPI BID. - Continue diet as tolerated. - S/p paracentesis on 10/28. - Continue spironolactone, Lasix. - Glycemic management- home Lantus dose with MDSSI, empagliflozin, linagliptin. - Continue carbidopa-levodopa. ?SW following for discharge to facility. Awaiting insurance auth. ?? VTE proph: SCDs Full code ?? Plan of care in collaboration with Dr. Doshi. ?? ATTENDING NOTE The patient???s history, exam findings, diagnostics, and a summary??was reviewed in detail with?? Mykelnn??Yessica BEARD. I??have seen and examined this patient??independently of above. ??I agree with HPI as documented. My personal exam reveals findings consistent with those documented. All diagnosticstudies were reviewed and discussed. I confirm diagnosis as documented by the Physician Lead Pl Sql Developer. The care plan articulated was made after review of all data and??consistent with our discussion of the patient???s care ?? Keyona Doshi MD?? Other Medications Medications (15) Active Scheduled: (15) aaMAR Note ??DC if...., UNSPECIFIED-See comments, Unscheduled carbidopa-levodopa IR *TCM* 25 mg-100 mg TAB ??1 tab, By mouth, TIDWM (three times a day with meals) empagliflozin 10 mg TAB ??10 mg 1 tab, By mouth, Daily furosemide 40 mg TAB ??40 mg 1 tab, By mouth, Daily gabapentin 100 mg CAP ??100 mg 1 cap, By mouth, TID guaiFENesin LA 600 mg TAB ??600 mg 1 tab, By mouth, BID insulin GLARgine (LanTUS) 100 units/mL 3 mL PEN ??25 Units 0.25 mL, SubQ, at bedtime insulin lispro (HumaLOG) 100 units/mL 3 mL PEN ??Medium dose scale, SUBQ, With Meals & Bedtime lactulose 20 g/30 mL soln UD CUP ??20 g 30 mL, By mouth, BID linagliptin 5 mg TAB ??5 mg 1 tab, By mouth, Daily miconazole 2% topical POWDER ??1 application, Topical, QID nadolol 40 mg TAB ??20 mg 0.5 tab, By mouth, Daily pantoprazole 40 mg TAB ??40 mg 1 tab, By mouth, BID sodium chloride 0.9% INJ SYR 5 mL ??5 mL, IVP, Q12H spironolactone *HAZ* 25 mg TAB ??25 mg 1 tab, By mouth, Daily Continuous: (0) Lab Results Labs??(Last two charted values on this encounter) WBC 5.0 ??(NOV 01) 2.9 ??(OCT 29) Hgb 9.0 ??(NOV 03) 8.3 ??(NOV 01) Hct 29.5 ??(NOV 03) 27.7 ??(NOV 01) Platelets 82 ??(NOV 01) 75 ??(OCT 29) Na 136 ??(NOV 03) 135 ??(OCT 29) K 4.2 ??(NOV 03) 3.8 ??(OCT 29) Cl 106 ??(NOV 03) 105 ??(OCT 29) CO2 27 ??(NOV 03) 28 ??(OCT 29) BUN 12 ??(NOV 03) 14 ??(OCT 29) Cr 0.77 ??(NOV 03) 0.79 ??(OCT 29) ProteinT ?6.8 ??(OCT 27) ?? Albumin ?2.1 ??(OCT 27) ?? Bilirubin ,Total ?1.1 ??(OCT 27) ?? Alk Phos ?78 ??(OCT 27) ?? ALT ?<7 ??(OCT 27) ?? AST ?24 ??(OCT 27) ?? Mag ?1.8 ??(NOV 02) ?1.7 ??(OCT 29) Lipase 26 ??(OCT 27) ?? PT ?13.4 ??(OCT 27) ?? INR ?1.27 ??(OCT 27) ?? Bedside Glucose 154 ??(NOV 04) 127 ??(NOV 04) Glucose,Plasma 176 ??(NOV 03) 178 ??(OCT 29) Electronically signed by:Madelyn Feliciano 11/05/23 14:18 Electronically cosigned by: Keyona Doshi MD 11/05/23 16:24 * Keyona Doshi MD: MODIFY Madelyn Feliciano: PERFORM Event Display: Progress Notes Authored Date: [id number] Hospital Course 63 y/o male with history of DMII, COPD, Parkinson disease, portal hypertension with esophageal varices. Multiple recent hospitalizations. Admitted to [facility] in??September for GI bleed. At that time, he had banding of esophageal varices by Dr. Montoya on 09/28/23 who recommended a repeat EGD in 3-4 weeks.? He was discharged to facility. He was subsequently hospitalized at [facility] for pneumonia and ascites.?He was sent to the ER from [facility].?? In the ER, he was found to have ascites and also a low Hgb of 7.4.?GI consulted.??Repeat EGD on 10/28 revealed 1 residual??grade 2??varix??with a red??Chavo sign that was endoscopically??treated??with the 1 band placement. Re commend continue nadolol 20 mg daily and no repeat surveillance endoscopy. Hgb has remained stable.s/p paracentesis on 10/28 with removal of??4.6L. Awaiting facility transfer. ?? Subjective Reports tired today but otherwise doing well. Denies chest pain, shortness of breath. Objective Vitals & Measurements ??Vital Signs (last 24 hrs)?Last Charted?Minimum?Maximum?Temp?98 ([facility] 20 11:06)?97.7 (MAR 20 07:15)?98.4 (MAR 20 04:27)?Heart Rate?78 (MAR 20 11:06)?58 (MAR 19 20:11)?78 (MAR 20 11:06)?Resp Rate?15 (MAR 20 11:06)?14 (MAR 20 07:15)?19 (MAR 19 20:11)?SBP?130 (MAR 20 11:06)?100 (MAR 19 23:06)?130 (MAR 20 11:06)?DBP?76 (MAR 20 11:06)?54 (MAR 23:06)?76 (MAR 20 11:06)?SpO2?94 (MAR 20 11:06)?94 (MAR 20 07:15)?97 (MAR 19 20:11)?O2?Room a ([facility] 20 14:54)?Room a (MAR 19 19:25)?Room a (MAR 19 19:25)?Weight?84.5 (MAR 20 04:37)?84.5 (MAR 20 04:37)?84.5 (MAR 20 04:37)?? Physical Exam General: Alert and oriented, No acute distress. Eye: Extraocular movements are intact, Normal conjunctiva HENT: Normocephalic, Normal hearing, Oral mucosa is moist Neck: Supple, Non-tender Respiratory: Lungs are clear to auscultation, Respirations are non-labored, Breath sounds are equal Cardiovascular: Normal rate, Regular rhythm, Good pulses equal in all extremities, Normal peripheral perfusion, No edema. Gastrointestinal: Soft, Non-tender, Non-distended, Normal bowel sounds Musculoskeletal: No swelling, No deformity Integumentary: Warm, Dry, [place], Intact, No pallor, No rash. Neurologic: Alert, Oriented, Normal sensory, Normal motor function, No focal deficits Psychiatric: Cooperative, Appropriate mood & affect Assessment/Plan 1.??GI bleed(Gastrointestinal hemorrhage, unspecified: K92.2) 2.??Anemia(Anemia, unspecified: D64.9) 3.??Esophageal varices(Esophageal varices without bleeding: I85.00) 4.??Portal hypertensive gastropathy(Portal hypertension: K76.6) 5.??Abdominal ascites(Other ascites: R18.8) 6.??Hypokalemia(Hypokalemia: E87.6) 7.??Thrombocytopenia(Thrombocytopenia, unspecified: D69.6) 8.??Diabetes mellitus, type 2(Type 2 diabetes mellitus without complications: E11.9) 9.??COPD mixed type(Chronic obstructive pulmonary disease, unspecified: J44.9) 10.??Parkinson disease(Parkinson's disease without dyskinesia, without mention of fluctuations: G20.A1) 11.??Cirrhosis(Unspecified cirrhosis of liver: K74.60) Other specified health status(Other specified health status: Z78.9) Type 2 diabetes with complication(Type 2 diabetes mellitus with unspecified complications: E11.8) Orders: [facility] H&H Plan of care - CXR??Stable. No hypoxia. Continue mucinex, tessalon perles. - Hgb stable - EGD on 10/28 revealed 1 residual??grade 2??varix??with a red??Chavo sign that was endoscopically??treated??with the 1 band placement. - Recommend continue nadolol 20 mg daily and no repeat surveillance endoscopy. - PPI BID. - Continue diet as tolerated. - S/p paracentesis on 10/28. - Continue spironolactone, Lasix. - Glycemic management- home Lantus dose with MDSSI, empagliflozin, linagliptin. - Continue carbidopa-levodopa. - SW following for return to facility. Awaiting insurance auth. ?? VTE proph: SCDs Full code ?? Plan of care in collaboration with Dr. Doshi. ? ATTENDING NOTE The patient???s history, exam findings, diagnostics, and a summary??was reviewed in detail with?? Madelyn??Yessica BEARD. I??have seen and examined this patient??independently of above. ??I agree with HPI as documented. My personal exam reveals findings consistent with those documented. All diagnosticstudies were reviewed and discussed. I confirm diagnosis as documented by the Physician Lead Pl Sql Developer. The care plan articulated was made after review of all data and??consistent with our discussion of the patient???s care ?? Keyona Doshi MD?? Other Medications Medications (15) Active Scheduled: (15) aaMAR Note ??DC if...., UNSPECIFIED-See comments, Unscheduled carbidopa-levodopa IR *TCM* 25 mg-100 mg TAB ??1 tab, By mouth, TIDWM (three times a day with meals) empagliflozin 10 mg TAB ??10 mg 1 tab, By mouth, Daily furosemide 40 mg TAB ??40 mg 1 tab, By mouth, Daily gabapentin 100 mg CAP ??100 mg 1 cap, By mouth, TID guaiFENesin LA 600 mg TAB ??600 mg 1 tab, By mouth, BID insulin GLARgine (LanTUS) 100 units/mL 3 mL PEN ??25 Units 0.25 mL, SubQ, at bedtime insulin lispro (HumaLOG) 100 units/mL 3 mL PEN ??Medium dose scale, SUBQ, With Meals & Bedtime lactulose 20 g/30 mL soln UD CUP ??20 g 30 mL, By mouth, BID linagliptin 5 mg TAB ??5 mg 1 tab, By mouth, Daily miconazole 2% topical POWDER ??1 application, Topical, QID nadolol 40 mg TAB ??20 mg 0.5 tab, By mouth, Daily pantoprazole 40 mg TAB ??40 mg 1 tab, By mouth, BID sodium chloride 0.9% INJ SYR 5 mL ??5 mL, IVP, Q12H spironolactone *HAZ* 25 mg TAB ??25 mg 1 tab, By mouth, Daily Continuous: (0) Lab Results Labs??(Last two charted values on this encounter) WBC 5.0 ??(NOV 01) 2.9 ??(OCT 29) Hgb 9.0 ??(NOV 03) 8.3 ??(NOV 01) Hct 29.5 ??(NOV 03) 27.7 ??(NOV 01) Platelets 82 ??(NOV 01) 75 ??(OCT 29) Na 136 ??(NOV 03) 135 ??(OCT 29) K 4.2 ??(NOV 03) 3.8 ??(OCT 29) Cl 106 ??(NOV 03) 105 ??(OCT 29) CO2 27 ??(NOV 03) 28 ??(OCT 29) BUN 12 ??(NOV 03) 14 ??(OCT 29) Cr 0.77 ??(NOV 03) 0.79 ??(OCT 29) ProteinT ?6.8 ??(OCT 27) ?? Albumin ?2.1 ??(OCT 27) ?? Bilirubin ,Total ?1.1 ??(OCT 27) ?? Alk Phos ?78 ??(OCT 27) ?? ALT ?<7 ??(OCT 27) ?? AST ?24 ??(OCT 27) ?? Mag ?1.8 ??(NOV 02) ?1.7 ??(OCT 29) Lipase 26 ??(OCT 27) ?? PT ?13.4 ??(OCT 27) ?? INR ?1.27 ??(OCT 27) ?? Bedside Glucose 145 ??(NOV 03) 171 ??(NOV 02) Glucose,Plasma 176 ??(NOV 03) 178 ??(OCT 29) Electronically signed by:Madelyn Feliciano 11/04/23 15:43 Electronically cosigned by: Keyona Doshi MD 11/04/23 20:46 * Keyona Doshi MD: MODIFY Madelyn Feliciano: PERFORM Event Display: Progress Notes Authored Date: [id number] Hospital Course 63 y/o male with history of DMII, COPD, Parkinson disease, portal hypertension with esophageal varices. Multiple recent hospitalizations. Admitted to [facility] in??September for GI bleed. At that time, he had banding of esophageal varices by Dr. Montoya on 09/28/23 who recommended a repeat EGD in 3-4 weeks.? He was discharged to facility. He was subsequently hospitalized at [facility] for pneumonia and ascites.?He was sent to the ER from [facility].?? In the ER, he was found to have ascites and also a low Hgb of 7.4.?GI consulted.??Repeat EGD on 10/28 revealed 1 residual??grade 2??varix??with a red??Chavo sign that was endoscopically??treated??with the 1 band placement. Re commend continue nadolol 20 mg daily and no repeat surveillance endoscopy. Hgb has remained stable.s/p paracentesis on 10/28 with removal of??4.6L. Awaiting facility transfer. ?? Subjective Reports doing well. States cough noted today. Nonproductive. Denies chest pain, shortness of breath. Objective Vitals & Measurements ??Vital Signs (last 24 hrs)?Last Charted?Minimum?Maximum?Temp?98.3 (NOV 02 15:17)?97.5 (NOV 02 03:10)?98.6 (NOV 01 22:35)?Heart Rate?56 (NOV 02 15:17)?55 (NOV 02 11:39)?63 (NOV 01 15:23)?Resp Rate?18 (NOV 02 15:17)?16 (NOV 01 19:43)?18 (NOV 02 03:10)?SBP?C??87(NOV 02 15:17)?C??87(NOV 02 15:17)?117 (NOV 02 07:33)?DBP?54 (NOV 02 15:17)?51 (NOV 02 11:39)?67 (NOV 02 07:33)?SpO2?96 (NOV 02 15:17)?93 (NOV 02 07:33)?97 (NOV 01 15:23)?O2?Room a (NOV 02 15:17)?Room a (NOV 01 15:23)?Room a (NOV 01 15:23)?Weight?87.6 (NOV 02 03:10)?87.6 (NOV 02 03:10)?87.6 (NOV 02 03:10)?? Physical Exam General: Alert and oriented, No acute distress. Eye: Extraocular movements are intact, Normal conjunctiva HENT: Normocephalic, Normal hearing, Oral mucosa is moist Neck: Supple, Non-tender Respiratory: Lungs are clear to auscultation, Respirations are non-labored, Breath sounds are equal Cardiovascular: Normal rate, Regular rhythm, Good pulses equal in all extremities, Normal peripheral perfusion, No edema. Gastrointestinal: Soft, Non-tender, Non-distended, Normal bowel sounds Musculoskeletal: No swelling, No deformity Integumentary: Warm, Dry, [place], Intact, No pallor, No rash. Neurologic: Alert, Oriented, Normal sensory, Normal motor function, No focal deficits Psychiatric: Cooperative, Appropriate mood & affect Assessment/Plan 1.??GI bleed(Gastrointestinal hemorrhage, unspecified: K92.2) 2.??Anemia(Anemia, unspecified: D64.9) 3.??Esophageal varices(Esophageal varices without bleeding: I85.00) 4.??Portal hypertensive gastropathy(Portal hypertension: K76.6) 5.??Abdominal ascites(Other ascites: R18.8) 6.??Hypokalemia(Hypokalemia: E87.6) 7.??Thrombocytopenia(Thrombocytopenia, unspecified: D69.6) 8.??Diabetes mellitus, type 2(Type 2 diabetes mellitus without complications: E11.9) 9.??COPD mixed type(Chronic obstructive pulmonary disease, unspecified: J44.9) 10.??Parkinson disease(Parkinson's disease without dyskinesia, without mention of fluctuations: G20.A1) 11.??Cirrhosis(Unspecified cirrhosis of liver: K74.60) Other specified health status(Other specified health status: Z78.9) Type 2 diabetes with complication(Type 2 diabetes mellitus with unspecified complications: E11.8) Orders: benzonatate, 200 mg = 2 cap, CAP, By mouth, TID, PRN, Cough, Start Date: 11/03/23 11:44:00 CDT, Duration: 90 Days, Stop date 02/01/24 11:43:00 CDT, Routine, Disp Location: [address] guaiFENesin, 600 mg = 1 tab, SR TAB, By mouth, BID, Start Date: 11/03/23 12:08:00 CDT, Duration: 90Days, Stop date 02/01/24 8:59:00 CDT, Routine, Disp Location: [address], [facility] BMP H&H XR Chest PA Lateral Left Routine Plan of care - CXR??ordered, reviewed. Stable. No hypoxia. - Continue mucinex, tessalon perles. - Hgb stable yesterday. Will recheck in AM. - EGD on 10/28 revealed 1 residual??grade 2??varix??with a red??Chavo sign that was endoscopically??treated??with the 1 band placement. - Recommend continue nadolol 20 mg daily and no repeat surveillance endoscopy. - PPI BID. - Continue diet as tolerated. - S/p paracentesis on 10/28. - Continue spironolactone, Lasix. - Glycemic management- home Lantus dose with MDSSI, empagliflozin, linagliptin. - Continue carbidopa-levodopa. - SW following for return to facility. ?? VTE proph: SCDs Full code ?? Plan of care in collaboration with Dr. Doshi. ? ATTENDING NOTE The patient???s history, exam findings, diagnostics, and a summary??was reviewed in detail with?? Mykelnn??Yessica BEARD. I??have seen and examined this patient??independently of above. ??I agree with HPI as documented. My personal exam reveals findings consistent with those documented. All diagnosticstudies were reviewed and discussed. I confirm diagnosis as documented by the Physician Lead Pl Sql Developer. The care plan articulated was made after review of all data and??consistent with our discussion of the patient???s care ?? Keyona Doshi MD? Other Medications Medications (15) Active Scheduled: (15) aaMAR Note ??DC if...., UNSPECIFIED-See comments, Unscheduled carbidopa-levodopa IR *TCM* 25 mg-100 mg TAB ??1 tab, By mouth, TIDWM (three times a day with meals) empagliflozin 10 mg TAB ??10 mg 1 tab, By mouth, Daily furosemide 40 mg TAB ??40 mg 1 tab, By mouth, Daily gabapentin 100 mg CAP ??100 mg 1 cap, By mouth, TID guaiFENesin LA 600 mg TAB ??600 mg 1 tab, By mouth, BID insulin GLARgine (LanTUS) 100 units/mL 3 mL PEN ??25 Units 0.25 mL, SubQ, at bedtime insulin lispro (HumaLOG) 100 units/mL 3 mL PEN ??Medium dose scale, SUBQ, With Meals & Bedtime lactulose 20 g/30 mL soln UD CUP ??20 g 30 mL, By mouth, BID linagliptin 5 mg TAB ??5 mg 1 tab, By mouth, Daily miconazole 2% topical POWDER ??1 application, Topical, QID nadolol 40 mg TAB ??20 mg 0.5 tab, By mouth, Daily pantoprazole 40 mg TAB ??40 mg 1 tab, By mouth, BID sodium chloride 0.9% INJ SYR 5 mL ??5 mL, IVP, Q12H spironolactone *HAZ* 25 mg TAB ??25 mg 1 tab, By mouth, Daily Continuous: (0) Lab Results Labs??(Last two charted values on this encounter) WBC 5.0 ??(NOV 01) 2.9 ??(OCT 29) Hgb 8.3 ??(NOV 01) 8.2 ??(OCT 29) Hct 27.7 ??(NOV 01) 27.6 ??(OCT 29) Platelets 82 ??(NOV 01) 75 ??(OCT 29) Na 135 ??(OCT 29) 139 ??(OCT 27) K 3.8 ??(OCT 29) 4.1 ??(MAR 14) Cl 105 ??(OCT 29) 105 ??(OCT 27) CO2 28 ??(OCT 15) 29 ??(OCT 27) BUN 14 ??(OCT 29) 12 ??(OCT 27) Cr 0.79 ??(OCT 29) 0.93 ??(OCT 27) ProteinT ?6.8 ??(OCT 27) ?? Albumin ?2.1 ??(OCT 27) ?? Bilirubin ,Total ?1.1 ??(OCT 27) ?? Alk Phos ?78 ??(OCT 27) ?? ALT ?<7 ??(OCT 27) ?? AST ?24 ??(OCT 27) ?? Mag ?1.8 ??(NOV 02) ?1.7 ??(OCT 29) Lipase 26 ??(OCT 27) ?? PT ?13.4 ??(OCT 27) ?? INR ?1.27 ??(OCT 27) ?? Bedside Glucose 204 ??(NOV 02) 113 ??(NOV 02) Glucose,Plasma 178 ??(OCT 29) 213 ??(OCT 27) Diagnostic Results RADIOLOGY RESULTS (Past 24 hrs):? RADIOGRAPHY ?? XR Chest PA Lateral Left Routine - 11/03/23 11:28 ( Alexey HERNANDEZ, Rodrigo Tipton )?? PROCEDURE INFORMATION: Exam: XR Chest Exam date and time: 11/03/2023 11:28 AM Age: 63 years old Clinical indication: Anemia, unspecified; Thrombocytopenia, unspecified; Type 2 diabetes mellitus with unspecified complications; Type 2 diabetes mellitus without complications; Hypokalemia; Esophageal varices without bleeding; Chronic obstructive pulmonary disease, unspecified; Unspecified cirrhosis ofliver; Portal hypertension; Gastrointestinal hemorrhage, unspecified; Other ascites; Localized edema; Parkinson's disease without dyskinesia, without mention of fluctuations; Other reduced mobility; Other specified health status; Additional info: Cough and SOB TECHNIQUE: Imaging protocol: Radiologic exam of the chest. ??Views: 2 views. ??COMPARISON: CR XR Chest PA Lateral Left Routine 10/28/2023 8:48 PM FINDINGS: Lungs: Lung aeration has slightly improved. ??Perihilar reticular opacities persistin the left lung. ??Bibasilar curvilinear atelectasis. ??Pleural spaces: No pleural effusion. ??No pneumothorax. ??Heart/Mediastinum: No abnormalities. ??No cardiomegaly. ??No pulmonary vascular congestion. ?? Bones/joints: No fractures or bone lesions. ??IMPRESSION: 1. Persistent left perihilar reticular opacities may represent resolving pneumonia or possibly pulmonary edema. ??2. Lung aeration has improved. ??3. Bibasilar atelectasis. ??Electronically signed by: Rodrgio Blackburn MD, ??[employer], 11/03/2023 12:35 Electronically signed by:Madelyn Feliciano 11/03/23 15:21 Electronically cosigned by: Keyona Doshi MD 11/03/23 17:26 Surgical operation note * Mikal HERNANDEZ, Sara Hanks: PERFORM Event Display: Operative Report Authored Date: [id number] Preoperative Diagnosis 63-year-old??male??with a known history??bleeding esophageal??varices status post??EGD with banding??last month. ?? He now presents??to the hospital??with??decompensated cirrhosis??with a ascites requiring large??volume paracentesis.?? His hemoglobin also??dropped down??to 6.6.?? He denies any??over t signs??of GI bleeding. ??An upper endoscopy??is being??carried??out??to investigate??his??anemia??and??to offer further endoscopic banding??for his known??diagnosis esophageal varices? Postoperative Diagnosis 1. Scarring??in the distal??esophagus??from previous esophageal??banding 2. One column??of??grade 2??varix??with a red??Chavo sign without any active??bleeding this was endoscopically treated??with placement of??1 band no bleeding??was precipitated 3. Otherwise??examination of the stomach and duodenal??was unremarkable without any presence??of any fresh??red blood or??dark blood??seen on today's??upper endoscopy. ? Operation EGD??with banding?? Surgeon(s) Dr Sara Ren Anesthesia Moderate sedation, Versed 6 mg??IV, fentanyl??75 mcg IV, total sedation??time 17 minutes. ? Estimated Blood Loss None Urine Output None Findings The risks??benefits and alternatives explained??to the patient including??infection??bleeding perforation complications??of anesthesia possible??surgery possible incompletion??of endoscopy after informed consent??was obtained??from the patient the standard upper endoscope??was introduced into the mouth??and easily advanced??down into??the esophagus??. ??There was scarring from??previous esophageal??banding. ?? There was only??1 column??of esophageal??varix grade 2 with a??red??Chavo??sign without any bleeding.?? No evidence??of any??ulcerations??were seen on today's upper endoscopy.?? There??was no evidence??of any fresh red??blood or??dark??blood retained??in the esophagus.?? Scope??was advanced??into??the stomach where examination of the gastric mucosa??was unremarkable.?? On retroflexion??no evidence of any??gastric??varices??were seen.?? Examination of the 1st 2nd and 3rd portion??ofthe duodenal??was unremarkable.?? The scope??was then??withdrawn.?? The band??ligated??was attachedand the scope??was then??reintroduced. ?? One??band was then applied??to the solitary varix??with a red Chavo sign.?? No bleeding??was precipitated. ?? Otherwise patient tolerated??the??procedure well.? Recommendation ?? 1. Nadolol??20 mg daily 2. On today's??upper endoscopy he only??had??1 residual??grade 2??varix??with a red??Chavo sign thatwas endoscopically??treated??with the 1 band placement. ??At??this point patient does not??require?? any??repeat??surveillance??endoscopy??and banding. 3.??Full liquid??diet??now advance to soft diet tomorrow.? Specimen(s) None Complications Not Medication reconciliation completed on this patient today Electronically signed by:Sara Ren MD 10/29/23 13:48 History and physical note * Antwan Farris DO: MODIFY, PERFORM, MODIFY Event Display: History and Physicals Authored Date: [id number] Chief Complaint From [facility]. Pt left [facility] yesterday, dx with ascites and pneumonia, but refused paracentesis. SNF sent here for further eval of liver. Pt reports SOB. Care Team Primary Care Physician??- PCP, NONE Attending Physician - Oz Wong MD Arrival Date/Time??- 10/28/2023 20:19:00 History of Present Illness 63 y/o male was sent to the ER from [facility] where he was getting skilled care.?? Prior to going to this facility, he was at [facility] where he was treated for ascites and pneumonia.?? He states that he's been in and out of the hospital and SNF for the past 3 months.?? In the ER, he was found to have ascites and also a low HgB of 7.4.?? His last HgB here was 8.9 on 09.30.23.?? At that time, he had banding of esophageal varices by Dr. Montoya on 09.28.23 who recommended a repeat EGD in 3-4 weeks.?? When seen by me, the patient denies any nausea or hematemesis.?? He also denies any blood in his stool.?? He has no other complaints.?? He will be admitted to the hospital for care and further treatment. ?? Review of Systems GEN:?? No temp.?? Weakness. HEENT:?? No complaints. CV:?? No CP. RESP:?? No SOB. GI:?? No NVD. :?? No complaints. MUSCULOSKELETAL:?? No myalgias. INTEGUMENTARY:?? No rashes. NEURO:?? Hx of hepatic encephalopathy.?? Hx of Parkinson's disease. PSYCH:?? No hx. ENDOCRINE:?? Diabetes. HEMATOLOGIC:?? Anemia. OTHER:?? No other medical concerns. ?? Physical Exam Vitals & Measurements T:??98.7?F?? TMIN:??98?F?? TMAX:??98.7?F?? HR:??81?? RR:??20?? BP:??119/66?? SpO2:??95%?? WT:??102??kg?? GEN:?? Alert, Orientated x 3, NAD. HEENT:?? NCAT, EOMI, PERRLAB, Mouth nl, No JVD. HRRR w/o murmur. LCTAB. ABD:?? Distended w/ tense ascites.?? No masses.?? Nontender. /RECTAL:?? Deferred. EXT w/ 1+ dependent edema of lower legs w/ stasis changes. NEURO:?? Intact and nonfocal. OSTEOPATHIC:?? Nl spinal curves. SKIN:?? Warm and dry. ?? Assessment/Plan 1.??GI bleed(Gastrointestinal hemorrhage, unspecified: K92.2) 2.??Anemia(Anemia, unspecified: D64.9) 3.??Esophageal varices(Esophageal varices without bleeding: I85.00) 4.??Portal hypertensive gastropathy(Portal hypertension: K76.6) 5.??Abdominal ascites(Other ascites: R18.8) 6.??Hypokalemia(Hypokalemia: E87.6) 7.??Thrombocytopenia(Thrombocytopenia, unspecified: D69.6) 8.??Diabetes mellitus, type 2(Type 2 diabetes mellitus without complications: E11.9) 9.??COPD mixed type(Chronic obstructive pulmonary disease, unspecified: J44.9) 10.??Parkinson disease(Parkinson's disease without dyskinesia, without mention of fluctuations: G20.A1) 11.??Cirrhosis(Unspecified cirrhosis of liver: K74.60) ?? PLAN: ?? He will be admitted to the hospital for care and further treatment.?? Based upon his history and myexam, he will need greater than 2 midnights of care.?? I am concerned that he has an active GI bleed.?? His history of esophageal varices, portal hypertension and his lower HgB adds credibility to this concern.?? I will order serial Hgb and also start a Protonix drip.?? In addition, I will consult Parminder Ren (GI) and make the patient NPO.?? I think that he will need an EGD to evaluate for a GI bleed that could be the root cause of his worsening anemia.?? I also will order a paracentesis.?? I think that he does not have SBP but has worsening ascites due to his cirrhosis.?? I will ask for records from [facility].?? He apparently refused a paracentesis there.?? However, when I spoke with him at time of admission, he was in favor of this intervention here.?? I will order serial HgB and he may need a transfusion if his HgB drops to 7 or less.?? I also will replace his potassium with IV fluids and repeat labs in the AM.?? His home meds will be reconciled once they are ready for review.?? Plan for discharge is likely to SNF pending his status.?? Patient and staff understand plan. ?? I spent 75 min on his case (discussion w/ ER doctor, chart review, my exam, medical decision makingand documentation). ?? UPDATE ([id number]):?? On-call ALEX had already ordered a unit of PRBCs.?? I reconciled his home meds.?? I will resume the diuretics for his ascites and stop the IV fluids.?? I also will order lymphedemaeval and tx for his legs. Problem List/Past Medical History Ongoing Allergy to alpha-gal Bilateral lower extremity edema COPD mixed type Diabetes mellitus, type 2 Esophageal varices Ex-smoker NPH (normal pressure hydrocephalus) Pancytopenia Parkinson disease Portal hypertensive gastropathy Upper GI bleed Procedure/Surgical History ???Gastroscopy - Endo with Anesthesia (09/28/2023)???Gastroscopy - Endo (09/19/2023) Medications Home Medications (12) Active Carafate 1 [...] Status: Former smoker. ??Smokeless tobacco use: Never. Family History None. ?? Lab Results Labs??(Last two charted values on this encounter) WBC 5.0 ??(OCT 27) ?? Hgb 7.4 ??(OCT 27) ?? Hct 25.5 ??(OCT 27) ?? Platelets 107 ??(OCT 27) ?? Na 139 ??(OCT 27) ?? K 3.2 ??(OCT 27) ?? Cl 105 ??(OCT 27) ?? CO2 29 ??(OCT 27) ?? BUN 12 ??(OCT 27) ?? Cr 0.93 ??(OCT 27) ?? ProteinT ?6.8 ??(OCT 27) ?? Albumin ?2.1 ??(OCT 27) ?? Bilirubin ,Total ?1.1 ??(OCT 27) ?? Alk Phos ?78 ??(OCT 27) ?? ALT ?<7 ??(OCT 27) ?? AST ?24 ??(OCT 27) ?? Lipase 26 ??(OCT 27) ?? PT ?13.4 ??(OCT 27) ?? INR ?1.27 ??(OCT 27) ?? Glucose,Plasma 213 ??(OCT 27) ?? Diagnostic Results Radiology Results:?? CT Abd Pelvis w Contrast - ??Auth (Verified) - 10/29/23 00:10 ( Angel HERNANDEZ, Prudencio )?? IMPRESSION: 1. ??Profound liver disease with cirrhosis. ?? Multiple internal areas of hepatic heterogeneity and hypodensity may be due to perfusion artifacts, cirrhotic or regenerative nodules, hemangiomas, or other mass lesions. ?? These will need follow-up. ?? 2. ??Diffuse advanced 3rd spacing of fluid with minute right pleural effusion, moderate ascites, etc. ?? Extensive variceal formation. ?? This patient is at increased risk for a variceal bleed. ?? 3. ??The colon is rather fecal filled. ?? No small bowel obstruction, abscess or free air. ?? Concern for esophagitis. ?? 4. ??Other chronic findings above. ?? COMMENTS: Consistent with the [employer]'s Incidental Findings Committee white paper (J Am Kam Radiol 2018): Any incidental renal lesion less than 1 cm or classified as too small to characterize, or any incidental cystic renal lesion characterized as simple-appearing, is likely benign. ?? No follow-up imaging is recommended for these lesions per consensus recommendations based on imaging criteria. ?? Electronically signed by: Prudencio Ortiz MD, ??[facility], 10/29/2023 0:43 ?? XR Chest PA Lateral Left Routine - ??Auth (Verified) - 10/28/23 20:48 ( Angel HERNANDEZ, Prudencio )?? IMPRESSION: 1. Large heart with hazy areas of bibasilar atelectasis, edema or scarring. ??Low lung volumes. ??2. Recommend 1 or 2 day follow-up repeat exam with better inspiration. ??Electronically signed by: Prudencio Ortiz MD, ??[facility], 10/28/2023 22:15 Electronically signed by:Antwan Farris DO 10/29/23 02:07 Electronically cosigned by: Antwan Farris DO 10/29/23 05:16 Electronically cosigned by: Antwan Farris DO 10/29/23 05:16 Discharge summary * Keyona Doshi MD: MODIFY Keyona Doshi MD: MODIFY Event Display: Discharge Summary Authored Date: [id number] Discharge Information Admit date:10/28/2023 Discharge date:11/06/2023 Primary Care Physician:PCP, NONE Attending Physician:Keyona Doshi MD Consulting Physician:;Sara Ren MD Admitting Physician:Antwan Farris DO Discharge Diagnosis ABLA (acute blood loss anemia) GI bleed Anemia Esophageal varices Portal hypertensive gastropathy Abdominal ascites Hypokalemia Thrombocytopenia Diabetes mellitus, type 2 COPD mixed type Parkinson disease Cirrhosis Other specified health status Type 2 diabetes with complication Procedures During Visit Procedures: Shilpa HERNANDEZ, Carmen Surgeon - Primary?? 10-29-23 13:31??Gastroscopy - Endo??with bleed control- 1 band placed?? Sara Ren MD Surgeon - Primary?? Admission History GI bleed, anemia Hospital Course 63 y/o male with history of DMII, COPD, Parkinson disease, portal hypertension with esophageal varices. Multiple recent hospitalizations. Admitted to [facility] in??September for GI bleed. At that time, he had banding of esophageal varices by Dr. Montoya on 09/28/23 who recommended a repeat EGD in 3-4 weeks.? He was discharged to facility. He was subsequently hospitalized at [facility] for pneumonia and ascites.?He was sent to the ER from [facility].?? In the ER, he was found to have ascites and also a low Hgb of 7.4.?GI consulted.??Repeat EGD on 10/28 revealed 1 residual??grade 2??varix??with a red??Chavo sign that was endoscopically??treated??with the 1 band placement. Re commend continue nadolol 20 mg daily and no repeat surveillance endoscopy. Hgb has remained stable.s/p paracentesis on 10/28 with removal of??4.6L. ??Social??work??was consulted for facility??placement.?? Patient was transferred??to skilled??nursing facility in stable condition.?? He is to follow-up with??GI as needed. Vitals & Measurements ??Vital Signs (last 24 hrs)?Last Charted?Minimum?Maximum?Temp?98.2 (MAR 11:11)?97.8 (NOV 05 03:49)?98.2 (NOV 05 11:11)?Heart Rate?62 (MAR 11:11)?54 (MAR 07:23)?62 (MAR 22:53)?Resp Rate?16 (MAR 07:23)?16 (MAR 22:53)?17 (MAR 16:07)?SBP?95 (MAR 11:11)?95 (MAR 11:11)?120 (MAR 16:07)?DBP?57 (MAR 11:11)?53 (MAR 22:53)?70 (MAR 16:07)?SpO2?96 (MAR 11:11)?93 (MAR 07:23)?99 (MAR 16:07)?O2?Room a (NOV 05 07:44)?Room a (MAR 16:07)?Room a (MAR 16:07)?Weight?85.2 (NOV 05 03:49)?85.2 (NOV 05 03:49)?85.2 (NOV 05 03:49)?? Physical Exam General: Alert and oriented, No acute distress. Eye: Extraocular movements are intact, Normal conjunctiva HENT: Normocephalic, Normal hearing, Oral mucosa is moist Neck: Supple, Non-tender Respiratory: Lungs are clear to auscultation, Respirations are non-labored, Breath sounds are equal Cardiovascular: Normal rate, Regular rhythm, Good pulses equal in all extremities, Normal peripheral perfusion, No edema. Gastrointestinal: Soft, Non-tender, Non-distended, Normal bowel sounds Musculoskeletal: No swelling, No deformity Integumentary: Warm, Dry, [place], Intact, No pallor, No rash. Neurologic: Alert, Oriented, Normal sensory, Normal motor function, No focal deficits Psychiatric: Cooperative, Appropriate mood & affect Subspecialty Recommendations ??No Data Available Patient Discharge Condition Stable ?? Future Appointments ?[facility] ?[address], [address]??[place],??[place],??[address] ?Phone:?Fax:?Appt. Date:??11/09/2023?15:00 ?Scheduled Provider:??Jarod Marin MD ?[facility] ?[address]??[place],??[place],??[address] ?Phone:?Fax:?Appt. Date:??01/12/2024?15:00 ?Scheduled Provider:??Jarod Marin MD ?? New medications Al hydroxide/Mg hydroxide/simethicone: 30 mL,By mouth,PCHS (after meals and at bedtime),PRN (as needed for indigestion) SITagliptin: 100 mg,By mouth,Daily acetaminophen: 650 mg,By mouth,Q4H,PRN (Pain Mild (1-3) or Temp (2nd Line)) baclofen: 10 mg,1 tab,By mouth,TID,PRN (Muscle Spasms) bisacodyl: 20 mg,4 tab,By mouth,Daily,PRN (Constipation) bisacodyl: 10 mg,1 supp,Rectally,Daily,PRN (for constipation) magnesium hydroxide: 2.4 g,30 mL,By mouth,Daily,PRN (as needed for constipation) nystatin topical: 1 application,Topical,QID ?? Discharge Orders Steno Typist 10/29/23 2:59:12 CDT Order Comment: Ordered by Discern Expert ?? Discharge 10/30/23 7:42:00 CDT, Home/Self Care ? Discharge Work/School/Daycare Restrictions 10/30/23 7:42:00 CDT, Return to work in: No Restrictions ? Discharge Follow Up 10/30/23 7:42:00 CDT, Provider/Time: PCP in one week ? Discharge Diet 10/30/23 7:42:00 CDT, Discharge Diet: Regular ? Discharge Activity 10/30/23 7:42:00 CDT, As tolerated ? Discharge 10/30/23 9:28:00 CDT, Usp Facility ? Discharge Work/School/Daycare Restrictions 10/30/23 9:28:00 CDT, Return to work in: No Restrictions ? Discharge Follow Up 10/30/23 9:28:00 CDT, Provider/Time: PCP in one week ? Discharge Diet 10/30/23 9:28:00 CDT, Discharge Diet: Regular ? Discharge Activity 10/30/23 9:28:00 CDT, As tolerated ? Facility Discharge Plan 4 weeks, 10/30/23 9:28:00 CDT ? Facility Discharge Occupational Therapy Eval and Treat 10/30/23 9:28:00 CDT ? Facility Discharge Physical Therapy Eval and Treat 10/30/23 9:28:00 CDT ? Facility Discharge Code Status 10/30/23 9:28:00 CDT, Full Code ?? ATTENDING NOTE The patient???s history, exam findings, diagnostics, and above discharge??summary??was reviewed in detail with?? Mykelnn??Yessica??PA. I??have seen and examined this patient??independently of above. ??I agree with documented discharge instructions, medications and follow up plan. ??My personal examreveals findings consistent with those documented. All diagnostic studies were reviewed and discussed. I confirm discharge ??diagnosis as documented by the Physician Lead Pl Sql Developer. The discharge care plan articulated was made after review of all data??consistent with our discussion of the patient???s care.?? Patient seen and examined today, he is doing well has no complaints.?? No abdominal pain, nausea vomiting.?? No melena or bloody stools.?? Patient is medically stable for discharge to the facility.?? H&H has been stable with no evidence of overt GI bleed.?? Agree with discharge summary asabove.?? Discharge time more than 30 minutes. ?? Keyona Doshi MD ? Medications Home Medications (19) Active baclofen 10 mg oral tablet??10 mg = 1 tab, PRN, By mouth, TID carbidopa-levodopa 25 mg-100 mg oral tablet??1 tab, By mouth, TIDWM (three times a day with meals) Dulcolax Laxative 10 mg rectal suppository??10 mg = 1 supp, PRN, Rectally, Daily Dulcolax Laxative 5 mg oral tablet??20 mg = 4 tab, PRN, By mouth, Daily Farxiga 5 mg oral tablet??5 mg = 1 tab, By mouth, Daily gabapentin 250 mg/5 mL oral solution??100 mg = 2 mL, By mouth, TID insulin lispro (Humalog)??Medium dose scale, SUBQ, ACHS (before meals and at bedtime) Januvia 100 mg oral tablet??100 mg = 1 tab, By mouth, Daily Januvia 100 mg oral tablet??100 mg, By mouth, Daily lactulose??20 g, By mouth, BID LanTUS 100 units/mL subcutaneous solution??25 Units, SubQ, at bedtime Lasix 40 mg oral tablet??40 mg = 1 tab, By mouth, Daily Milk of Magnesia 8% oral suspension??2.4 g = 30 mL, PRN, By mouth, Daily Mylanta??30 mL, PRN, By mouth, PCHS (after meals and at bedtime) nadolol 40 mg oral tablet??20 mg = 0.5 tab, By mouth, Daily nystatin topical 100,000 units/g powder??1 application, Topical, QID pantoprazole 40 mg oral delayed release tablet??40 mg = 1 tab, By mouth, BID spironolactone 25 mg oral tablet??25 mg = 1 tab, By mouth, Daily Tylenol??650 mg, PRN, By mouth, Q4H Medication reconciliation completed on this patient today Pending Labs PENDING LABS No Laboratory Orders Pending ? Lab Results Labs??(Last two charted values on this encounter) WBC 5.0 ??(NOV 01) 2.9 ??(OCT 29) Hgb 9.0 ??(NOV 03) 8.3 ??(NOV 01) Hct 29.5 ??(NOV 03) 27.7 ??(NOV 01) Platelets 82 ??(NOV 01) 75 ??(OCT 29) Na 136 ??(NOV 03) 135 ??(OCT 29) K 4.2 ??(NOV 03) 3.8 ??(OCT 29) Cl 106 ??(NOV 03) 105 ??(OCT 29) CO2 27 ??(NOV 03) 28 ??(OCT 29) BUN 12 ??(NOV 03) 14 ??(OCT 29) Cr 0.77 ??(NOV 03) 0.79 ??(OCT 29) ProteinT ?6.8 ??(OCT 27) ?? Albumin ?2.1 ??(OCT 27) ?? Bilirubin ,Total ?1.1 ??(OCT 27) ?? Alk Phos ?78 ??(OCT 27) ?? ALT ?<7 ??(OCT 27) ?? AST ?24 ??(OCT 27) ?? Mag ?1.8 ??(NOV 02) ?1.7 ??(OCT 29) Lipase 26 ??(OCT 27) ?? PT ?13.4 ??(OCT 27) ?? INR ?1.27 ??(OCT 27) ?? Bedside Glucose 211 ??(NOV 05) 87 ??(NOV 05) Glucose,Plasma 176 ??(NOV 03) 178 ??(OCT 29) Diagnostic Results Radiology Results:?? XR Chest PA Lateral Left Routine - 11/03/23 11:28 ( Alexey HERNANDEZ, Rodrigo Tipton )?? IMPRESSION: 1. Persistent left perihilar reticular opacities may represent resolving pneumonia or possibly pulmonary edema. ??2. Lung aeration has improved. ??3. Bibasilar atelectasis. ??Electronically signed by: Rodrigo Blackburn MD, ??[facility], 11/03/2023 12:35 ?? US Paracentesis Diagnostic - 10/29/23 17:48 ( Shilpa HERNANDEZ, Carmen )?? IMPRESSION: ??Successful ultrasound-guided paracentesis as described. Electronically signed by: Carmen Massey ??10/29/2023 5:48 PM ?? CT Abd Pelvis w Contrast - 10/29/23 00:10 ( Angel HERNANDEZ, Prudencio )?? IMPRESSION: 1. ??Profound liver disease with cirrhosis. ?? Multiple internal areas of hepatic heterogeneity and hypodensity may be due to perfusion artifacts, cirrhotic or regenerative nodules, hemangiomas, or other mass lesions. ?? These will need follow-up. ?? 2. ??Diffuse advanced 3rd spacing of fluid with minute right pleural effusion, moderate ascites, etc. ?? Extensive variceal formation. ?? This patient is at increased risk for a variceal bleed. ?? 3. ??The colon is rather fecal filled. ?? No small bowel obstruction, abscess or free air. ?? Concern for esophagitis. ?? 4. ??Other chronic findings above. ?? COMMENTS: Consistent with the [employer]'s Incidental Findings Committee white paper (J Am Kam Radiol 2018): Any incidental renal lesion less than 1 cm or classified as too small to characterize, or any incidental cystic renal lesion characterized as simple-appearing, is likely benign. ?? No follow-up imaging is recommended for these lesions per consensus recommendations based on imaging criteria. ?? Electronically signed by: Prudencio Ortiz MD, ??[facility], 10/29/2023 0:43 ?? XR Chest PA Lateral Left Routine - 10/28/23 20:48 ( Angel HERNANDEZ, Prudencio )?? IMPRESSION: 1. Large heart with hazy areas of bibasilar atelectasis, edema or scarring. ??Low lung volumes. ??2. Recommend 1 or 2 day follow-up repeat exam with better inspiration. ??Electronically signed by: Prudencio Ortiz MD, ??[facility], 10/28/2023 22:15 Other No qualifying data available. Airway Management No Data Available Electronically signed by:Madelyn Feliciano 11/06/23 15:05 Electronically cosigned by: Keyona Doshi MD 11/06/23 17:30 * Blake Fry MD: PERFORM Event Display: Discharge Summary Authored Date: [id number] Discharge Information Admit date:10/28/2023 Discharge date:10/30/2023 Primary Care Physician:PCP, NONE Attending Physician:Blake Fry MD Consulting Physician:;Sara Ren MD Admitting Physician:Antwan Farris DO Discharge Diagnosis GI bleed Anemia Esophageal varices Portal hypertensive gastropathy Abdominal ascites Hypokalemia Thrombocytopenia Diabetes mellitus, type 2 COPD mixed type Parkinson disease Cirrhosis Type 2 diabetes with complication Procedures During Visit Procedures: Carmen Massey MD Surgeon - Primary?? 10-29-23 13:31??Gastroscopy - Endo??with bleed control- 1 band placed?? Sara Ren MD Surgeon - Primary?? Hospital Course 63 y/o male was sent to the ER from [facility] where he was getting skilled care.?? Prior to going to this facility, he was at [facility] where he was treated for ascites and pneumonia.?? He states that he's been in and out of the hospital and SNF for the past 3 months.?? In the ER, he was found to have ascites and also a low HgB of 7.4.?? His last HgB here was 8.9 on 09.30.23.?? At that time, he had banding of esophageal varices by Dr. Montoya on 09.28.23 who recommended a repeat EGD in 3-4 weeks.?? When seen by me, the patient denies any nausea or hematemesis.?? He also denies any blood in his stool.?? He has no other complaints.?? He will be admitted to the hospital for care and further treatment.?? Status post??EGD??report reviewed no active bleeding??continue nonspecific beta-yocasta??discharging patient back??to facility tolerated food hemoglobin stable.?? EGD??report reviewed??H&H??is monitored tolerating diet discharge medication??list completed. >30 min spent in arranging d/c ? Vitals & Measurements ??Vital Signs (last 24 hrs)?Last Charted?Minimum?Maximum?Temp?97.2 (MAR 05:32)?97.2 (OCT 29 05:32)?98 (MAR 15 00:38)?Heart Rate?66 (OCT 29 05:32)?58 (MAR 17:37)?73 (MAR 13:35)?Resp Rate?20 (OCT 29 05:32)?C??11(MAR 13:30)?20 (MAR 13:20)?SBP?111 (MAR 05:32)?C??85(MAR 13:30)?114 (MAR 14 13:40)?DBP?67 (OCT 29 05:32)?51 (MAR 13:30)?68 (MAR 15 00:38)?SpO2?93 (MAR 15 05:32)?92 (MAR 14:18)?98 (MAR 14 13:20)?O2?Room a (OCT 29 05:32)?Room a (OCT 28 12:19)?Room a (OCT 28 12:19)?O2 Flow?2 (OCT 28 13:35)?2 (OCT 28 13:15)?2 (OCT 28 13:15)?? Physical Exam GEN: NAD, appears stated age HEENT: NCAT, MMM CV: RRR, S1, S2, no M/R/G, no edema, no JVD RESP: ??Diminished in bases ABD: ??Soft, minimal distention EXT: no C/C/E, MAEW NEURO: A&OX3, non-focal, sensation grossly intact Psych: Mood and affect appropriate, interacts well with staff SKIN: Warm, well-perfused, no overt rash/lesion ? Subspecialty Recommendations ??No Data Available Discharge Orders Steno Typist 10/29/23 2:59:12 CDT Order Comment: Ordered by Discern Expert ?? Discharge 10/30/23 7:42:00 CDT, Home/Self Care ? Discharge Work/School/Daycare Restrictions 10/30/23 7:42:00 CDT, Return to work in: No Restrictions ? Discharge Follow Up 10/30/23 7:42:00 CDT, Provider/Time: PCP in one week ? Discharge Diet 10/30/23 7:42:00 CDT, Discharge Diet: Regular ? Discharge Activity 10/30/23 7:42:00 CDT, As tolerated ? Discharge 10/30/23 9:28:00 CDT, [facility] Facility ? Discharge Work/School/Daycare Restrictions 10/30/23 9:28:00 CDT, Return to work in: No Restrictions ? Discharge Follow Up 10/30/23 9:28:00 CDT, Provider/Time: PCP in one week ? Discharge Diet 10/30/23 9:28:00 CDT, Discharge Diet: Regular ? Discharge Activity 10/30/23 9:28:00 CDT, As tolerated ? Facility Discharge Plan 4 weeks, 10/30/23 9:28:00 CDT ? Facility Discharge Occupational Therapy Eval and Treat 10/30/23 9:28:00 CDT ? Facility Discharge Physical Therapy Eval and Treat 10/30/23 9:28:00 CDT ? Facility Discharge Code Status 10/30/23 9:28:00 CDT, Full Code ? Medications Home Medications (19) Active baclofen 10 mg oral tablet??10 mg = 1 tab, PRN, By mouth, TID carbidopa-levodopa 25 mg-100 mg oral tablet??1 tab, By mouth, TIDWM (three times a day with meals) Dulcolax Laxative 10 mg rectal suppository??10 mg = 1 supp, PRN, Rectally, Daily Dulcolax Laxative 5 mg oral tablet??20 mg = 4 tab, PRN, By mouth, Daily Farxiga 5 mg oral tablet??5 mg = 1 tab, By mouth, Daily gabapentin 250 mg/5 mL oral solution??100 mg = 2 mL, By mouth, TID insulin lispro (Humalog)??Medium dose scale, SUBQ, ACHS (before meals and at bedtime) Januvia 100 mg oral tablet??100 mg = 1 tab, By mouth, Daily Januvia 100 mg oral tablet??100 mg, By mouth, Daily lactulose??20 g, By mouth, BID LanTUS 100 units/mL subcutaneous solution??25 Units, SubQ, at bedtime Lasix 40 mg oral tablet??40 mg = 1 tab, By mouth, Daily Milk of Magnesia 8% oral suspension??2.4 g = 30 mL, PRN, By mouth, Daily Mylanta??30 mL, PRN, By mouth, PCHS (after meals and at bedtime) nadolol 40 mg oral tablet??20 mg = 0.5 tab, By mouth, Daily nystatin topical 100,000 units/g powder??1 application, Topical, QID pantoprazole 40 mg oral delayed release tablet??40 mg = 1 tab, By mouth, BID spironolactone 25 mg oral tablet??25 mg = 1 tab, By mouth, Daily Tylenol??650 mg, PRN, By mouth, Q4H Medication reconciliation completed on this patient Pending Labs PENDING LABS C Body Fluids Paracentesis Fluid, Specimen, 10/29/23 2:40:00 CDT, Unit Collect, Routine, Print Label, 10/29/23 2:40:00 CDT, [id number], pp_rslts_call_set_order_encntr OccBldFeces (guaiac, NOT for screening) Feces, Specimen, 10/29/23 1:09:00 CDT, Unit Collect, Routine, 24, hr, 10/29/23 1:09:00 CDT Lab Results Labs??(Last two charted values on this encounter) WBC 2.9 ??(OCT 29) 5.0 ??(OCT 27) Hgb 8.2 ??(OCT 29) 7.9 ??(OCT 28) Hct 27.6 ??(OCT 29) 25.5 ??(OCT 27) Platelets 75 ??(OCT 29) 107 ??(OCT 27) Na 135 ??(OCT 29) 139 ??(OCT 27) K 3.8 ??(OCT 29) 4.1 ??(OCT 28) Cl 105 ??(OCT 29) 105 ??(OCT 27) CO2 28 ??(OCT 29) 29 ??(OCT 27) BUN 14 ??(OCT 29) 12 ??(OCT 27) Cr 0.79 ??(OCT 15) 0.93 ??(OCT 27) ProteinT ?6.8 ??(OCT 27) ?? Albumin ?2.1 ??(OCT 27) ?? Bilirubin ,Total ?1.1 ??(OCT 27) ?? Alk Phos ?78 ??(OCT 27) ?? ALT ?<7 ??(OCT 27) ?? AST ?24 ??(OCT 27) ?? Mag ?1.7 ??(OCT 15) ?? Lipase 26 ??(OCT 27) ?? PT ?13.4 ??(OCT 27) ?? INR ?1.27 ??(OCT 27) ?? Bedside Glucose 110 ??(OCT 15) 172 ??(OCT 14) Glucose,Plasma 178 ??(MAR 15) 213 ??(OCT 27) Diagnostic Results Radiology Results:?? US Paracentesis Diagnostic - 10/29/23 17:48 ( Shilpa HERNANDEZ, Carmen )?? IMPRESSION: ??Successful ultrasound-guided paracentesis as described. Electronically signed by: Carmen Massey ??10/29/2023 5:48 PM ?? CT Abd Pelvis w Contrast - 10/29/23 00:10 ( Angel HERNANDEZ, Prudencio )?? IMPRESSION: 1. ??Profound liver disease with cirrhosis. ?? Multiple internal areas of hepatic heterogeneity and hypodensity may be due to perfusion artifacts, cirrhotic or regenerative nodules, hemangiomas, or other mass lesions. ?? These will need follow-up. ?? 2. ??Diffuse advanced 3rd spacing of fluid with minute right pleural effusion, moderate ascites, etc. ?? Extensive variceal formation. ?? This patient is at increased risk for a variceal bleed. ?? 3. ??The colon is rather fecal filled. ?? No small bowel obstruction, abscess or free air. ?? Concern for esophagitis. ?? 4. ??Other chronic findings above. ?? COMMENTS: Consistent with the [employer]'s Incidental Findings Committee white paper (J Am Kam Radiol 2018): Any incidental renal lesion less than 1 cm or classified as too small to characterize, or any incidental cystic renal lesion characterized as simple-appearing, is likely benign. ?? No follow-up imaging is recommended for these lesions per consensus recommendations based on imaging criteria. ?? Electronically signed by: Prudencio Ortiz MD, ??[facility], 10/29/2023 0:43 ?? XR Chest PA Lateral Left Routine - 10/28/23 20:48 ( Angel HERNANDEZ, Prudencio )?? IMPRESSION: 1. Large heart with hazy areas of bibasilar atelectasis, edema or scarring. ??Low lung volumes. ??2. Recommend 1 or 2 day follow-up repeat exam with better inspiration. ??Electronically signed by: Prudencio Ortiz MD, ??[facility], 10/28/2023 22:15 Other No qualifying data available. Airway Management No Data Available Electronically signed by:Blake Fry MD 10/30/23 10:32 * Blake Fry MD: PERFORM Event Display: Discharge Summary Authored Date: [id number] Discharge Information Admit date:10/28/2023 Discharge date:10/30/2023 Primary Care Physician:PCP, NONE Attending Physician:Blake Fry MD Consulting Physician:;Sara Ren MD Admitting Physician:Antwan Farris DO Discharge Diagnosis GI bleed Anemia Esophageal varices Portal hypertensive gastropathy Abdominal ascites Hypokalemia Thrombocytopenia Diabetes mellitus, type 2 COPD mixed type Parkinson disease Cirrhosis Type 2 diabetes with complication Procedures During Visit Procedures: Shilap HERNANDEZ, Carmen Surgeon - Primary?? 10-29-23 13:31??Gastroscopy - Endo??with bleed control- 1 band placed?? Sara Ren MD Surgeon - Primary?? Hospital Course 63 y/o male was sent to the ER from [facility] where he was getting skilled care.?? Prior to going to this facility, he was at [facility] where he was treated for ascites and pneumonia.?? He states that he's been in and out of the hospital and SNF for the past 3 months.?? In the ER, he was found to have ascites and also a low HgB of 7.4.?? His last HgB here was 8.9 on 09.30.23.?? At that time, he had banding of esophageal varices by Dr. Montoya on 09.28.23 who recommended a repeat EGD in 3-4 weeks.?? When seen by me, the patient denies any nausea or hematemesis.?? He also denies any blood in his stool.?? He has no other complaints.?? He will be admitted to the hospital for care and further treatment.?? Status post??EGD??report reviewed no active bleeding??continue nonspecific beta-yocasta??discharging patient back??to facility tolerated food hemoglobin stable ?? Vitals & Measurements ??Vital Signs (last 24 hrs)?Last Charted?Minimum?Maximum?Temp?97.2 (OCT 29 05:32)?97.2 (OCT 29 05:32)?98 (OCT 29 00:38)?Heart Rate?66 (MAR 15 05:32)?58 (MAR 14 17:37)?73 (MAR 14 13:35)?Resp Rate?20 (MAR 15 05:32)?C??11(MAR 14 13:30)?20 (MAR 14 13:20)?SBP?111 (MAR 15 05:32)?C??85(MAR 14 13:30)?114 (MAR 14 13:40)?DBP?67 (MAR 15 05:32)?51 (MAR 14 13:30)?68 (MAR 15 00:38)?SpO2?93 (MAR 15 05:32)?92 (MAR 14 14:18)?98 (MAR 14 13:20)?O2?Room a (MAR 15 05:32)?Room a (MAR 14 12:19)?Room a (MAR 12:19)?O2 Flow?2 (MAR 14 13:35)?2 (MAR 14 13:15)?2 (MAR 13:15)?? Physical Exam GEN: NAD, appears stated age HEENT: NCAT, MMM CV: RRR, S1, S2, no M/R/G, no edema, no JVD RESP: CTA, no C/R/W, chest wall expansion symmetric ABD: S, NT, ND, BS+, no HSM EXT: no C/C/E, MAEW NEURO: A&OX3, non-focal, sensation grossly intact Psych: Mood and affect appropriate, interacts well with staff SKIN: Warm, well-perfused, no overt rash/lesion ? Subspecialty Recommendations ??No Data Available Discharge Orders Steno Typist 10/29/23 2:59:12 CDT Order Comment: Ordered by Discern Expert ?? Discharge 10/30/23 7:42:00 CDT, Home/Self Care ? Discharge Work/School/Daycare Restrictions 10/30/23 7:42:00 CDT, Return to work in: No Restrictions ? Discharge Follow Up 10/30/23 7:42:00 CDT, Provider/Time: PCP in one week ? Discharge Diet 10/30/23 7:42:00 CDT, Discharge Diet: Regular ? Discharge Activity 10/30/23 7:42:00 CDT, As tolerated ? Discharge 10/30/23 9:28:00 CDT, [facility] Facility ? Discharge Work/School/Daycare Restrictions 10/30/23 9:28:00 CDT, Return to work in: No Restrictions ? Discharge Follow Up 10/30/23 9:28:00 CDT, Provider/Time: PCP in one week ? Discharge Diet 10/30/23 9:28:00 CDT, Discharge Diet: Regular ? Discharge Activity 10/30/23 9:28:00 CDT, As tolerated ? Facility Discharge Plan 4 weeks, 10/30/23 9:28:00 CDT ? Facility Discharge Occupational Therapy Eval and Treat 10/30/23 9:28:00 CDT ? Facility Discharge Physical Therapy Eval and Treat 10/30/23 9:28:00 CDT ? Facility Discharge Code Status 10/30/23 9:28:00 CDT, Full Code ? Medications Home Medications (19) Active baclofen 10 mg oral tablet??10 mg = 1 tab, PRN, By mouth, TID carbidopa-levodopa 25 mg-100 mg oral tablet??1 tab, By mouth, TIDWM (three times a day with meals) Dulcolax Laxative 10 mg rectal suppository??10 mg = 1 supp, PRN, Rectally, Daily Dulcolax Laxative 5 mg oral tablet??20 mg = 4 tab, PRN, By mouth, Daily Farxiga 5 mg oral tablet??5 mg = 1 tab, By mouth, Daily gabapentin 250 mg/5 mL oral solution??100 mg = 2 mL, By mouth, TID insulin lispro (Humalog)??Medium dose scale, SUBQ, ACHS (before meals and at bedtime) Januvia 100 mg oral tablet??100 mg = 1 tab, By mouth, Daily Januvia 100 mg oral tablet??100 mg, By mouth, Daily lactulose??20 g, By mouth, BID LanTUS 100 units/mL subcutaneous solution??25 Units, SubQ, at bedtime Lasix 40 mg oral tablet??40 mg = 1 tab, By mouth, Daily Milk of Magnesia 8% oral suspension??2.4 g = 30 mL, PRN, By mouth, Daily Mylanta??30 mL, PRN, By mouth, PCHS (after meals and at bedtime) nadolol 40 mg oral tablet??20 mg = 0.5 tab, By mouth, Daily nystatin topical 100,000 units/g powder??1 application, Topical, QID pantoprazole 40 mg oral delayed release tablet??40 mg = 1 tab, By mouth, BID spironolactone 25 mg oral tablet??25 mg = 1 tab, By mouth, Daily Tylenol??650 mg, PRN, By mouth, Q4H Medication reconciliation completed on this patient Pending Labs PENDING LABS C Body Fluids Paracentesis Fluid, Specimen, 10/29/23 2:40:00 CDT, Unit Collect, Routine, Print Label, 10/29/23 2:40:00 CDT, [id number], pp_rslts_call_set_order_encntr OccBldFeces (guaiac, NOT for screening) Feces, Specimen, 10/29/23 1:09:00 CDT, Unit Collect, Routine, 24, hr, 10/29/23 1:09:00 CDT Lab Results Labs??(Last two charted values on this encounter) WBC 2.9 ??(OCT 29) 5.0 ??(OCT 27) Hgb 8.2 ??(OCT 29) 7.9 ??(OCT 28) Hct 27.6 ??(OCT 29) 25.5 ??(OCT 27) Platelets 75 ??(OCT 29) 107 ??(OCT 27) Na 135 ??(OCT 29) 139 ??(OCT 27) K 3.8 ??(OCT 29) 4.1 ??(OCT 28) Cl 105 ??(OCT 29) 105 ??(OCT 27) CO2 28 ??(OCT 15) 29 ??(OCT 27) BUN 14 ??(OCT 29) 12 ??(OCT 27) Cr 0.79 ??(OCT 29) 0.93 ??(OCT 27) ProteinT ?6.8 ??(OCT 27) ?? Albumin ?2.1 ??(OCT 27) ?? Bilirubin ,Total ?1.1 ??(OCT 27) ?? Alk Phos ?78 ??(OCT 27) ?? ALT ?<7 ??(OCT 27) ?? AST ?24 ??(OCT 27) ?? Mag ?1.7 ??(OCT 29) ?? Lipase 26 ??(OCT 27) ?? PT ?13.4 ??(OCT 27) ?? INR ?1.27 ??(OCT 27) ?? Bedside Glucose 110 ??(OCT 29) 172 ??(OCT 28) Glucose,Plasma 178 ??(OCT 29) 213 ??(OCT 27) Diagnostic Results Radiology Results:?? US Paracentesis Diagnostic - 10/29/23 17:48 ( Shilpa HERNANDEZ, Carmen )?? IMPRESSION: ??Successful ultrasound-guided paracentesis as described. Electronically signed by: Carmen Massey ??10/29/2023 5:48 PM ?? CT Abd Pelvis w Contrast - 10/29/23 00:10 ( Prudencio Ortiz MD )?? IMPRESSION: 1. ??Profound liver disease with cirrhosis. ?? Multiple internal areas of hepatic heterogeneity and hypodensity may be due to perfusion artifacts, cirrhotic or regenerative nodules, hemangiomas, or other mass lesions. ?? These will need follow-up. ?? 2. ??Diffuse advanced 3rd spacing of fluid with minute right pleural effusion, moderate ascites, etc. ?? Extensive variceal formation. ?? This patient is at increased risk for a variceal bleed. ?? 3. ??The colon is rather fecal filled. ?? No small bowel obstruction, abscess or free air. ?? Concern for esophagitis. ?? 4. ??Other chronic findings above. ?? COMMENTS: Consistent with the [employer]'s Incidental Findings Committee white paper (J Am Kam Radiol 2018): Any incidental renal lesion less than 1 cm or classified as too small to characterize, or any incidental cystic renal lesion characterized as simple-appearing, is likely benign. ?? No follow-up imaging is recommended for these lesions per consensus recommendations based on imaging criteria. ?? Electronically signed by: Prudencio Ortiz MD, ??[facility], 10/29/2023 0:43 ?? XR Chest PA Lateral Left Routine - 10/28/23 20:48 ( Angel HERNANDEZ, Prudencio )?? IMPRESSION: 1. Large heart with hazy areas of bibasilar atelectasis, edema or scarring. ??Low lung volumes. ??2. Recommend 1 or 2 day follow-up repeat exam with better inspiration. ??Electronically signed by: Prudencio Ortiz MD, ??[facility], 10/28/2023 22:15 Other No qualifying data available. Airway Management No Data Available Electronically signed by:Blake Fry MD 10/30/23 10:31 XR Chest PA and Lateral * Rodrigo Blackburn MD: PERFORM, VERIFY, VERIFY Event Display: Report Authored Date: [id number] * Prudencio Ortiz MD: PERFORM, VERIFY, VERIFY Event Display: Powerscribe Read Authored Date: [id number] PROCEDURE INFORMATION: Exam: XR Chest Exam date and time: 10/28/2023 8:48 PM Age: 63 years old Clinical indication: Cough TECHNIQUE: Imaging protocol: Radiologic exam of the chest. Views: 2 views. COMPARISON: NM Gastrointestinal Bleed Acute 09/30/2023 3:25 PM FINDINGS: Lungs: Lung volumes are low. Hazy bibasilar opacities. Pleural spaces: No pneumothorax. Heart/Mediastinum: The heart is large. Advanced diffuse vascular calcification noted. Bones/joints: Unremarkable. IMPRESSION: 1. Large heart with hazy areas of bibasilar atelectasis, edema or scarring. Low lung volumes. 2. Recommend 1 or 2 day follow-up repeat exam with better inspiration. Electronically signed by: Prudencio Ortiz MD, [facility], 10/28/2023 22:15 Prudencio Ortiz MD Signed 10/28/23 22:15:48 (Electronic Signature) Technologist CC Note * Rodrigo Blackburn MD: PERFORM, VERIFY, VERIFY Event Display: [email or web address] Read Authored Date: [id number] PROCEDURE INFORMATION: Exam: XR Chest Exam date and time: 11/03/2023 11:28 AM Age: 63 years old Clinical indication: Anemia, unspecified; Thrombocytopenia, unspecified; Type 2 diabetes mellitus with unspecified complications; Type 2 diabetes mellitus without complications; Hypokalemia; Esophageal varices without bleeding; Chronic obstructive pulmonary disease, unspecified; Unspecified cirrhosis of liver; Portal hypertension; Gastrointestinal hemorrhage, unspecified; Other ascites; Localized edema; Parkinson's disease without dyskinesia, without mention of fluctuations; Other reduced mobility; Other specified health status; Additional info: Cough and SOB TECHNIQUE: Imaging protocol: Radiologic exam of the chest. Views: 2 views. COMPARISON: CR XR Chest PA Lateral Left Routine 10/28/2023 8:48 PM FINDINGS: Lungs: Lung aeration has slightly improved. Perihilar reticular opacities persist in the left lung. Bibasilar curvilinear atelectasis. Pleural spaces: No pleural effusion. No pneumothorax. Heart/Mediastinum: No abnormalities. No cardiomegaly. No pulmonary vascular congestion. Bones/joints: No fractures or bone lesions. IMPRESSION: 1. Persistent left perihilar reticular opacities may represent resolving pneumonia or possibly pulmonary edema. 2. Lung aeration has improved. 3. Bibasilar atelectasis. Electronically signed by: Rodrigo Blackburn MD, [facility], 11/03/2023 12:35 Rodrigo Blackburn MD Signed 11/03/23 12:35:46 (Electronic Signature) Technologist VEL TORRES * Prudencio Ortiz MD: PERFORM, VERIFY, VERIFY Event Display: DocASAP Read Authored Date: [id number] PROCEDURE INFORMATION: Exam: CT Abdomen And Pelvis With Contrast Exam date and time: 10/29/2023 12:10 AM Age: 63 years old Clinical indication: Abd distention TECHNIQUE: Imaging protocol: Computed tomography of the abdomen and pelvis with contrast. Radiation optimization: All CT scans at this facility use at least one of these dose optimization techniques: automated exposure control; mA and/or kV adjustment per patient size (includes targeted exams where dose is matched to clinical indication); or iterative reconstruction. COMPARISON: NM Gastrointestinal Bleed Acute 09/30/2023 3:25 PM FINDINGS: Lungs: Mild areas of mid to lower lung atelectasis or scarring. Pleural spaces: Minute right pleural effusion. Mediastinal space: Lower esophageal wall thickening. Diaphragm: Very small hiatal hernia. Liver: Very severe cirrhosis. Liver is very heterogenous. It contains multiple internal non masslike hypodense areas. Gallbladder and bile ducts: Few tiny gallstones versus gallbladder sludge possible. Pancreas: Unremarkable with no suspicious mass. No ductal dilation. Spleen: The spleen is mildly enlarged. Adrenal glands: Normal. No mass. Kidneys and ureters: Few tiny right renal cysts. No enhancing renal mass or hydronephrosis. Stomach and bowel: The colon is rather fecal filled. Appendix: No evidence of appendicitis. Intraperitoneal space: Diffuse mesenteric edema. Moderate ascites. Vasculature: Multiple abdominal varices are present. Likely periesophageal varices as well. Lymph nodes: Mild likely reactive retroperitoneal lymphadenopathy. Urinary bladder: Unremarkable as visualized. Contains excreted IV contrast. Reproductive: Unremarkable as visualized. Bones/joints: Old bilateral L5 pars defects with minimal listhesis. Xypv-yk-uonraatw spine DJD. Soft tissues: Moderate anasarca. IMPRESSION: 1. Profound liver disease with cirrhosis. Multiple internal areas of hepatic heterogeneity and hypodensity may be due to perfusion artifacts, cirrhotic or regenerative nodules, hemangiomas, or other mass lesions. These will need follow-up. 2. Diffuse advanced 3rd spacing of fluid with minute right pleural effusion, moderate ascites, etc. Extensive variceal formation. This patient is at increased risk for a variceal bleed. 3. The colon is rather fecal filled. No small bowel obstruction, abscess or free air. Concern for esophagitis. 4. Other chronic findings above. COMMENTS: Consistent with the [employer]'s Incidental Findings Committee white paper (J Am Kam Radiol 2018): Any incidental renal lesion less than 1 cm or classified as too small to characterize, or any incidental cystic renal lesion characterized as simple-appearing, is likely benign. No follow-up imaging is recommended for these lesions per consensus recommendations based on imaging criteria. Electronically signed by: Prudencio Ortiz MD, [facility], 10/29/2023 0:43 Prudencio Ortiz MD Signed 10/29/23 00:43:12 (Electronic Signature) Technologist VW * Shilpa HERNANDEZ, Carmen: PERFORM, TRANSCRIBE, VERIFY, VERIFY Event Display: Report Authored Date: [id number] * Prudencio Ortiz MD: PERFORM, VERIFY, VERIFY Event Display: Report Authored Date: [id number] CT Abdomen and Pelvis W contrast IV * Prudencio Ortiz MD: PERFORM, VERIFY, VERIFY Event Display: Report Authored Date: [id number] Radiology * Carmen Massey MD: PERFORM, TRANSCRIBE, VERIFY, VERIFY Event Display: Powerscribe Read Authored Date: READING LOCATION: [place] [address]. PROCEDURE: ULTRASOUND-GUIDED PARACENTESIS INDICATIONS: Ascites, abdominal distention. Diagnosis Codes: E11.8 Type 2 diabetes mellitus with unspecified complications R60.0 Localized edema K92.2 Gastrointestinal hemorrhage, unspecified D64.9 Anemia, unspecified I85.00 Esophageal varices without bleeding TECHNIQUE AND FINDINGS: Informed consent was obtained. Initial scans were done identifying an appropriate site for puncture on the skin. Ultrasound imaging demonstrated ascites. The skin was preparedand draped and local anesthesia given. Using the guidance of ultrasound, a catheter was advanced into the peritoneal fluid and about 4600 cc of fluid obtained . No immediate postprocedural complications. IMPRESSION: Successful ultrasound-guided paracentesis as described. Electronically signed by: Carmen Massey 10/29/2023 5:48 PM Radiologist Carmen Massey MD Signed 10/29/23 17:48:06 (Electronic Signature) [employer] AD Technologist AP Cardiology * Migue Li MD: SIGN, VERIFY Event Display: EKG 12-Lead Authored Date: [id number] * Maggie Garza MD: SIGN, VERIFY Event Display: EKG 12-Lead Authored Date: [id number] Laboratory * Tip Riley: Americo Melendez: Rosa Martinez MD R: VERIFY Event Display: Cytology Clinical Information Authored Date: None Provided. * Tip Riley: Americo Melendez: Rosa Martinez MD R: VERIFY Event Display: Cytology Specimen Source Authored Date: Abdominal Fluid * Tip Riley: TRANSCRIBE Americo Jacobs: PERFORM Rosa Brito MD: VERIFY Event Display: Cytology Specimen Description Authored Date: Received labeled with the patient's name and Abdomen are 1000 mL of clear fluid submitted for ThinPrep slide preparation with Pap stain and cell block preparation, in cassette A1. Also received is a García stained cytospin slide prepared in the Hematology laboratory. Slides labeled [id number]. ep * Rosa Brito MD: TRANSCRIBE, PERFORM, VERIFY Event Display: Cytology Diagnosis Authored Date: Abdominal fluid (thin prep and cell block): - Satisfactory for evaluation. - Negative for malignant cells. - Chronic inflammation. Verified by: Rosa Brito M.D. Pathologist (Electronic Signature) 10/30/23 11:17 Patient Care team information Care Team Personnel Name: Shreya Paris Position: Inpatient-Midlevel Member Role: Nurse Practitioner Address: Address: [facility] Name: Kristian Zee Position: Inpatient-Midlevel Member Role: Nurse Practitioner Address: Address: [address] Name: Zachary Vanegas Position: Inpatient-Midlevel Member Role: Nurse Practitioner Address: Address: [address] Name: Tiffanie Zepeda Position: Inpatient-Midlevel Member Role: Nurse Practitioner Address: Address: [address] Name: PCP, NONE Position: 2 Restricted Providers Member Role: Primary Care Physician Name: Blake Fry MD Position: Physician-Hospitalist Med Service: Hospitalist Address: Address: [address] [facility] Inpatient Physicians [address] Care Team Related Persons Name: JANEL SEYMOUR Name: JUSTO VANEGAS Name: FRANKLIN JOHNSON
--- OUTSIDE RECORDS SUMMARY | 2024-03-11 06:11 | XMS_ITS ---
Author Name Unknown Organization Unknown ALLERGIES AND ADVERSE REACTIONS No information ASSESSMENT No information CHIEF COMPLAINT No information MEDICATIONS No information OBJECTIVE DATA No information PHYSICAL EXAMINATION No information TREATMENT PLAN Planned Care Start Date Provider Encounter for Check-up [id number] [facility] PROBLEMS No information RESULTS No information REVIEW OF SYSTEMS No information SUBJECTIVE DATA No information VITAL SIGNS No information
[2024-03-18 09:28] VITALS: BMI 27.9
[2024-03-18 09:29] VITALS: BP 120/78; PULSE 119; RESP 18; TEMP 37; O2SAT 96
--- NOTE | 2024-03-18 10:05 | US_ITS ---
WS: [id number] ULTRASOUND-GUIDED PARACENTESIS CLINICAL INFORMATION: large ascites COMPARISON: None. Procedure Informed consent: The risks, benefits, and alternatives of the procedure were discussed with the bety ent. Verbal and written consent was obtained. Timeout: A timeout was performed to confirm the correct patient, procedure, and site. Preparation: A suitable skin site was identified. The patient was prepped and draped in usual sterile fashion. Lidocaine 1% was used for local anesthesia. Catheter: 4 Polish One-step Yueh catheter. Side: RIGHT lower quadrant. Fluid Volume: 4950 ml Color: Clear yellow DISPOSITION: Discarded safely. Complications: None. Patient disposition: Discharged from the department in stable condition. US/[place] paracentesis abd w [id number] IMPRESSION: Uncomplicated ultrasound-guided paracentesis. Removal of 4950 cc
--- NOTE | 2024-03-18 11:05 | DCPLANNER ---
PARACENTESIS EDUCATION GIVEN TO PT. PT AND PTS FRIEND VERBALIZED UNDERSTANDING.
== END ==
PROVIDERS: Radiology Neuroradiology; PCP Nurse Practitioner Family; Visit Provider Internal Medicine
PROC: (CPT 49082; principal; 2024-03-18 10:30)
DX: R18.8 Other ascites (principal)
CPT/HCPCS: 49083

== ENCOUNTER 2024-04-15 14:28 | Emergency (ER) | payer MEDICARE, MEDICAID, SELFPAY ==
[2024-04-15] VITALS (13 sets, daily range): BP systolic 70–124; BP diastolic 37–59; PULSE 64–83; RESP 12–21; TEMP 36.7; O2SAT 95–100; BMI 25.1
--- NOTE | 2024-04-15 15:21 | CTR_ITS ---
PROCEDURE INFORMATION: Exam: CT Abdomen And Pelvis With Contrast Exam date and time: 04/15/2024 8:03 PM Age: 63 years old Clinical indication: Bloating; Patient HX: C/O abd distention. History of cirrhosis. Patient had 700ml of fluid aspirated from abd prior to CT exam. ; Additional info: Abd pain TECHNIQUE: Imaging protocol: Computed tomography of the abdomen and pelvis with contrast. Radiation optimization: All CT scans at this facility use at least one of these dose optimization techniques: automated exposure control; mA and/or kV adjustment per patient size (includes targeted exams where dose is matched to clinical indication); or iterative reconstruction. Contrast material: OMNI 350; Contrast volume: 100 ml; Contrast route: INTRAVENOUS (IV); COMPARISON: US paracentesis abd w [id number] 04/15/2024 4:48 PM RADIATION DOSE METRICS: Total DLP (mGy-cm): 868.97 FINDINGS: Lungs: Atelectatic changes at the lung bases. Heart: Cardiomegaly. Liver: Shrunken nodular liver. Hypodense lesion in the right hepatic lobe measuring 1.3 cm. Gallbladder and biliary ducts: Cholelithiasis. Pancreas: Unremarkable. Spleen: Mild splenomegaly. Adrenal glands: Unremarkable. Kidneys and ureters: Bilateral renal cysts. No hydronephrosis. Stomach and bowel: Unremarkable. No bowel obstruction. Appendix: No evidence of appendicitis. Intraperitoneal space: Large abdominal and pelvic ascites which is low-in density. Vasculature: Perigastric varices. Splenorenal shunt. Lygm-pu-ltihkywl atherosclerotic disease in the abdomen and pelvis. Lymph nodes: Unremarkable. Urinary bladder: Unremarkable as visualized. Reproductive: Unremarkable as visualized. Bones/joints: No acute osseous abnormality. Soft tissues: Anasarca. Small right and trace left pleural effusions. CT/CT abdomen pelvis w con* [id number] IMPRESSION: 1. Large abdominal and pelvic ascites without complexity or increased density to suggest blood products. 2. Cirrhotic liver with sequela of portal hypertension. 3. Hypodense lesion in the right hepatic lobe measuring 1.3 cm which is incompletely characterized on this single contrast phase. Recommend multiphasic CT or MRI for characterization. 4. Small right and trace left pleural effusions. COMMENTS: Consistent with the [employer]'s Incidental Findings Committee white paper (J Am Kam Radiol 2018): Any incidental renal lesion less than 1 cm or classified as too small to characterize, or any incidental cystic renal lesion characterized as simple-appearing, is likely benign. No follow-up imaging is recommended for these lesions per consensus recommendations based on imaging criteria.
--- NOTE | 2024-04-15 15:21 | XR_ITS ---
WS: [id number] Exam: XR chest 1V portable [id number] Date/Time of Exam: 04/15/2024 3:24 PM Reason For Exam: weakness Comparison 05/29/2023. The lungs are clear and fully expanded. Cardiomediastinal silhouette is unremarkable for technique. D ecreased lung volumes secondary to limited inspiration. Bibasal plaque atelectasis. XR/XR chest 1V portable [id number] IMPRESSION: 1. No acute cardiopulmonary finding.
--- NOTE | 2024-04-15 15:22 | ECG_ITS ---
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 Measurements Intervals [place] Rate: 76 P: 76 MT: 235 QRS: -26 QRSD: 85 T: -22 QT: 394 QTc: 444 Interpretive Statements ELECTRONIC ATRIAL PACEMAKER INFERIOR MYOCARDIAL INFARCTION , PROBABLY OLD [40+ ms Q WAVE AND/OR ST/T ABNORMALITY IN II/aVF] ANTEROLATERAL MYOCARDIAL INFARCTION , PROBABLY OLD [40+ ms Q WAVE IN I/aVL/V3-V6] Compared to ECG 05/29/2023 16:25:12 Sinus rhythm no longer present First degree AV block no longer present Left-axis deviation no longer present Myocardial infarct finding still present Electronically Signed On 04-15-2024 18:18:36 CDT by Alejo Villa M.D. [id number]
[2024-04-15 15:53] LABS: Basophils % 0.5 %; Hematocrit 30.2 % (37-53); Lymphocytes # 0.4 10^3/uL (0.8-4.8); Lymphocytes % 8.4 %; Mean Corpuscular HGB Conc 28.5 g/dL (30-55); Mean Corpuscular Hemoglobin 20.2 pg (27-33); Mean Corpuscular Volume 71.1 fl (82-101); Monocytes # 0.5 10^3/uL (0.2-0.9); Neutrophils # 3.28 10^3/uL (1.8-7.7); Neutrophils % 78.6 %; Nucleated Red Blood Cells % 0 %; Platelet Count 99 10^3/cmm (157-399); Red Blood Count 4.25 10^6/uL (3.85-5.65); Red Cell Distribution Width 20.2 % (12.1-15.1); White Blood Count 4.17 10^3/uL (3.29-11.43)
[2024-04-15 16:10] LABS: INR 1.39 (0.8-1.2)
[2024-04-15 16:15] LABS: Lactic Sepsis W/Reflex 3.3 mmol/L (0.5-2.2)
[2024-04-15] MEDS: sodium chloride 0.9% 1,000 ML 999 ML IV ×2 (16:16→18:28)
--- NOTE | 2024-04-15 16:20 | US_ITS ---
WS: [id number] ULTRASOUND-GUIDED PARACENTESIS CLINICAL INFORMATION: ascites COMPARISON: None. Procedure Informed consent: The risks, benefits, and alternatives of the procedure were discussed with the bety ent. Verbal and written consent was obtained. Timeout: A timeout was performed to confirm the correct patient, procedure, and site. Preparation: A suitable skin site was identified. The patient was prepped and draped in usual sterile fashion. Lidocaine 1% was used for local anesthesia. Catheter: 4 [place] One-step Yueh catheter. Side: RIGHT lower quadrant. Fluid Volume: 760 ml Color: Clear yellow DISPOSITION: Discarded safely. Complications: None. US/US paracentesis abd w [id number] IMPRESSION: Uncomplicated ultrasound-guided paracentesis. Removal of 760 cc
[2024-04-15 16:28] LABS: Alanine Aminotransferase < 5 U/L (0-41); Albumin Level 2.7 g/dL (3.5-5.2); Alkaline Phosphatase 92 U/L (40-130); Anion Gap 17.6 (5-19); Aspartate Amino Transferase 26 U/L (0-40); Blood Urea Nitrogen 13 mg/dL (8-23); Calcium 8.2 mg/dL (8.5-10.5); Carbon Dioxide 20 mmol/L (22-29); Chloride 98 mmol/L (98-107); Creatinine Clr Calc Pharmacy 63.5976; Globulin 4.1 g/dL (1.3-4.6); Glomerular Filtration Rate 60.8 mL/min (90-130); Glucose 242 mg/dL (65-115); Lipase 15 U/L (13-60); NT Pro B Type Natriuretic Pept 143 pg/mL (0-125); Osmolality Calculated 280 mOsm/kg (285-295); Potassium 4.6 mmol/L (3.5-5.1); Sodium 131 mmol/L (136-145); Total Bilirubin 1.4 mg/dL (0.15-1.2); Total Protein 6.8 g/dL (6.6-8.7)
[2024-04-15 16:41] LABS: Slide Review Slide Review Perform
--- NOTE | 2024-04-15 16:59 | ED_ITS ---
HPI - Abdominal Pain 2 General: Chief Complaint: Abdominal Pain Stated Complaint: abdomen fluid (sent by pcp) Time Seen by Provider: 04/15/24 15:14 Source: patient Mode of arrival: ambulatory Limitations: no limitations History of Present Illness: 63-year-old male has a history of cirrho sis since states that he has been having abdominal distention for like need a paracentesis patient states he has been feeling weak as well as having some increased abdominal pain. He denies any fever or vomiting is hypotensive here states that his blood pressure typically runs low. He denies any fevers denies any cough Associated Symptoms: Denies chills, diarrhea, fever(s), nausea and vomiting Related Data Home Medications Medication Instructions Recorded Confirmed furosemide 20 mg tablet 20 mg PO QAM 05/29/23 03/18/24 acetaminophen 325 mg tablet 650 mg PO TID PRN Pain 03/10/24 03/18/24 bisacodyl 10 mg rectal suppository 10 mg NE DAILY PRN Constipation 03/10/24 03/18/24 (Dulcolax (bisacodyl)) calcium carbonate 1,000 mg PO .TID WITH MEALS 03/10/24 03/18/24 carbidopa 25 mg-levodopa 100 mg 1 tab PO DAILY 03/10/24 03/18/24 tablet (Sinemet) dapagliflozin propanediol 5 mg 5 mg PO DAILY 03/10/24 03/18/24 tablet (Farxiga) famotidine 20 mg tablet 20 mg PO BID 03/10/24 03/18/24 hydroxyzine HCl 25 mg tablet 25 mg PO BID PRN Itching 03/10/24 03/18/24 insulin lispro 100 unit/mL 0 - 12 unit SUBCUT TID 03/10/24 03/18/24 subcutaneous solution lactulose 20 gram/30 mL oral 20 g PO BID 03/10/24 03/18/24 solution magnesium citrate 300 ml PO DAILY PRN Constipation 03/10/24 03/18/24 magnesium hydroxide 400 mg/5 mL 15 ml PO DAILY PRN Constipation 03/10/24 03/18/24 oral suspension (Milk of Magnesia) rifaximin 550 mg tablet 550 mg PO BID 03/10/24 03/18/24 ropinirole 4 mg tablet 8 mg PO TID 03/10/24 03/18/24 spironolactone 25 mg tablet 25 mg PO DAILY 03/10/24 03/18/24 tamsulosin 0.4 mg capsule 0.4 mg PO DAILY 03/10/24 03/18/24 Previous Rx's Medication Instructions Recorded blood sugar diagnostic (Blood #50 ea 09/13/21 Glucose Test strips) Allergies Allergy/AdvReac Type Severity Reaction Status Date / Time No Known Allergies Allergy Verified 12/10/21 10:19 Review of Systems 2 Const: Reports: fatigue and malaise; Denies: fever(s), chills, body aches or change in appetite ENMT: Denies: throat pain or dental pain Card: Denies: chest pain Resp: Denies: dyspnea GI: Reports: abdominal pain; Denies: nausea, vomiting or diarrhea Musc: Denies: neck pain or back pain Skin/Breast: Denies: rash Neuro: Denies: headache(s) PFSH ED 2 PFSH: Medical History Type 2 diabetes mellitus without complication Social History Smoking and tobacco/nicotine status: never used tobacco/nicotine Physical Exam 2 Const: COMMON NORMALS: patient oriented x3 GENERAL APPEARANCE: ill appearing and frail appearing HENMT: COMMON NORMALS: normocephalic and atraumatic HEAD & SCALP: n ormocephalic and atraumatic Eye: COMMON NORMALS: Equal, round and reactive pupils present and EOMs intact bilaterally PUPIL: Yes Equal, round and reactive pupils present Neck/C-Spine: COMMON NORMALS: full ROM and supple Chest: COMMONS NORMALS: normal inspection of the chest and normal palpation of entire chest wall Resp: COMMON NORMALS: normal respiratory effort, No retractions, No use of accessory muscles and clear to auscultation bilaterally AUSCULTATION: clear to auscultation bilaterally Cardio: COMMON NORMALS: regular rate, regular rhythm and No murmurs present (Cardio) RATE: regular rate RHYTHM: regular rhythm GI: COMMON NORMALS: Soft to palpation, non-tender and no masses PALPATION: Yes Soft to palpation OTHER: abdominal distention Extremity: COMMON NORMALS: normal to inspection and full ROM Neuro: COMMON NORMALS: patient oriented x3, moves all extremities and no focal motor deficits Psych: COMMON NORMALS: mental status grossly normal, Normal thought process present and cooperative THOUGHT PROCESS: Normal thought process present Skin: COMMON NORMALS: no rashes or lesions noted and no wounds GENERAL SKIN EXAM: no rashes or lesions noted Course 2 Vital Signs: Vital signs: Vital Signs Temperature 98.1 F 04/15/24 14:53 Pulse Rate 71 04/15/24 18:45 Respiratory Rate 16 04/15/24 18:45 Blood Pressure 106/54 04/15/24 18:45 Pulse Oximetry 97 04/15/24 18:45 Oxygen Delivery Me thod Room Air 04/15/24 14:53 MDM - Abdominal Pain Medical Decision Making Patient presents here with abdominal pains chronic in nature from his cirrhosis he is initially hypotensive his blood pressure is much improved here paracentesis showed no signs of SBP he feels improved he stable for discharge she is follow-up return if worsening. Medical Records I reviewed the patient's medical records. Lab Data I reviewed the patient's lab results. 04/15/24 15:34 04/15/24 15:34 Labs/Radiology: Radiology Impressions Chest X-Ray 04/15/24 15:21 IMPRESSION: 1. No acute cardiopulmonary finding. Laboratory Results WBC 4.17 10^3/uL (3.29-11.43) 04/15/24 15:34 RBC 4.25 10^6/uL (3.85-5.65) 04/15/24 15:34 Hgb 8.60 g/dL (11.27-16.99) L 04/15/24 15:34 Hct 30.2 % (37-53) L 04/15/24 15:34 MCV 71.1 fl (82-101) L 04/15/24 15:34 MCH 20.2 pg (27-33) L 04/15/24 15:34 MCHC 28.5 g/dL (30-55) L 04/15/24 15:34 RDW 20.2 % (12.1-15.1) H 04/15/24 15:34 Plt Count 99 10^3/cmm (157-399) L 04/15/24 15:34 MPV Not Reportable 04/15/24 15:34 Neut % (Auto) 78.6 % 04/15/24 15:34 Lymph % (Auto) 8.4 % 04/15/24 15:34 [place] % (Auto) 12.0 % 04/15/24 15:34 Eos % (Auto) 0.0 % 04/15/24 15:34 Baso % (Auto) 0.5 % 04/15/24 15:34 Neut # (Auto) 3.28 10^3/uL (1.8-7.7) 04/15/24 15:34 Lymph # (Auto) 0.4 10^3/uL (0.8-4.8) L 04/15/24 15:34 [place] # (Auto) 0.5 10^3/uL (0.2-0.9) 04/15/24 15:34 Eos # (Auto) 0.0 10^3/uL (0.0-0.8) 04/15/24 15:34 Baso # (Auto) 0.0 10^3/uL (0.0-0.1) 04/15/24 15:34 Nucleated RBC % (auto) 0 % 04/15/24 15:34 Nucleated RBCs # 0.0 /100WBC 04/15/24 15:34 Differential Comment Yes 04/15/24 17:15 PT 17.50 SECONDS (12.1-14.9) H 04/15/24 15:34 INR 1.39 (0.8-1.2) H 04/15/24 15:34 Sodium 131 mmol/L (136-145) L 04/15/24 15:34 Potassium 4.6 mmol/L (3.5-5.1) 04/15/24 15:34 Chloride 98 mmol/L (98-107) 04/15/24 15:34 Carbon Dioxide 20 mmol/L (22-29) L 04/15/24 15:34 Anion Gap 17.6 (5-19) 04/15/24 15:34 BUN 13 mg/dL (8-23) 04/15/24 15:34 Creatinine 1.2 mg/dL (0.7-1.2) 04/15/24 15:34 GFR Calculation 60.8 mL/min (90-130) L 04/15/24 15:34 Glucose 242 mg/dL (65-115) H 04/15/24 15:34 Calculated Osmolality 280 mOsm/kg (285-295) L 04/15/24 15:34 Lactic Acid 3.3 mmol/L (0.5-2.2) H 04/15/24 15:34 Lactic Acid (Sepsis) 3.4 mmol/L (0.5-2.2) H 04/15/24 18:29 Calcium 8.2 mg/dL (8.5-10.5) L 04/15/24 15:34 Total Bilirubin 1.4 mg/dL (0.15-1.2) H 04/15/24 15:34 AST 26 U/L (0-40) 04/15/24 15:34 ALT < 5 U/L (0-41) 04/15/24 15:34 Alkaline Phosphatase 92 U/L (40-130) 04/15/24 15:34 NT-Pro-B Natriuret Pep 143 pg/mL (0-125) H 04/15/24 15:34 Total Protein 6.8 g/dL (6.6-8.7) 04/15/24 15:34 Albumin 2.7 g/dL (3.5-5.2) L 04/15/24 15:34 Globulin 4.1 g/dL (1.3-4.6) 04/15/24 15:34 Lipase 15 U/L (13-60) 04/15/24 15:34 Fluid Color Pale yellow 04/15/24 17:15 Fluid Appearance Cloudy 04/15/24 17:15 Fluid Specific Grav Cancelled 04/15/24 17:15 Fluid WBC 90 /uL 04/15/24 17:15 Fluid RBC 0 10^3/uL 04/15/24 17:15 Fld Polynuclear WBCs # 0.008 04/15/24 17:15 Fld Polynuclear WBCs % 8.900 % 04/15/24 17:15 Fl Mononucl WBCs #(Auto) 0.082 04/15/24 17:15 Fl Mononuclear % Auto 91.100 % 04/15/24 17:15 Fld Crystal Laterality Not Reportable 04/15/24 17:15 Fluid Glucose 252.0 mg/dL 04/15/24 17:15 Fluid Albumin 1.1 g/dL 04/15/24 17:15 Fluid LDH 57 U/L 04/15/24 17:15 Fluid Alk Phosphatase 22 IU/L 04/15/24 17:15 Fluid Cholesterol 26 mg/dL (0-200) 04/15/24 17:15 All radiology interpretation(s) finalized by discharge Discharge Plan Discharge Patient Disposition: Home Clinical Impression: Abdominal pain, Cirrhosis Condition: Stable Prescriptions: No Action (DME) Blood Glucose Test Strip See Rx Instructions .Route Qty: 50 2RF Rx Instructions: As directed furosemide 20 mg tablet 20 mg PO QAM famotidine 20 mg Tablet 20 mg PO BID calcium carbonate [Calcium 500] 500 mg calcium (1,250 mg) Tablet 1,000 mg PO .TID WITH MEALS bisacodyl [Dulcolax (bisacodyl)] 10 mg Suppository 10 mg NE DAILY PRN (Reason: Constipation) hydroxyzine HCl 25 mg Tablet 25 mg PO BID PRN (Reason: Itching) insulin lispro 100 unit/mL Solution 0 - 12 unit SUBCUT TID Rx Instructions: sliding scale with meals lactulose 20 gram/30 mL Solution 20 g PO BID dapagliflozin propanediol [Farxiga] 5 mg Tablet 5 mg PO DAILY magnesium hydroxide [Milk of Magnesia] 400 mg/5 mL Suspension 15 ml PO DAILY PRN (Reason: Constipation) magnesium citrate Solution 300 ml PO DAILY PRN (Reason: Constipation) rifaximin 550 mg Tablet 550 mg PO BID acetaminophen 325 mg Tablet 650 mg PO TID PRN (Reason: Pain) spironolactone 25 mg Tablet 25 mg PO DAILY tamsulosin 0.4 mg Capsule 0.4 mg PO DAILY carbidopa-levodopa [Sinemet] 25-100 mg Tablet 1 tab PO DAILY ropinirole 4 mg Tablet 8 mg PO TID Discharge Orders: Discharge ED (Routine); Ordered 04/15/24 Ordered By: Jay Pollard Discharge Diet: Advance as tolerated Discharge Activity: Resume usual activity Patient Instructions: Cirrhosis, Abdominal Pain (ED) Coding Level of Care Code ED Director Of In Service Education for Maureen Epstein
[2024-04-15 17:34] LABS: Reflex Lactate Order REFLEX LACTIC ORDERD
[2024-04-15 17:49] LABS: Body Fluid Polynuclear #Cells 0.008; Body Fluid WBC 90 /uL; Monocytes # Body Fluid 0.082; RBC, Body Fluid 0 10^3/uL
[2024-04-15 17:50] LABS: Apprearance, Body Fluid CLOUDY; Color, Body Fluid PALE YELLOW; Cyto Order Verification No Order; PATH Referral YES
[2024-04-15 18:23] LABS: Albumin Body Fluid 1.1 g/dL; Cholesterol Body Fluid 26 mg/dL (0-200); LDH Body Fluid 57 U/L
[2024-04-15] MEDS: piperacillin-tazobactam 3.375 GM in sodium chloride 0.9% (plus) 50 ML IV (18:29)
[2024-04-15 18:41] LABS: Fluid Alkaline Phos. 22 IU/L
[2024-04-15] MEDS: vancomycin 1,000 MG in sodium chloride 0.9% 250 ML 250 MG IV (18:52)
[2024-04-15 18:56] LABS: Lactic Acid level (Lactate) 3.4 mmol/L (0.5-2.2)
[2024-04-15] MEDS: ondansetron 2 mg/ML SDV 2 mL 4 MG IVP (19:43)
--- NOTE | 2024-04-15 20:05 | P.CONIM_ITS ---
Providers/Reason For Consult 2 Consulting Physician/Specialty*: Albert Box MD / Internal Medicine Reason for Consult*: Evaluate need for admission Attending Physician: Dr Pollard History of Present Illness History of Present Illness Iván Barreto is a 63 year old male with a past medical history significant for decompensated liver cirrhosis with ascites and esophageal varices, Parkinson's disease, type 2 diabetes mellitus, and multiple other comorbidities who presented the emergency department abdominal pain and distention. He underwent paracentesis. Peritoneal fluid analysis reviewed and not consistent with SBP. Patient denies fevers or chills. Reports improvement abdominal pain after paracentesis. He initially was hypotensive in the setting of a known decompensated liver cirrhosis. Hypotension is resolved. Patient reports weakness for the past month. He states that he was in a care home but he checked himself out about 30 days ago. He was following with Dr. Hunter at [facility]. Outside records are reviewed. He last saw his PCP in December. There was talk of hospice as well as talk of care home up in [place] where his daughter lives. Patient denies fevers, chills, nausea or emesis. Denies other new complaints. Review of Systems 2 Narrative: A complete review of systems was obtained and is negative except as stated in HPI. Medications/Allergies Home Medications Medication Instructions Recorded Confirmed Last Taken Type blood sugar diagnostic (Blood #50 ea 09/13/21 03/18/24 03/17/24 Rx Glucose Test strips) furosemide 20 mg tablet 20 mg PO QAM 05/29/23 03/18/24 03/17/24 History acetaminophen 325 mg tablet 650 mg PO TID PRN Pain 03/10/24 03/18/24 03/17/24 History bisacodyl 10 mg rectal suppository 10 mg AR DAILY PRN Constipation 03/10/24 03/18/24 03/17/24 History (Dulcolax (bisacodyl)) calcium carbonate 1,000 mg PO .TID WITH MEALS 03/10/24 03/18/24 03/17/24 History carbidopa 25 mg-levodopa 100 mg 1 tab PO DAILY 03/10/24 03/18/24 03/17/24 History tablet (Sinemet) dapagliflozin propanediol 5 mg 5 mg PO DAILY 03/10/24 03/18/24 03/17/24 History tablet (Farxiga) famotidine 20 mg tablet 20 mg PO BID 03/10/24 03/18/24 03/17/24 History hydroxyzine HCl 25 mg tablet 25 mg PO BID PRN Itching 03/10/24 03/18/24 03/17/24 History insulin lispro 100 unit/mL 0 - 12 unit SUBCUT TID 03/10/24 03/18/24 03/17/24 History subcutaneous solution lactulose 20 gram/30 mL oral 20 g PO BID 03/10/24 03/18/24 03/17/24 History solution magnesium citrate 300 ml PO DAILY PRN Constipation 03/10/24 03/18/24 03/17/24 History magnesium hydroxide 400 mg/5 mL 15 ml PO DAILY PRN Constipation 03/10/24 03/18/24 03/17/24 History oral suspension (Milk of Magnesia) rifaximin 550 mg tablet 550 mg PO BID 03/10/24 03/18/24 03/17/24 History ropinirole 4 mg tablet 8 mg PO TID 03/10/24 03/18/24 03/17/24 History spironolactone 25 mg tablet 25 mg PO DAILY 03/10/24 03/18/24 03/17/24 History tamsulosin 0.4 mg capsule 0.4 mg PO DAILY 03/10/24 03/18/24 03/17/24 History Allergies Allergy/AdvReac Type Severity Reaction Status Date / Time No Known Allergies Allergy Verified 12/10/21 10:19 PFSH Acute 2 PFSH: Medical History Decompensated hepatic cirrhosis Type 2 diabetes mellitus without complication Surgical History History of abdominal paracentesis Social History Smoking and tobacco/nicotine status: never used tobacco/nicotine Vitals/I&O/Wt Last Vital Signs Temp 98.1 F 04/15/24 14:53 Pulse 71 04/15/24 18:45 Resp 16 04/15/24 18:45 BP 106/54 04/15/24 18:45 Pulse Ox 97 04/15/24 18:45 O2 Del Method Room Air 04/15/24 14:53 04/15/24 04/15/24 04/15/24 06:59 14:59 22:59 Intake Total 1050 / 1050 Balance 1050 / 1050 Weight last 48 hrs Weight 77.111 kg Physical Exam 2 Narrative: General: Patient is awake and alert. No acute distress. Head: Normocephalic. Atraumatic. EOM intact. Parkinsonian features. Neck: No JVD. Cardiovascular: RRR. No gallops. No murmurs. Lungs: Clear to auscultation, no use of accessory muscles, no crackles or wheezes. Skin: No jaundice. No rashes. Abdomen: Abdomen slightly distended. Not tender to palpation. Bowel sounds are present. Genito Urinary: Genital exam not performed since complaints not related. Rectal: Rectal exam not performed since no symptoms indicated blood loss. Extremities: No cyanosis or clubbing. Musculoskeletal: No swollen or erythematous joints. Neurological: Moves all 4 extremities. No myoclonus. Data 04/15/24 15:34 04/15/24 15:34 A&P Assessment and plan (1) Abdominal pain: (2) Cirrhosis: (3) History of esophageal varices: (4) Parkinsons disease: (5) Decompensated hepatic cirrhosis: (6) Type 2 diabetes mellitus without complication: Plan 63-year-old male with multiple comorbidities presented with abdominal pain, found to have tense ascites. SBP was considered but ruled out with fluid analysis. Blood pressure now normal. Current labs reviewed. Outside labs from [facility] reviewed. His hemoglobin and platelets are above his normal levels. Electrolytes are similar to prior checks at the outside hospital over the last year. There is no clear medical indication to warrant admission for medical reasons. Recommend close follow-up with primary care physician. Recommend he follow-up with a medical coordinator pesticide use. He will need outpatient paracentesis is established through his primary care physician. He would like to change PCPs. I discussed this with ED provider who will refer to case management to provide a referral for a local primary care physician. Thank you for this consultation. Coding Level of Care Code Acute Code for Chg Fwd Diagnoses Abdominal pain R10.9 Cirrhosis K74.60 History of esophageal varices Z87.19 Parkinsons disease G20.A1 Decompensated hepatic cirrhosis K72.90; K74.60 Type 2 diabetes mellitus without complication E11.9
[2024-04-15 20:13] LABS: C Reactive Protein 40.1 mg/L (0.0-4.9)
[2024-04-15 20:21] LABS: Procalcitonin 0.15 ng/mL (0-0.5)
[2024-04-16] MEDS: iohexol 350 mg/mL 500 mL Btl (per mL) IV (15:33)
--- NOTE | 2024-04-19 07:40 | DCPLANNER ---
Message sent to [facility] for PCP establishment.
== END 2024-04-15 21:31 | disposition home or self-care (01) ==
PROVIDERS: Emergency Provider Emergency Medicine
DX: R10.9 Unspecified abdominal pain (principal); K74.60 Unspecified cirrhosis of liver; Z79.4 Long term (current) use of insulin; E11.9 Type 2 diabetes mellitus without complications
CPT/HCPCS: 36415; 49083; 71045; 74177; 80053; 80503; 82042; 82150; 82465; 82945; 83605; 83615; 83690; 83880; 84075; 84145; 85025; 85610; 86140; 87015; 87070; 87075; 87116; 87205; 87206; 87801; 89050; 93005; 96365; 96375; 99285; J2405; J2543; J3370; J7030; J7050

== ENCOUNTER 2024-04-19 12:34 | Emergency (ER) | payer MEDICARE, MEDICAID, SELFPAY ==
[2024-04-19] VITALS (9 sets, daily range): BP systolic 82–124; BP diastolic 57–82; PULSE 76–97; RESP 18–20; TEMP 37; O2SAT 96–99; BMI 23.6
--- NOTE | 2024-04-19 12:54 | ED_ITS ---
HPI - Abdominal Pain General: Chief Complaint: Abdominal Pain Stated Complaint: bloating, fluid build up in stomach Time Seen by Provider: 04/19/24 12:51 Source: patient Mode of arrival: ambulatory Limitations: no limitations History of Present Illness: Iván Barreto is a 63 year old male with a past medical history significant for decompensated liver cirrhosis with ascites and esophageal varices, Parkinson's disease, type 2 diabetes mellitus, and multiple other comorbidities who presented the emergency department abdominal pain and distention. He has required multiple theraputic paracenteses over the past 4-5 months and has had these completed in various emergency departments in [facility], and here at [facility] [place]. He does not follow up with GI/hepatology. He had a PCP but is wanting to switch so case management has placed new referral for this. Family reports he is requiring drainage every 1-2 weeks. Was seen here on 05/16 but they could not drain much secondary to complications with this catheter/suction. SBP was ruled out on that visit. MD elicited complaint: abdominal pain Pertinent past history: none Pain Consistency: constant Location: Diffuse Severity: moderate Quality: other (bloating) Radiation: none Migration to: no migration Exacerbating factors: nothing Relieving factors: other (Paracentesis) Associated Symptoms: Reports nausea and other (decreased appetite); Denies chills, constipation, diarrhea, dysuria, fever(s) and vomiting Related Data Home Medications Medication Instructions Recorded Confirmed furosemide 20 mg tablet 20 mg PO QAM 05/29/23 03/18/24 acetaminophen 325 mg tablet 650 mg PO TID PRN Pain 03/10/24 03/18/24 bisacodyl 10 mg rectal suppository 10 mg CO DAILY PRN Constipation 03/10/24 03/18/24 (Dulcolax (bisacodyl)) calcium carbonate 1,000 mg PO .TID WITH MEALS 03/10/24 03/18/24 carbidopa 25 mg-levodopa 100 mg 1 tab PO DAILY 03/10/24 03/18/24 tablet (Sinemet) dapagliflozin propanediol 5 mg 5 mg PO DAILY 03/10/24 03/18/24 tablet (Farxiga) famotidine 20 mg tablet 20 mg PO BID 03/10/24 03/18/24 hydroxyzine HCl 25 mg tablet 25 mg PO BID PRN Itching 03/10/24 03/18/24 insulin lispro 100 unit/mL 0 - 12 unit SUBCUT TID 03/10/24 03/18/24 subcutaneous solution lactulose 20 gram/30 mL oral 20 g PO BID 03/10/24 03/18/24 solution magnesium citrate 300 ml PO DAILY PRN Constipation 03/10/24 03/18/24 magnesium hydroxide 400 mg/5 mL 15 ml PO DAILY PRN Constipation 03/10/24 03/18/24 oral suspension (Milk of Magnesia) rifaximin 550 mg tablet 550 mg PO BID 03/10/24 03/18/24 ropinirole 4 mg tablet 8 mg PO TID 03/10/24 03/18/24 spironolactone 25 mg tablet 25 mg PO DAILY 03/10/24 03/18/24 tamsulosin 0.4 mg capsule 0.4 mg PO DAILY 03/10/24 03/18/24 Previous Rx's Medication Instructions Recorded blood sugar diagnostic (Blood #50 ea 09/13/21 Glucose Test strips) Allergies Allergy/AdvReac Type Severity Reaction Status Date / Time No Known Allergies Allergy Verified 04/19/24 12:45 Review of Systems Const: Denies: fever(s), chills, body aches, fatigue or malaise Card: Denies: chest pain Resp: Denies: dyspnea GI: Reports: abdominal pain, nausea and other (decreased appetite); Denies: vomiting, diarrhea or constipation : Denies: flank pain, difficulty urinating, dysuria, urinary frequency, urinary urgency or urinary hesitancy Musc: Denies: neck pain, back pain, extremity pain or joint pain Skin/Breast: Denies: rash Neuro: Denies: headache(s), numbness in extremities, weakness in extremities, sensory changes or dizziness PFSH ED PFSH: Medical History Decompensated hepatic cirrhosis Type 2 diabetes mellitus without complication Surgical History History of abdominal paracentesis Social History Smoking and tobacco/nicotine status: never used tobacco/nicotine Physical Exam Const: COMMON NORMALS: patient oriented x3, no limitations and alert GENERAL APPEARANCE: cooperative and other (chronically ill appearing) ORIENTATION/CONSCIOUSNESS: Yes awake, Yes oriented to person, Yes oriented to place and Yes oriented to time Resp: COMMON NORMALS: normal respiratory effort and clear to auscultation bilaterally AUSCULTATION: clear to auscultation bilaterally Cardio: COMMON NORMALS: regular rate and regular rhythm RATE: regular rate RHYTHM: regular rhythm GI: INSPECTION: Yes abdominal distension, Yes Fluid wave present and Yes other (large amount of ascites) PERCUSSION: Fluid wave present : COMMON NORMALS: Yes no CVA tenderness BLADDER/KIDNEY EXAM: Yes no CVA tenderness Back/Pelvis: COMMON NORMALS: no CVA tenderness Neuro: MARCOS COMA SCALE: document GCS findings Marcos coma scale eye opening: Spontaneous Hulbert coma scale verbal response: Orientated Hulbert coma scale motor response: Obey commands Marcos coma scale total score: 15 COMMON NORMALS: patient oriented x3, moves all extremities, no focal motor deficits and no sensory deficits noted SENSORIUM/ORIENTATION: Yes alert, Yes oriented to person, Yes oriented to place and Yes oriented to time Course Consultations: Consultation #1: Dr. Salguero-will come and perform therapeutic paracentesis from the ED Vital Signs: Vital signs: Vital Signs Temperature 98.6 F 04/19/24 12:39 Pulse Rate 85 04/19/24 13:10 Respiratory Rate 18 04/19/24 13:10 Blood Pressure 124/82 04/19/24 13:10 Pulse Oximetry 96 04/19/24 13:10 Oxygen Delivery Me thod Room Air 04/19/24 13:10 MDM - Abdominal Pain Medical Decision Making Patient is a 63-year-old with a history of decompensated liver cirrhosis with a large amount of recurrent ascites requiring routine therapeutic paracenteses here for complaints of abdominal distention and request for therapeutic drainage. He is currently in between primary care providers at the moment. He does not have GI/hepatology. Case management did reach out to [facility] [place] in [place] today to set him up with a primary care provider and they are awaiting this. They will place a referral to GI/hepatology in [place]. Ideally we will try and get patient set up with outpatient therapeutic drainage to keep him from having to frequently return to the ED. Will write him an outpatient order from 10 days from now and then 10 days from then. That should give him time to set up/establish with PCP who can take over from there. Medical Records I reviewed the patient's medical records. Lab Data I reviewed the patient's lab results. All radiology interpretation(s) finalized by discharge Discharge Plan Discharge Condition: Stable Prescriptions: No Action (DME) Blood Glucose Test Strip See Rx Instructions .Route Qty: 50 2RF Rx Instructions: As directed furosemide 20 mg tablet 20 mg PO QAM famotidine 20 mg Tablet 20 mg PO BID calcium carbonate [Calcium 500] 500 mg calcium (1,250 mg) Tablet 1,000 mg PO .TID WITH MEALS bisacodyl [Dulcolax (bisacodyl)] 10 mg Suppository 10 mg CO DAILY PRN (Reason: Constipation) hydroxyzine HCl 25 mg Tablet 25 mg PO BID PRN (Reason: Itching) insulin lispro 100 unit/mL Solution 0 - 12 unit SUBCUT TID Rx Instructions: sliding scale with meals lactulose 20 gram/30 mL Solution 20 g PO BID dapagliflozin propanediol [Farxiga] 5 mg Tablet 5 mg PO DAILY magnesium hydroxide [Milk of Magnesia] 400 mg/5 mL Suspension 15 ml PO DAILY PRN (Reason: Constipation) magnesium citrate Solution 300 ml PO DAILY PRN (Reason: Constipation) rifaximin 550 mg Tablet 550 mg PO BID acetaminophen 325 mg Tablet 650 mg PO TID PRN (Reason: Pain) spironolactone 25 mg Tablet 25 mg PO DAILY tamsulosin 0.4 mg Capsule 0.4 mg PO DAILY carbidopa-levodopa [Sinemet] 25-100 mg Tablet 1 tab PO DAILY ropinirole 4 mg Tablet 8 mg PO TID Coding Level of Care Code ED Inclusion Specialist for Maureen Fwangel
--- NOTE | 2024-04-19 13:15 | US_ITS ---
WS: [id number] ULTRASOUND-GUIDED PARACENTESIS CLINICAL INFORMATION: theraputic COMPARISON: None. Procedure Informed consent: The risks, benefits, and alternatives of the procedure were discussed with the bety ent. Verbal and written consent was obtained. Timeout: A timeout was performed to confirm the correct patient, procedure, and site. Preparation: A suitable skin site was identified. The patient was prepped and draped in usual sterile fashion. Lidocaine 1% was used for local anesthesia. Catheter: 4 Kiswahili One-step Yueh catheter. Side: RIGHT lower quadrant. Fluid Volume: 5000 ml Color: Clear yellow DISPOSITION: Discarded safely. Complications: None. US/US paracentesis abd w [id number] IMPRESSION: Uncomplicated ultrasound-guided paracentesis. Removal of 5000 cc
[2024-04-19 13:49] LABS: Basophils % 0.2 %; Eosinophils # 0.1 10^3/uL (0.0-0.8); Eosinophils % 2.6 %; Hematocrit 30.1 % (37-53); Lymphocytes # 0.7 10^3/uL (0.8-4.8); Lymphocytes % 14.4 %; Mean Corpuscular HGB Conc 28.2 g/dL (30-55); Mean Corpuscular Volume 70.8 fl (82-101); Monocytes # 0.4 10^3/uL (0.2-0.9); Neutrophils # 3.73 10^3/uL (1.8-7.7); Neutrophils % 74.4 %; Nucleated Red Blood Cells % 0 %; Platelet Count 105 10^3/cmm (157-399); Red Blood Count 4.25 10^6/uL (3.85-5.65); White Blood Count 5.01 10^3/uL (3.29-11.43)
[2024-04-19 13:55] LABS: Slide Review Slide Review Perform
--- NOTE | 2024-04-19 13:57 | DCPLANNER ---
Paracentesis with Radiologist x 2 procedures 04/29 and again 05/09 sent to Centralized scheduling to schedule,
[2024-04-19 14:09] LABS: Alanine Aminotransferase < 5 U/L (0-41); Albumin Level 2.7 g/dL (3.5-5.2); Alkaline Phosphatase 85 U/L (40-130); Anion Gap 13.9 (5-19); Aspartate Amino Transferase 24 U/L (0-40); Blood Urea Nitrogen 13 mg/dL (8-23); Calcium 8.1 mg/dL (8.5-10.5); Carbon Dioxide 24 mmol/L (22-29); Chloride 97 mmol/L (98-107); Creatinine Clr Calc Pharmacy 93.0339; Glucose 239 mg/dL (65-115); Osmolality Calculated 280 mOsm/kg (285-295); Potassium 3.9 mmol/L (3.5-5.1); Sodium 131 mmol/L (136-145); Total Bilirubin 1.1 mg/dL (0.15-1.2); Total Protein 6.7 g/dL (6.6-8.7)
[2024-04-19 14:11] LABS: Ammonia 21 umol/L (16-60)
[2024-04-19] MEDS: albumin 37.5 GM/150 ML VIAL IV (15:19)
--- NOTE | 2024-04-20 07:14 | DCPLANNER ---
Referral for GI/Hapatolgy sent to
== END 2024-04-19 17:46 | disposition home or self-care (01) ==
PROVIDERS: Emergency Provider Physician Assistant
DX: R18.8 Other ascites (principal); K74.60 Unspecified cirrhosis of liver; E11.9 Type 2 diabetes mellitus without complications; G20.A1 Parkinson's disease without dyskinesia, without mention of fluctuations; Z79.4 Long term (current) use of insulin
CPT/HCPCS: 36415; 49083; 80053; 82140; 85025; 85610; 96365; 96366; 99285; P9047

== ENCOUNTER 2024-04-27 08:36 | Day surgery (SDC) | payer MEDICARE, MEDICAID, SELFPAY ==
[2024-04-27 08:55] VITALS: BP 121/74; PULSE 84; RESP 18; TEMP 36.3; O2SAT 95; BMI 25.1
--- NOTE | 2024-04-27 09:00 | US_ITS ---
WS: [id number] ULTRASOUND-GUIDED THERAPEUTIC PARACENTESIS Procedure, risks, and complications have been explained to the patient. Consent is obtained. Utilizing aseptic technique and 1% buffered lidocaine, a small dermatome was made through which a 5 F rench Yueh catheter was inserted. Approximately 6480 ml of clear peritoneal fluid was obtained witho ut difficulty. No complications encountered. US/US paracentesis abd w [id number] IMPRESSION: Uncomplicated paracentesis yielding 6480 ml of peritoneal fluid.
== END 2024-04-27 10:41 | disposition home or self-care (01) ==
LOC: GILAB 08:38
PROVIDERS: Radiology Diagnostic Radiology; Visit Provider Physician Assistant
PROC: (CPT 49082; principal; 2024-04-27 10:15)
DX: R18.8 Other ascites (principal)
CPT/HCPCS: 49083

== ENCOUNTER → 2024-05-03 15:10 | Outpatient (BNVA) | payer MEDICARE, MEDICAID, SELFPAY | PROVIDERS: Visit Provider Nurse Practitioner Family | DX: R53.83 Other fatigue (principal); I10 Essential (primary) hypertension; E11.9 Type 2 diabetes mellitus without complications | CPT/HCPCS: 80053; 80061; 83036; 84443; 85025 ==

== ENCOUNTER 2024-05-05 12:46 | Emergency (ER) | payer MEDICARE, MEDICAID, SELFPAY ==
[2024-05-05 12:53] VITALS: BP 91/55; PULSE 61; RESP 16; TEMP 36.3; O2SAT 99; BMI 25.1
--- NOTE | 2024-05-05 13:25 | ED_ITS ---
HPI - Nausea/Vomiting/Diarrhea 2 General: Chief complaint: Nausea/Vomiting/Diarrhea Stated complaint: n/v x2days Time Seen by Provider: 05/05/24 13:25 History of Present Illness: 63-year-old male with a history of cirrh osis who presents emergency room with nausea and vomiting. He says this started last night. He says anything he eats comes right back up. He has ascites in his abdomen some type. He says he has an appointment for paracentesis on Thursday. No fevers. No focal tenderness of his abdomen. No altered mental status. No focal motor deficits. Related Data Home Medications Medication Instructions Recorded Confirmed acetaminophen 325 mg tablet 650 mg PO TID PRN Pain 03/10/24 05/05/24 bisacodyl 10 mg rectal suppository 10 mg PA DAILY PRN Constipation 03/10/24 05/05/24 (Dulcolax (bisacodyl)) hydroxyzine HCl 25 mg tablet 25 mg PO BID PRN Itching 03/10/24 05/05/24 insulin lispro 100 unit/mL 0 - 12 unit SUBCUT TID 03/10/24 05/05/24 subcutaneous solution calcium carbonate 1,000 mg PO .TID WITH MEALS 05/03/24 05/05/24 Previous Rx's Medication Instructions Recorded blood sugar diagnostic (Blood #50 ea 09/13/21 Glucose Test strips) carbidopa 25 mg-levodopa 100 mg 1 tab PO DAILY #30 tabs 05/03/24 tablet (Sinemet) dapagliflozin propanediol 5 mg 5 mg PO DAILY #90 tabs 05/03/24 tablet (Farxiga) famotidine 20 mg tablet 20 mg PO BID #60 tabs 05/03/24 furosemide 20 mg tablet 20 mg PO QAM #30 tabs 05/03/24 lactulose 20 gram/30 mL oral 20 g (30 mL) PO BID #1,500 mL 05/03/24 solution magnesium citrate 300 ml PO DAILY PRN Constipation 05/03/24 #296 mL magnesium hydroxide 400 mg/5 mL 15 ml PO DAILY PRN Constipation 05/03/24 oral suspension (Milk of Magnesia) #355 mL rifaximin 550 mg tablet 550 mg PO BID #60 tabs 05/03/24 ropinirole 4 mg tablet 8 mg (2 x 4 mg) PO TID #120 tabs 05/03/24 spironolactone 25 mg tablet 25 mg PO DAILY #90 tabs 05/03/24 tamsulosin 0.4 mg capsule 0.4 mg PO DAILY #90 caps 05/03/24 wheelchair #1 ea 05/03/24 ondansetron 8 mg disintegrating 8 mg PO Q6H #14 tabs 05/05/24 tablet Allergies Allergy/AdvReac Type Severity Reaction Status Date / Time No Known Allergies Allergy Verified 05/05/24 08:00 Review of Systems 2 Narrative: Constitutional symptoms: Negative except as documented in HPI. Skin symptoms: Negative except as documented in HPI. Eye symptoms: Negative except as documented in HPI. ENMT symptoms: Negative except as documented in HPI. Respiratory symptoms: Negative except as documented in HPI. Cardiovascular symptoms: Negative except as documented in HPI. Gastrointestinal symptoms: Negative except as documented in HPI. Genitourinary symptoms: Negative except as documented in HPI. Musculoskeletal symptoms: Negative except as documented in HPI. Neurologic symptoms: Negative except as documented in HPI. Psychiatric symptoms: Negative except as documented in HPI. Endocrine symptoms: Negative except as documented in HPI. PFSH ED 2 PFSH: Medical History Decompensated hepatic cirrhosis Type 2 diabetes mellitus without complication Surgical History History of abdominal paracentesis Social History Smoking and tobacco/nicotine status: never used tobacco/nicotine Physical Exam 2 Narrative: EXAM NARRATIVE: General: Alert, no acute distress. Skin: Warm, dry. Head: Normocephalic, atraumatic. Neck: Supple, trachea midline. Eye: Extraocular movements are intact. Ears, nose, mouth and throat: mucosa moist. Cardiovascular: Regular, Normal peripheral perfusion. Respiratory: Lungs are clear to auscultation, respirations are non-labored, breath sounds are equal, Symmetrical chest wall expansion. Gastrointestinal: Distended, slightly tight but still soft Musculoskeletal: Normal ROM, no deformity. Neurological: Alert and oriented, No focal neurological deficit observed. Psychiatric: Cooperative, appropriate mood & affect. Course 2 Vital Signs: Vital signs: Vital Signs Temperature 97.4 F L 05/05/24 12:53 Pulse Rate 81 05/05/24 15:54 Respiratory Rate 13 05/05/24 15:54 Blood Pressure 103/54 05/05/24 15:54 Pulse Oximetry 95 05/05/24 15:54 Oxygen Delivery Me thod Room Air 05/05/24 15:54 MDM - Nausea/Vomiting/Diarrhea Medical Decision Making Medical decision making: Differential diagnosis for this patient with nausea and vomiting including but not limited to and based on the above HPI, review of systems and physical exam: Urinary tract infection. Appendicitis. Cholecystis. colitis. small bowel obstruction. crohn's flare. pancreatitis. gastritis. peptic ulcer. cyclic vomiting. Viral illness. Influenza. COVID. - Workup - labwork and imaging ordered to evaluate, rule in and rule out above pathologies. Lab Review: Laboratory results were reviewed and interpreted by myself the emergency room physician. No leukocytosis. Hemoglobin stable at 9.9. Low platelets at 95. BUN and creatinine are normal at 17 and 0.7. Glucose is slightly elevated at 189. CTA abdomen pelvis with contrast: Cirrhosis, ascites and varices. Nothing acute. This was reviewed and interpreted by myself the emergency room physician. I also reviewed the radiology report. I reviewed the patient's medical record. Reexamination: Patient remained stable. No increased work of breathing. No altered mental status. No focal motor deficits. Assessment and plan: Gastroenteritis Vomiting Cirrhosis -IV Zofran in the emergency room. - Discharged home - Discussed findings and plan with patient. Answered any questions. - All laboratory values were reviewed and interpreted personally by myself, the ER physician - All imaging was reviewed and interpreted personally by myself, the ER physician. - Evaluation and treatment of this problem were appropriate in the emergency setting Lab Data 05/05/24 13:38 05/05/24 13:38 Radiology Impressions Abdomen/Pelvis CT 05/05/24 14:13 IMPRESSION: 1. Cirrhosis. 2. Ascites. 3. Varices. Laboratory Results WBC 4.26 10^3/uL (3.29-11.43) 05/05/24 13:38 RBC 4.91 10^6/uL (3.85-5.65) 05/05/24 13:38 Hgb 9.90 g/dL (11.27-16.99) L 05/05/24 13:38 Hct 34.8 % (37-53) L 05/05/24 13:38 MCV 70.9 fl (82-101) L 05/05/24 13:38 MCH 20.2 pg (27-33) L 05/05/24 13:38 MCHC 28.4 g/dL (30-55) L 05/05/24 13:38 RDW 21.9 % (12.1-15.1) H 05/05/24 13:38 Plt Count 95 10^3/cmm (157-399) L 05/05/24 13:38 MPV Not Reportable 05/05/24 13:38 Neut % (Auto) 71.9 % 05/05/24 13:38 Lymph % (Auto) 16.4 % 05/05/24 13:38 [place] % (Auto) 10.8 % 05/05/24 13:38 Eos % (Auto) 0.5 % 05/05/24 13:38 Baso % (Auto) 0.2 % 05/05/24 13:38 Neut # (Auto) 3.06 10^3/uL (1.8-7.7) 05/05/24 13:38 Lymph # (Auto) 0.7 10^3/uL (0.8-4.8) L 05/05/24 13:38 [place] # (Auto) 0.5 10^3/uL (0.2-0.9) 05/05/24 13:38 Eos # (Auto) 0.0 10^3/uL (0.0-0.8) 05/05/24 13:38 Baso # (Auto) 0.0 10^3/uL (0.0-0.1) 05/05/24 13:38 Nucleated RBC % (auto) 0 % 05/05/24 13:38 Nucleated RBCs # 0.0 /100WBC 05/05/24 13:38 Sodium 133 mmol/L (136-145) L 05/05/24 13:38 Potassium 4.7 mmol/L (3.5-5.1) 05/05/24 13:38 Chloride 99 mmol/L (98-107) 05/05/24 13:38 Carbon Dioxide 25 mmol/L (22-29) 05/05/24 13:38 Anion Gap 13.7 (5-19) 05/05/24 13:38 BUN 17 mg/dL (8-23) 05/05/24 13:38 Creatinine 0.7 mg/dL (0.7-1.2) 05/05/24 13:38 GFR Calculation 113.2 mL/min (90-130) 05/05/24 13:38 Glucose 189 mg/dL (65-115) H 05/05/24 13:38 Calculated Osmolality 283 mOsm/kg (285-295) L 05/05/24 13:38 Calcium 8.5 mg/dL (8.5-10.5) 05/05/24 13:38 Total Bilirubin 1.0 mg/dL (0.15-1.2) 05/05/24 13:38 AST 26 U/L (0-40) 05/05/24 13:38 ALT < 5 U/L (0-41) 05/05/24 13:38 Alkaline Phosphatase 84 U/L (40-130) 05/05/24 13:38 Ammonia 16 umol/L (16-60) 05/05/24 15:06 Total Protein 6.8 g/dL (6.6-8.7) 05/05/24 13:38 Albumin 2.6 g/dL (3.5-5.2) L 05/05/24 13:38 Globulin 4.2 g/dL (1.3-4.6) 05/05/24 13:38 Lipase 12 U/L (13-60) L 05/05/24 13:38 All radiology interpretation(s) finalized by discharge Discharge Plan Discharge Patient Disposition: Home Clinical Impression: Gastroenteritis Condition: Stable Prescriptions: New ondansetron 8 mg tablet,disintegrating 8 mg PO Q6H Qty: 14 0RF Rx Instructions: Take 1/2-1 tab every 6 hours as needed for nausea and vomiting No Action (DME) Blood Glucose Test Strip See Rx Instructions .Route Qty: 50 2RF Rx Instructions: As directed calcium carbonate 500 mg calcium (1,250 mg) tablet 1,000 mg PO .TID WITH MEALS tamsulosin 0.4 mg capsule 0.4 mg PO DAILY Qty: 90 0RF spironolactone 25 mg tablet 25 mg PO DAILY Qty: 90 0RF ropinirole 4 mg tablet 8 mg PO TID Qty: 120 0RF rifaximin 550 mg tablet 550 mg PO BID Qty: 60 0RF magnesium hydroxide [Milk of Magnesia] 400 mg/5 mL suspension 15 ml PO DAILY PRN (Reason: Constipation) Qty: 355 0RF magnesium citrate Solution 300 ml PO DAILY PRN (Reason: Constipation) Qty: 296 0RF lactulose 20 gram/30 mL solution 20 g PO BID Qty: 1500 0RF furosemide 20 mg tablet 20 mg PO QAM Qty: 30 0RF famotidine 20 mg tablet 20 mg PO BID Qty: 60 0RF dapagliflozin propanediol [Farxiga] 5 mg tablet 5 mg PO DAILY Qty: 90 0RF carbidopa-levodopa [Sinemet] 25-100 mg tablet 1 tab PO DAILY Qty: 30 0RF (DME) wheelchair See Rx Instructions .Route .MEDSUPPLY Qty: 1 0RF Rx Instructions: As directed bisacodyl [Dulcolax (bisacodyl)] 10 mg Suppository 10 mg PA DAILY PRN (Reason: Constipation) hydroxyzine HCl 25 mg Tablet 25 mg PO BID PRN (Reason: Itching) insulin lispro 100 unit/mL Solution 0 - 12 unit SUBCUT TID Rx Instructions: sliding scale with meals acetaminophen 325 mg Tablet 650 mg PO TID PRN (Reason: Pain) Discharge Orders: Discharge ED (Routine); Ordered 05/05/24 Ordered By: Caprice Garcia Discharge Diet: Full LIquid Discharge Activity: Increase activity as tolerated Patient Instructions: Acute Nausea and Vomiting (ED) Activity Restrictions/Additional Instructions: Thank you for choosing [facility] for your healthcare needs today. Please realize this is an emergency room and that we are providing you with a medical screening exam and this may not be complete and all inclusive of all the testing and or work up that you may need to determine your ailment or severity of your illness. You have been screened and evaluated and felt safe for discharge. Health conditions do change or evolve sometimes and as such it is important that you follow up with your Primary Doctor to be re checked, 3-5 days is a general good time frame for follow up. You are always welcome to return to the ED for re assessment if your symptoms are worsening or you have new concerns Coding Level of Care Code ED Contour Stitcher for Maureen Epstein
[2024-05-05 13:51] LABS: Basophils % 0.2 %; Eosinophils % 0.5 %; Hematocrit 34.8 % (37-53); Lymphocytes # 0.7 10^3/uL (0.8-4.8); Lymphocytes % 16.4 %; Mean Corpuscular HGB Conc 28.4 g/dL (30-55); Mean Corpuscular Hemoglobin 20.2 pg (27-33); Mean Corpuscular Volume 70.9 fl (82-101); Monocytes # 0.5 10^3/uL (0.2-0.9); Monocytes % 10.8 %; Neutrophils # 3.06 10^3/uL (1.8-7.7); Neutrophils % 71.9 %; Nucleated Red Blood Cells % 0 %; Platelet Count 95 10^3/cmm (157-399); Red Blood Count 4.91 10^6/uL (3.85-5.65); Red Cell Distribution Width 21.9 % (12.1-15.1); White Blood Count 4.26 10^3/uL (3.29-11.43)
[2024-05-05 13:57] LABS: Slide Review Slide Review Perform
[2024-05-05 14:06] LABS: Alanine Aminotransferase < 5 U/L (0-41); Albumin Level 2.6 g/dL (3.5-5.2); Alkaline Phosphatase 84 U/L (40-130); Anion Gap 13.7 (5-19); Aspartate Amino Transferase 26 U/L (0-40); Blood Urea Nitrogen 17 mg/dL (8-23); Calcium 8.5 mg/dL (8.5-10.5); Carbon Dioxide 25 mmol/L (22-29); Chloride 99 mmol/L (98-107); Creatinine Clr Calc Pharmacy 95.3964; Globulin 4.2 g/dL (1.3-4.6); Glomerular Filtration Rate 113.2 mL/min (90-130); Glucose 189 mg/dL (65-115); Lipase 12 U/L (13-60); Osmolality Calculated 283 mOsm/kg (285-295); Potassium 4.7 mmol/L (3.5-5.1); Sodium 133 mmol/L (136-145); Total Protein 6.8 g/dL (6.6-8.7)
--- NOTE | 2024-05-05 14:13 | CTR_ITS ---
PROCEDURE INFORMATION: Exam: CT Abdomen And Pelvis With Contrast Exam date and time: 05/05/2024 3:30 PM Age: 63 years old Clinical indication: Vomiting; Prior surgery; Surgery date: <1 month; Surgery type: Para; Additional info: Vomiting, cirrhosis TECHNIQUE: Imaging protocol: Computed tomography of the abdomen and pelvis with contrast. Radiation optimization: All CT scans at this facility use at least one of these dose optimization techniques: automated exposure control; mA and/or kV adjustment per patient size (includes targeted exams where dose is matched to clinical indication); or iterative reconstruction. Contrast material: OMNI 350; Contrast volume: 100 ml; Contrast route: INTRAVENOUS (IV); COMPARISON: CT abdomen pelvis w con* [id number] 04/15/2024 8:03 PM RADIATION DOSE METRICS: Total DLP (mGy-cm): 850 FINDINGS: Liver: Cirrhosis with a very small and lobular liver. Gallbladder and biliary ducts: Cholelithiasis. Pancreas: Normal. No ductal dilation. Spleen: 14 cm splenomegaly. Adrenal glands: Normal. No mass. Kidneys and ureters: Normal. No hydronephrosis. Stomach and bowel: Unremarkable. No obstruction. No mucosal thickening. Appendix: No evidence of appendicitis. Intraperitoneal space: Extensive tense ascites. Vasculature: Extensive esophageal and gastric varices. Lymph nodes: Unremarkable. No enlarged lymph nodes. Urinary bladder: Unremarkable as visualized. Reproductive: Unremarkable as visualized. Bones/joints: Unremarkable. No acute fracture. Soft tissues: Unremarkable. CT/CT abdomen pelvis w con* [id number] IMPRESSION: 1. Cirrhosis. 2. Ascites. 3. Varices.
[2024-05-05 15:08] VITALS: BP 76/51; PULSE 63; RESP 18; O2SAT 99
[2024-05-05 15:31] LABS: Ammonia 16 umol/L (16-60)
[2024-05-05] MEDS: iohexol 350 mg/mL 500 mL Btl (per mL) IV (15:33)
[2024-05-05 15:54] VITALS: BP 103/54; PULSE 81; RESP 13; O2SAT 95
[2024-05-05 16:41] VITALS: PULSE 73; RESP 18; O2SAT 97
[2024-05-05 17:42] VITALS: BP 154/91; PULSE 57; O2SAT 99
== END 2024-05-05 17:43 | disposition home or self-care (01) ==
PROVIDERS: Emergency Medicine; Emergency Provider Emergency Medicine
DX: K52.9 Noninfective gastroenteritis and colitis, unspecified (principal); Z79.4 Long term (current) use of insulin; E11.9 Type 2 diabetes mellitus without complications
CPT/HCPCS: 36415; 74177; 80053; 82140; 83690; 85025; 99285

== ENCOUNTER 2024-05-06 07:04 | Day surgery (SDC) | payer MEDICARE, MEDICAID, SELFPAY ==
--- NOTE | 2024-05-06 07:27 | US_ITS ---
WS: [id number] ULTRASOUND-GUIDED PARACENTESIS CLINICAL INFORMATION: Ascites Procedure Informed consent: The risks, benefits, and alternatives of the procedure were discussed with the bety ent. Verbal and written consent was obtained. Timeout: A timeout was performed to confirm the correct patient, procedure, and site. Preparation: A suitable skin site was identified. The patient was prepped and draped in usual sterile fashion. Lidocaine 1% was used for local anesthesia. Catheter: 4 Persian One-step Yueh catheter. Side: RIGHT lower quadrant. Fluid Volume: 6000 ml Color: Clear yellow DISPOSITION: Discarded safely. Complications: None. Patient disposition: Discharged from the department in stable condition. US/[place]acentesis abd w [id number] IMPRESSION: Uncomplicated ultrasound-guided paracentesis. Removal of 6000 cc
[2024-05-06 07:30] VITALS: BP 110/69; PULSE 71; RESP 18; TEMP 36.4; O2SAT 95
== END 2024-05-06 09:35 | disposition home or self-care (01) ==
PROVIDERS: Radiology Neuroradiology; Visit Provider Nurse Practitioner Family
PROC: (CPT 49082; principal; 2024-05-06 08:30)
DX: R18.8 Other ascites (principal); E11.9 Type 2 diabetes mellitus without complications; Z79.4 Long term (current) use of insulin; K72.90 Hepatic failure, unspecified without coma; K74.60 Unspecified cirrhosis of liver
CPT/HCPCS: 49083; 99204

== ENCOUNTER 2024-05-09 11:10 | Day surgery (SDC) | payer MEDICARE, MEDICAID, SELFPAY ==
[2024-05-09 11:25] VITALS: BP 103/67; PULSE 71; RESP 16; TEMP 36.4; O2SAT 97
[2024-05-09 11:26] VITALS: BMI 25.1
--- NOTE | 2024-05-09 11:26 | US_ITS ---
WS: [id number] ULTRASOUND-GUIDED THERAPEUTIC PARACENTESIS Procedure, risks, and complications have been explained to the patient. Consent is obtained. Utilizing aseptic technique and 1% buffered lidocaine, a small dermatome was made through which a 5 F rench Yueh catheter was inserted. Approximately 5100 ml of clear peritoneal fluid was obtained witho ut difficulty. No complications encountered. US/US paracentesis abd w [id number] IMPRESSION: Uncomplicated paracentesis yielding 5100 ml of peritoneal fluid.
== END 2024-05-09 13:33 | disposition home or self-care (01) ==
PROVIDERS: Radiology Diagnostic Radiology; Visit Provider Physician Assistant
PROC: (CPT 49082; principal; 2024-05-09 12:00)
DX: R18.8 Other ascites (principal)
CPT/HCPCS: 49083

== ENCOUNTER → 2024-05-11 14:04 | Outpatient (BNVA) | payer MEDICARE, MEDICAID, SELFPAY | PROVIDERS: PCP Nurse Practitioner Family; Visit Provider Nurse Practitioner Family | DX: E11.9 Type 2 diabetes mellitus without complications (principal) | CPT/HCPCS: 84439; 84443 ==

== ENCOUNTER 2024-05-16 11:21 | Day surgery (SDC) | payer MEDICARE, MEDICAID, SELFPAY ==
--- NOTE | 2024-05-16 11:37 | US_ITS ---
WS: [id number] ULTRASOUND-GUIDED PARACENTESIS CLINICAL INFORMATION: abd ascites-deocmpensation of cirrhosis of the liver COMPARISON: None. Procedure Informed consent: The risks, benefits, and alternatives of the procedure were discussed with the bety ent. Verbal and written consent was obtained. Timeout: A timeout was performed to confirm the correct patient, procedure, and site. Preparation: A suitable skin site was identified. The patient was prepped and draped in usual sterile fashion. Lidocaine 1% was used for local anesthesia. Catheter: 4 Romanian One-step Boundless Networkeh catheter. Side: LEFT lower quadrant. Fluid Volume: 5500 ml Color: Clear yellow DISPOSITION: Discarded safely. Complications: None. Patient disposition: Discharged from the department in stable condition. US/US paracentesis abd w [id number] IMPRESSION: Uncomplicated ultrasound-guided paracentesis. Removal of 5500
[2024-05-16 11:38] VITALS: BMI 25.1
[2024-05-16 11:39] VITALS: BP 101/64; PULSE 81; RESP 18; TEMP 36.4; O2SAT 99
[2024-05-16] MEDS: ondansetron 4 MG Tablet PO (12:53)
== END 2024-05-16 13:05 | disposition home or self-care (01) ==
PROVIDERS: Radiology Neuroradiology; PCP Nurse Practitioner Family; Visit Provider Physician Assistant
PROC: (CPT 49082; principal; 2024-05-16 12:00)
DX: K74.60 Unspecified cirrhosis of liver (principal); R18.8 Other ascites
CPT/HCPCS: 49083; Q0162

== ENCOUNTER 2024-05-23 11:15 | Day surgery (SDC) | payer MEDICARE, MEDICAID, SELFPAY ==
--- NOTE | 2024-05-23 11:28 | US_ITS ---
WS: [id number] ULTRASOUND-GUIDED THERAPEUTIC PARACENTESIS Procedure, risks, and complications have been explained to the patient. Consent is obtained. Utilizing aseptic technique and 1% buffered lidocaine, a small dermatome was made through which a 5 F rench Yueh catheter was inserted. Approximately 5300 ml of clear peritoneal fluid was obtained witho ut difficulty. No complications encountered. US/US paracentesis abd w [id number] IMPRESSION: Uncomplicated paracentesis yielding 5300 ml of peritoneal fluid.
[2024-05-23 11:32] VITALS: BP 106/63; PULSE 75; RESP 16; TEMP 36.1; O2SAT 99; BMI 25.1
== END 2024-05-23 12:38 | disposition home or self-care (01) ==
PROVIDERS: Radiology Diagnostic Radiology; PCP Nurse Practitioner Family; Visit Provider Physician Assistant
PROC: (CPT 49082; principal; 2024-05-23 12:00)
DX: R18.8 Other ascites (principal)
CPT/HCPCS: 49083

== ENCOUNTER 2024-05-26 19:00 | Observation (INO) | payer MEDICARE, MEDICAID, SELFPAY ==
[2024-05-26 19:10] VITALS: BP 86/50; PULSE 62; RESP 20; TEMP 36.6; O2SAT 97; BMI 22.1
--- NOTE | 2024-05-26 19:12 | XRR_ITS ---
PROCEDURE INFORMATION: Exam: XR Chest Exam date and time: 05/26/2024 7:50 PM Age: 63 years old Clinical indication: Shortness of breath and other: Generalized weakness TECHNIQUE: Imaging protocol: Radiologic exam of the chest. Views: 1 view. COMPARISON: CR XR chest 1V portable [id number] 04/15/2024 3:27 PM FINDINGS: Lungs: No focal consolidation. Pleural spaces: No evidence of pneumothorax. No evidence of pleural effusion. Heart/Mediastinum: Cardiomediastinal silhouette is within normal limits. Prominent gaseous distension of the colon in the upper abdomen. Bones/joints: No evidence of acute osseous abnormality. XR/XR chest 1V portable [id number] IMPRESSION: 1. No acute cardiopulmonary abnormality. 2. Prominent gaseous distension of the colon in the upper abdomen.
--- NOTE | 2024-05-26 19:14 | ECG_ITS ---
[facility] Date: 2024-05-26 Pat Name: Iván Barreto Department: Room: Gender: Male Handy Man: : 1960 Requested By: Milad Arizmendi Order Number: [id number] Karen MD: Demetri Dobbins M.D. Measurements Intervals [place] Rate: 74 P: 52 TX: 236 QRS: -16 QRSD: 108 T: 11 QT: 398 QTc: 443 Interpretive Statements SINUS RHYTHM WITH FIRST DEGREE AV BLOCK ANTEROSEPTAL MYOCARDIAL INFARCTION , OF INDETERMINATE AGE [40+ ms Q WAVE IN V1-V4] Compared to ECG 04/15/2024 14:59:11 First degree AV block now present Atrial-paced complex(es) or rhythm no longer present Myocardial infarct finding still present Electronically Signed On 05-27-2024 07:41:12 CDT by Demetri Dobbins M.D. [email or web address]
[2024-05-26 19:34] LABS: Basophils % 0.1 %; Eosinophils % 0.1 %; Hematocrit 34.2 % (37-53); Lymphocytes # 0.5 10^3/uL (0.8-4.8); Lymphocytes % 6.3 %; Mean Corpuscular HGB Conc 29.2 g/dL (30-55); Mean Corpuscular Hemoglobin 20.2 pg (27-33); Monocytes # 0.4 10^3/uL (0.2-0.9); Monocytes % 4.9 %; Neutrophils # 6.94 10^3/uL (1.8-7.7); Neutrophils % 87.7 %; Nucleated Red Blood Cells % 0 %; Platelet Count 98 10^3/cmm (157-399); Red Blood Count 4.96 10^6/uL (3.85-5.65); White Blood Count 7.92 10^3/uL (3.29-11.43)
[2024-05-26 19:36] LABS: Slide Review Slide Review Perform
[2024-05-26 19:45] LABS: INR 1.36 (0.8-1.2)
[2024-05-26 19:50] LABS: Alanine Aminotransferase 9 U/L (0-41); Albumin Level 2.4 g/dL (3.5-5.2); Alkaline Phosphatase 144 U/L (40-130); Anion Gap 21.8 (5-19); Aspartate Amino Transferase 33 U/L (0-40); Blood Urea Nitrogen 33 mg/dL (8-23); C Reactive Protein 41.2 mg/L (0.0-4.9); Calcium 8.8 mg/dL (8.5-10.5); Carbon Dioxide 19 mmol/L (22-29); Chloride 87 mmol/L (98-107); Creatinine Clr Calc Pharmacy 36.2685; Globulin 3.9 g/dL (1.3-4.6); Glomerular Filtration Rate 33.7 mL/min (90-130); Glucose 263 mg/dL (65-115); Osmolality Calculated 270 mOsm/kg (285-295); Potassium 5.8 mmol/L (3.5-5.1); Sodium 122 mmol/L (136-145); Total Bilirubin 1.3 mg/dL (0.15-1.2); Total Protein 6.3 g/dL (6.6-8.7)
[2024-05-26 19:54] LABS: Ammonia 41 umol/L (16-60)
[2024-05-26 20:51] VITALS: BP 85/58; PULSE 82; RESP 16; O2SAT 92
--- NOTE | 2024-05-26 21:26 | W.ED.AMS ---
HPI - Altered Mental Status General: Chief Complaint: Altered Mental Status Stated Complaint: generalized weakness Time Seen by Provider: 05/26/24 19:08 History of Present Illness: Patient presents to the ER after having spells at home. He says there are any spells he just can was in and out of alertness. Patient is about to be put on hospice for liver failure but is waiting for paracentesis port to be put in on Thursday before doing so. Patient gets about 6 L drained every Thursday. Patient can follow along in conversation but definitely is mildly altered. Related Data Home Medications Medication Instructions Recorded Confirmed acetaminophen 325 mg tablet 650 mg PO TID PRN Pain 03/10/24 05/23/24 bisacodyl 10 mg rectal suppository 10 mg ND DAILY PRN Constipation 03/10/24 05/23/24 (Dulcolax (bisacodyl)) hydroxyzine HCl 25 mg tablet 25 mg PO BID PRN Itching 03/10/24 05/23/24 insulin lispro 100 unit/mL 0 - 12 unit SUBCUT TID 03/10/24 05/23/24 subcutaneous solution calcium carbonate 1,000 mg PO .TID WITH MEALS 05/03/24 05/23/24 ondansetron 8 mg disintegrating 8 mg PO Q6H PRN Nausea And Vomiting 05/06/24 05/23/24 tablet Previous Rx's Medication Instructions Recorded blood sugar diagnostic (Blood #50 ea 09/13/21 Glucose Test strips) carbidopa 25 mg-levodopa 100 mg 1 tab PO DAILY #30 tabs 05/03/24 tablet (Sinemet) dapagliflozin propanediol 5 mg 5 mg PO DAILY #90 tabs 05/03/24 tablet (Farxiga) famotidine 20 mg tablet 20 mg PO BID #60 tabs 05/03/24 furosemide 20 mg tablet 20 mg PO QAM #30 tabs 05/03/24 lactulose 20 gram/30 mL oral 20 g (30 mL) PO BID #1,500 mL 05/03/24 solution magnesium citrate 300 ml PO DAILY PRN Constipation 05/03/24 #296 mL magnesium hydroxide 400 mg/5 mL 15 ml PO DAILY PRN Constipation 05/03/24 oral suspension (Milk of Magnesia) #355 mL rifaximin 550 mg tablet 550 mg PO BID #60 tabs 05/03/24 ropinirole 4 mg tablet 8 mg (2 x 4 mg) PO TID #120 tabs 05/03/24 spironolactone 25 mg tablet 25 mg PO DAILY #90 tabs 05/03/24 tamsulosin 0.4 mg capsule 0.4 mg PO DAILY #90 caps 05/03/24 ensure supplement 8 oz as directed 2XD #60 Cans 05/11/24 wheelchair #1 ea 05/11/24 levothyroxine 25 mcg capsule 25 mcg PO DAILY #90 caps 05/20/24 Allergies Allergy/AdvReac Type Severity Reaction Status Date / Time No Known Allergies Allergy Verified 05/23/24 07:59 Review of Systems General: Reports: 10 or more systems reviewed and unremarkable except in HPI and below PFSH ED PFSH: Medical History Decompensated hepatic cirrhosis Type 2 diabetes mellitus without complication Surgical History History of abdominal paracentesis Social History Smoking and tobacco/nicotine status: former use of tobacco/nicotine Physical Exam Const: COMMON NORMALS: no acute distress, average body habitus, patient oriented x3, no limitations, healthy appearing, alert and well nourished HENMT: COMMON NORMALS: normocephalic, atraumatic, hearing grossly normal bilaterally, external ears normal, Normal external nose present and moist oral mucous membranes HEAD & SCALP: normocephalic and atraumatic NOSE: Normal external nose present EXTERNAL EAR: Yes external ears normal Neck/C-Spine: COMMON NORMALS: no JVD Chest: COMMONS NORMALS: normal inspection of the chest and normal palpation of entire chest wall Resp: COMMON NORMALS: normal respiratory effort, No retractions, No use of accessory muscles and clear to auscultation bilaterally AUSCULTATION: clear to auscultation bilaterally Cardio: COMMON NORMALS: no JVD, regular rate, regular rhythm, S1 normal heart sound present, S2 normal heart sound present, No gallops present (Cardio), No clicks present (Cardio), No murmurs present (Cardio) and No rub (Cardio) RATE: regular rate RHYTHM: regular rhythm HEART SOUNDS: S1 normal heart sound present and S2 normal heart sound present GI: COMMON NORMALS: Normal to inspection, nondistended, normoactive bowel sounds present, Soft to palpation, non-tender, No hepatosplenomegaly present and no masses PALPATION: Yes Soft to palpation and Yes No hepatosplenomegaly present Neuro: COMMON NORMALS: patient oriented x3 SENSORIUM/ORIENTATION: Yes alert Course Vital Signs: Vital signs: Vital Signs Temperature 98 F 05/26/24 19:10 Pulse Rate 76 05/26/24 22:17 Respiratory Rate 14 05/26/24 22:17 Blood Pressure 110/66 05/26/24 22:17 Pulse Oximetry 100 05/26/24 22:17 Oxygen Delivery Me thod Room Air 05/26/24 22:17 MDM - Altered Mental Status Medical Decision Making Lab work was obtained on the patient which revealed a sodium of 122, potassium 5.8, BUN/creatinine of 33 and 2.0, patient was given 2 L normal saline, 10 units of IV insulin, 250 mL of D10 patient still has not produced urine. Dr. Neff was consulted for placement for observation. Patient's family would like patient to see Dr. Rosenthal and possibly put in a abdominal drain so they can drain his fluid from his liver failure. Patient is trying to get on hospice currently. Medical Records I reviewed the patient's medical records. Lab Data I reviewed the patient's lab results. 05/26/24 19:28 05/26/24 19:28 Radiology Impressions Chest X-Ray 05/26/24 19:12 IMPRESSION: 1. No acute cardiopulmonary abnormality. 2. Prominent gaseous distension of the colon in the upper abdomen. Laboratory Results WBC 7.92 10^3/uL (3.29-11.43) 05/26/24 19: RBC 4.96 10^6/uL (3.85-5.65) 05/26/24 19: Hgb 10.00 g/dL (11.27-16.99) L 05/26/24: Hct 34.2 % (37-53) L 05/26/24 19: MCV 69.0 fl (82-101) L 05/26/24 19: MCH 20.2 pg (27-33) L 05/26/24: MCHC 29.2 g/dL (30-55) L 05/26/24 19: RDW 23.0 % (12.1-15.1) H 05/26/24 19:28 Plt Count 98 10^3/cmm (157-399) L 05/26/24 19:28 MPV Not Reportable 05/26/24 19: Neut % (Auto) 87.7 % 05/26/24 19: Lymph % (Auto) 6.3 % 05/26/24 19:28 [place] % (Auto) 4.9 % 05/26/24 19:28 Eos % (Auto) 0.1 % 05/26/24 19:28 Baso % (Auto) 0.1 % 05/26/24: Neut # (Auto) 6.94 10^3/uL (1.8-7.7) 05/26/24: Lymph # (Auto) 0.5 10^3/uL (0.8-4.8) L 05/26/24: [place] # (Auto) 0.4 10^3/uL (0.2-0.9) 05/26/24 19:28 Eos # (Auto) 0.0 10^3/uL (0.0-0.8) 05/26/24 19: Baso # (Auto) 0.0 10^3/uL (0.0-0.1) 05/26/24: Nucleated RBC % (auto) 0 % 05/26/24: Nucleated RBCs # 0.0 /100WBC 05/26/24: PT 17.30 SECONDS (12.1-14.9) H 05/26/24 19:28 INR 1.36 (0.8-1.2) H 05/26/24 19:28 Sodium 122 mmol/L (136-145) L 05/26/24 19:28 Potassium 5.8 mmol/L (3.5-5.1) H 05/26/24 19:28 Chloride 87 mmol/L (98-107) L 05/26/24 19:28 Carbon Dioxide 19 mmol/L (22-29) L 05/26/24 19:28 Anion Gap 21.8 (5-19) H 05/26/24 19:28 BUN 33 mg/dL (8-23) H 05/26/24 19:28 Creatinine 2.0 mg/dL (0.7-1.2) H 05/26/24 19:28 GFR Calculation 33.7 mL/min (90-130) L 05/26/24 19:28 Glucose 263 mg/dL (65-115) H 05/26/24 19:28 POC Glucose 461 mg/dL (70-110) H 05/26/24 22:13 Calculated Osmolality 270 mOsm/kg (285-295) L 05/26/24 19:28 Calcium 8.8 mg/dL (8.5-10.5) 05/26/24 19:28 Total Bilirubin 1.3 mg/dL (0.15-1.2) H 05/26/24 19:28 AST 33 U/L (0-40) 05/26/24 19:28 ALT 9 U/L (0-41) 05/26/24 19:28 Alkaline Phosphatase 144 U/L (40-130) H 05/26/24 19:28 Ammonia 41 umol/L (16-60) 05/26/24 19:28 C-Reactive Protein 41.2 mg/L (0.0-4.9) H 05/26/24 19:28 Total Protein 6.3 g/dL (6.6-8.7) L 05/26/24 19:28 Albumin 2.4 g/dL (3.5-5.2) L 05/26/24 19:28 Globulin 3.9 g/dL (1.3-4.6) 05/26/24 19:28 All radiology interpretation(s) finalized by discharge Discharge Plan Discharge Patient Disposition: Placed in Observation Clinical Impression: Acute metabolic encephalopathy, Acute kidney injury, Acute hyponatremia, Acute hyperkalemia Coding Level of Care Code ED Novelties Sales Representative for Maureen Epstein
[2024-05-26] MEDS: sodium chloride 0.9% 1,000 ML 999 ML IV (21:59)
[2024-05-26] MEDS: insulin regular-human 100 units/1 mL 10 UNIT IVP (21:59)
[2024-05-26] MEDS: calcium gluconate 0.1 gm/mL 10% SDV 10mL 1 GM IVP (21:59)
[2024-05-26 22:17] VITALS: BP 110/66; PULSE 76; RESP 14; O2SAT 100
[2024-05-26 22:18] LABS: Glucose Point of Care 461 mg/dL (70-110)
[2024-05-26] MEDS: insulin lispro 100 unit/1 mL SUBCUT (23:07)
[2024-05-26 23:09] LABS: Anion Gap 21.3 (5-19); Blood Urea Nitrogen 34 mg/dL (8-23); Calcium 8.5 mg/dL (8.5-10.5); Carbon Dioxide 15 mmol/L (22-29); Chloride 90 mmol/L (98-107); Creatinine Clr Calc Pharmacy 36.2685; Glomerular Filtration Rate 33.7 mL/min (90-130); Glucose 334 mg/dL (65-115); Osmolality Calculated 273 mOsm/kg (285-295); Potassium 5.3 mmol/L (3.5-5.1); Sodium 121 mmol/L (136-145)
[2024-05-26 23:16] LABS: Glucose Point of Care 331 mg/dL (70-110)
[2024-05-26 23:22] VITALS: BP 95/61; PULSE 71; RESP 16; O2SAT 100
[2024-05-26 23:53] VITALS: BP 101/64; PULSE 75; RESP 16; O2SAT 100
[2024-05-27] VITALS (64 sets, daily range): BP systolic 81–101; BP diastolic 44–64; PULSE 57–88; RESP 8–17; TEMP 35.8–36.3; O2SAT 94–100; BMI 22.1
--- NOTE | 2024-05-27 00:27 | PM.HP ---
Providers/Chief Complaint Admitting Physician: Asim Neff Primary Care Provider: KJ Del Cid Chief Complaint: generalized weakness History of Present Illness 63-year-old gentleman with end-stage liver cirrhosis, esophageal varices, DM 2, COPD, other medical problems was brought in by his friend and caregiver due to intermittent altered mental status, he also felt that patient was cool to the touch and could not find a pulse so he called EMS. He states that 4 days patient has been going in and out in terms of communication, has been intermittently lethargic, confused, not responsive. Patient is not yet started on hospice, but reportedly as part of initiation of hospice arrangements have been also underway for him to get a drainage port for ascites as he otherwise has been requiring paracentesis weekly. He otherwise has had poor oral intake, only taking his medications intermittently. Additionally was noted to have loose dark stool. Review of Systems General: Reports: ROS unobtainable due to mental status Medications/Allergies Home Medications Medication Instructions Recorded Confirmed Last Taken Type blood sugar diagnostic (Blood #50 ea 09/13/21 05/23/24 05/12/24 Rx Glucose Test strips) acetaminophen 325 mg tablet 650 mg PO TID PRN Pain 03/10/24 05/23/24 05/22/24 History bisacodyl 10 mg rectal suppository 10 mg [place] DAILY PRN Constipation 03/10/24 05/23/24 05/22/24 History (Dulcolax (bisacodyl)) hydroxyzine HCl 25 mg tablet 25 mg PO BID PRN Itching 03/10/24 05/23/24 05/22/24 History insulin lispro 100 unit/mL 0 - 12 unit SUBCUT TID 03/10/24 05/23/24 05/22/24 History subcutaneous solution calcium carbonate 1,000 mg PO .TID WITH MEALS 05/03/24 05/23/24 05/22/24 History carbidopa 25 mg-levodopa 100 mg 1 tab PO DAILY #30 tabs 05/03/24 05/23/24 05/22/24 Rx tablet (Sinemet) dapagliflozin propanediol 5 mg 5 mg PO DAILY #90 tabs 05/03/24 05/23/24 05/22/24 Rx tablet (Farxiga) famotidine 20 mg tablet 20 mg PO BID #60 tabs 05/03/24 05/23/24 05/22/24 Rx furosemide 20 mg tablet 20 mg PO QAM #30 tabs 05/03/24 05/23/24 05/22/24 Rx lactulose 20 gram/30 mL oral 20 g (30 mL) PO BID #1,500 mL 05/03/24 05/23/24 05/22/24 Rx solution magnesium citrate 300 ml PO DAILY PRN Constipation 05/03/24 05/23/24 05/22/24 Rx #296 mL magnesium hydroxide 400 mg/5 mL 15 ml PO DAILY PRN Constipation 05/03/24 05/23/24 05/22/24 Rx oral suspension (Milk of Magnesia) #355 mL rifaximin 550 mg tablet 550 mg PO BID #60 tabs 05/03/24 05/23/24 05/22/24 Rx ropinirole 4 mg tablet 8 mg (2 x 4 mg) PO TID #120 tabs 05/03/24 05/23/24 05/22/24 Rx spironolactone 25 mg tablet 25 mg PO DAILY #90 tabs 05/03/24 05/23/24 05/15/24 Rx tamsulosin 0.4 mg capsule 0.4 mg PO DAILY #90 caps 05/03/24 05/23/24 05/15/24 Rx ondansetron 8 mg disintegrating 8 mg PO Q6H PRN Nausea And Vomiting 05/06/24 05/23/24 05/22/24 History tablet ensure supplement 8 oz as directed 2XD #60 Cans 05/11/24 05/23/24 05/22/24 Rx wheelchair #1 ea 05/11/24 05/23/24 05/12/24 Rx levothyroxine 25 mcg capsule 25 mcg PO DAILY #90 caps 05/20/24 05/23/24 05/22/24 Rx Allergies Allergy/AdvReac Type Severity Reaction Status Date / Time Alpha gal Allergy Unknown Unknown Uncoded 05/27/24 00:42 PFSH Acute PFSH: Medical History (Updated 05/27/24 @ 01:05 by Asim Neff MD) Upper GI bleed Ex-smoker DM type 2 (diabetes mellitus, type 2) Parkinson disease Thrombocytopenia Portal hypertensive gastropathy Pancytopenia NPH (normal pressure hydrocephalus) Hypokalemia GI bleed Esophageal varices COPD mixed type COPD mixed type Bilateral lower extremity edema Allergy to alpha-gal Decompensated hepatic cirrhosis Type 2 diabetes mellitus without complication Surgical History History of abdominal paracentesis Social History (Updated 05/27/24 @ 00:39 by Asim Neff MD) Smoking and tobacco/nicotine status: former use of tobacco/nicotine Lives independently: No Household members: none Vitals/I&O/Wt Last Vital Signs Temp 98 F 05/26/24 19:10 Pulse 75 05/26/24 23:53 Resp 16 05/26/24 23:53 BP 101/64 05/26/24 23:53 Pulse Ox 100 05/26/24 23:53 O2 Del Method Room Air 05/26/24 22:17 05/26/24 05/26/24 05/27/24 14:59 22:59 06:59 Intake Total 1000 / 1000 Balance 1000 / 1000 Weight last 48 hrs Weight 68.039 kg Physical Exam Narrative: Accompanied by his friend/caregiver Gurmeet. Const: COMMON NORMALS: negative for alert GENERAL APPEARANCE: not cooperative ORIENTATION/CONSCIOUSNESS: not awake HENMT: COMMON NORMALS: oropharynx normal Neck/C-Spine: COMMON NORMALS: no JVD Resp: COMMON NORMALS: normal respiratory effort and clear to auscultation bilaterally AUSCULTATION: clear to auscultation bilaterally Cardio: COMMON NORMALS: no JVD, regular rhythm, S1 normal heart sound present, S2 normal heart sound present and No murmurs present (Cardio) RHYTHM: regular rhythm HEART SOUNDS: S1 normal heart sound present and S2 normal heart sound present GI: COMMON NORMALS: Soft to palpation and non-tender INSPECTION: Yes abdominal distension PALPATION: Yes Soft to palpation Extremity: COMMON NORMALS: no joint enlargement and no pedal edema Neuro: COMMON NORMALS: moves all extremities SENSORIUM/ORIENTATION: Yes alert Skin: COMMON NORMALS: no rashes or lesions noted GENERAL SKIN EXAM: no rashes or lesions noted OTHER: Thin skin. Skin tears and abrasions on bilateral lower extremities. Data 05/26/24 19:28 05/26/24 22:40 A&P Assessment and plan (1) Acute metabolic encephalopathy: Worsening encephalopathy over the last a week per history obtained from his friend and caregiver Gurmeet. Patient with intermittent wakefulness and alertness, but otherwise more and more has been less communicative, with unresponsive episodes, lethargy, poor oral intake, generalized weakness. His friend got concerned when he felt cold and clammy to the touch and he could not find a pulse and then called EMS. Reviewed vitals, CBC, INR, CMP, ammonia, chest x-ray, EKG on my interpretation with sinus rhythm, first-degree AV block, Q waves in 3, aVF, V3, V4, poor R wave progression. Pending official interpretation. Reviewed ER note, discussed with ER provider. Acute metabolic encephalopathy with acute kidney injury, creatinine up to 2, BUN 34, anion gap 21, bicarb down to 15. Complicated by hyponatremia, sodium 129, as well as hyperkalemia, potassium 5.3. Ammonia was checked and normal. Hyponatremia 121. Suspect secondary to cirrhosis but also he is hypothyroid, on levothyroxine which he may not be absorbing. Will give by IV for now. Acute encephalopathy also possibly secondary to ropinirole, hold ropinirole at current time. (2) Acute kidney injury: Acute kidney injury with major comorbidity complicated by encephalopathy, hyperkalemia. Suspected acute kidney injury to be multifactorial, including prerenal secondary to blood pressure fluctuations, noted blood pressure 86/50 on presentation, does appear to have had blood pressure dips in the past as well noted down to 76/51 on 05/05. Will hold off spironolactone for now. Monitor blood pressure. We may add midodrine if additional decreases. Consider albumin infusion. Reassess kidney function. Discussed additional risk of hypotension, further kidney injury with paracentesis, patient and family have been considering pursuing placement of peritoneal drain to allow for symptomatic ascites drainage with surgery. Holding off for now, consider once kidney function, blood pressure is more stable. Will check urine sodium, urine urea, urine creatinine. (3) Acute hyponatremia: Sodium 121, secondary to liver cirrhosis, possibly Lasix as well. Possibly low solute diet with poor oral intake recently. Hold off diuretics for now. Check urine sodium, urine osmolality. He has received a sodium chloride bolus in ER 1 L. Recheck sodium. Additionally with hypothyroidism, on levothyroxine. May not be absorbing it, will give by IV for now. (4) Hypothyroidism: Continue levothyroxine by IV for now given possible poor absorption. Qualifiers: Hypothyroidism type: acquired Qualified Code(s): E03.9 - Hypothyroidism, unspecified (5) Melanotic stools: Possible GI bleed with melanotic stool, anemia hemoglobin 10. Not on blood thinners. History of variceal disease with liver cirrhosis, no hematemesis. Will give PPI IV twice daily. Recheck blood counts. (6) Decompensated hepatic cirrhosis: End-stage liver cirrhosis, arrangements underway for hospice care including placement of peritoneal drain by Dr. Rosenthal. Depending on improvement in his condition consider drain placement inpatient versus outpatient. (7) Generalized weakness: Multifactorial secondary to the above. Manage underlying causes were possible. Continue hospice arrangements. (8) Goals of care, counseling/discussion: His friend and caregiver Gurmeet has been taking care of him at home although patient otherwise lives by himself. He has been staying in touch with his daughter who is on the [facility]. They ROS working on arrangement of [employer] paperwork. Plan Hyperkalemia: Potassium 5.3. Monitor on telemetry. Has received calcium gluconate, insulin, dextrose. Hold spironolactone. Recheck potassium level. Attestations Medical Necessity Statement*: Place in observation for additional assessment management of acute encephalopathy, LIBERTAD, hyponatremia, hypothyroidism, possible GI bleed in a gentleman with end-stage liver cirrhosis. and High MDM includes number and complexity of problems actively addressed during encounter and amount and/or complexity of data reviewed/ordered [ previous or external records, resulted lab(s)/test(s), ordered lab(s)/test(s), independent historian, independent test interpretation and other healthcare professional discussion] as documented Diagnoses Acute metabolic encephalopathy G93.41 Acute kidney injury N17.9 Acute hyponatremia E87.1 Acquired hypothyroidism E03.9 Hypothyroidism type: acquired Melanotic stools K92.1 Decompensated hepatic cirrhosis K72.90; K74.60 Generalized weakness R53.1 Goals of care, counseling/discussion Z71.89
[2024-05-27] MEDS: pantoprazole 40 mg SDV IVP ×2 (02:33→12:43)
--- NOTE | 2024-05-27 05:35 | PC.NURSE ---
Patient is refusing blood glucose stick and lab draws at this time, stated it was too early . Hospitalist notified.
[2024-05-27] MEDS: tamsulosin 0.4 mg Capsule PO (09:33)
[2024-05-27] MEDS: levothyroxine 100 mcg SDV 15 MCG IVP (09:33)
--- NOTE | 2024-05-27 10:41 | PC.CHAP ---
Pastoral Care Encounter/Spiritual Assessment Type of Contact [] Declined bid writer visit [] Patient/Family/Request visit [] Outpatient visit [] Follow-up visit [] Physician referral [] Code/Alert [x] Routine visit [] Staff referral [] Actively dying [] Patient sleeping [] Family support [] [] Out of room [] Palliative care [] [] Receiving care in room [] Pre-surgical visit [] Trauma [] Long length of stay [] ICU visit [] Other: Relational/Emotional Strength [] Patient feels connected with others/family/visitors/staff [] Distress [] Loneliness/isolation [] Abandonment Spirituality of Patient [] Person of Irais [] Attends Pentecostalism of their Irais [] Believes in Prayer [] Reads Bible or Yazidi materials [] There are Spiritual issues to be addressed Yard Demurrage Clerk Interventions [x] Prayer [] Active listening [x] Non-anxious presence [] Spiritual/emotional support [] Crisis/trauma care [] Spiritual counseling [] Bereavement support [] Provided bereavement packet [] Provided Bible/devotional materials [] Provided toy/stuffed animal, coloring book to patient or family member [] Provided Communion [] Anointing/[place] [] Salvation [] Completed spiritual assessment [] Other: Impact on Illness or Injury [] Angry [] Fearful [] Anxious [] Often cries [] Exhaustion [] Unable to work [] Unable to attend confucianism [] Unable to walk/stand [] Unable to read [] Unable to drive [] Unable to eat/drink [] Unable to sleep [] Unable to be with family [] Patient intubated [] Other: Summary prayer +1 Request Daily Visits if passable Time spent with patient 10 Min
--- NOTE | 2024-05-27 11:15 | W.PM.EVENTAC ---
Event Note Event Note: Patient th is morning is able to tell me that his daughter is in [place], he is planning to make his daughter medical DPOA He is a friend who checks on him He is asking for hospice care He understands that at this point he is doing poorly and does not want aggressive surgical medical management patient registration manager has been updated regarding his wishes Patient does not want to be resuscitated in case of any cardiac or respiratory emergency he is DNR/DNI For hyperkalemia I will give him Kayexalate
[2024-05-27 11:49] LABS: C.Diff PCR (Lab) NEGATIVE (Negative)
[2024-05-27 12:04] LABS: Glucose Point of Care 223 mg/dL (70-110)
[2024-05-27] MEDS: insulin lispro 100 unit/1 mL SUBCUT ×2 (12:44→17:19)
--- NOTE | 2024-05-27 13:50 | PC.NURSE ---
As [id number] patient does not want to take the Kayexalate.
--- NOTE | 2024-05-27 14:22 | PC.NURSE ---
Provider has been updated that patients blood pressures have been soft. He is also refusing to take the kayexalate.
[2024-05-27] MEDS: albumin 12.5 GM/250 ML VIAL IV (14:50)
[2024-05-27 16:55] LABS: Glucose Point of Care 213 mg/dL (70-110)
[2024-05-27] MEDS: rifaximin 200 mg Tablet 600 MG PO (17:19)
[2024-05-27] MEDS: lactulose oral liq 20 gm/30 mL UDC PO (17:19)
[2024-05-27 20:22] LABS: Glucose Point of Care 120 mg/dL (70-110)
[2024-05-28 00:23] VITALS: BP 107/62; PULSE 64; RESP 13; O2SAT 100
[2024-05-28] MEDS: pantoprazole 40 mg SDV IVP ×2 (01:40→12:18)
[2024-05-28 02:43] LABS: Basophils % 0.1 %; Eosinophils # 0.1 10^3/uL (0.0-0.8); Hematocrit 28.1 % (37-53); Lymphocytes # 0.6 10^3/uL (0.8-4.8); Lymphocytes % 7.1 %; Mean Corpuscular HGB Conc 30.6 g/dL (30-55); Mean Corpuscular Hemoglobin 20.7 pg (27-33); Mean Corpuscular Volume 67.7 fl (82-101); Monocytes # 0.5 10^3/uL (0.2-0.9); Monocytes % 5.8 %; Neutrophils # 6.99 10^3/uL (1.8-7.7); Neutrophils % 85.5 %; Nucleated Red Blood Cells % 0 %; Platelet Count 63 10^3/cmm (157-399); Red Blood Count 4.15 10^6/uL (3.85-5.65); Red Cell Distribution Width 22.6 % (12.1-15.1); White Blood Count 8.17 10^3/uL (3.29-11.43)
[2024-05-28 03:17] LABS: Alanine Aminotransferase 22 U/L (0-41); Albumin Level 2.5 g/dL (3.5-5.2); Alkaline Phosphatase 130 U/L (40-130); Anion Gap 12.8 (5-19); Aspartate Amino Transferase 42 U/L (0-40); Blood Urea Nitrogen 39 mg/dL (8-23); Calcium 8.6 mg/dL (8.5-10.5); Carbon Dioxide 23 mmol/L (22-29); Chloride 90 mmol/L (98-107); Globulin 3.3 g/dL (1.3-4.6); Glomerular Filtration Rate 43.6 mL/min (90-130); Glucose 135 mg/dL (65-115); Osmolality Calculated 261 mOsm/kg (285-295); Potassium 5.8 mmol/L (3.5-5.1); Sodium 120 mmol/L (136-145); Total Bilirubin 0.7 mg/dL (0.15-1.2); Total Protein 5.8 g/dL (6.6-8.7)
[2024-05-28 03:18] LABS: Creatinine Clr Calc Pharmacy 45.3357
[2024-05-28 03:47] VITALS: BP 106/68; PULSE 83; RESP 14; TEMP 36.4; O2SAT 91
[2024-05-28 06:00] VITALS: BMI 22.1
[2024-05-28 06:35] LABS: Glucose Point of Care 150 mg/dL (70-110)
[2024-05-28 07:42] VITALS: BP 93/53; PULSE 66; RESP 18; TEMP 36.7; O2SAT 96
[2024-05-28] MEDS: lactulose oral liq 20 gm/30 mL UDC PO ×2 (08:37→17:38)
[2024-05-28] MEDS: levothyroxine 100 mcg SDV 15 MCG IVP (08:38)
--- NOTE | 2024-05-28 09:29 | PM.PN ---
Subjective Subjective: No overnight events Patient was given albumin yesterday Hospice care will be arranged once we get peritoneal drain in place Vitals/I&O/Wt Last Vital Signs Temp 98.0 F 05/28/24 07:42 Pulse 66 05/28/24 07:42 Resp 18 05/28/24 07:42 BP 93/53 05/28/24 07:42 Pulse Ox 96 05/28/24 07:42 O2 Del Method Room Air 05/28/24 07:42 05/27/24 05/28/24 05/28/24 22:59 06:59 14:59 Intake Total 250 / 250 Balance 250 / 250 Weight last 48 hrs Weight 68.039 kg Weight 68.039 kg Weight 68.039 kg Weight 68.039 kg Physical Exam Narrative: Hepatic encephalopathy Cachectic malnourished appearance Able to answer simple questions Distended abdomen nontender S1, S2 Currently room air Data 05/28/24 01:45 05/28/24 01:45 A&P Assessment and plan (1) Goals of care, counseling/discussion: (2) Type 2 diabetes mellitus without complication: Qualifiers: Diabetes mellitus termite exterminator insulin use: without termite exterminator use Qualified Code(s): E11.9 - Type 2 diabetes mellitus without complications (3) History of esophageal varices: (4) Decompensated hepatic cirrhosis: (5) Liver lesion: (6) Abdominal ascites: (7) Acute kidney injury: (8) Acute hyponatremia: Plan Do not need workup for hyponatremia, it is evident that this is related to hypervolemia with underlying liver cirrhosis Albumin given yesterday For low blood pressure judicious use of diuretics Patient will go home on hospice care once we are able to get peritoneal drain in place, Dr. Rosenthal will be available on Thursday we will discuss with him DNR/DNI Attestations Medical Necessity Statement*: Continue medical management Diagnoses Goals of care, counseling/discussion Z71.89 Type 2 diabetes mellitus without complication, without long-term current use of insulin E11.9 Diabetes mellitus termite exterminator insulin use: without termite exterminator use History of esophageal varices Z87.19 Decompensated hepatic cirrhosis K72.90; K74.60 Liver lesion K76.9 Abdominal ascites R18.8 Acute kidney injury N17.9 Acute hyponatremia E87.1
[2024-05-28 11:39] VITALS: BP 88/53; PULSE 77; RESP 18; TEMP 36.3; O2SAT 99
--- NOTE | 2024-05-28 11:57 | PC.NURSE ---
Nurse asked patient if she could insert woody catheter to avoid skin breakdown and patient refused. He said they were too uncomfortable.
--- NOTE | 2024-05-28 11:59 | PC.NURSE ---
Patient arrived back on floor from cathodic protection technician at 1150. Report given by DEREK Ugarte. TR band in place, no hematoma noted. 15ml of air in band. Patient instructed not to use wrist for anything but eating and using her phone as long as she didn't put any weight on it.
[2024-05-28] MEDS: insulin lispro 100 unit/1 mL SUBCUT ×2 (12:18→17:38)
[2024-05-28 12:51] LABS: Glucose Point of Care 207 mg/dL (70-110)
[2024-05-28 16:00] VITALS: BP 98/58; PULSE 83; RESP 18; TEMP 36.3; O2SAT 99
[2024-05-28 16:57] LABS: Glucose Point of Care 190 mg/dL (70-110)
[2024-05-28 16:57] LABS: Glucose Point of Care 210 mg/dL (70-110)
--- NOTE | 2024-05-28 17:02 | PC.NURSE ---
per [facility] is pharmacy, we do not have any rifixavan for patient to take, we are low in stock. Marcial asked if patient could bring his own from home, but patient is unable to comprehend what I'm asking him at this time.
[2024-05-28 20:00] VITALS: BP 96/52; PULSE 125; RESP 14; TEMP 36.4; O2SAT 92
[2024-05-28 20:36] LABS: Glucose Point of Care 200 mg/dL (70-110)
[2024-05-29] VITALS: BP 97/55; PULSE 67; RESP 13; TEMP 36.4; O2SAT 98
[2024-05-29] MEDS: pantoprazole 40 mg SDV IVP ×2 (01:28→15:10)
[2024-05-29 01:32] LABS: Glucose Point of Care 138 mg/dL (70-110)
[2024-05-29 04:00] VITALS: BP 101/56; PULSE 83; RESP 14; TEMP 36.8; O2SAT 94
[2024-05-29 04:00] LABS: Basophils % 0.1 %; Eosinophils % 0.4 %; Hematocrit 27.9 % (37-53); Lymphocytes # 0.7 10^3/uL (0.8-4.8); Lymphocytes % 6.6 %; Mean Corpuscular HGB Conc 30.8 g/dL (30-55); Mean Corpuscular Hemoglobin 20.6 pg (27-33); Mean Corpuscular Volume 66.9 fl (82-101); Monocytes % 8.5 %; Neutrophils # 9.37 10^3/uL (1.8-7.7); Nucleated Red Blood Cells % 0 %; Platelet Count 60 10^3/cmm (157-399); Red Blood Count 4.17 10^6/uL (3.85-5.65); Red Cell Distribution Width 22.5 % (12.1-15.1); White Blood Count 11.14 10^3/uL (3.29-11.43)
[2024-05-29 04:22] LABS: Alanine Aminotransferase 30 U/L (0-41); Albumin Level 2.2 g/dL (3.5-5.2); Alkaline Phosphatase 135 U/L (40-130); Blood Urea Nitrogen 34 mg/dL (8-23); Carbon Dioxide 20 mmol/L (22-29); Chloride 88 mmol/L (98-107); Creatinine Clr Calc Pharmacy 72.5371; Globulin 3.5 g/dL (1.3-4.6); Glucose 126 mg/dL (65-115); Osmolality Calculated 253 mOsm/kg (285-295); Total Bilirubin 0.8 mg/dL (0.15-1.2); Total Protein 5.7 g/dL (6.6-8.7)
[2024-05-29 04:36] LABS: Anion Gap 15.2 (5-19); Aspartate Amino Transferase 56 U/L (0-40); Potassium 6.2 mmol/L (3.5-5.1)
[2024-05-29 04:37] LABS: Sodium 117 mmol/L (136-145)
[2024-05-29 06:48] LABS: Glucose Point of Care 128 mg/dL (70-110)
[2024-05-29 07:23] VITALS: BP 92/54; PULSE 86; RESP 18; TEMP 36.6; O2SAT 97
[2024-05-29] MEDS: levothyroxine 100 mcg SDV 15 MCG IVP (09:38)
[2024-05-29] MEDS: lactulose oral liq 20 gm/30 mL UDC PO ×2 (09:39→17:14)
[2024-05-29 11:39] VITALS: BP 89/55; PULSE 89; RESP 16; TEMP 36.9; O2SAT 98
[2024-05-29 12:15] LABS: Glucose Point of Care 162 mg/dL (70-110)
--- NOTE | 2024-05-29 12:36 | PM.PN ---
Subjective Subjective: patient is stating that he is not in pain His sodium has been worsening Unfortunately at this point I cannot give him Lasix or spironolactone because of low blood pressure Potassium is hemolyzed Vitals/I&O/Wt Last Vital Signs Temp 98.4 F 05/29/24 11:39 Pulse 89 05/29/24 11:39 Resp 16 05/29/24 11:39 BP 89/55 05/29/24 11:39 Pulse Ox 98 05/29/24 11:39 O2 Del Method Room Air 05/29/24 11:39 05/28/24 05/29/24 05/29/24 22:59 06:59 14:59 Intake Total 400 / 1240 118 / 118 Balance 400 / 1240 118 / 118 Weight last 48 hrs Weight 72.121 kg Weight 68.039 kg Physical Exam Narrative: Patient is eating breakfast Distended abdomen He only answers simple questions Take a lot of time to answer my questions Nontender abdomen Blood pressure 89/55 moved worker Currently on room air Data 05/29/24 02:58 05/29/24 02:58 A&P Assessment and plan (1) Goals of care, counseling/discussion: (2) Type 2 diabetes mellitus without complication: Qualifiers: Diabetes mellitus termite inspector insulin use: without termite inspector use Qualified Code(s): E11.9 - Type 2 diabetes mellitus without complications (3) History of esophageal varices: (4) Decompensated hepatic cirrhosis: (5) Liver lesion: (6) Abdominal ascites: (7) Acute kidney injury: (8) Acute hyponatremia: Plan Hypervolemic hyponatremia, unfortunately we cannot do Lasix with spinal lactone because of low blood pressure He received 1 bottle of albumin yesterday Will keep him n.p.o. after midnight I will talk with Dr. Rosenthal tomorrow to see if we can get peritoneal drain in place and discharge him to hospice service at home Continue rifaximin and lactulose Attestations Medical Necessity Statement*: Continue medical management for now Diagnoses Goals of care, counseling/discussion Z71.89 Type 2 diabetes mellitus without complication, without long-term current use of insulin E11.9 Diabetes mellitus termite inspector insulin use: without termite inspector use History of esophageal varices Z87.19 Decompensated hepatic cirrhosis K72.90; K74.60 Liver lesion K76.9 Abdominal ascites R18.8 Acute kidney injury N17.9 Acute hyponatremia E87.1
[2024-05-29] MEDS: insulin lispro 100 unit/1 mL SUBCUT ×2 (12:47→17:53)
[2024-05-29 16:00] VITALS: BP 88/50; PULSE 75; RESP 16; TEMP 36.5; O2SAT 97
--- NOTE | 2024-05-29 16:31 | PC.NURSE ---
Pharmacy pharmacy stated they are out of stock on rifaximin. called friend maurice via phone if he can bring his home bottle of rifaximin today. per pharmacy the med stock will be available tomorrow so ok to bring his home med. Per friend Maurice he will try to bring it today or tomorrow morning.
[2024-05-29 16:51] LABS: Glucose Point of Care 190 mg/dL (70-110)
[2024-05-29 20:00] VITALS: BP 93/58; PULSE 68; RESP 12; TEMP 36.6
[2024-05-29 23:55] LABS: Glucose Point of Care 147 mg/dL (70-110)
[2024-05-30] VITALS (7 sets, daily range): BP systolic 88–115; BP diastolic 52–68; PULSE 71–101; RESP 12–18; TEMP 36.2–36.8; O2SAT 94–99
[2024-05-30] MEDS: pantoprazole 40 mg SDV IVP ×2 (01:26→14:02)
[2024-05-30 04:35] LABS: Basophils % 0.1 %; Eosinophils # 0.1 10^3/uL (0.0-0.8); Eosinophils % 0.9 %; Hematocrit 27.6 % (37-53); Lymphocytes # 0.7 10^3/uL (0.8-4.8); Mean Corpuscular HGB Conc 31.2 g/dL (30-55); Mean Corpuscular Hemoglobin 20.9 pg (27-33); Mean Corpuscular Volume 67.2 fl (82-101); Monocytes # 0.9 10^3/uL (0.2-0.9); Monocytes % 10.5 %; Neutrophils % 79.1 %; Nucleated Red Blood Cells % 0 %; Platelet Count 56 10^3/cmm (157-399); Red Blood Count 4.11 10^6/uL (3.85-5.65); Red Cell Distribution Width 22.7 % (12.1-15.1); White Blood Count 8.09 10^3/uL (3.29-11.43)
[2024-05-30 04:45] LABS: Platelet Count 56 10^3/cmm (157-399)
[2024-05-30 04:50] LABS: Partial Thromboplastin Time 39.3 SECONDS (23.9-36.7)
[2024-05-30 04:51] LABS: Fibrinogen 352 mg/dL (174-498)
[2024-05-30 04:55] LABS: Alanine Aminotransferase 29 U/L (0-41); Albumin Level 2.2 g/dL (3.5-5.2); Alkaline Phosphatase 139 U/L (40-130); Anion Gap 12.2 (5-19); Aspartate Amino Transferase 41 U/L (0-40); Blood Urea Nitrogen 28 mg/dL (8-23); Carbon Dioxide 22 mmol/L (22-29); Chloride 94 mmol/L (98-107); Creatinine Clr Calc Pharmacy 82.4866; Globulin 3.4 g/dL (1.3-4.6); Glomerular Filtration Rate 84.7 mL/min (90-130); Glucose 141 mg/dL (65-115); Osmolality Calculated 264 mOsm/kg (285-295); Potassium 5.2 mmol/L (3.5-5.1); Sodium 123 mmol/L (136-145); Total Bilirubin 1.1 mg/dL (0.15-1.2); Total Protein 5.6 g/dL (6.6-8.7)
[2024-05-30 06:49] LABS: Glucose Point of Care 159 mg/dL (70-110)
[2024-05-30] MEDS: levothyroxine 100 mcg SDV 15 MCG IVP (08:02)
--- NOTE | 2024-05-30 09:49 | P.PN_ITS ---
Subjective 2 Subjective: Requested Dr. Rosenthal for peritoneal drain placement Which might have been after his clinic hours today Will keep him n.p.o. for now Vitals/I&O/Wt Last Vital Signs Temp 98.0 F 05/30/24 07:24 Pulse 86 05/30/24 07:24 Resp 18 05/30/24 07:24 BP 88/55 05/30/24 07:24 Pulse Ox 98 05/30/24 07:24 O2 Del Method Room Air 05/30/24 07:24 05/29/24 05/30/24 05/30/24 22:59 06:59 14:59 Intake Total 360 / 718 Balance 360 / 718 Weight last 48 hrs Weight 74.933 kg Weight 72.121 kg Physical Exam 2 Narrative: Patient is awake and alert Able to answer simple questions Blood pressures on softer side 88/55mmhg Abdomen distended nontender S1, S2 On room air Data 05/30/24 03:53 05/30/24 03:53 A&P Assessment and plan (1) Goals of care, counseling/discussion: (2) Type 2 diabetes mellitus without complication: Qualifiers: Diabetes mellitus adjunct faculty for medical terminology insulin use: without fpc use Qualified Code(s): E11.9 - Type 2 diabetes mellitus without complications (3) History of esophageal varices: (4) Decompensated hepatic cirrhosis: (5) Liver lesion: (6) Abdominal ascites: (7) Acute kidney injury: (8) Acute hyponatremia: Plan Hypervolemic hyponatremia, unfortunately we cannot do Lasix with spironolactone because of low blood pressure He got 1 bag of albumin 05/28 Will keep him n.p.o. until evaluated by Dr. Rosenthal today for peritoneal drain placement Patient most likely will be discharged by tomorrow we arranging hospital/hospice bed for him DNR/DNI Creatinine improved We will add midodrine Attestations 2 Medical Necessity Statement*: Discharge likely by tomorrow Diagnoses Goals of care, counseling/discussion Z71.89 Type 2 diabetes mellitus without complication, without long-term current use of insulin E11.9 Diabetes mellitus fpc insulin use: without adjunct faculty for medical terminology use History of esophageal varices Z87.19 Decompensated hepatic cirrhosis K72.90; K74.60 Liver lesion K76.9 Abdominal ascites R18.8 Acute kidney injury N17.9 Acute hyponatremia E87.1
[2024-05-30 12:51] LABS: Glucose Point of Care 116 mg/dL (70-110)
[2024-05-30] MEDS: midodrine 5 mg TABLET 10 MG PO ×2 (14:02→21:12)
[2024-05-30 17:30] LABS: Glucose Point of Care 226 mg/dL (70-110)
[2024-05-30 17:30] LABS: Glucose Point of Care 479 mg/dL (70-110)
[2024-05-30] MEDS: insulin lispro 100 unit/1 mL SUBCUT (17:39)
[2024-05-30 20:18] LABS: Glucose Point of Care 208 mg/dL (70-110)
[2024-05-30] MEDS: sodium chloride 0.9% 1,000 ML 30 ML IV (21:11)
--- NOTE | 2024-05-30 22:28 | PC.NURSE ---
called report to ms nurse. nt to take to new bed on 2s.
[2024-05-31] VITALS (11 sets, daily range): BP systolic 93–121; BP diastolic 53–67; PULSE 68–88; RESP 16–28; TEMP 36.1–36.7; O2SAT 98–100
[2024-05-31] MEDS: insulin lispro 100 unit/1 mL SUBCUT (01:41)
[2024-05-31] MEDS: pantoprazole 40 mg SDV IVP (02:38)
[2024-05-31 04:20] LABS: Glucose Point of Care 211 mg/dL (70-110)
[2024-05-31 07:06] LABS: Glucose Point of Care 106 mg/dL (70-110)
--- NOTE | 2024-05-31 07:27 | P.ANESASSM_ITS ---
Pre-Anesthetic Assessment Height/Weight: Height 5 ft 9 in Weight 162 lb 4.8 oz Temp Pulse Resp BP Pulse Ox O2 Del Method O2 Flow Rate 98.0 F 88 19 H 101/65 98 Room Air 2 05/31/24 04:00 05/31/24 04:00 05/31/24 04:00 05/31/24 04:00 05/31/24 04:00 05/31/24 04:00 05/30/24 20:00 Preop Diagnosis: Liver cirrhosis Operation Date: 05/31/24 09:25 Proposed Procedures p Laparoscopic Peritoneal Cath Inserti(Not Applicable) - Michael Rosenthal, DO Was Beta Bladimir taken within 24 hours: N/A Was Clonidine taken within 24 hours: N/A Last intake: Intake Last Liquid Date 05/30/24 Last Liquid Time 00:00 Last Solid Date 05/30/24 Social No alcohol and No tobacco Exam alert, oriented x 3, clear to auscultation bilaterally and regular rate & rhythm Airway Submandibular: within normal limits Cervical ROM: within normal limits Mallampati: Class II Dentition: other (Few missing teeth, denies any loose teeth) Anesthetic Plan ASA status: 4 Anesthesia: MAC Other: No prior issues with anesthesia NPO since yesterday Patient initially admitted 05/27/2024 for weakness/altered mentation Patient appears very lethargic, able to answer questions but very weak Patient has end-stage liver cirrhosis with esophageal varices Type 2 diabetes, on insulin Parkinson's disease on carbidopa COPD controlled with inhalers Plans for initiating hospice in the near future, part of hospice arrangements is to have drainage port for ascites Allergy to alpha gal, anesthesia team aware Labs 05/30/2024 reviewed Hemoglobin 8.6 Platelet 56 INR 1.4 Sodium 123, chronically low up from 117 K+ 5.2 EKG showing sinus rhythm with first-degree AV block Discussed with patient that he is at high risk for anesthesia. Understanding that he needs the catheter for hospice care and the ascites is part of his hyponatremia issue, we will proceed with general anesthesia at this time. Patient understands risks Medications/Allergies Home Medications Medication Instructions Recorded Confirmed Last Taken Type blood sugar diagnostic (Blood #50 ea 09/13/21 05/27/24 05/12/24 Rx Glucose Test strips) acetaminophen 325 mg tablet 650 mg PO TID PRN Pain 03/10/24 05/27/24 05/22/24 History bisacodyl 10 mg rectal suppository 10 mg PA DAILY PRN Constipation 03/10/24 05/27/24 05/22/24 History (Dulcolax (bisacodyl)) hydroxyzine HCl 25 mg tablet 25 mg PO BID PRN Itching 03/10/24 05/27/24 05/22/24 History insulin lispro 100 unit/mL 0 - 12 unit SUBCUT TID 03/10/24 05/27/24 05/22/24 History subcutaneous solution calcium carbonate 1,000 mg PO .TID WITH MEALS 05/03/24 05/27/24 05/22/24 History carbidopa 25 mg-levodopa 100 mg 1 tab PO DAILY #30 tabs 05/03/24 05/27/24 05/22/24 Rx tablet (Sinemet) dapagliflozin propanediol 5 mg 5 mg PO DAILY #90 tabs 05/03/24 05/27/24 05/22/24 Rx tablet (Farxiga) famotidine 20 mg tablet 20 mg PO BID #60 tabs 05/03/24 05/27/24 05/22/24 Rx furosemide 20 mg tablet 20 mg PO QAM #30 tabs 05/03/24 05/27/24 05/22/24 Rx lactulose 20 gram/30 mL oral 20 g (30 mL) PO BID #1,500 mL 05/03/24 05/27/24 05/22/24 Rx solution magnesium citrate 300 ml PO DAILY PRN Constipation 05/03/24 05/27/24 05/22/24 Rx #296 mL magnesium hydroxide 400 mg/5 mL 15 ml PO DAILY PRN Constipation 05/03/24 05/27/24 05/22/24 Rx oral suspension (Milk of Magnesia) #355 mL rifaximin 550 mg tablet 550 mg PO BID #60 tabs 05/03/24 05/27/24 05/22/24 Rx ropinirole 4 mg tablet 8 mg (2 x 4 mg) PO TID #120 tabs 05/03/24 05/27/24 05/22/24 Rx spironolactone 25 mg tablet 25 mg PO DAILY #90 tabs 05/03/24 05/27/24 05/15/24 Rx tamsulosin 0.4 mg capsule 0.4 mg PO DAILY #90 caps 05/03/24 05/27/24 05/15/24 Rx ondansetron 8 mg disintegrating 8 mg PO Q6H PRN Nausea And Vomiting 05/06/24 05/27/24 05/22/24 History tablet ensure supplement 8 oz as directed 2XD #60 Cans 05/11/24 05/27/24 05/22/24 Rx wheelchair #1 ea 05/11/24 05/27/24 05/12/24 Rx levothyroxine 25 mcg capsule 25 mcg PO DAILY #90 caps 05/20/24 05/27/24 05/22/24 Rx Allergies Allergy/AdvReac Type Severity Reaction Status Date / Time Alpha gal Allergy Unknown Unknown Uncoded 05/27/24 00:42 Current Medications Generic Name Dose Route Start Last Admin Trade Name Freq PRN Reason Stop Dose Admin Sodium Chloride 1,000 mls @ 30 mls/hr 05/30/24 16:45 05/30/24 21:11 Sodium Chloride 0.9% IV 05/31/24 16:44 30 mls/hr .Q24H BATOOL Administration Insulin Human Lispro 0 unit 05/27/24 00:53 05/31/24 01:41 Insulin Lispro 100 Unit/1 Ml SUBCUT 4 unit Q6H BATOOL Administration Protocol Lactulose 20 gm 05/27/24 09:00 05/30/24 17:39 Lactulose Oral Liq 20 Gm/30 Ml Udc PO Not Given BID BATOOL Levothyroxine Sodium 15 mcg 05/27/24 09:00 05/30/24 08:02 Levothyroxine 100 Mcg Sdv IVP 15 mcg DAILY BATOOL Administration Midodrine 10 mg 05/30/24 15:00 05/30/24 21:12 Midodrine 5 Mg Tablet PO 10 mg TID BATOOL Administration Pantoprazole Sodium 40 mg 05/27/24 00:53 05/31/24 02:38 Pantoprazole 40 Mg Sdv IVP 40 mg Q12H BATOOL Administration Rifaximin 600 mg 05/27/24 18:00 05/30/24 17:39 Rifaximin 200 Mg Tablet PO Not Given BID BATOOL PFSH Anesthesia Medical History (Updated 05/27/24 @ 01:05 by Asim Neff MD) Upper GI bleed Ex-smoker DM type 2 (diabetes mellitus, type 2) Parkinson disease Thrombocytopenia Portal hypertensive gastropathy Pancytopenia NPH (normal pressure hydrocephalus) Hypokalemia GI bleed Esophageal varices COPD mixed type COPD mixed type Bilateral lower extremity edema Allergy to alpha-gal Decompensated hepatic cirrhosis Type 2 diabetes mellitus without complication Surgical History History of abdominal paracentesis Social History (Updated 05/27/24 @ 00:39 by Asim Neff MD) Smoking and tobacco/nicotine status: former use of tobacco/nicotine Lives independently: No Household members: none Data Anesthesia 05/30/24 03:53 05/30/24 03:53 Short CBC 05/30/24 05/30/24 Range/Units 03:53 03:53 WBC 8.09 (3.29-11.43) 10^3/uL Hgb 8.60 L (11.27-16.99) g/dL Hct 27.6 L (37-53) % MCV 67.2 L (82-101) fl Plt Count 56 L 56 L (157-399) 10^3/cmm Neut % (Auto) 79.1 % Neut # (Auto) 6.40 (1.8-7.7) 10^3/uL BMP 05/30/24 03:53 Sodium 123 L Potassium 5.2 H Chloride 94 L Carbon Dioxide 22 BUN 28 H Creatinine 0.9 Glucose 141 H Calcium 8.0 L Liver Function 05/30/24 Range/Units 03:53 Total Bilirubin 1.1 (0.15-1.2) mg/dL AST 41 H (0-40) U/L ALT 29 (0-41) U/L Alkaline Phosphatase 139 H (40-130) U/L Albumin 2.2 L (3.5-5.2) g/dL Coags 05/30/24 03:53 PT 17.60 H INR 1.40 H APTT 39.3 H Fibrinogen 352 Cardiac Studies: 2 No Data to Display
--- NOTE | 2024-05-31 08:23 | P.CONIM_ITS ---
Providers/Reason For Consult 2 Consulting Physician/Specialty*: Dr. Michael Rosenthal, DO/General Surgery Reason for Consult*: Peritoneal drain placement Attending Physician: Fredi Dubois MD Primary Care Provider: KJ Del Cid History of Present Illness History of Present Illness 63-year-old gentleman with end-stage liver cirrhosis, esophageal varices, DM 2, COPD, and other medical problems was brought in by his friend and caregiver due to intermittent altered mental status. He currently does not have any complaints. He denies any abdominal pain at this moment. He desires to go on to hospice and requires a peritoneal drain placement. He is awake and oriented x 3. Review of Systems 2 General: Reports: 10 or more systems reviewed and unremarkable except in HPI and below Medications/Allergies Home Medications Medication Instructions Recorded Confirmed Last Taken Type blood sugar diagnostic (Blood #50 ea 09/13/21 05/27/24 05/12/24 Rx Glucose Test strips) acetaminophen 325 mg tablet 650 mg PO TID PRN Pain 03/10/24 05/27/24 05/22/24 History bisacodyl 10 mg rectal suppository 10 mg CO DAILY PRN Constipation 03/10/24 05/27/24 05/22/24 History (Dulcolax (bisacodyl)) hydroxyzine HCl 25 mg tablet 25 mg PO BID PRN Itching 03/10/24 05/27/24 05/22/24 History insulin lispro 100 unit/mL 0 - 12 unit SUBCUT TID 03/10/24 05/27/24 05/22/24 History subcutaneous solution calcium carbonate 1,000 mg PO .TID WITH MEALS 05/03/24 05/27/24 05/22/24 History carbidopa 25 mg-levodopa 100 mg 1 tab PO DAILY #30 tabs 05/03/24 05/27/24 05/22/24 Rx tablet (Sinemet) dapagliflozin propanediol 5 mg 5 mg PO DAILY #90 tabs 05/03/24 05/27/24 05/22/24 Rx tablet (Farxiga) famotidine 20 mg tablet 20 mg PO BID #60 tabs 05/03/24 05/27/24 05/22/24 Rx furosemide 20 mg tablet 20 mg PO QAM #30 tabs 05/03/24 05/27/24 05/22/24 Rx lactulose 20 gram/30 mL oral 20 g (30 mL) PO BID #1,500 mL 05/03/24 05/27/24 05/22/24 Rx solution magnesium citrate 300 ml PO DAILY PRN Constipation 05/03/24 05/27/24 05/22/24 Rx #296 mL magnesium hydroxide 400 mg/5 mL 15 ml PO DAILY PRN Constipation 05/03/24 05/27/24 05/22/24 Rx oral suspension (Milk of Magnesia) #355 mL rifaximin 550 mg tablet 550 mg PO BID #60 tabs 05/03/24 05/27/24 05/22/24 Rx ropinirole 4 mg tablet 8 mg (2 x 4 mg) PO TID #120 tabs 05/03/24 05/27/24 05/22/24 Rx spironolactone 25 mg tablet 25 mg PO DAILY #90 tabs 05/03/24 05/27/24 05/15/24 Rx tamsulosin 0.4 mg capsule 0.4 mg PO DAILY #90 caps 05/03/24 05/27/24 05/15/24 Rx ondansetron 8 mg disintegrating 8 mg PO Q6H PRN Nausea And Vomiting 05/06/24 05/27/24 05/22/24 History tablet ensure supplement 8 oz as directed 2XD #60 Cans 05/11/24 05/27/24 05/22/24 Rx wheelchair #1 ea 05/11/24 05/27/24 05/12/24 Rx levothyroxine 25 mcg capsule 25 mcg PO DAILY #90 caps 05/20/24 05/27/24 05/22/24 Rx Allergies Allergy/AdvReac Type Severity Reaction Status Date / Time Alpha gal Allergy Unknown Unknown Uncoded 05/27/24 00:42 Current Medications Generic Name Dose Route Start Last Admin Trade Name Freq PRN Reason Stop Dose Admin Sodium Chloride 1,000 mls @ 30 mls/hr 05/30/24 16:45 05/30/24 21:11 Sodium Chloride 0.9% IV 05/31/24 16:44 30 mls/hr .Q24H BATOOL Administration Insulin Human Lispro 0 unit 05/27/24 00:53 05/31/24 01:41 Insulin Lispro 100 Unit/1 Ml SUBCUT 4 unit Q6H BATOOL Administration Protocol Lactulose 20 gm 05/27/24 09:00 05/30/24 17:39 Lactulose Oral Liq 20 Gm/30 Ml Udc PO Not Given BID BATOOL Levothyroxine Sodium 15 mcg 05/27/24 09:00 05/30/24 08:02 Levothyroxine 100 Mcg Sdv IVP 15 mcg DAILY BATOOL Administration Midodrine 10 mg 05/30/24 15:00 05/30/24 21:12 Midodrine 5 Mg Tablet PO 10 mg TID BATOOL Administration Pantoprazole Sodium 40 mg 05/27/24 00:53 05/31/24 02:38 Pantoprazole 40 Mg Sdv IVP 40 mg Q12H BATOOL Administration Rifaximin 600 mg 05/27/24 18:00 05/30/24 17:39 Rifaximin 200 Mg Tablet PO Not Given BID BATOOL PFSH Acute 2 PFSH: Medical History Upper GI bleed Ex-smoker DM type 2 (diabetes mellitus, type 2) Parkinson disease Thrombocytopenia Portal hypertensive gastropathy Pancytopenia NPH (normal pressure hydrocephalus) Hypokalemia GI bleed Esophageal varices COPD mixed type COPD mixed type Bilateral lower extremity edema Allergy to alpha-gal Decompensated hepatic cirrhosis Type 2 diabetes mellitus without complication Surgical History History of abdominal paracentesis Social History Smoking and tobacco/nicotine status: former use of tobacco/nicotine Lives independently: No Household members: none Vitals/I&O/Wt Last Vital Signs Temp 97 F L 05/31/24 07:42 Pulse 82 05/31/24 07:42 Resp 16 05/31/24 07:42 BP 100/63 05/31/24 07:42 Pulse Ox 100 05/31/24 07:42 O2 Del Method Room Air 05/31/24 07:42 O2 Flow Rate 2 05/30/24 20:00 05/30/24 05/31/24 05/31/24 22:59 06:59 14:59 Intake Total 100 / 100 Balance 100 / 100 Weight last 48 hrs Weight 162 lb 4.8 oz Weight 165 lb 3.2 oz Physical Exam 2 Narrative: General : Patient is well developed , no acute distress, oriented x3 Head : Normal cephalic, a-traumatic. Ears : Pinnae and external canal are normal. Hearing is normal. Eyes : PERRLA, Sclera and injection are normal. No conjunctival discharge. Nose : Mucous membranes are without erythema. Throat : buccal mucosa is normal, gums are without significant recession or hypertrophy. Lungs : Equal chest rise bilaterally, no use of accessory muscles, trachea is midline. Cor : Rate and rhythm are normal. Abdomen : Soft, distended, nontender, positive fluid wave no g/r/m Extremities : No edema, no cyanosis or clubbing, dorsalis pedis pulses are present bilaterally, non-tender to palpation of calves. Upper extremities are normal bilaterally. Back : non-tender to palpation, no CVA tenderness. Neuro : CN II - XII intact, Upper and lower extremities have equal and full strength Data 05/30/24 03:53 05/30/24 03:53 A&P Assessment and plan (1) Decompensated hepatic cirrhosis: Plan Laparoscopic peritoneal drain placement Some benefits of procedure, include but not limited to, bleeding, infection, scar, numbness, pain, need to convert to an open procedure, damage to surrounding structures, were explained to the patient. He is understanding of the risks and wishes to proceed Coding Level of Care Code 58462 Diagnoses Decompensated hepatic cirrhosis K72.90; K74.60
[2024-05-31] MEDS: ceFAZolin 2,000 mg SDV 2000 MG IVP (08:35)
[2024-05-31] MEDS: lidocaine-epi 2% PF 1:200,000 20 mL SDV XX (08:59)
--- NOTE | 2024-05-31 09:20 | PM.OP ---
Operative Report Date of procedure: May 31, 2024 Pre-op diagnosis: Decompensated liver failure Post-op diagnosis: same Procedure done: Laparoscopic peritoneal drain placement Implants: Peritoneal drainage catheter Specimens removed/disposition: None Surgeon: Michael Rosenthal DO Anesthesia: General and Local Estimated blood loss (mL): 5 Complications: None apparent Brief History: This is a very pleasant 63-year-old gentleman in decompensated liver failure. He wants to go home on hospice and requires a peritoneal drain to be placed prior to this. The risks and benefits of procedure were explained and documented. Procedure: Patient was wheeled in the operative room and placed on the OR table in supine position. The abdomen was inspected prepped and draped in usual sterile fashion. A timeout was performed all present were in agreement. A Veress needle was placed in the left upper quadrant and intra-abdominal insufflation was brought to 15 mmHg. A 5 mm trocar was then placed into the site using Optiview. A second 5 mm trocar was placed in the left lower quadrant. An 8 mm trocar was then placed just left of the umbilicus and tunneled subcutaneously and then preperitoneal he down to the pelvis. This was done under direct visualization. A peritoneal dialysis catheter was then fed through this trocar down into the pelvis. Both cuffs were noted to be subcutaneously and preperitoneum only. 200 cc of thin yellow peritoneal fluid was suctioned through the catheter. 5 g of albumin was given to the patient and IV. The catheter appeared in good working order. Ports were removed. A 2-0 Ethilon suture was used to suture the catheter in place. Skin was closed using 4-0 Monocryl in a subcutaneous fashion. Dermabond was applied. Patient tolerated the procedure well.
--- NOTE | 2024-05-31 10:08 | ANE.PACU2 ---
Inpatient post-anesthesia follow up: Airway intact: Yes Vital signs: Temperature 97.5 F Pulse Rate 68 Respiratory Rate 18 Blood Pressure 100/62 Pulse Oximetry 100 Oxygen Delivery Me thod Room Air Oxygen Flow Rate 2 Fraction of Inspir ed Oxygen Hydration adequate: Yes Nausea and vomiting: No Pain level: 1 Mental status: Baseline
--- NOTE | 2024-05-31 10:41 | PM.DCS ---
Discharge Providers Date of Admission: 05/26/24 23:23 Date of Discharge: May 31, 2024 Attending Provider at Admission: Asim Neff Attending Provider at Discharge: Fredi Dubois MD Primary Care Provider: KJ Del Cid Diagnoses at Discharge Discharge Diagnosis (1) Decompensated hepatic cirrhosis: Status: Acute Reason for Visit Reason for Visit: generalized weakness Hospital Course Hospital Course 63-year male who was brought in by his friend when he was found altered, he has history of liver cirrhosis esophageal varices type II diabetic, COPD, lives alone, patient was in the process of getting hospice approved outpatient, they were waiting for a peritoneal drain by Dr. Rosenthal, during hospitalization Dr. Rosenthal was consulted for peritoneal drain placement, patient blood pressure has been on the softer side with hyponatremia, unfortunately we cannot add higher dosages of spironolactone or Lasix at this point, he received albumin 1 bag only, he is being discharged home with hospice care after peritoneal drain placement 05/31. Physical Exam Narrative: No active signs of hepatic encephalopathy Awake and alert able to communicate Patient takes a lot of time to answer questions Abdomen nontender, peritoneal drain in place Currently on room air Blood pressure 98/57 mmHg Discharge Data Studies Completed and Pending Completed Studies During Hospitalization Category Date Time Status XR chest 1V portable [id number] Stat Exams 05/26/24 19:12 Completed Pending at discharge Category Date Time Status Urinalysis Stat Lab 05/26/24 19:12 Uncollected Radiology Impressions Chest X-Ray 05/26/24 19:12 IMPRESSION: 1. No acute cardiopulmonary abnormality. 2. Prominent gaseous distension of the colon in the upper abdomen. Laboratory Results WBC 8.09 10^3/uL (3.29-11.43) 05/30/24 03:53 RBC 4.11 10^6/uL (3.85-5.65) 05/30/24 03:53 Hgb 8.60 g/dL (11.27-16.99) L 05/30/24 03:53 Hct 27.6 % (37-53) L 05/30/24 03:53 MCV 67.2 fl (82-101) L 05/30/24 03:53 MCH 20.9 pg (27-33) L 05/30/24 03:53 MCHC 31.2 g/dL (30-55) 05/30/24 03:53 RDW 22.7 % (12.1-15.1) H 05/30/24 03:53 Plt Count 56 10^3/cmm (157-399) L 05/30/24 03:53 Plt Count 56 10^3/cmm (157-399) L 05/30/24 03:53 MPV Not Reportable 05/30/24 03:53 Neut % (Auto) 79.1 % 05/30/24 03:53 Lymph % (Auto) 9.0 % 05/30/24 03:53 [place] % (Auto) 10.5 % 05/30/24 03:53 Eos % (Auto) 0.9 % 05/30/24 03:53 Baso % (Auto) 0.1 % 05/30/24 03:53 Neut # (Auto) 6.40 10^3/uL (1.8-7.7) 05/30/24 03:53 Lymph # (Auto) 0.7 10^3/uL (0.8-4.8) L 05/30/24 03:53 [place] # (Auto) 0.9 10^3/uL (0.2-0.9) 05/30/24 03:53 Eos # (Auto) 0.1 10^3/uL (0.0-0.8) 05/30/24 03:53 Baso # (Auto) 0.0 10^3/uL (0.0-0.1) 05/30/24 03:53 Nucleated RBC % (auto) 0 % 05/30/24 03:53 Nucleated RBCs # 0.0 /100WBC 05/30/24 03:53 PT 17.60 SECONDS (12.1-14.9) H 05/30/24 03:53 INR 1.40 (0.8-1.2) H 05/30/24 03:53 APTT 39.3 SECONDS (23.9-36.7) H 05/30/24 03:53 Fibrinogen 352 mg/dL (174-498) 05/30/24 03:53 Sodium 123 mmol/L (136-145) L 05/30/24 03:53 Potassium 5.2 mmol/L (3.5-5.1) H 05/30/24 03:53 Chloride 94 mmol/L (98-107) L 05/30/24 03:53 Carbon Dioxide 22 mmol/L (22-29) 05/30/24 03:53 Anion Gap 12.2 (5-19) 05/30/24 03:53 BUN 28 mg/dL (8-23) H 05/30/24 03:53 Creatinine 0.9 mg/dL (0.7-1.2) 05/30/24 03:53 GFR Calculation 84.7 mL/min (90-130) L 05/30/24 03:53 Glucose 141 mg/dL (65-115) H 05/30/24 03:53 POC Glucose 106 mg/dL (70-110) 05/31/24 06:55 Calculated Osmolality 264 mOsm/kg (285-295) L 05/30/24 03:53 Calcium 8.0 mg/dL (8.5-10.5) L 05/30/24 03:53 Total Bilirubin 1.1 mg/dL (0.15-1.2) 05/30/24 03:53 AST 41 U/L (0-40) H 05/30/24 03:53 ALT 29 U/L (0-41) 05/30/24 03:53 Alkaline Phosphatase 139 U/L (40-130) H 05/30/24 03:53 Ammonia 41 umol/L (16-60) 05/26/24 19:28 C-Reactive Protein 41.2 mg/L (0.0-4.9) H 05/26/24 19:28 Total Protein 5.6 g/dL (6.6-8.7) L 05/30/24 03:53 Albumin 2.2 g/dL (3.5-5.2) L 05/30/24 03:53 Globulin 3.4 g/dL (1.3-4.6) 05/30/24 03:53 C. difficile (PCR) Negative (Negative) 05/27/24 10:02 Vitals Last Vital Signs Temp 97.2 F L 05/31/24 09:52 Pulse 72 05/31/24 09:57 Resp 17 05/31/24 09:57 BP 98/57 05/31/24 09:57 Pulse Ox 100 05/31/24 09:57 O2 Del Method Room Air 05/31/24 09:57 O2 Flow Rate 2 05/30/24 20:00 Discharge Plan Discharge Patient Disposition: Hospice - Home Condition: Stable Prescriptions: Continued (DME) Blood Glucose Test Strip See Rx Instructions .Route Qty: 50 2RF Rx Instructions: As directed levothyroxine 25 mcg capsule 25 mcg PO DAILY Qty: 90 0RF tamsulosin 0.4 mg capsule 0.4 mg PO DAILY Qty: 90 0RF spironolactone 25 mg tablet 25 mg PO DAILY Qty: 90 0RF rifaximin 550 mg tablet 550 mg PO BID Qty: 60 0RF lactulose 20 gram/30 mL solution 20 g PO BID Qty: 1500 0RF furosemide 20 mg tablet 20 mg PO QAM Qty: 30 0RF famotidine 20 mg tablet 20 mg PO BID Qty: 60 0RF dapagliflozin propanediol [Farxiga] 5 mg tablet 5 mg PO DAILY Qty: 90 0RF carbidopa-levodopa [Sinemet] 25-100 mg tablet 1 tab PO DAILY Qty: 30 0RF (DME) wheelchair See Rx Instructions .Route .MEDSUPPLY Qty: 1 0RF Rx Instructions: As directed ensure supplement 8 oz as directed 2XD Qty: 60 3RF bisacodyl [Dulcolax (bisacodyl)] 10 mg Suppository 10 mg ND DAILY PRN (Reason: Constipation) insulin lispro 100 unit/mL Solution 0 - 12 unit SUBCUT TID Rx Instructions: sliding scale with meals ondansetron 8 mg tablet,disintegrating 8 mg PO Q6H PRN (Reason: Nausea And Vomiting) Rx Instructions: Take 1/2-1 tab every 6 hours as needed for nausea and vomiting Discontinued calcium carbonate 500 mg calcium (1,250 mg) tablet 1,000 mg PO .TID WITH MEALS ropinirole 4 mg tablet 8 mg PO TID Qty: 120 0RF magnesium hydroxide [Milk of Magnesia] 400 mg/5 mL suspension 15 ml PO DAILY PRN (Reason: Constipation) Qty: 355 0RF magnesium citrate Solution 300 ml PO DAILY PRN (Reason: Constipation) Qty: 296 0RF hydroxyzine HCl 25 mg Tablet 25 mg PO BID PRN (Reason: Itching) acetaminophen 325 mg Tablet 650 mg PO TID PRN (Reason: Pain) Discharge Orders: Discharge Order (Routine); Ordered 05/31/24 Ordered By: Fredi Dubois Referrals: Dolores Fabian FNP [Primary Care Provider] - Patient Instructions: Acute Wound Care (DC), Altered Mental Status (ED), Post Anesthesia Care Discharge Attestations Time Spent in Discharge Care*: greater than 30 min Quality Metrics Clinical Quality Measures [ No reported AMI, CVA or VTE this stay] Coding Level of Care Code Acute Code for Chg Fwd Diagnoses Decompensated hepatic cirrhosis K72.90; K74.60
--- NOTE | 2024-05-31 15:50 | PC.NURSE ---
Discharge Note Patient discharged to home via ambulance accompanied by ambulance personnel. Discharge instructions reviewed with patient and/or truck sales representative. Mobile pharmacy medications and/or prescriptions provided. Belongings/home medications returned.
== END 2024-05-31 15:50 | disposition hospice, home (50) ==
LOC: ER 23:10 → CSU 23:24 → MEDSURG 05-30 23:03
PROVIDERS: Surgery; Admitting Provider Internal Medicine; Emergency Provider Emergency Medicine; PCP Nurse Practitioner Family; Visit Provider Internal Medicine
PROC: 0WHG43Z Insertion of Infusion Device into Peritoneal Cavity, Percutaneous Endoscopic Approach (ICD-10-PCS; CPT 49324; principal; 2024-05-31 09:25)
DX: K74.60 Unspecified cirrhosis of liver (principal); E11.9 Type 2 diabetes mellitus without complications; J44.9 Chronic obstructive pulmonary disease, unspecified; Z79.4 Long term (current) use of insulin; G20.A1 Parkinson's disease without dyskinesia, without mention of fluctuations; Z87.891 Personal history of nicotine dependence; E03.9 Hypothyroidism, unspecified; G93.41 Metabolic encephalopathy; N17.9 Acute kidney failure, unspecified; E87.1 Hypo-osmolality and hyponatremia; K92.1 Melena; K72.90 Hepatic failure, unspecified without coma; R53.1 Weakness; Z66 Do not resuscitate
CPT/HCPCS: 49324; 36415; 36416; 71045; 80048; 80053; 82140; 82962; 85025; 85049; 85384; 85610; 85730; 86140; 87493; 93005; 96365; 96372; 96375; 96376; 99285; G0378; J0612; J0690; J1100; J1815; J2405; J2470; J2704; J3010; J3490; J7030; P9045